=== PATIENT | male | born 1940 | race Caucasian/White ===

== ENCOUNTER 2016-07-31 17:54 | Inpatient (IN) | payer OTHER, MEDICARE ==
[~2016-07-31] VITALS: Ht 180.3 cm; Wt 103.9 kg
[~2016-07-31 17:54] MED LIST: ACETAMINOPHEN500 M4 PO; ASPIRIN325 M2 PO; CARBIDOPA AND L1 TA1 PO; CARBIDOPA-LEVODOPA 2 PO; DOXYCYCLINE HY100 M4 PO; FINASTERIDE5 MG PO; GEMFIBROZIL600 MG PO; HUMALOG 100U100 U/ML SC; HUMALOG100 U/ML SC; HUMALOG100 UNIT/2 SC; LANTUS INS100 UNITS/ SC; LANTUS100 UNIT/1 SC; LEVOTHYROXIN0.025 MG PO; LEVOTHYROXINE0.05 M1 PO; LIPITOR40 M1 PO; LISINOPRIL10 MG PO; LISINOPRIL20 M1 PO; METOPROLOL TART50 M1 PO; NITROGLYCER0.4 MG/H1 ACW; NITROSTAT0.4 MG PO; NITROSTAT0.4 MG SL; NOVOLOG100 U/ML SC; OMEPRAZOLE20 M2 PO; OMEPRAZOLE20 MG PO; PERCOCET 5-3251 EACH PO; SPECTAZOLE0.1 %/15 G TOP; SYMBICORT 160/41 PUF INH; SYNTHROID0.025 MG PO; TRIAMCINOLONE 0.1 GM EXT
--- NOTE | 2016-07-31 20:12 | ED UPPER/LOWER EXTREMITY COMPL ---
History of Present Illness General Chief Complaint: Lower Extremity Problems Stated Complaint: RT LEG REDNESS/SWELLING Source: patient, old records Exam Limitations: no limitations Vital Signs & Intake/Output Vital Signs & Intake/Output Vital Signs Date Time Temp Pulse Resp B/P Pulse O2 O2 Flow FiO2 Ox Delivery Rate 08/05 2225 98.1 73 20 132/70 96 Room Air 08/05 0935 128/70 08/05 0635 98.7 74 20 128/76 97 Room Air ED Intake and Output 08/05 0000 08/04 1200 Intake Total 1240 130 Output Total Balance 1240 130 Intake, IV 0 10 Intake, Oral 1240 120 Number 0 Bowel Movements Allergies Coded Allergies: codeine (RASH, STOMACH PAIN 09/07/15) fish derived (STOMACH PAIN FROM `SEA FOOD' 09/07/15) Reconcile Medications Acetaminophen 500 MG TABLET 1 TAB PO AD PRN PAIN (Reported) Aspirin (Aspirin*) 325 MG TABLET 1 TAB PO DAILY HEART HEALTH (Reported) Atorvastatin Calcium (Lipitor) 40 MG TABLET 1 TAB PO DAILY CHOLESTEROL ( Reported) Budesonide/Formoterol Fumara (Symbicort 160-4.5 Mcg Inhaler) 160 MCG/4.5 MCG PUF 2 PUF INH BID COPD (Reported) Carbidopa/Levodopa (Carbidopa and Levodopa) 25 MG/100 MG TAB 1 TAB PO TID PARKINSONS (Reported) Finasteride 5 MG TAB 1 TAB PO DAILY PROSTATE (Reported) Gemfibrozil 600 MG TABLET 1 TAB PO BID CHOLESTEROL (Reported) Insulin Lispro (Humalog) 100 UNIT/ML VIAL 20 U SC TIDAC DIABETES (Reported) Insulin-Lantus (Lantus) 100 UNIT/ML VIAL 60 U SC QPM DIABETES (Reported) Levothyroxine Sodium 25 MCG TABLET 1 TAB PO DAILY AC THYROID (Reported) Lisinopril 20 MG TABLET 1 TAB PO DAILY HEART (Reported) Metoprolol Tartrate 50 MG TABLET 1 TAB PO DAILY HEART HEALTH (Reported) Nitroglycerin (Nitrostat) 0.4 MG TAB.SUBL 1-3 TAB PO AD PRN HEART (Reported) Omeprazole 20 MG CAPSULE.DR 1 CAP PO DAILY PRN GERD (Reported) Triage Note: C/O PAIN IN REDNESS TO RIGHT LOWER LEG, X 3 WEEKS, WAS ADMITTED IN 07/02, HAD R GREAT TOE AMPUTATED AND STENT INSERTED. SENT BY DR. RAYA. PMH: DM. Triage Nurses Notes Reviewed? yes Onset: Gradual Duration: week(s): (few) Timing: recent history Severity: moderate Pain/Injury Location: Right: Knee, Foot. No Modifying Factors: none Associated Symptoms: swelling, redness, drainage from wound HPI: 75 year old male who presents to the ER for chief compliant of right leg redness and swelling for the past 3 weeks. He is s/p amputatino of his 2nd toe and vascular stent of the same leg. He states that he was following up at the wound care center and was told by Dr. Lloyd that he needed to have the stent revised. He was supposed to get cardiology clearance but could not go back and forth to the offices. He has not been back to the wound care center in a few weeks and now reports drainage and smell from lelia wound between his toes. He states that Dr. Raya also needs to revise the flap that was done. He denies any fever or chills, nausea or vomiting. Past History Travel History Traveled to [place] past 21 day No Medical History Any Pertinent Medical History? 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 Cardiovascular: CHF, hypertension, PVD, PPM RCW CABG Respiratory: COPD Gastrointestinal: CHRONIC PANCREATITIS CIRRHOSIS Hepatic: NONE Musculoskeletal: ARTHRITIS Psychiatric: anxiety, bipolar disease, depression, PANIC ANXIETY Endocrine: diabetes Blood Disorders: anemia History of MRSA: Yes History of VRE: No History of CDIFF: No Pneumonia Vaccine: 03/16/12 Influenza Vaccine: 02/15/16 Tetanus Vaccine: 10/17/12 Surgical History Surgical History: CABG Psychosocial History Who do you live with Patient/Self Services at Home Home Health Aide What is your primary language Portuguese Tobacco Use: Current Daily Use Daily Tobacco Use Amount/Type: => 5 Cigarettes daily ETOH Use: occasional use Family History Family History, If Any: FATHER CVA FH: CAD (coronary artery disease) FH: heart attack BROTHER FH: CAD (coronary artery disease) SISTER FH: CAD (coronary artery disease) Hx Contributory? No Review of Systems Review of Systems Constitutional: Reports: malaise, weakness. Denies: chills, fever. EENTM: Reports: no symptoms. Respiratory: Denies: cough, short of breath. Cardiovascular: Denies: chest pain. Gastrointestinal/Abdominal: Reports: no symptoms. Genitourinary: Reports: see HPI. Musculoskeletal: Reports: no symptoms. Skin: Reports: no symptoms. Neurological/Psychological: Reports: no symptoms. Hematologic/Endocrine: Denies: bruising, bleeding. Immunological: Denies: splenectomy. All Other Systems: Reviewed and Negative Physical Exam Physical Exam General Appearance: well developed/nourished, alert, awake, mild distress, obese Head: atraumatic Eyes: Bilateral: PERRL, EOMI. Ears, Nose, Throat: normal pharynx, normal ENT inspection, hearing grossly normal Neck: normal inspection, supple Cardiovascular/Respiratory: regular rate/rhythm Peripheral Pulses: 2+ radial (R), 2+ radial (L) Back: normal inspection Leg Left: normal range of motion, normal inspection Leg Right: swelling, soft tissue tenderness Hip Left: normal range of motion, normal inspection Hip Right: normal range of motion, normal inspection Knee Left: normal range of motion, normal inspection Knee Right: normal range of motion, normal inspection Foot Left: normal inspection, normal range of motion Foot Right: OPEN DRAINING WOUND AT SITE OF 2ND TOE AMPUTATION Neurologic/Tendon: normal motor functions, normal tendon functions, DIMINISHED SENSATION AND HOBBS IN RIGHT LEG AND FOOT Skin: intact, normal color, warm/dry Lymphatic: no anterior cervical adan Diagram Legs Front/Back 1) PAIN/SWELLING Feet Top 1) DRAINING WOUND Progress Differential Diagnosis: arterial insufficiency, cellulitis, DVT, OSTEOMYELITIS, DIABETIC FOOT WOUND Plan of Care: Orders Procedure Date/time Status Nothing by Mouth 08/06 B Active PROTHROMBIN TIME 08/06 0600 Active CBC WITHOUT DIFFERENTIAL 08/06 0600 Active BASIC ELECTROLYTES PLUS BUN&CR 08/06 0600 Active Consistent Carbohydrate 3 08/05 D Complete CULTURE,URINE 08/05 1130 Active CBC WITHOUT DIFFERENTIAL 08/05 0600 Complete Misc Message 08/05 UNK Active Nursing Misc 08/05 UNK Active CMS- Neurovascular Checks 08/05 UNK Active Current Medications Sig/Uvaldo Start time Last Medication Dose Stop Time Status Admin Atorvastatin Calcium 40 MG 1700 08/06 1700 AC (Lipitor) Patient Medication 1 UNIT 1700 08/06 1700 AC Teaching 08/06 1701 (STATIN EDUCATION) Aspirin 325 MG DAILY 08/06 1000 AC (Aspirin) Enoxaparin Sodium 40 MG DAILY 08/06 1000 AC (Lovenox) Finasteride 5 MG DAILY 08/06 1000 AC (Proscar) Lisinopril 20 MG DAILY 08/06 1000 AC (Prinivil) Metoprolol Tartrate 50 MG DAILY 08/06 1000 AC (Lopressor) Patient Medication 1 UNIT 1000 08/06 1000 AC Teaching 08/06 1001 (ANTICOAGULANT EDUCATION) Patient Medication 1 UNIT 1000 08/06 1000 AC Teaching 08/06 1001 (PATRICIA INHIBITOR EDUCATION) Patient Medication 1 UNIT 1000 08/06 1000 AC Teaching 08/06 1001 (BETA JLUIS EDUCATION) Levothyroxine Sodium 0.025 MG DAILY AC 08/06 0700 AC (Synthroid) Ibuprofen 600 MG Q6P PRN 08/05 1345 AC (Motrin) Lorazepam 0 Q1P PRN 08/05 1345 AC (Ativan) Laboratory Tests 08/05/16 0625: CBC w Diff NO MAN DIFF REQ, RBC 3.01 L, MCV 92.3, MCH 31.2 H, RDW 14.0, MPV 6.6 L, Gran % 59.1, Lymphocytes % 28.1, Monocytes % 9.5 H, Eosinophils % 2.9, Basophils % 0.4, Absolute Granulocytes 3.6, Absolute Lymphocytes 1.7, Absolute Monocytes 0.6, Absolute Eosinophils 0.2, Absolute Basophils 0, PUBS MCHC 33.8 Microbiology 08/05 1055 URINE ROUT: Urine Culture - RECD Diagnostic Imaging: Viewed by Me: Radiology Read, Ultrasound. Discussed w/RAD: Radiology Read, Ultrasound. Radiology Impression: PATIENT: JAMES GARCIA PRESENT AGE: 75 PATIENT ACCOUNT NO: [id number] : 38 LOCATION: [facility] ORDERING PHYSICIAN: MICHELE NOBLE MD SERVICE DATE: 07/31/16-2025 EXAM TYPE: US - US-UNILATERAL VENOUS DOPPLER EXAMINATION: US TRIPLEX LOWER EXTREMITY, RIGHT CLINICAL INFORMATION: Edema and leg swelling. Rule out DVT. COMPARISON: None TECHNIQUE: Color-flow triplex imaging with spectral analysis and compression Doppler were performed on the right lower extremity. FINDINGS: Respiratory variation, normal compression and augmented flow are noted throughout the lower extremity. The visualized common femoral vein, superficial femoral vein, profunda femoral vein, popliteal vein and midcalf peroneal and posterior tibial venous segments show no evidence of deep venous thrombosis. There is no Kay's cyst. IMPRESSION: Normal triplex scan without evidence of deep venous thrombosis involving the right lower extremity. DICTATED BY: TOBY SANTOS MD DATE/TIME DICTATED:07/31/162123 LAPPING MACHINE SET UP OPERATOR:LAUREN DATE/TIME TRANSCRIBED:2123 CONFIDENTIAL, DO NOT COPY WITHOUT APPROPRIATE AUTHORIZATION. < Electronically signed in Other Vendor System> SIGNED BY: TOBY SANTOS MD 07/31/162127 CXR Impression: PATIENT: JAMES GARCIA PRESENT AGE : 75 PATIENT ACCOUNT NO: [id number] : 38 LOCATION: [facility] ORDERING PHYSICIAN: MICHELE NOBLE MD SERVICE DATE: 07/31/16 EXAM TYPE: RAD - XRY -CHEST XRAY, PA AND LATERAL EXAMINATION: XR CHEST CLINICAL INFORMATION: Preoperative study. COMPARISON: Chest x-ray from 06/02/2016. TECHNIQUE: 2 views of the chest were obtained. FINDINGS: The cardiac silhouette is prominent with a dual-chamber pacemaker device in place. Lead tips are unchanged in position. No airspace opacities or pleural effusions are seen. There is no evidence of pulmonary vascular congestion. Median sternotomy wires are again visible. No acute osseous abnormality is seen. IMPRESSION: Clear lungs. No acute process. DICTATED BY: TOBY SANTOS MD DATE/TIME DICTATED:07/31/162133 LAPPING MACHINE SET UP OPERATOR:LAUREN DATE/TIME TRANSCRIBED:07/31/162133 CONFIDENTIAL, DO NOT COPY WITHOUT APPROPRIATE AUTHORIZATION. <Electronically signed in Other Vendor System> SIGNED BY: TOBY SANTOS MD 07/31/162138 Departure Departure Time of Disposition: 2219 Disposition: STILL A PATIENT Condition: Stable Clinical Impression Primary Impression: Wound, open, foot Referrals: ANGELA WINN APRN (PCP/Family) Departure Forms: Customer Survey General Discharge Information Admission Note Spoke With: CARLOS SUN MD Documentation of Exam: Documentation of any treatments & extenuating circumstances including Concerns Regarding Discharge (functional status, medication knowledge or non-compliance, living conditions, etc.) that warrant an admission rather than observation: [F/U CULTURES, PODIATRY CONSULTATION, VASCULAR CONSULTATION, PAIN CONTROL, POSSIBLE OR DEBRIDEMENT]
--- NOTE | 2016-07-31 21:28 | ULTRASOUND REPORT ---
EXAMINATION: US TRIPLEX LOWER EXTREMITY, RIGHT CLINICAL INFORMATION: Edema and leg swelling. Rule out DVT. COMPARISON: None TECHNIQUE: Color-flow triplex imaging with spectral analysis and compression Doppler were performed on the right lower extremity. FINDINGS: Respiratory variation, normal compression and augmented flow are noted throughout the lower extremity. The visualized common femoral vein, superficial femoral vein, profunda femoral vein, popliteal vein and midcalf peroneal and posterior tibial venous segments show no evidence of deep venous thrombosis. There is no Kay's cyst. IMPRESSION: Normal triplex scan without evidence of deep venous thrombosis involving the right lower extremity.
--- NOTE | 2016-07-31 21:39 | RADIOLOGY REPORT ---
EXAMINATION: XR CHEST CLINICAL INFORMATION: Preoperative study. COMPARISON: Chest x-ray from 06/02/2016. TECHNIQUE: 2 views of the chest were obtained. FINDINGS: The cardiac silhouette is prominent with a dual-chamber pacemaker device in place. Lead tips are unchanged in position. No airspace opacities or pleural effusions are seen. There is no evidence of pulmonary vascular congestion. Median sternotomy wires are again visible. No acute osseous abnormality is seen. IMPRESSION: Clear lungs. No acute process.
--- NOTE | 2016-07-31 22:01 | RADIOLOGY REPORT ---
EXAMINATION: XR FOOT, RIGHT CLINICAL INFORMATION: Drainage at the base of the second toe. Concern for osteomyelitis. COMPARISON: Right foot 07/11/2016 TECHNIQUE: AP, lateral, and oblique views of the right foot. FINDINGS: Patient has had resection of the right second toe at the metatarsophalangeal joint. The head of the second metatarsal cortex remains intact with no evidence of bone destruction. No radiographic evidence of osteomyelitis. Consider MRI without and with contrast for further evaluation. Small plantar calcaneal spur. Largest spur posterior calcaneus at the insertion of the Achilles tendon. Small vessel calcifications in the foot. IMPRESSION: Status post resection of the right second toe at the metatarsophalangeal joint. No radiographic evidence of osteomyelitis. Consider further assessment with MRI.
[2016-07-31 22:15] LABS: ABSOLUTE BASOPHIL COUNT 0 /CUMM (0.0-0.2); ABSOLUTE EOSINOPHIL COUNT 0.2 /CUMM (0.0-0.7); ABSOLUTE GRANULOCYTE CT 5.1 /CUMM (1.4-6.5); ABSOLUTE LYMPH COUNT 1.9 /CUMM (1.2-3.4); ABSOLUTE MONOCYTE COUNT 0.6 /CUMM (0.10-0.60); BASOPHIL % 0.3 % (0.0-2.0); EOSINOPHIL % 2.2 % (0-5); GRANULOCYTE % 65.7 % (42.2-75.2); HEMATOCRIT 32.4 % (42-52); MEAN CORPUSCULAR HGB 30.6 PG (27.0-31.0); MEAN CORPUSCULAR HGB CONC 33.6 G/DL (33.0-37.0); MEAN CORPUSCULAR VOLUME 91.2 FL (80.0-94.0); MEAN PLATELET VOLUME 6.1 FL (7.4-10.4); PLATELET COUNT 246 /CUMM (130-400); RBC DISTRIBUTION WIDTH 14.4 % (11.5-14.5); RED BLOOD CELL CT 3.56 /CUMM (4.70-6.10); WHITE BLOOD CELL COUNT 7.7 /CUMM (4.8-10.8)
[2016-07-31 22:30] LABS: PT 11.9 SEC (9.4-12.5); PTT 41 SEC (25-37)
--- NOTE | 2016-07-31 22:43 | History & Physical ---
GM VELASCO,DIANNA 07/31/16 2243: General Information and HPI Source of Information: patient, old records Exam Limitations: no limitations History of Present Illness: Patient is a 75-year-old male with significant past medical history of COPD not on home oxygen, coronary artery disease, s/p CABG, pacemaker placement, CHF, chronic liver disease/cirrhosis, chronic pancreatitis, peripheral vascular disease s/p, left superficial femoral artery and popliteal artery angioplasty and stent, hypothyroidism, Parkinson's disease,amputation of right great toe for osteomyelitis presented with chief complaints of pain and redness to the right lower leg since last 3 weeks. He denies fever, chills, nausea, vomiting, dyspnea, constipation. He visited Dr. Turner 2 and half weeks ago. He says that after amputation, the wound never healed and he is seeing discharge from the wound since last for 2 days. His box worker - Dr. Laws/Dr. Dimas. He recently had a stress test which was normal. 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 He decreased the amount of smoking from 5ppd to cigar. He sometimes chew cigarettes. Family history-father/medical/bipolar/sisters all have history of cases, diabetes, hypertension Allergies/Medications Allergies: Coded Allergies: codeine (RASH, STOMACH PAIN 09/07/15) fish derived (STOMACH PAIN FROM `SEA FOOD' 09/07/15) Home Med list Acetaminophen 500 MG TABLET 1 TAB PO AD PRN PAIN (Reported) Aspirin (Aspirin*) 325 MG TABLET 1 TAB PO DAILY HEART HEALTH (Reported) Atorvastatin Calcium (Lipitor) 40 MG TABLET 1 TAB PO DAILY CHOLESTEROL ( Reported) Budesonide/Formoterol Fumara (Symbicort 160-4.5 Mcg Inhaler) 160 MCG/4.5 MCG PUF 2 PUF INH BID COPD (Reported) Carbidopa/Levodopa (Carbidopa and Levodopa) 25 MG/100 MG TAB 1 TAB PO TID PARKINSONS (Reported) Finasteride 5 MG TAB 1 TAB PO DAILY PROSTATE (Reported) Gemfibrozil 600 MG TABLET 1 TAB PO BID CHOLESTEROL (Reported) Insulin Lispro (Humalog) 100 UNIT/ML VIAL 20 U SC TIDAC DIABETES (Reported) Insulin-Lantus (Lantus) 100 UNIT/ML VIAL 60 U SC QPM DIABETES (Reported) Levothyroxine Sodium 25 MCG TABLET 1 TAB PO DAILY AC THYROID (Reported) Lisinopril 20 MG TABLET 1 TAB PO DAILY HEART (Reported) Metoprolol Tartrate 50 MG TABLET 1 TAB PO DAILY HEART HEALTH (Reported) Nitroglycerin (Nitrostat) 0.4 MG TAB.SUBL 1-3 TAB PO AD PRN HEART (Reported) Omeprazole 20 MG CAPSULE.DR 1 CAP PO DAILY PRN GERD (Reported) Past History Travel History Traveled to [place] past 21 day No Medical History Neurological: Parkinson's disease, 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 Cardiovascular: CHF, hypertension, PVD, PPM RCW CABG Respiratory: COPD Gastrointestinal: CHRONIC PANCREATITIS CIRRHOSIS Hepatic: NONE Musculoskeletal: ARTHRITIS Psychiatric: anxiety, bipolar disease, depression, PANIC ANXIETY Endocrine: diabetes Blood Disorders: anemia History of MRSA: Yes History of VRE: No History of CDIFF: No Pneumonia Vaccine: 03/16/12 Influenza Vaccine: 02/15/16 Tetanus Vaccine: 10/17/12 Surgical History Surgical History: CABG Past Family/Social History Family History Relations & Conditions if any FATHER CVA FH: CAD (coronary artery disease) FH: heart attack BROTHER FH: CAD (coronary artery disease) SISTER FH: CAD (coronary artery disease) Psychosocial History Who Do You Live With? self Services at Home: Home Health Aide ETOH Use: occasional use Functional Ability ADLs Unknown: dressing, eating, toileting, bathing. Ambulation: walker IADLs Needs Assist: shopping, housework, transportation, medication admin. Review of Systems Review of Systems Constitutional: Denies: no symptoms. EENTM: Denies: no symptoms. Cardiovascular: Denies: no symptoms. Respiratory: Denies: no symptoms. GI: Denies: no symptoms. Genitourinary: Denies: no symptoms. Musculoskeletal: Denies: no symptoms. Skin: Denies: no symptoms. Neurological/Psychological: Reports: anxiety. Exam & Diagnostic Data Last 24 Hrs of Vital Signs/I&O Vital Signs Date Time Temp Pulse Resp B/P Pulse O2 O2 Flow FiO2 Ox Delivery Rate 08/01 0628 98.7 86 20 146/74 96 Room Air 08/01 0152 98.3 75 20 142/76 96 Room Air 07/31 2359 98 Room Air 07/31 2307 97.8 59 18 167/86 99 07/31 1840 98.0 93 18 172/90 98 Room Air Intake & Output 08/01 0800 02 0000 07/31 1600 Intake Total Output Total 150 250 Balance -150 -250 Output, Urine 150 250 Patient 104.326 kg 104.326 kg Weight Physical Exam General Appearance Alert, Oriented X3, Cooperative, No Acute Distress Skin right lower limb interdigital ulcers, with necrosed Soft tissue HEENT Atraumatic, PERRLA, EOMI Neck Supple, No JVD Cardiovascular Regular Rate, Normal S1, Normal S2 Lungs Clear to Auscultation, Normal Air Movement Abdomen Soft, No Tenderness, distended Neurological Normal Speech Extremities No Clubbing, No Cyanosis, No Edema Vascular Normal Pulses Assessment/Plan Assessment: Patient is a 75-year-old male with significant past medical history of COPD not on home oxygen, coronary artery disease, s/p CABG, pacemaker placement, CHF, chronic liver disease/cirrhosis, chronic pancreatitis, peripheral vascular disease s/p, left superficial femoral artery and popliteal artery angioplasty and stent, hypothyroidism, Parkinson's disease,amputation of right great toe for osteomyelitis presented with chief complaints of pain and redness to the right lower leg since last 3 weeks. Vital signs at the time of admission -temperature 98.3, pulse 93, respiratory rate 18, blood pressure 172/90, SPO2 98% on room air CXR - No any acute cardiac pulmonary process. Right Foot x-ray - No evidence of osteomyelitis. Doppler venous ultrasound right lower extremity -negative for DVT plan - * We placed consult for vascular surgery, wound, podiatry consult. We will follow the recommendation. * We'll follow the bone scan. * We will take culture from the wound * We placed the podiatry consult and kept patient nothing by mouth for possible debridement today * We will follow the cultures, after debridement, and we'll give the antibiotic accordingly * We will follow the patient off antibiotic * We will give pain medication according to severity of pain * We will continue all home medication * Will check blood sugar 3 times a day and bed time and adjust with NovoLog according to sliding scale * Diet-nothing by mouth * CODE STATUS-full code * DVT prophylaxis-ALP S/heparin As Ranked By This Provider Problem List: 1. Diabetes mellitus 2. Sleep apnea 3. Dyslipidemia 4. Parkinson disease 5. Hypothyroidism 6. PVD (peripheral vascular disease) 7. Wound infection Core Measures/Miscellaneous Acute Coronary Syndrome ACS Diagnosis: No Cerebrovascular Accident CVA/TIA Diagnosis: No Congestive Heart Failure CHF Diagnosis: No Venous Thromboembolism VTE Risk Factors: Age > 40 VTE Prophylaxis Ordered Inpt: Mechanical (ALPS/TEDS) [facility] prophylaxis d/t: No contraindications No VTE Pharm Prophylaxis d/t: No contraindications VTE Diagnosis: No VTE Type: NONE VTE Confirmed by (Test): NONE Severe Sepsis Severe Sepsis Present: No Septic Shock Septic Shock Present: No Miscellaneous Documentation Attending Case Discussed With: CARLOS SUN MD Primary Care Physician: ANGELA WINN APRN Patient sees these Specialists none Level of Patient Care: General Medicine DAVIAN MATOS 08/01/16 0431: Resident Review Statement Resident Statement: agreed with intelligence intern Other Findings: He is 75-year-old man with past medical history of hypertension, severe peripheral vascular disease status post left superficial femoral artery and popliteal artery angioplasty and stent of right superficial femoral artery, COPD , coronary artery disease status post CABG, pacemaker placement, chronic pancreatitis, cirrhosis, insulin-dependent diabetes mellitus, hypothyroidism, Parkinson's disease, CHF and acute gangrenous necrosis with underlying osteomyelitis of right second toe status post amputation by Dr. Berrios in May 2016 with negative bone margins for osteo was sent in to [facility] by Dr. Berrios from wound care center. Patient is complaining of right leg swelling, redness and right foot second interdigital chronic nonhealing ulcer draining pussy discharge. Patient denies any fever, chills. Review of systems negative. Patient is current smoker. Has been smoking since age of 10. Used to smoke 5 packs per day. Trying to quit. Drinks alcohol occasionally. Vitals on admission: Temperature 90.8, pulse 93, respiratory rate 18, blood pressure 172/90 and oxygen saturation 98% on room air Positive physical exam findings: Systolic murmur on heart auscultation, her right lower leg swelling redness. Leg and foot are warm and tender. Pussy discharge coming out from ulcer. Fungal infection of toenails. Skin is dry with chronic venous stasis changes. Left leg is cold and looks pale. Pulses are weakly palpable. Sensations intact. Pertinent labs: H&H 10.9/32.4, ESR 75, alkaline phosphatase 140 Right Foot x-ray: No radiographic evidence of osteomyelitis. CXR: Clear lungs. No acute process. Doppler venous ultrasound right lower extremity is negative for DVT Assessment and plan He is 75-year-old man with multiple comorbidities is going to be admitted on general medicine floor for cellulitis of right lower extremity and foot with infection of nonhealing chronic ulcer at the site of right second toe amputation. We will monitor vitals closely. We will follow him off antibiotics for now pending debridement tomorrow. We will start antibiotics after cultures. Foot x-rays not showing any evidence of osteomyelitis. We will get bone scan to rule out osteomyelitis.. Patient cannot get MRI because of pacemaker. Keep patient nothing by mouth. Continue all his home medications. Admitted binge drinking to cope his chronic pain. We will put patient on CIWA protocol and IV Ativan as needed per CIWA. Podiatry consult, vascular surgery consult and will consult in a.m. Pain management pathway. Subcutaneous Lovenox for DVT prophylaxis. Full code. CARLOS SUN 08/01/16 0513: Attending MD Review Statement Attending Statement Attending MD Statement: examined this patient, discuss w/resident/PA/BITE BLOCK MAKER, agreed w/resident/PA/BITE BLOCK MAKER, reviewed EMR data (avail), reviewed images, amended to note Attending Assessment/Plan: CC: chronic non healing right foot wound PMH: CAD S/P CABG, pacemaker, HLD, PVD, HTN, HLD, insulin-dependent diabetes, hypothyroidism, all colic cirrhosis, chronic pancreatitis, COPD He was in [facility] in May for dry gangrene and cellulitis of right foot underwent I and D of deep fascia with exposure of extensor and flexor tendons of right foot, partial resection of right second toe, closure of necrotic wound. He also underwent ultrasound-guided left common femoral artery access and angioplasty of the right femoral artery, angioplasty and stenting of right SFA. Patient was following up with outpatient clinic, but wound was not healing. Patient states that the stent was stenosed according to vascular surgeon, needs reevaluation, with worsening of right foot pain, swelling, discharge, non-healing wound it was difficult for him to follow up outpatient wound care, vascular, and podiatry so he came to ER. He Denies fever, chills, chest pain, SOB, any repeat trauma. Vitals: Afebrile, HR, RR, BP, O2 saturation within acceptable range. On exam: A O 3, no apparent distress, neck supple, no JVD, no lymphadenopathy, mucosa moist, CVS: S1-S2, irregular, systolic murmur in aortic area, diastolic murmur in mitral area, RS: Clear to auscultation bilaterally. Abdomen: Obese, NT, ND, bowel sounds present. Right lower extremity is increased girth compared to left lower extremity, but this appears to be chronic after the vein graft taken for CABG, he has scar on the medial aspect. Medial aspect along the ankle has some redness, erythema, increased temperature but no crepitus. Second digit web space wound is deep, foul smelling pus discharge, dorsal aspect of foot has dry stasis dermatitis changes without much inflammation but bony tenderness present on dorsum of foot. Labs: WBC 7.7, hemoglobin 10.9, ESR 75, CMP unremarkable. Right foot x-ray: S/P resection of right second toe at metatarsophalangeal joint , no radiological evidence of osteomyelitis CXR: No acute processes DVT Doppler right lower extremity: Normal scan without any evidence of DVT A and P #1 chronic nonhealing wound right lower extremity after the procedure: Currently patient does not have any signs of sepsis, afebrile, no tachycardia, no leukocytosis. Patient has deep pus filled cavity in the second web space. patient has some cellulitis medial aspect of right lower extremity around ankle. Get bone scan to rule out developing osteomyelitis, hold off antibiotics for now. Consult cnc cutting operator Dr. Berrios in a.m. for likely debridement and tissue culture for antibiotic sensitivity. Consult vascular surgery in a.m. antibiotics after the procedure if possible. Adequate pain control #2 chronic stable conditions: CAD, CHF, HTN, HLD, diabetes, hypothyroidism: Continue all home medications, continue sliding scale and basal insulin for DM. Patient likely to have heavy alcohol use, continue scheduled and when necessary Ativan according to CIWA score
[2016-08-01 01:52] VITALS: BP 142/76
--- NOTE | 2016-08-01 05:15 | Admission Certification ---
Admission Certification Certification Statement - As attending physician, I certify that at the time of - admission, based on clinical presentation, severity of - symptoms, need for further diagnostic testing and - therapeutic interventions, and risk of adverse outcomes - without in-hospital treatment, in my clinical assessment, - this patient requires an acute hospital stay for a minimum - of two nights or longer. I have also considered psychsocial - factors such as support system, advanced age, financial - issues, cognitive issues, and failed out-patient treatments, - past re-admission history, safety of patient, and lack of - compliance as applicable. Specific rationale supporting this admission is: Chronic nonhealing wound right lower extremity with secondary infection and cellulitis
[2016-08-01 06:28] VITALS: BP 146/74
[2016-08-01 08:23] LABS: ABSOLUTE BASOPHIL COUNT 0 /CUMM (0.0-0.2); ABSOLUTE EOSINOPHIL COUNT 0.2 /CUMM (0.0-0.7); ABSOLUTE GRANULOCYTE CT 4.2 /CUMM (1.4-6.5); ABSOLUTE LYMPH COUNT 1.8 /CUMM (1.2-3.4); ABSOLUTE MONOCYTE COUNT 0.6 /CUMM (0.10-0.60); BASOPHIL % 0.4 % (0.0-2.0); EOSINOPHIL % 2.5 % (0-5); GRANULOCYTE % 62.1 % (42.2-75.2); MEAN CORPUSCULAR HGB CONC 33.8 G/DL (33.0-37.0); MEAN CORPUSCULAR VOLUME 91.9 FL (80.0-94.0); MEAN PLATELET VOLUME 6.3 FL (7.4-10.4); PLATELET COUNT 218 /CUMM (130-400); RBC DISTRIBUTION WIDTH 14.4 % (11.5-14.5); RED BLOOD CELL CT 3.16 /CUMM (4.70-6.10); WHITE BLOOD CELL COUNT 6.8 /CUMM (4.8-10.8)
--- NOTE | 2016-08-01 08:38 | Cons- Wound Care ---
General Information and HPI Consulting Request Date of Consult: 08/01/16 Requested By: CARLOS SUN MD Reason for Consult: Nonhealing right diabetic foot ulcer complicated by osteomyelitis History of Present Illness: Patient is 75-year-old gentleman with long-standing brittle diabetes history of heart disease peripheral vascular disease status post angioplasty admitted with concerns over possible soft tissue skin infection osteomyelitis following surgical resection of his right second toe. Mr. Arteaga presented May with dry gangrene of the right second toe he underwent angioplasty stent placement on June 04 and underwent amputation of a necrotic toe with evidence of osteomyelitis. Had a persistent nonhealing wound treated with Santyl ointment Betadine he's had increasing leg swelling. Allergies/Medications Allergies: Coded Allergies: codeine (RASH, STOMACH PAIN 09/07/15) fish derived (STOMACH PAIN FROM `SEA FOOD' 09/07/15) Home Med List: Acetaminophen 500 MG TABLET 1 TAB PO AD PRN PAIN (Reported) Aspirin (Aspirin*) 325 MG TABLET 1 TAB PO DAILY HEART HEALTH (Reported) Atorvastatin Calcium (Lipitor) 40 MG TABLET 1 TAB PO DAILY CHOLESTEROL ( Reported) Budesonide/Formoterol Fumara (Symbicort 160-4.5 Mcg Inhaler) 160 MCG/4.5 MCG PUF 2 PUF INH BID COPD (Reported) Carbidopa/Levodopa (Carbidopa and Levodopa) 25 MG/100 MG TAB 1 TAB PO TID PARKINSONS (Reported) Finasteride 5 MG TAB 1 TAB PO DAILY PROSTATE (Reported) Gemfibrozil 600 MG TABLET 1 TAB PO BID CHOLESTEROL (Reported) Insulin Lispro (Humalog) 100 UNIT/ML VIAL 20 U SC TIDAC DIABETES (Reported) Insulin-Lantus (Lantus) 100 UNIT/ML VIAL 60 U SC QPM DIABETES (Reported) Levothyroxine Sodium 25 MCG TABLET 1 TAB PO DAILY AC THYROID (Reported) Lisinopril 20 MG TABLET 1 TAB PO DAILY HEART (Reported) Metoprolol Tartrate 50 MG TABLET 1 TAB PO DAILY HEART HEALTH (Reported) Nitroglycerin (Nitrostat) 0.4 MG TAB.SUBL 1-3 TAB PO AD PRN HEART (Reported) Omeprazole 20 MG CAPSULE.DR 1 CAP PO DAILY PRN GERD (Reported) Review of Systems Review of Systems: The above Past History Travel History Traveled to [place] past 21 day No Medical History Blood Transfusion Hx: No Neurological: Parkinson's disease, 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 Cardiovascular: CHF, hypertension, PVD, PPM RCW CABG Respiratory: COPD Gastrointestinal: CHRONIC PANCREATITIS CIRRHOSIS Hepatic: NONE Musculoskeletal: ARTHRITIS Psychiatric: anxiety, bipolar disease, depression, PANIC ANXIETY Endocrine: diabetes Blood Disorders: anemia Surgical History Surgical History: CABG Family History Relations & Conditions If Any: FATHER CVA FH: CAD (coronary artery disease) FH: heart attack BROTHER FH: CAD (coronary artery disease) SISTER FH: CAD (coronary artery disease) Psychosocial History Who Do You Live With? self Services at Home: Home Health Aide Smoking Status: Current Everyday Smoker ETOH Use: occasional use Functional Ability ADLs Unknown: dressing, eating, toileting, bathing. Ambulation: walker IADLs Needs Assist: shopping, housework, transportation, medication admin. Exam & Diagnostic Data Vital Signs and I&O Vital Signs Result Date Time Pulse Ox 96 08/01 627 B/P 146/74 08/01 627 O2 Delivery Room Air 08/01 627 Temp 98.7 08/01 627 Pulse 86 08/01 627 Resp 20 08/01 627 Intake & Output 08/01 0000 07/31 1600 07/31 0800 Intake Total Output Total 250 Balance -250 Output, Urine 250 Patient 230 lb Weight Exam of the right leg shows there to be 2-3+ pitting edema there is erythema present ulcers are not palpable but were previously easily identified by hand- held Doppler ultrasound of the surgical resection site is a nonhealing unstageable wound measuring 4 x 1.4 cm with 100% yellow fill Assessment/Plan Impression/Plan: 75-year-old gentleman with long-standing diabetes peripheral vascular disease has a nonhealing diabetic foot ulcers status post amputation she will require surgical debridement and re-evaluation for persistent osteomyelitis of the residual metatarsal. If there are no further vascular interventions available and patient's compliance can be assured he would be a candidate for hyperbaric oxygen therapy. Patient is scheduled to go to the operating room later today following discussion with Dr. Berrios wound care recommendations will be provided Consult Acknowledgment - Thank you for your consult request.
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
[2016-08-01 14:26] VITALS: BP 150/90
--- NOTE | 2016-08-01 17:38 | Cons- Cardiology ---
General Information and HPI Consulting Request Date of Consult: 08/01/16 Requested By: MITCHEL BETH MD Reason for Consult: Cardiac clearance for foot debridement and also angiogram. Source of Information: patient, old records Exam Limitations: no limitations History of Present Illness: James Rogers is a 75 year old man with a history of coronary artery disease with bypass surgery about 15 years ago. He has had no ischemic events since that time. He does have a pacemaker implanted at 2008 at [facility] for sinus node dysfunction, which I have been following intermittently, as the patient is frequently noncompliant with office visits. The patient also has had multiple angioplasties, but this was before I began caring for him, and I have no information on that. The patient had a nuclear stress test at [facility] about 3 years ago, which was apparently negative for ischemia. I saw him in the office in October 2013, at which time he was asymptomatic from a cardiac standpoint. He had some mild stable chronic dyspnea on exertion, no chest pain. EKG showed sinus rhythm with PACs, some atrial pacing, and some nonspecific T wave changes. The patient subsequently was hospitalized in November 2013 complaining of inhaling some insecticide and having nausea and vomiting and had an elevated lactic acid. He also had a high alcohol level on admission. I checked his pacemaker on that admission and it was working well and still had time left on the battery. He had had a previous admission in July 2013 for atypical chest pain with a negative evaluation. On 05/09/2015 the patient came to the [facility] emergency department complaining of a near syncopal episode which occurred while he was taking a shower with the aide in the apartment. There is no history of chest pain or excessive shortness of breath The patient presented in 2014 with a syncopal episode which we thought was either vasovagal or due to some dehydration. He was rehydrated and improved, and stayed in the hospital for a couple of extra days for social reasons, but otherwise was discharged home in good condition. I last saw James in the office in August 2015. I checked his device and ordered a stress test, which was a Persantine nuclear stress test and was negative for ischemia. James has been complaining intermittently of the chest pain both at rest and with exertion. I thought this was noncardiac pain and was reassured by the negative stress test on this point. The patient was again admitted in May 2016 for peripheral vascular disease with limb ischemia. He underwent stenting of his right superficial femoral artery and also debridement of his right foot. He tolerated these procedures well. His echocardiogram had shown more severe aortic stenosis than previously. His pacemaker was interrogated and showed the pacemaker is working okay. He is pacing in the atrium about 43% of the time and not at all in the ventricle. He has not had any significant mode switch episodes i.e. atrial fibrillation. The pacemaker battery is good for another 4-5 years. The patient is now admitted for further vascular issues and further ischemia of his right foot. He is going to have probable debridement of his right foot and another angiogram to determine the status of his arteries. James states that he is not having any exertional chest pain. He does have shortness of breath with exertion. It is mostly limited by his leg and foot pain. Allergies/Medications Allergies: Coded Allergies: codeine (RASH, STOMACH PAIN 09/07/15) fish derived (STOMACH PAIN FROM `SEA FOOD' 09/07/15) Home Med List: Acetaminophen 500 MG TABLET 1 TAB PO AD PRN PAIN (Reported) Aspirin (Aspirin*) 325 MG TABLET 1 TAB PO DAILY HEART HEALTH (Reported) Atorvastatin Calcium (Lipitor) 40 MG TABLET 1 TAB PO DAILY CHOLESTEROL ( Reported) Budesonide/Formoterol Fumara (Symbicort 160-4.5 Mcg Inhaler) 160 MCG/4.5 MCG PUF 2 PUF INH BID COPD (Reported) Carbidopa/Levodopa (Carbidopa and Levodopa) 25 MG/100 MG TAB 1 TAB PO TID PARKINSONS (Reported) Finasteride 5 MG TAB 1 TAB PO DAILY PROSTATE (Reported) Gemfibrozil 600 MG TABLET 1 TAB PO BID CHOLESTEROL (Reported) Insulin Lispro (Humalog) 100 UNIT/ML VIAL 20 U SC TIDAC DIABETES (Reported) Insulin-Lantus (Lantus) 100 UNIT/ML VIAL 60 U SC QPM DIABETES (Reported) Levothyroxine Sodium 25 MCG TABLET 1 TAB PO DAILY AC THYROID (Reported) Lisinopril 20 MG TABLET 1 TAB PO DAILY HEART (Reported) Metoprolol Tartrate 50 MG TABLET 1 TAB PO DAILY HEART HEALTH (Reported) Nitroglycerin (Nitrostat) 0.4 MG TAB.SUBL 1-3 TAB PO AD PRN HEART (Reported) Omeprazole 20 MG CAPSULE.DR 1 CAP PO DAILY PRN GERD (Reported) Review of Systems Review of Systems: He has no complaints in the review of systems outside of his presenting complaint. Past History Travel History Traveled to [place] past 21 day No Medical History Blood Transfusion Hx: No Neurological: Parkinson's disease, 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 Cardiovascular: CHF, hypertension, PVD, PPM RCW CABG Respiratory: COPD Gastrointestinal: CHRONIC PANCREATITIS CIRRHOSIS Hepatic: NONE Musculoskeletal: ARTHRITIS Psychiatric: anxiety, bipolar disease, depression, PANIC ANXIETY Endocrine: diabetes Blood Disorders: anemia Surgical History Surgical History: CABG Family History Relations & Conditions If Any: FATHER CVA FH: CAD (coronary artery disease) FH: heart attack BROTHER FH: CAD (coronary artery disease) SISTER FH: CAD (coronary artery disease) Psychosocial History Who Do You Live With? self Services at Home: Home Health Aide Smoking Status: Current Everyday Smoker ETOH Use: occasional use Functional Ability ADLs Unknown: dressing, eating, toileting, bathing. Ambulation: walker IADLs Needs Assist: shopping, housework, transportation, medication admin. Exam & Diagnostic Data Vital Signs and I&O Vital Signs Date Time Temp Pulse Resp B/P Pulse O2 O2 Flow FiO2 Ox Delivery Rate 08/01 1426 97.9 68 18 150/90 96 Room Air 08/01 1155 120/64 08/01 1155 120/64 08/01 0628 98.7 86 20 146/74 96 Room Air 08/01 0152 98.3 75 20 142/76 96 Room Air 07/31 2359 98 Room Air 07/31 2307 97.8 59 18 167/86 99 07/31 1840 98.0 93 18 172/90 98 Room Air Intake & Output 08/01 1600 08/01 0800 08/01 0000 07/31 1600 07/31 0800 07/31 0000 Intake Total 400 300 Output Total 500 250 Balance 400 -200 -250 Intake, IV 400 300 Intake, Oral 0 Number 0 0 Bowel Movements Output, Urine 500 250 Patient 230 lb 230 lb Weight Physical Exam: He is an elderly obese chronically ill-appearing male in no acute distress. HEENT exam is normal Chest is clear limited exam Heart reveals somewhat irregular rhythm. There is a grade 3/6 harsh systolic ejection murmur at the base. Abdomen is benign Extremities reveal right foot is wrapped. Left foot is cool. Labs/Olegario Results: Laboratory Tests 08/01 07/31 0625 2230 Chemistry Sodium (137 - 145 mmol/L) 138 Potassium (3.5 - 5.1 mmol/L) 4.2 Chloride (98 - 107 mmol/L) 105 Carbon Dioxide (22 - 30 mmol/L) 23 Anion Gap (5 - 16) 11 BUN (9 - 20 mg/dL) 12 Creatinine (0.7 - 1.2 mg/dL) 0.9 Estimated GFR (>60 ml/min) > 60 BUN/Creatinine Ratio (7 - 25 %) 13.3 Hematology CBC w Diff NO MAN DIFF REQ WBC (4.8 - 10.8 /CUMM) 6.8 RBC (4.70 - 6.10 /CUMM) 3.16 L Hgb (14.0 - 18.0 G/DL) 9.8 L Hct (42 - 52 %) 29.0 L MCV (80.0 - 94.0 FL) 91.9 MCH (27.0 - 31.0 PG) 31.0 RDW (11.5 - 14.5 %) 14.4 Plt Count (130 - 400 /CUMM) 218 MPV (7.4 - 10.4 FL) 6.3 L Gran % (42.2 - 75.2 %) 62.1 Lymphocytes % (20.5 - 51.1 %) 26.8 Monocytes % (1.7 - 9.3 %) 8.2 Eosinophils % (0 - 5 %) 2.5 Basophils % (0.0 - 2.0 %) 0.4 Absolute Granulocytes (1.4 - 6.5 /CUMM) 4.2 Absolute Lymphocytes (1.2 - 3.4 /CUMM) 1.8 Absolute Monocytes (0.10 - 0.60 /CUMM) 0.6 Absolute Eosinophils (0.0 - 0.7 /CUMM) 0.2 Absolute Basophils (0.0 - 0.2 /CUMM) 0 PUBS MCHC (33.0 - 37.0 G/DL) 33.8 Urines Urine Color (YEL,AMB,STR) STRAW Urine Clarity (CLEAR) CLEAR Urine pH (5.0 - 8.0) 6.0 Ur Specific [place] (1.001 - 1.035) <= 1.005 Urine Protein (NEG,<30 MG/DL) 30 H Urine Ketones (NEG) NEG Urine Nitrite (NEG) NEG Urine Bilirubin (NEG) NEG Urine Urobilinogen (0.1 - 1.0 EU/dl) 0.2 Ur Leukocyte Esterase (NEG) NEG Ur Microscopic SEDIMENT EXAMINED Urine RBC (0 - 5 /HPF) RARE Urine Hemoglobin (NEG) TRACE-INTACT H Urine Glucose (N MG/DL) NEG 07/31 2150 Chemistry Sodium (137 - 145 mmol/L) 139 Potassium (3.5 - 5.1 mmol/L) 3.8 Chloride (98 - 107 mmol/L) 102 Carbon Dioxide (22 - 30 mmol/L) 25 Anion Gap (5 - 16) 13 BUN (9 - 20 mg/dL) 13 Creatinine (0.7 - 1.2 mg/dL) 1.0 Estimated GFR (>60 ml/min) > 60 BUN/Creatinine Ratio (7 - 25 %) 13.0 Glucose (65 - 99 mg/dL) 116 H Calcium (8.4 - 10.2 mg/dL) 9.5 Total Bilirubin (0.2 - 1.3 mg/dL) 0.7 AST (17 - 59 U/L) 28 ALT (21 - 72 U/L) 26 Alkaline Phosphatase (< 127 U/L) 140 H Total Protein (6.3 - 8.2 g/dL) 7.3 Albumin (3.5 - 5.0 g/dL) 4.3 Globulin (1.9 - 4.2 gm/dL) 3.0 Albumin/Globulin Ratio (1.1 - 2.2 %) 1.4 Coagulation PT (9.4 - 12.5 SEC) 11.9 INR (0.90 - 1.17) 1.13 APTT (25 - 37 SEC) 41 H Hematology CBC w Diff NO MAN DIFF REQ WBC (4.8 - 10.8 /CUMM) 7.7 RBC (4.70 - 6.10 /CUMM) 3.56 L Hgb (14.0 - 18.0 G/DL) 10.9 L Hct (42 - 52 %) 32.4 L MCV (80.0 - 94.0 FL) 91.2 MCH (27.0 - 31.0 PG) 30.6 RDW (11.5 - 14.5 %) 14.4 Plt Count (130 - 400 /CUMM) 246 MPV (7.4 - 10.4 FL) 6.1 L Gran % (42.2 - 75.2 %) 65.7 Lymphocytes % (20.5 - 51.1 %) 24.6 Monocytes % (1.7 - 9.3 %) 7.2 Eosinophils % (0 - 5 %) 2.2 Basophils % (0.0 - 2.0 %) 0.3 Absolute Granulocytes (1.4 - 6.5 /CUMM) 5.1 Absolute Lymphocytes (1.2 - 3.4 /CUMM) 1.9 Absolute Monocytes (0.10 - 0.60 /CUMM) 0.6 Absolute Eosinophils (0.0 - 0.7 /CUMM) 0.2 Absolute Basophils (0.0 - 0.2 /CUMM) 0 PUBS MCHC (33.0 - 37.0 G/DL) 33.6 ESR Westergren (0 - 10 MM) 75 H Diagnostic Data EKG Results EKG shows periods of sinus rhythm with some atrial paced beats and frequent PACs. There are diffuse ischemic ST-T wave abnormalities. CXR Results PATIENT: JAMES ROGERS PRESENT AGE: 75 PATIENT ACCOUNT NO: [id number] : 38 LOCATION: [facility] ORDERING PHYSICIAN: MICHELE NOBLE MD SERVICE DATE: 07/31/16 EXAM TYPE: RAD - XRY-CHEST XRAY, PA AND LATERAL EXAMINATION: XR CHEST CLINICAL INFORMATION: Preoperative study. COMPARISON: Chest x-ray from 06/02/2016. TECHNIQUE: 2 views of the chest were obtained. FINDINGS: The cardiac silhouette is prominent with a dual-chamber pacemaker device in place. Lead tips are unchanged in position. No airspace opacities or pleural effusions are seen. There is no evidence of pulmonary vascular congestion. Median sternotomy wires are again visible. No acute osseous abnormality is seen. IMPRESSION: Clear lungs. No acute process. DICTATED BY: TOBY SANTOS MD DATE/TIME DICTATED:07/31/162133 COURTROOM REPORTER:LAUREN DATE/TIME TRANSCRIBED:07/31/162133 CONFIDENTIAL, DO NOT COPY WITHOUT APPROPRIATE AUTHORIZATION. <Electronically signed in Other Vendor System> SIGNED BY: TOBY SANTOS MD 2138 Assessment/Plan Assessment/Plan James is a 75-year-old man with previous bypass surgery, his pacemaker, severe aortic stenosis and severe peripheral vascular disease. From a cardiac standpoint he is stable without much in the way of symptoms. We have recently checked his pacemaker which is working okay and he is not pacemaker dependent. He is not specifically symptomatic from his aortic stenosis. I think he is an acceptable candidate for either debridement or angiogram and further vascular work. I will follow him with you as necessary from a cardiac standpoint. Consult Acknowledgment - Thank you for your consult request.
--- NOTE | 2016-08-01 18:16 | NUCLEAR MEDICINE REPORT ---
EXAMINATION: THREE PHASE BONE SCAN CLINICAL INFORMATION: Right foot chronic nonhealing wound, question osteomyelitis. COMPARISON: The previous study dated 05/31/2016 is available for comparison. Radiographs of the right foot dated 07/31/2016 are available for comparison. TECHNIQUE: Initial rapid sequence images were obtained over the the during the bolus injection of 37 mCi Tc-99m MDP. Static images of the knees to the feet were then obtained 2.5 hours post injection. FINDINGS: Initial rapid sequence images show a diffuse increase in flow to the right foot. There is slightly more prominently increased flow in a focus in the region of the distal right second metatarsal bone. Blood pool images obtained immediately following the flow study show a mild diffuse increase in activity in the right foot compared to the left with slightly more prominently increased activity present in the region of the right second distal metatarsal bone. The second digit of the right foot is absent. No significant blood pool abnormalities are noted in the left foot. The delayed static images show absence of the second digit of the right foot and a small focus of mildly increased activity in the distal aspect of the right second metatarsal bone, likely at the amputation site. No other abnormalities are present in the right foot or ankle. In the left foot there is minimally increased activity at the insertion of the left Achilles tendon in the posterior aspect of the left calcaneus, likely due to a mild enthesitis. In the knees there is mildly increased activity in the patellae bilaterally. 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 There is no radiological evidence of osteomyelitis. IMPRESSION: Mild abnormality in all 3 phases in the distal right second metatarsal bone is noted and is suspicious for an indolent focus of osteomyelitis, although these findings could represent post operative inflammatory changes. However, in the clinical setting of a nonhealing wound, intensity of activity on the delayed static images strongly suspicious for osteomyelitis. This region could be much better characterize with better differentiating soft tissue versus osseous abnormalities with MRI, performed without and with intravenous contrast.
[2016-08-01 21:54] VITALS: BP 154/68
[2016-08-02 06:23] VITALS: BP 140/66
--- NOTE | 2016-08-02 08:38 | Event Note ---
Event Note Event Note: SITUATION: * Planned angiography on friday08/05/[address] Lee * Planned wound debridement on friday08/06/[address] Allred BRIEF: * WBC scan results: Mild abnormality in all 3 phases in the distal right second metatarsal bone is noted and is suspicious for an indolent focus of osteomyelitis, although these findings could represent post operative inflammatory changes. However, in the clinical setting of a nonhealing wound, intensity of activity on the delayed static images strongly suspicious for osteomyelitis. This region could be much better characterize with better differentiating soft tissue versus osseous abnormalities with MRI, performed without and with intravenousc contrast. * RLE arterial doppler: Patent arteries to the right lower extremity. Flow is now seen in the right anterior tibial artery. * Currently off antibiotics * Dr Laws will be risk stratifying the patient * Of not, patients PPM is NOT MRI compatible A/P: * Will coordinate results with vascular and podiatry
[2016-08-02 09:03] LABS: ABSOLUTE BASOPHIL COUNT 0 /CUMM (0.0-0.2); ABSOLUTE EOSINOPHIL COUNT 0.2 /CUMM (0.0-0.7); ABSOLUTE GRANULOCYTE CT 3.3 /CUMM (1.4-6.5); ABSOLUTE LYMPH COUNT 1.8 /CUMM (1.2-3.4); ABSOLUTE MONOCYTE COUNT 0.5 /CUMM (0.10-0.60); BASOPHIL % 0.5 % (0.0-2.0); EOSINOPHIL % 3.1 % (0-5); GRANULOCYTE % 56.9 % (42.2-75.2); HEMATOCRIT 28.6 % (42-52); MEAN CORPUSCULAR HGB 30.8 PG (27.0-31.0); MEAN CORPUSCULAR HGB CONC 33.5 G/DL (33.0-37.0); MEAN CORPUSCULAR VOLUME 91.8 FL (80.0-94.0); MEAN PLATELET VOLUME 6.3 FL (7.4-10.4); PLATELET COUNT 213 /CUMM (130-400); RBC DISTRIBUTION WIDTH 14.3 % (11.5-14.5); RED BLOOD CELL CT 3.12 /CUMM (4.70-6.10); WHITE BLOOD CELL COUNT 5.9 /CUMM (4.8-10.8)
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
--- NOTE | 2016-08-02 11:36 | ULTRASOUND REPORT ---
EXAMINATION: US DUPLEX LOWER EXTREMITY ARTERY/GRAFT LIMITED, RIGHT CLINICAL INFORMATION: History of peripheral artery disease. Post right SFA stent placement. COMPARISON: Previous bilateral lower extremity arterial ultrasound 05/30/2016. TECHNIQUE: Doppler, color and leslie-scale evaluation of the arteries of the right lower extremity. FINDINGS: Common Femoral Artery: Patent. Peak systolic velocity 116 cm/s. Biphasic waveform. Profunda: Patent. Peak systolic velocity 44 cm/s. Triphasic waveform. Superficial Femoral Artery: Patent. Peak systolic velocity proximally 61 cm/s, mid 106 cm/s and distal 115 cm/s. Biphasic waveform. Popliteal Artery: Patent. Peak systolic velocity 107 cm/s. Biphasic waveform. Anterior Tibial Artery: Patent. Peak systolic velocity 101 cm/s. Biphasic waveform. Posterior Tibial Artery: Patent. Peak systolic velocity 113 cm/s. Biphasic waveform. Dorsalis Pedis Artery: Patent. Peak systolic velocity 28 cm/s. Monophasic waveform. IMPRESSION: Patent arteries to the right lower extremity. Flow is now seen in the right anterior tibial artery.
--- NOTE | 2016-08-02 11:55 | Event Note ---
Event Note Event Note: I have researched Mehrdad's pacemaker and it is a [employer] [id number] model, implanted iin 2008. This is NOT an MRI compatible device. ENZO
[2016-08-02 14:00] VITALS: BP 122/70
--- NOTE | 2016-08-02 15:01 | PN- Att Addend ---
Attending MD Review Statement Attending Statement Attending MD Statement: examined this patient, discuss w/resident/PA/CAP JEWEL PLATE ASSEMBLER, agreed w/resident/PA/CAP JEWEL PLATE ASSEMBLER, reviewed EMR data (avail), discussed w/nursing, discussed w/ case mgmt Attending Assessment/Plan: Laboratory Tests 08/02/16 0715: CBC w Diff NO MAN DIFF REQ, RBC 3.12 L, MCV 91.8, MCH 30.8, RDW 14.3, MPV 6.3 L, Gran % 56.9, Lymphocytes % 31.0, Monocytes % 8.5, Eosinophils % 3.1, Basophils % 0.5, Absolute Granulocytes 3.3, Absolute Lymphocytes 1.8, Absolute Monocytes 0.5, Absolute Eosinophils 0.2, Absolute Basophils 0, PUBS MCHC 33.5 Vital Signs Date Time Temp Pulse Resp B/P Pulse O2 O2 Flow FiO2 Ox Delivery Rate 08/02 1400 97.0 68 20 122/70 97 Room Air 08/02 0749 62 140/66 08/02 0749 62 140/66 08/02 0623 98.4 62 20 140/66 96 Room Air 08/01 2154 98.2 49 20 154/68 97 Room Air Pt seen and examined at bedside. Non healing ulcer of the toe- bone scan shows-"Mild abnormality in all 3 phases in the distal right second metatarsal bone is noted and is suspicious for an indolent focus of osteomyelitis" Doppler arterial done today-"Patent arteries to the right lower extremity. Flow is now seen in the right anterior tibial artery." Tentative plan is for vascular to repeat angio- will have vascular review the arterial doppler and see if they need to repeat it. Doppler shows monophasic wave in dorsalis pedis rt side . If no repeat angio needed then we will call podiatry to see if they will do the surgery on friday. d/w team the care plan.
[2016-08-02 21:56] VITALS: BP 160/60
[2016-08-02 22:00] VITALS: BP 160/60
[2016-08-03 02:00] VITALS: BP 150/60
[2016-08-03 06:00] VITALS: BP 130/70
[2016-08-03 06:29] VITALS: BP 130/70
--- NOTE | 2016-08-03 07:55 | PN- Housestaff ---
JOSETTE VELASCO,[facility] 08/03/16 0755: Subjective Follow-up For: Right leg wound PVD Subjective: Patient is alert and oriented in no acute distress, does report mild pain on the right foot with weight bearing. no overnight events, awaiting surgical debridement of the right foot wound on Friday. Review of Systems Constitutional: Denies: chills, fever. EENTM: Reports: no symptoms. Cardiovascular: Reports: no symptoms. Respiratory: Reports: no symptoms. Gastrointestinal: Reports: no symptoms. Genitourinary: Reports: no symptoms. Musculoskeletal: Reports: no symptoms. Objective Last 24 Hrs of Vital Signs/I&O Vital Signs Date Time Temp Pulse Resp B/P Pulse O2 O2 Flow FiO2 Ox Delivery Rate 08/03 1422 97.9 61 18 142/70 96 Room Air 08/03 1055 74 144/78 08/03 1055 74 144/78 08/03 0629 97.1 52 20 130/70 97 Room Air 08/03 0600 97.1 52 20 130/70 08/03 0200 98.0 65 20 150/60 08/02 2200 97.9 57 20 160/60 08/02 2156 97.9 57 20 160/60 99 Room Air Intake & Output 08/03 1600 08/03 0800 08/03 0000 Intake Total 800 130 250 Output Total Balance 800 130 250 Intake, IV 0 10 10 Intake, Oral 800 120 240 Number 0 Bowel Movements Physical Exam General Appearance: Alert, Oriented X3, Cooperative, No Acute Distress Skin: No Rashes HEENT: Atraumatic Neck: Supple Cardiovascular: Regular Rate, Normal S1, Normal S2 Abdomen: Normal Bowel Sounds, Soft Neurological: Normal Speech, Normal Tone Extremities: No Edema, Normal Pulses Vascular: Normal Pulses, Pulses Symmetrical Current Medications: Current Medications Sig/Uvaldo Start time Last Medication Dose Route Stop Time Status Admin Aspirin 325 MG DAILY 08/01 1000 AC 08/03 PO 1055 Atorvastatin Calcium 40 MG DAILY 08/01 1000 AC 08/03 PO 1055 Budesonide/ 2 PUF BID 08/01 1000 AC 08/03 Formoterol Fumarate INH 1056 Carbidopa/Levodopa 1 TAB TID 08/01 1000 AC 08/03 PO 1055 Enoxaparin Sodium 40 MG DAILY 08/01 1000 AC 08/03 SC 1050 Finasteride 5 MG DAILY 08/01 1000 AC 02/18 PO 1055 Gemfibrozil 600 MG BID 08/01 1000 AC 08/03 PO 1055 Ibuprofen 600 MG Q6P PRN 08/01 0215 AC 08/03 PO 1102 Insulin Detemir 30 UNITS BID 08/01 1000 AC 08/03 SC 1050 Insulin Human Regular 0 TIDAC/HS 08/01 1700 AC 08/03 SC 1225 Levothyroxine Sodium 0.025 MG DAILY AC 08/01 0700 AC 08/03 PO 0659 Lisinopril 20 MG DAILY 08/01 1000 AC 08/03 PO 1055 Lorazepam 0 Q1P PRN 08/01 0330 AC IV Metoprolol Tartrate 50 MG DAILY 08/01 1000 AC 08/03 PO 1055 Morphine Sulfate 2 MG Q6P PRN 08/01 0330 AC 08/02 IV 0913 Last 24 Hrs of Lab/Olegario Results Last 24 Hrs of Labs/Mics: Laboratory Tests 08/03/16 0625: CBC w Diff NO MAN DIFF REQ, RBC 3.01 L, MCV 91.5, MCH 31.1 H, RDW 14.1, MPV 6.3 L, Gran % 50.3, Lymphocytes % 35.8, Monocytes % 9.9 H, Eosinophils % 3.5, Basophils % 0.5, Absolute Granulocytes 2.6, Absolute Lymphocytes 1.8, Absolute Monocytes 0.5, Absolute Eosinophils 0.2, Absolute Basophils 0, PUBS MCHC 34.0 Assessment/Plan Assessment: This is a 75-year-old male with a recurrent history of PVD status post angioplasty right femoral artery, and stenting of right SFA, recent right foot edition and drainage of tendinosis with partial resection of right second toe and closure of necrotic wound due to dry gangrene and cellulitis presents for evaluation of his chronic non-healing right foot wound. Patient also has a significant past medical history of CAD status post CABG, placement, hyperlipidemia, hypertension and type 1 diabetes, chronic pancreatitis, COPD and hypothyroidism. Pt Was admitted to general medicine floor for evaluation and management of his nonhealing chronic right foot wound. Assessment and plan #Acute on chronic right extremity wound Doppler ultrasound results shows patent arteries of the right lower extremity , however the DPA waveform is noted to be monophasic which can signifiy moderate obstruction .Patient has multiple follow-ups and evaluation including angioplasty with stent placements, right foot pressure resection and incision and drainage of his right foot. Patient does not have any leukocytosis, his afebrile and examination of foot does not show any signs of cellulitis infection even though he does have some mild erythema on his affected right foot. Patient presentation is more consistent with chronic wound from his peripheral vascular disease. Plan We'll keep of antibiotic for now scheduled for angiogram on Friday and debridement on Friday #History of chronic diseases CAD: Continue atorvastatin and aspirin Hypertension: Continue lisinopril Hyperlipidemia: Continue atorvastatin and gemfibrozil Diabetes: NovoLog sliding scale and Levemir bedtime Hypothyroidism: Continue levothyroxine and 25mcg #Social issues Patient reports that his home health services was canceled due to what he was told was his abusive behavior. Patient expresses concern of not having home health and would like to see if he can get back to obtaining the services. Problem List: 1. Wound infection Pain Ratin Pain Location: right foot Pain Goal: Pain 4 or less Pain Plan: ibuprofen for mild-moderate pain, morphine for severe pain Tomorrow's Labs & Rationales: AUSTIN MORALES MD 08/03/16 1542: Attending MD Review Statement Attending Statement Attending MD Statement: examined this patient, discuss w/resident/PA/SKI MOLDER, agreed w/resident/PA/SKI MOLDER, reviewed EMR data (avail) Attending Assessment/Plan: 75M PMH IDDM, diabetic neuropathy, chronic right foot non-healing ulcer with surrounding cellulitis and bone scan indicative of acute vs chronic osteomyelitis. Was not a candidate for MRI due to pacemaker. Patient reports improvement in pain today. Erythema is improved as well. Wound is clean and dry. Afebrile, stable vitals, labs reviewed. Arterial doppler reveals patent blood flow. Plan - Follow vascular and podiatry recommendations - Wound care - Continue to hold antibiotics - Continue home mediations - DVT PPx
[2016-08-03 08:29] LABS: ABSOLUTE BASOPHIL COUNT 0 /CUMM (0.0-0.2); ABSOLUTE EOSINOPHIL COUNT 0.2 /CUMM (0.0-0.7); ABSOLUTE GRANULOCYTE CT 2.6 /CUMM (1.4-6.5); ABSOLUTE LYMPH COUNT 1.8 /CUMM (1.2-3.4); ABSOLUTE MONOCYTE COUNT 0.5 /CUMM (0.10-0.60); BASOPHIL % 0.5 % (0.0-2.0); EOSINOPHIL % 3.5 % (0-5); GRANULOCYTE % 50.3 % (42.2-75.2); HEMATOCRIT 27.5 % (42-52); MEAN CORPUSCULAR HGB 31.1 PG (27.0-31.0); MEAN CORPUSCULAR VOLUME 91.5 FL (80.0-94.0); MEAN PLATELET VOLUME 6.3 FL (7.4-10.4); PLATELET COUNT 187 /CUMM (130-400); RBC DISTRIBUTION WIDTH 14.1 % (11.5-14.5); RED BLOOD CELL CT 3.01 /CUMM (4.70-6.10); WHITE BLOOD CELL COUNT 5.1 /CUMM (4.8-10.8)
[2016-08-03 14:22] VITALS: BP 142/70
[2016-08-03 21:55] VITALS: BP 138/76
[2016-08-03 22:00] VITALS: BP 138/76
[2016-08-04 02:00] VITALS: BP 140/80
[2016-08-04 06:30] VITALS: BP 136/70
[2016-08-04 08:02] LABS: ABSOLUTE BASOPHIL COUNT 0 /CUMM (0.0-0.2); ABSOLUTE EOSINOPHIL COUNT 0.2 /CUMM (0.0-0.7); ABSOLUTE GRANULOCYTE CT 2.8 /CUMM (1.4-6.5); ABSOLUTE LYMPH COUNT 1.7 /CUMM (1.2-3.4); ABSOLUTE MONOCYTE COUNT 0.5 /CUMM (0.10-0.60); BASOPHIL % 0.5 % (0.0-2.0); GRANULOCYTE % 54.7 % (42.2-75.2); MEAN CORPUSCULAR HGB 31.4 PG (27.0-31.0); MEAN CORPUSCULAR HGB CONC 34.1 G/DL (33.0-37.0); MEAN CORPUSCULAR VOLUME 92.1 FL (80.0-94.0); MEAN PLATELET VOLUME 6.6 FL (7.4-10.4); PLATELET COUNT 186 /CUMM (130-400); RBC DISTRIBUTION WIDTH 14.3 % (11.5-14.5); RED BLOOD CELL CT 3.05 /CUMM (4.70-6.10); WHITE BLOOD CELL COUNT 5.2 /CUMM (4.8-10.8)
--- NOTE | 2016-08-04 09:29 | PN- Housestaff ---
HANS VELASCO,[facility] 08/04/16 0929: Subjective Follow-up For: PVD Subjective: Patient seen and examined bedside. He does not endorse any acute complaints.. No acute overnight event reported by nursing staff. She reports that his pain on his lower extremity is significantly better. Review of Systems Constitutional: Reports: no symptoms. Objective Last 24 Hrs of Vital Signs/I&O Vital Signs Date Time Temp Pulse Resp B/P Pulse O2 O2 Flow FiO2 Ox Delivery Rate 08/04 2219 99.1 68 20 128/70 99 08/04 1455 100 132/70 08/04 1349 97.5 100 20 132/70 95 Room Air 08/04 1018 70 120/72 08/04 0630 98.3 57 20 136/70 97 Room Air 08/04 0200 97.9 90 20 140/80 Intake & Output 08/04 1600 08/04 0800 08/04 0000 Intake Total 1000 130 250 Output Total Balance 1000 130 250 Intake, IV 0 10 10 Intake, Oral 1000 120 240 Number 0 Bowel Movements Physical Exam General Appearance: Alert, Oriented X3, Cooperative Other Physical Findings: Skin: No Rashes, No Breakdown, No Significant Lesion HEENT: Atraumatic, EOMI Neck: Supple Cardiovascular: Normal S1, Normal S2, No Murmurs Lungs: Normal Air Movement Abdomen: Normal Bowel Sounds, Soft (guarding present), mildly tender on the epigaster Neurological: Normal Speech Extremities: No Edema, Normal Pulses Vascular: Pulses Symmetrical Current Medications: Current Medications Sig/Uvaldo Start time Last Medication Dose Route Stop Time Status Admin Aspirin 325 MG DAILY 08/01 1000 AC 08/04 PO 1018 Atorvastatin Calcium 40 MG DAILY 08/01 1000 AC 08/04 PO 1455 Budesonide/ 2 PUF BID 08/01 1000 AC 08/04 Formoterol Fumarate INH 2120 Carbidopa/Levodopa 1 TAB TID 08/01 1000 AC 08/04 PO 2120 Enoxaparin Sodium 40 MG DAILY 08/01 1000 AC 08/04 SC 1022 Finasteride 5 MG DAILY 08/01 1000 AC 08/04 PO 1018 Gemfibrozil 600 MG BID 08/01 1000 AC 08/04 PO 2120 Ibuprofen 600 MG Q6P PRN 08/01 0215 AC 08/04 PO 1013 Insulin Detemir 30 UNITS BID 08/01 1000 AC 08/04 SC 2120 Insulin Human Regular 0 TIDAC/HS 08/01 1700 AC 08/04 SC 1200 Levothyroxine Sodium 0.025 MG DAILY AC 08/01 0700 AC 08/04 PO 0533 Lisinopril 20 MG DAILY 08/01 1000 AC 08/04 PO 1455 Lorazepam 0 Q1P PRN 08/01 0330 AC IV Metoprolol Tartrate 50 MG DAILY 08/01 1000 AC 08/04 PO 1018 Morphine Sulfate 2 MG Q6P PRN 08/01 0330 AC 08/04 IV 1014 Last 24 Hrs of Lab/Olegario Results Last 24 Hrs of Labs/Mics: Laboratory Tests 08/04/16 0630: CBC w Diff NO MAN DIFF REQ, RBC 3.05 L, MCV 92.1, MCH 31.4 H, RDW 14.3, MPV 6.6 L, Gran % 54.7, Lymphocytes % 32.6, Monocytes % 9.2, Eosinophils % 3.0, Basophils % 0.5, Absolute Granulocytes 2.8, Absolute Lymphocytes 1.7, Absolute Monocytes 0.5, Absolute Eosinophils 0.2, Absolute Basophils 0, PUBS MCHC 34.1 Assessment/Plan Assessment: This is a 75-year-old male with a recurrent history of PVD status post angioplasty right femoral artery, and stenting of right SFA, recent right foot edition and drainage of tendinosis with partial resection of right second toe and closure of necrotic wound due to dry gangrene and cellulitis presents for evaluation of his chronic non-healing right foot wound. Patient also has a significant past medical history of CAD status post CABG, placement, hyperlipidemia, hypertension and type 1 diabetes, chronic pancreatitis, COPD and hypothyroidism. Pt Was admitted to general medicine floor for evaluation and management of his nonhealing chronic right foot wound. Assessment and plan #Acute on chronic right extremity wound Doppler ultrasound results shows patent arteries of the right lower extremity , however the DPA waveform is noted to be monophasic which can signifiy moderate obstruction .Patient has multiple follow-ups and evaluation including angioplasty with stent placements, right foot pressure resection and incision and drainage of his right foot. Patient does not have any leukocytosis, his afebrile and examination of foot does not show any signs of cellulitis infection even though he does have some mild erythema on his affected right foot. Patient presentation is more consistent with chronic wound from his peripheral vascular disease. Plan We'll keep of antibiotic for now scheduled for angiogram on Friday and debridement on Friday #History of chronic diseases CAD: Continue atorvastatin and aspirin Hypertension: Continue lisinopril Hyperlipidemia: Continue atorvastatin and gemfibrozil Diabetes: NovoLog sliding scale and Levemir bedtime Hypothyroidism: Continue levothyroxine and 25mcg #Social issues Patient reports that his home health services was canceled due to what he was told was his abusive behavior. Patient expresses concern of not having home health and would like to see if he can get back to obtaining the services. Problem List: 1. PVD (peripheral vascular disease) Pain Ratin Pain Location: Lower extremities Pain Goal: Pain 4 or less Pain Plan: per pain pathway Tomorrow's Labs & Rationales: CBC-preop AUSTIN ROCHA MD 08/04/16 1343: Attending MD Review Statement Attending Statement Attending MD Statement: examined this patient, discuss w/resident/PA/PERPETUAL INVENTORY CLERK, agreed w/resident/PA/PERPETUAL INVENTORY CLERK, reviewed EMR data (avail) Attending Assessment/Plan: 75M PMH IDDM, diabetic neuropathy, chronic right foot non-healing ulcer with surrounding cellulitis and bone scan indicative of acute vs chronic osteomyelitis. Was not a candidate for MRI due to pacemaker. Patient reports improvement in pain today. Erythema is improved as well. Wound is clean and dry. Afebrile, stable vitals, labs reviewed. Arterial doppler reveals patent blood flow. Plan - Follow vascular and podiatry recommendations - Wound care - Continue to hold antibiotics - Continue home mediations - DVT PPx - Patient will go for angiogram by vascular on 08/05
[2016-08-04 13:49] VITALS: BP 132/70
[2016-08-04 22:19] VITALS: BP 128/70
[2016-08-05 06:35] VITALS: BP 128/76
[2016-08-05 08:11] LABS: ABSOLUTE BASOPHIL COUNT 0 /CUMM (0.0-0.2); ABSOLUTE EOSINOPHIL COUNT 0.2 /CUMM (0.0-0.7); ABSOLUTE GRANULOCYTE CT 3.6 /CUMM (1.4-6.5); ABSOLUTE LYMPH COUNT 1.7 /CUMM (1.2-3.4); ABSOLUTE MONOCYTE COUNT 0.6 /CUMM (0.10-0.60); BASOPHIL % 0.4 % (0.0-2.0); EOSINOPHIL % 2.9 % (0-5); GRANULOCYTE % 59.1 % (42.2-75.2); HEMATOCRIT 27.8 % (42-52); MEAN CORPUSCULAR HGB 31.2 PG (27.0-31.0); MEAN CORPUSCULAR HGB CONC 33.8 G/DL (33.0-37.0); MEAN CORPUSCULAR VOLUME 92.3 FL (80.0-94.0); MEAN PLATELET VOLUME 6.6 FL (7.4-10.4); PLATELET COUNT 191 /CUMM (130-400); RED BLOOD CELL CT 3.01 /CUMM (4.70-6.10); WHITE BLOOD CELL COUNT 6.2 /CUMM (4.8-10.8)
--- NOTE | 2016-08-05 09:42 | PN- Housestaff ---
Subjective Follow-up For: Peripheral vascular disease Subjective: Patient is seen and examined at bedside. Patient stood up and was reporting significantly improved pain control. He denies any fever, chills, nausea, abdominal pain, chest pain, palpitation or dysuria. pt is looking forward to his angina procedure today. No acute overnight event reported by nursing staff Review of Systems Constitutional: Reports: no symptoms. Objective Last 24 Hrs of Vital Signs/I&O Vital Signs Date Time Temp Pulse Resp B/P Pulse O2 O2 Flow FiO2 Ox Delivery Rate 08/05 0935 128/70 08/05 0635 98.7 74 20 128/76 97 Room Air 08/04 2219 99.1 68 20 128/70 99 Physical Exam General Appearance: Alert, Oriented X3, Cooperative Skin: No Significant Lesion, dressing intact on affected foot Cardiovascular: Regular Rate, Normal S1, Normal S2 Lungs: Clear to Auscultation, Normal Air Movement Abdomen: Normal Bowel Sounds, Soft, No Tenderness Neurological: Normal Gait, Normal Speech, Normal Tone, Sensation Intact Assessment/Plan Assessment: This is a 75-year-old male with a recurrent history of PVD status post angioplasty right femoral artery, and stenting of right SFA, recent right foot edition and drainage of tendinosis with partial resection of right second toe and closure of necrotic wound due to dry gangrene and cellulitis presents for evaluation of his chronic non-healing right foot wound. Patient also has a significant past medical history of CAD status post CABG, placement, hyperlipidemia, hypertension and type 1 diabetes, chronic pancreatitis, COPD and hypothyroidism. Pt Was admitted to general medicine floor for evaluation and management of his nonhealing chronic right foot wound. Assessment and plan #Acute on chronic right extremity wound Doppler ultrasound results shows patent arteries of the right lower extremity , however the DPA waveform is noted to be monophasic which can signifiy moderate obstruction .Patient has multiple follow-ups and evaluation including angioplasty with stent placements, right foot pressure resection and incision and drainage of his right foot. Patient does not have any leukocytosis, his afebrile and examination of foot does not show any signs of cellulitis infection even though he does have some mild erythema on his affected right foot. Patient presentation is more consistent with chronic wound from his peripheral vascular disease. Plan Awaiting angio results Schedule for debridement. #History of chronic diseases CAD: Continue atorvastatin and aspirin Hypertension: Continue lisinopril Hyperlipidemia: Continue atorvastatin and gemfibrozil Diabetes: NovoLog sliding scale and Levemir bedtime Hypothyroidism: Continue levothyroxine and 25mcg #Social issues Patient reports that his home health services was canceled due to what he was told was his abusive behavior. Patient expresses concern of not having home health and would like to see if he can get back to obtaining the services. Problem List: 1. PVD (peripheral vascular disease) Pain Ratin Pain Location: foot Pain Goal: Remain pain free Pain Plan: pain pathway Tomorrow's Labs & Rationales: BEP:Post contrast use
--- NOTE | 2016-08-05 15:05 | RADIOLOGY REPORT ---
EXAMINATION: XR FEMUR, RIGHT CLINICAL INFORMATION: Right leg arteriogram with popliteal angioplasty in OR. COMPARISON: None FLUOROSCOPY TIME: 19 minutes and 45 seconds. TECHNIQUE/FINDINGS: AP and lateral views of the right femur were obtained. C-arm equipment was dedicated to the operating room for the performance of an arteriogram and popliteal angioplasty. Multiple spot films were acquired and are archived in PACS. Please refer to operative notes. IMPRESSION: Administrative dictation for fluoroscopic equipment dedicated to the operating room for the performance of a right leg arteriogram with popliteal angioplasty.
--- NOTE | 2016-08-05 15:27 | Operative Report ---
Operative/Inv Procedure Report Surgery Date: 08/05/16 Name of Procedure: - Ultrasound-guided left common femoral artery access - Aortogram - Third order right leg angiogram - Angioplasty of right posterior tibial, TP trunk, and popliteal artery Pre-Operative Diagnosis: NONHEALING RIGHT TOE ULCER Post-Operative Diagnosis: Same Estimated Blood Loss: scant Surgeon/Staffing Manager: YAMILKA ANDERSON MD Anesthesia: laryngeal mask airway Operative/Procedure Note Note: Patient was taken to the operating room and placed supine on the table. A timeout was called according to protocol. After satisfactory induction of anesthesia, and Garcia catheter was placed. Preoperative antibiotic had been started. The patient was then prepped and draped in standard surgical fashion. Using an ultrasound, left common femoral artery was accessed using micropuncture technique. A Bentson wire was advanced into the aorta under direct fluoroscopic guidance. The micropuncture sheath was exchanged with a short 5 Albanian sheath. An Omni flush catheter was advanced over the wire and placed in the abdominal aorta. From this position, an aortogram was performed with findings outlined below. Then using the Omni flush catheter and Bentson wire, the right leg artery system was selected. The Omni flush catheter was exchanged with a glide catheter. This catheter was advanced over the wire and placed in the proximal right common femoral artery. From this position, right leg angiogram was performed with findings outlined below. Then the Faustin wire was advanced into the mid SFA. The short 5 Albanian sheath was exchanged with a 90 cm 6 Albanian Darius sheath. 10,000 units of heparin was given.This sheath was advanced over the wire and placed into the distal SFA under direct fluoroscopic guidance. Then a 0.14 wire was used to cross the tight lesions in the popliteal and TP trunk. Using a 4 x 40 mm chocolate balloon, angioplasty of the distal TP trunk and popliteal artery was performed. Then with aid of a 0.14 wire and quick cross, I was able to cross into the posterior tibial artery. This was challenging as the proximal PT was quite diseased. Then using a 2 x 60 mm balloon, angina plasty of the PT was performed. The 0.14 wire was then exchanged with a Bentson wire. Then the TP trunk and the popliteal artery Ariel plasty was performed using Lutonix 4 x 60 mm balloon. There was resolution of the stenosis in the TP trunk and distal popliteal artery post angioplasty. The tight stenosis at the origin of the PT was resolved after angioplasty. Wires and catheters were removed. The Darius sheath was exchanged with a short 6 Albanian sheath. The puncture site was then closed using Exoseal device. Manual pressure was applied to the puncture sites. Sterile dressing was applied. The patient tolerated the procedure well and was transferred to the recovery room in stable condition. Radiographic findings: -Patent aorta with no significant disease -Patent bilateral common iliac, external iliac, and internal iliac arteries with no significant disease -Patent right common femoral and profunda femoris with no significant disease. -Right SFA is patent from its origin. Seen at distal SFA stenosis that was previously stented. This was about 50%. However there was brisk flow through it. -Above-knee popliteal artery is patent with no significant disease. -Distal below-knee popliteal and TP trunk has diffuse severe disease. There was resolution of the stenosis post angioplasty of these vessels. -There was a tight stenosis at the origin of the PT. There was resolution of the stenosis post angioplasty -Anterior tibial artery is occluded from its origin. The peroneal artery and the posterior tibial artery are main artery supplying the foot. -There are not extensive small collaterals below the ankle supplying the foot.
--- NOTE | 2016-08-05 15:32 | PN- Vascular Surgery ---
Subjective Subjective: Post Op Note s/p RLE angiogram with stent placement. Patient without c/o. Pain controlled at rest. Denies N/V. Denies CP/SOB. Objective Vital Signs and I&Os Vital Signs Date Time Temp Pulse Resp B/P Pulse O2 O2 Flow FiO2 Ox Delivery Rate 08/05 0935 128/70 08/05 0635 98.7 74 20 128/76 97 Room Air 08/04 2219 99.1 68 20 128/70 99 Intake & Output 08/05 1600 08/05 0800 08/05 0000 08/04 1600 08/04 0800 08/04 0000 Intake Total 50 240 1000 130 250 Output Total Balance 50 240 1000 130 250 Intake, IV 0 10 10 Intake, Oral 50 240 1000 120 240 Number 0 0 Bowel Movements Physical Exam: Gen: NAD, comfortable, A&Ox3 Chest: NRD, breathing comfortably on 2L NC. RRR. Groin: Left groin dressing C/D/I with mild swelling but no erythema or ecchymosis. Ext: Right foot warm to touch, Right foot dressing in place. Dopplerable DP/PT pulses RLE. Palpable DP/PT LLE. Current Medications: Current Medications Sig/Uvaldo Start time Last Medication Dose Route Stop Time Status Admin Aspirin 325 MG DAILY 08/06 1000 AC PO Aspirin 325 MG DAILY 08/01 1000 DC 08/04 PO 1018 Atorvastatin Calcium 40 MG 1700 08/06 1700 AC PO Atorvastatin Calcium 40 MG DAILY 08/01 1000 DC 08/04 PO 1455 Budesonide/ 2 PUF BID 08/05 2200 AC Formoterol Fumarate INH Budesonide/ 2 PUF BID 08/01 1000 DC 08/04 Formoterol Fumarate INH 2120 Carbidopa/Levodopa 1 TAB TID 08/05 1600 AC PO Carbidopa/Levodopa 1 TAB TID 08/01 1000 DC 08/04 PO 2120 Enoxaparin Sodium 40 MG DAILY 08/06 1000 AC SC Enoxaparin Sodium 40 MG DAILY 08/01 1000 DC 08/04 SC 1022 Finasteride 5 MG DAILY 08/06 1000 AC PO Finasteride 5 MG DAILY 08/01 1000 DC 08/04 PO 1018 Gemfibrozil 600 MG 0730,1630 08/05 1630 AC PO Gemfibrozil 600 MG BID 08/01 1000 DC 08/04 PO 2120 Ibuprofen 600 MG Q6P PRN 08/05 1345 AC PO Ibuprofen 600 MG Q6P PRN 08/01 0215 DC 08/04 PO 1013 Insulin Detemir 30 UNITS BID 08/05 2200 AC SC Insulin Detemir 30 UNITS BID 08/01 1000 DC 08/04 SC 2120 Insulin Human Regular 0 TIDAC/HS 08/05 1700 AC SC Insulin Human Regular 0 Q6 08/04 2359 DC 08/05 SC 0600 Insulin Human Regular 0 TIDAC/HS 08/01 1700 DC 08/04 SC 1200 Levothyroxine Sodium 0.025 MG DAILY AC 08/06 0700 AC PO Levothyroxine Sodium 0.025 MG DAILY AC 08/01 0700 DC 08/05 PO 0600 Lisinopril 20 MG DAILY 08/06 1000 AC PO Lisinopril 20 MG DAILY 08/01 1000 DC 08/04 PO 1455 Lorazepam 0 Q1P PRN 08/05 1345 AC IV Lorazepam 0 Q1P PRN 08/01 0330 DC IV Metoprolol Tartrate 50 MG DAILY 08/06 1000 AC PO Metoprolol Tartrate 50 MG DAILY 08/01 1000 DC 08/05 PO 0935 Morphine Sulfate 2 MG Q6P PRN 08/05 1345 AC IV Morphine Sulfate 2 MG Q6P PRN 08/01 0330 DC 08/05 IV 0916 Patient Medication 1 UNIT 1700 08/06 1700 [facility] ED 08/06 1701 Patient Medication 1 UNIT 1000 08/06 1000 [facility] ED 08/06 1001 Patient Medication 1 UNIT 1000 08/06 1000 [facility] ED 08/06 1001 Patient Medication 1 UNIT 1000 08/06 1000 [facility] ED 08/06 1001 Patient Medication 1 UNIT ONE NR 08/05 1400 [facility] ED 08/05 1999 Patient Medication 1 UNIT ONE NR 08/05 1400 [facility] ED 08/05 1999 Results Last 48 Hours of Labs: Laboratory Tests 08/05 08/04 0625 0630 Hematology CBC w Diff NO MAN DIFF REQ NO MAN DIFF REQ WBC (4.8 - 10.8 /CUMM) 6.2 5.2 RBC (4.70 - 6.10 /CUMM) 3.01 L 3.05 L Hgb (14.0 - 18.0 G/DL) 9.4 L 9.6 L Hct (42 - 52 %) 27.8 L 28.0 L MCV (80.0 - 94.0 FL) 92.3 92.1 MCH (27.0 - 31.0 PG) 31.2 H 31.4 H RDW (11.5 - 14.5 %) 14.0 14.3 Plt Count (130 - 400 /CUMM) 191 186 MPV (7.4 - 10.4 FL) 6.6 L 6.6 L Gran % (42.2 - 75.2 %) 59.1 54.7 Lymphocytes % (20.5 - 51.1 %) 28.1 32.6 Monocytes % (1.7 - 9.3 %) 9.5 H 9.2 Eosinophils % (0 - 5 %) 2.9 3.0 Basophils % (0.0 - 2.0 %) 0.4 0.5 Absolute Granulocytes (1.4 - 6.5 /CUMM) 3.6 2.8 Absolute Lymphocytes (1.2 - 3.4 /CUMM) 1.7 1.7 Absolute Monocytes (0.10 - 0.60 /CUMM) 0.6 0.5 Absolute Eosinophils (0.0 - 0.7 /CUMM) 0.2 0.2 Absolute Basophils (0.0 - 0.2 /CUMM) 0 0 PUBS MCHC (33.0 - 37.0 G/DL) 33.8 34.1 Assessment/Plan Assessment/Plan 75yo M POD#0 s/p RLE angiogram with stent placment. AVSS, stable postoperatively from vascular standpoint. - Pain control - continue lovenox and ASA - n/v checks - ok to advance diet - care per primary team
--- NOTE | 2016-08-05 16:12 | PN- Att Addend ---
Attending MD Review Statement Attending Statement Attending MD Statement: examined this patient, discuss w/resident/PA/ACADEMIC RECORDS SPECIALIST, agreed w/resident/PA/ACADEMIC RECORDS SPECIALIST, reviewed EMR data (avail), discussed w/nursing Attending Assessment/Plan: Laboratory Tests 08/05/16 0625: CBC w Diff NO MAN DIFF REQ, RBC 3.01 L, MCV 92.3, MCH 31.2 H, RDW 14.0, MPV 6.6 L, Gran % 59.1, Lymphocytes % 28.1, Monocytes % 9.5 H, Eosinophils % 2.9, Basophils % 0.4, Absolute Granulocytes 3.6, Absolute Lymphocytes 1.7, Absolute Monocytes 0.6, Absolute Eosinophils 0.2, Absolute Basophils 0, PUBS MCHC 33.8 Vital Signs Date Time Temp Pulse Resp B/P Pulse O2 O2 Flow FiO2 Ox Delivery Rate 08/05 0935 128/70 08/05 0635 98.7 74 20 128/76 97 Room Air 08/04 2219 99.1 68 20 128/70 99 Pt had angiogram with angioplasty done 08/05/2016- significant findings are as follows Distal below-knee popliteal and TP trunk has diffuse severe disease. There was resolution of the stenosis post angioplasty of these vessels. -There was a tight stenosis at the origin of the PT. There was resolution of the stenosis post angioplasty A/p- Non healing uler of the toe on rt feet- Angio done on 08/05- report as above. Planned for OR by podiatry tomorrow. will get repeat BMP tomorrow to f/u on creatinine given the angiogram.
[2016-08-05 22:25] VITALS: BP 132/70
[2016-08-06] VITALS (9 sets, daily range): BP systolic 128–154; BP diastolic 66–90
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
[2016-08-06 09:12] LABS: ABSOLUTE BASOPHIL COUNT 0 /CUMM (0.0-0.2); ABSOLUTE EOSINOPHIL COUNT 0.1 /CUMM (0.0-0.7); ABSOLUTE GRANULOCYTE CT 3.2 /CUMM (1.4-6.5); ABSOLUTE LYMPH COUNT 1.5 /CUMM (1.2-3.4); ABSOLUTE MONOCYTE COUNT 0.5 /CUMM (0.10-0.60); BASOPHIL % 0.5 % (0.0-2.0); EOSINOPHIL % 2.8 % (0-5); GRANULOCYTE % 59.8 % (42.2-75.2); HEMATOCRIT 28.6 % (42-52); MEAN CORPUSCULAR HGB 30.7 PG (27.0-31.0); MEAN CORPUSCULAR HGB CONC 33.3 G/DL (33.0-37.0); MEAN PLATELET VOLUME 6.7 FL (7.4-10.4); PLATELET COUNT 185 /CUMM (130-400); RBC DISTRIBUTION WIDTH 14.1 % (11.5-14.5); RED BLOOD CELL CT 3.11 /CUMM (4.70-6.10); WHITE BLOOD CELL COUNT 5.3 /CUMM (4.8-10.8)
--- NOTE | 2016-08-06 14:12 | PN- Att Addend ---
Attending MD Review Statement Attending Statement Attending MD Statement: examined this patient, discuss w/resident/PA/LIE DETECTOR OPERATOR, agreed w/resident/PA/LIE DETECTOR OPERATOR, reviewed EMR data (avail), discussed w/nursing Attending Assessment/Plan: Laboratory Tests 08/06/16 0645: Anion Gap 12, Estimated GFR > 60, BUN/Creatinine Ratio 17.8, PT 12.0, INR 1.14, CBC w Diff NO MAN DIFF REQ, RBC 3.11 L, MCV 92.0, MCH 30.7, RDW 14.1, MPV 6.7 L, Gran % 59.8, Lymphocytes % 28.2, Monocytes % 8.7, Eosinophils % 2.8, Basophils % 0.5, Absolute Granulocytes 3.2, Absolute Lymphocytes 1.5, Absolute Monocytes 0.5, Absolute Eosinophils 0.1, Absolute Basophils 0, PUBS MCHC 33.3 Vital Signs Date Time Temp Pulse Resp B/P Pulse O2 O2 Flow FiO2 Ox Delivery Rate 08/06 1326 98.2 61 20 150/90 98 Room Air 08/06 0831 64 128/68 08/06 0828 64 128/68 08/06 0748 64 08/06 0700 98.8 35 20 128/68 98 Room Air 08/06 0600 98.8 35 20 128/68 08/06 0226 97.9 69 20 130/70 96 Room Air 08/06 0200 97.9 69 20 130/70 08/06 0000 96 Room Air 08/05 2225 98.1 73 20 132/70 96 Room Air Pt had angiogram with angioplasty done 08/05/2016- significant findings are as follows Distal below-knee popliteal and TP trunk has diffuse severe disease. There was resolution of the stenosis post angioplasty of these vessels. -There was a tight stenosis at the origin of the PT. There was resolution of the stenosis post angioplasty A/p- Non healing uler of the toe on rt feet- Angio done on 08/05- report as above. Planned for OR today by podiatry. Will see how he does post operatively and then decide on discharge plan.
--- NOTE | 2016-08-06 14:48 | Operative Report ---
Operative/Inv Procedure Report Surgery Date: 08/06/16 Name of Procedure: 1 open incision and drainage deep to the D fashion with exposure of the extensor tendon and tendon sheath multiple sites right foot 2 partial second ray resection right foot 3 intraoperative administration of ankle block anesthesia 4 excisional debridement Pre-Operative Diagnosis: 1 open necrotic wound right foot 2 osteomyelitis right foot 3 peripheral arterial disease Post-Operative Diagnosis: The same Estimated Blood Loss: less than 50ml Surgeon/Director Dietetics Department: ESTUARDO RANDALL DPM Anesthesia: moderate sedation, block Operative/Procedure Note Note: After obtaining informed consent the patient was brought to the operating room and placed on the operating table in supine position. The patient isn't securely fastened to the operating table utilizing safety belt. After administration of IV sedation, 10 mL of 0.5% Marcaine plain was infiltrated about the patient's right ankle. Right foot and ankle then scrubbed prepped and draped in usual aseptic manner. Attention directed to the right foot, where a large full-thickness chronic was identified. A 15 blade visualized sharply revised skin margins. Dissection was then carried down deep to the D fashion with exposure of the extensor tendon and tendon sheath multiple sites, both proximally and distally. All necrotic nonviable infected tissue sharply evacuated from the wound bed. Carried down to the periosteum overlying the distal metatarsal which is incised reflected. Sagittal bone saw was utilized performed through and through osteotomy. The distal osseous segment was freed and passed from the operative field. Specimen was harvested for both microbiologic and pathologic inspection. Nipple was then irrigated with 3 L normal sterile saline fissure 50,000 units of bacitracin. Following this the foot was redraped and the surgeon's top was changed clean gloves. Any bleeding vessels identified were cauterized or ligated as encountered. Nipple was then packed with 1 inch iodoform and 3-0 nylon retention sutures were placed followed by 4 x 4's Kerlix and Adria wrap. The patient was noted to tolerate both procedure and anesthesia well and the patient was transported from the operating room to recovery by sent stable best assess intact to the dorsal skin.
[2016-08-07 01:49] VITALS: BP 150/70
[2016-08-07 02:00] VITALS: BP 150/70
[2016-08-07 06:00] VITALS: BP 130/70
--- NOTE | 2016-08-07 06:06 | Discharge Summary ---
Visit Information Visit Dates Admission Date: 07/31/16 Discharge Date: 08/10/2016 Hospital Course Course Attending Physician: KIRIT VELASCO,MITCHEL Lee Primary Care Physician: ANGELA WINN APRN Consulting Request: Consulting Specialty: Podiatry Hospital Course: Mr Rogers is a 75-year-old gentleman with a PMH of CAD, S/P CABG approximately 15 years ago, permanent pacemaker implanted at [place] in 2008 4 sinus node dysfunction, CHF, PVD S/P left superficial femoral artery and popliteal artery angioplasty with stenting, COPD not on home oxygen, right toe osteomyelitis, liver cirrhosis, chronic pancreatitis, hypothyroidism and Parkinson's disease presented to [place] ED with complaints of a 3 week duration right foot redness and pain. 2 months ago he underwent amputation of gangrenous right second toe along with angioplasty and stenting of the right SFA and right popliteal artery. He reported since then persistent nonhealing of the wound associated with worsening discomfort and drainage over the past 3 weeks. He denied any fevers, chills or body aches associated with this. VS on admission: BP 172/90, HR 93, RR 18, SPO2 98% on RA, T 98.0 Physical exam findings: Alert and oriented in no acute distress. Skin: Right lower limb interdigit ulcers with necrosis soft tissue. Lungs CTA BL. Heart: RRR, normal S1/S2 Pertinent labs: WBC 6.2, H&H 9.4/27.8, glucose 191 Venous Doppler ultrasound right lower extremity (07/31/2016): Normal triplex scan without evidence of deep venous thrombosis involving the right lower extremity. Right foot x-ray (07/31/2016): Status post resection of the right second toe at the metatarsophalangeal joint. No radiographic evidence of osteomyelitis. Nuclear bone scan (08/01/2016): Mild abnormality in all 3 phases in the distal right second metatarsal bone is noted and is suspicious for an indolent focus of osteomyelitis, although these findings could represent post operative inflammatory changes. However, in the clinical setting of a nonhealing wound, intensity of activity on the delayed static images strongly suspicious for osteomyelitis. This region could be much better characterize with better differentiating soft tissue versus osseous abnormalities with MRI, performed without and with intravenous contrast. The patient was admitted to general medicine floor and managed for following problems: 1. Osteomyelitis of distal right metatarsal 2. History of CAD/PVD 3. HLD 4. HTN 5. Diabetes 6. Hypothyroidism Hospital course: 1. Osteomyelitis of distal right second metatarsal * We initially kept the patient off antibiotics. He did undergo revascularization with Dr. Sesay on 08/05/2016 with operative report as indicated below. * The patient was taken to the operating room on 08/06/2016 where he underwent exposure of the extensor tendon and tendon sheath multiple sites right foot. Partial second ray resection right foot * Status post resection started the patient on Unasyn 3 g IV Q6. Cultures returned with enterococcus, Enterobacter cloacae and gram-negative rods sensitivities as indicated below. * E.cloacae Enteroc GNR RX AB RX AB RX AB ------ -- ------ -- ------ -- AMPICILLIN R S R CEFAZOLIN R S AMOX/CLAV AUGM R S AMP/SULB-UNASYN R S CEFOXITIN R CEFTAZIDIME S CEFTRIAXONE S CIPROFLOXACIN S S GENTAMICIN S S TRIMETH/SULFA S S VANCOMYCIN S * Recommendations provided by infectious disease specialist (Dr. Blanco). We discontinued Unasyn after 2 days and start the patient on meropenem 1 g IV Q8 with a planned total duration of 4 weeks to be completed on 09/06/2016 * Throughout the hospital course did remain afebrile with no profound elevation and leukocytosis * ESR of 75 on 07/31/16. Repeat ESR on 08/09/16 was. We'll plan to discharge with instructions for weekly ESR 2. History of CAD/PVD * Patient was restrained 5 and cleared for surgery by cardiology. We continued him on metoprolol 50 mg daily, aspirin 325 mg daily 3. Hyperlipidemia * Continue atorvastatin 40 mg daily 4. Hypertension * Continue lisinopril 20 mg daily and gemfibrozil 5. Diabetes * Maintain patient on Levemir 30 units subcutaneous BID and insulin sliding scale 6. Pain management: * Patient was well controlled on IV morphine. We'll transition him to Percocet 5/325 PO Q 8PRN for moderate pain. Along with this will also provide MSIR 15 mg PO Q6 PRN Allergies: Coded Allergies: codeine (RASH, STOMACH PAIN 09/07/15) fish derived (STOMACH PAIN FROM `SEA FOOD' 09/07/15) Significant Procedures: Angiography on 08/05/2016: Ultrasound-guided left common femoral artery access Aortogram Third order right leg angiogram Angioplasty of right posterior tibial, TP trunk, and popliteal artery Distal below-knee popliteal and TP trunk with diffuse disease. Resolution of stenosis post angioplasty of 3 vessels. Tight stenosis of the origin of the PT. Resolution of stenosis post angioplasty. Open incision and drainage deep to the D fashion (08/06/2016); With exposure of the extensor tendon and tendon sheath multiple sites right foot Partial second ray resection right foot Intraoperative administration of ankle block anesthesia Excisional debridement Postop diagnosis: Open necrotic wound right foot. Osteomyelitis right foot. Peripheral arterial disease Open incision and drainage deep to the D fashion (08/05/2016): With exposure of the extensor tendon and tendon sheath multiple sites Revisional partial second second ray resection right foot Intraoperative administration of ankle block anesthesia Excisional debridement Disposition Summary Disposition Principal Diagnosis: Nonhealing ulcer of right foot toe with osteomyelitis Additional Diagnosis: History of CAD Peripheral vascular disease Discharge Disposition: SNF Discharge Instructions General Discharge Information Code Status: Full Code Patient's Diet: Heart healthy diet Patient's Activity: As tolerated. Light heel touch right foot Follow-Up Instructions/Appts: Meropenem to complete 4 weeks (last day September 06) Follow-up with Dr. Berrios (podiatry) within 1 week after discharge. Have ESR checked once a week and submitted to Dr. Blanco, Dr. Berrios and PCP Follow-up with Dr. Lee within 2 weeks after discharge Medications at Discharge Discharge Medications: Stop taking the following medications: Insulin Lispro (Humalog) 100 UNIT/ML VIAL Inject into fatty tissue 3 TIMES DAILY BEFORE MEALS Qty = 50 Continue taking these medications: Gemfibrozil (Gemfibrozil) 600 MG TABLET 1 Tablet ORAL TWICE DAILY Days = 30 Comments: Last Taken: 05/12/15 Time: 9:00 AM Metoprolol Tartrate (Metoprolol Tartrate) 50 MG TABLET 1 Tablet ORAL DAILY Comments: Last Taken: 08/10/16 Time: 10AM Budesonide/Formoterol Fumara (Symbicort 160-4.5 Mcg Inhaler) 160 MCG/4.5 MCG PUF 2 Puff Inhale through mouth TWICE DAILY Days = 30 Comments: Last Taken 05/12/15 TIME: 9:00 AM Atorvastatin Calcium (Lipitor) 40 MG TABLET 1 Tablet ORAL DAILY Comments: Last Taken:08/09/16 Time: 10PM Carbidopa/Levodopa (Carbidopa and Levodopa) 25 MG/100 MG TAB 1 Tablet ORAL THREE TIMES DAILY Comments: Last Taken: 05/12/15 Time: 9:00 AM Nitroglycerin (Nitrostat) 0.4 MG TAB.SUBL 1-3 Tablet ORAL As Directed as needed for HEART Comments: NOT GIVEN IN HOSPITAL Lisinopril (Lisinopril) 20 MG TABLET 1 Tablet ORAL DAILY Comments: Last Taken: 08/10/16 Time: 10AM Levothyroxine Sodium (Levothyroxine Sodium) 25 MCG TABLET 1 Tablet ORAL DAILY BEFORE BREAKFAST Comments: Last Taken: 04/17/15 Time: 6:00 AM Finasteride (Finasteride) 5 MG TAB 1 Tablet ORAL DAILY Qty = 60 Comments: Last Taken: 05/12/15 Time: 9:00 AM Omeprazole (Omeprazole) 20 MG CAPSULE.DR 1 Capsule ORAL DAILY as needed for GERD Qty = 30 Comments: NOT GIVEN IN HOSPITAL Aspirin (Aspirin*) 325 MG TABLET 1 Tablet ORAL DAILY Comments: Last Taken: 08/10/16 Time:10AM Insulin-Lantus (Lantus) 100 UNIT/ML VIAL 60 Units Inject into fatty tissue Every night Qty = 30 Comments: Last Taken: 06/03/16 Time: 10PM 30 UNITS OF LEVEMIR GIVEN Acetaminophen (Acetaminophen) 500 MG TABLET 1 Tablet ORAL As Directed as needed for PAIN Comments: NOT GIVEN IN HOSPITAL Start taking the following new medications: Meropenem (Meropenem) 1 GRAM VIAL 1 Gram INTRAVEN IV EVERY 8 HOURS Days = 28 No Refills Instructions: Complete a total course of 4 weeks therapy. Last dose on 09/06/16 Bisacodyl (Bisacodyl) 5 MG TABLET.DR 1 Tablet ORAL DAILY as needed for constipation Qty = 30 No Refills Polyethylene Glycol 3350 (Miralax) 17 GRAM/DOSE POWDER 1 Packet ORAL DAILY as needed for Constipation Qty = 30 No Refills Sennosides/Docusate Sodium (Senna-Time S Tablet) 8.6 MG-50 MG TABLET 1 Tablet ORAL AT BEDTIME as needed for Constipation Qty = 30 No Refills Insulin Aspart (Novolog) 100 UNIT/ML VIAL 1 Units Inject into fatty tissue BEFORE MEALS AND AT BEDTIME Qty = 1 No Refills Instructions: BEFORE MEALS Blood Insulin Sugar Units <80 Initiate hypoglycemia 80 -150 0 151-200 2 201-250 4 251-300 6 301-350 8 351-400 10 >400 12 and Call Doctor AT BEDTIME Blood Insulin Sugar Units <80 0 81-100 0 101-200 0 201-250 1 251-300 2 301-350 3 351-400 4 >400 Call Doctor Oxycodone HCl/Acetaminophen (Percocet 5-325 MG Tablet) 5 MG-325 MG TABLET 1 Tablet ORAL EVERY 8 HOURS as needed for Moderate pain Qty = 30 No Refills Comments: NOT GIVEN IN HOSPITAL Morphine Sulfate (Morphine Sulfate) 15 MG TABLET 1 Tablet ORAL EVERY SIX HOURS NEEDED as needed for Severe pain Qty = 30 No Refills Comments: NOT GIVEN IN HOSPITAL Copies To: SONYA VELASCO,OLGA Carrasco; ANGELA WINN APRN; DOROTA MARTE,ANGELIQUE; MIGUELINA VELASCO, LILY Hurst; SYLVIA VELASCO,OLGA Worthington; JUSTIN VELASCO,YAMILKA Attending MD Review Statement Documenting Attending: KIRIT VELASCO,MITCHEL Lee Other Findings: Dr Nelson was the discharging phsyician. Total of 42 minutes spent coordinating DC and going over med list with patinet and medical staff.
--- NOTE | 2016-08-07 06:20 | Patient Discharge Instructions ---
Discharge Instructions General Discharge Information You were seen/treated for: Osteomyelitis (this infection of the bone) of right foot. Arterial insufficiency in right femoral artery. You had these procedures: Angioplasty of right posterior tibial, TP trunk, and popliteal artery. Open incision and drainage deep to the D fashion with exposure of the extensor tendon and tendon sheath multiple sites right foot. Partial second ray resection right foot. Excisional debridement Watch for these problems: Fevers, chills, body aches. Swelling or worsening pain of the leg and foot. Bleeding or drainage from the surgical site. Special Instructions: Please follow-up with Dr. Berrios within 1-2 weeks after discharge. Please call your vascular surgeon within 1-2 weeks after discharge for recommendations on when to follow-up. Please follow-up with your PCP within one week after discharge. Physical medications as directed Diet Recommended Diet: Diabetic Activity Activity Self Limited: Yes Acute Coronary Syndrome Inclusion Criteria At DC or during hospital stay patient has or had the following: ACS DIAGNOSIS No Discharge Core Measures Meds if any: Prescribed or Continued at Discharge Meds if any: NOT Prescribed or Continued at Discharge Congestive Heart Failure Inclusion Criteria At DC or during hospital stay patient has or had the following: CHF DIAGNOSIS No Discharge Core Measures Meds if any: Prescribed or Continued at Discharge Meds if any: NOT Prescribed or Continued at Discharge Cerebrovascular accident Inclusion Criteria At DC or during hospital stay patient has or had the following: CVA/TIA Diagnosis No Discharge Core Measures Meds if any: Prescribed or Continued at Discharge Meds if any: NOT Prescribed or Continued at Discharge Venous thromboembolism Inclusion Criteria VTE Diagnosis No VTE Type NONE VTE Confirmed by (Test) NONE Discharge Core Measures - Per Current guidelines, there needs to be overlap - treatment for the first 5 days of Warfarin therapy. - If discharged on Warfarin prior to 5 days of - overlap therapy, the patient will need to be - assessed for post discharge needs including - *Post discharge parental anticoagulation - *Warfarin and/or parental anticoagulation education - *Follow up date to check INR post discharge At least 5 days overlap therapy as Inpatient No Meds if any: Prescribed or Continued at Discharge Note: Overlap Therapy is Warfarin and Anticoagulant Meds if any: NOT Prescribed or Continued at Discharge
[2016-08-07 06:31] VITALS: BP 130/70
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
--- NOTE | 2016-08-07 14:18 | Cons- Infect Disease ---
General Information and HPI Consulting Request Date of Consult: 08/07/16 Requested By: MITCHEL BETH MD Reason for Consult: Osteomyelitis of the right foot Source of Information: patient, old records History of Present Illness: This is a 75-year-old man with a history of coronary artery disease, status post CABG, CHF, status post pacemaker, COPD, not on home O2, chronic liver disease/ cirrhosis secondary to EtOH, diabetes and peripheral vascular disease, status post multiple angioplasties, most recently 2 months prior to admission when he was hospitalized with a gangrenous right second toe, requiring amputation, with no cultures submitted but with pathology revealing acute osteomyelitis with bone margin negative, with stenting and angioplasty of the right SFA and angioplasty of the right popliteal artery at that time, treated with a one week course of Cefazolin and discharged on no antibiotics, readmitted on July 31 with increasing erythema and edema of the right foot and leg for several weeks, with mild discomfort and purulent drainage from his wound, without any associated fevers or chills. On admission he was afebrile. Exam revealed foul-smelling purulent drainage from the right foot wound. Laboratory data revealed a white blood cell count of 8000, ESR 75, BUN/creatinine 13 and 1.0, alk phosphatase 140 , INR 1.13/PTT 41. Urinalysis negative. Doppler of the right leg was negative. Chest x-ray was negative. X-ray of the right foot revealed no evidence of osteomyelitis. He was followed off antibiotics. A bone scan August 01 was suspicious for osteomyelitis of the distal right second metatarsal bone. He was evaluated by Podiatry and Vascular surgery and underwent angioplasty of the right posterior tibial artery, TP trunk and popliteal artery on August 05 and debridement of the periosteum overlying the distal metatarsal on August 06. He has been afebrile with a normal white blood cell count since admission. At present he does report pain in the right foot. Allergies/Medications Allergies: Coded Allergies: codeine (RASH, STOMACH PAIN 09/07/15) fish derived (STOMACH PAIN FROM `SEA FOOD' 09/07/15) Home Med List: Acetaminophen 500 MG TABLET 1 TAB PO AD PRN PAIN (Reported) Aspirin (Aspirin*) 325 MG TABLET 1 TAB PO DAILY HEART HEALTH (Reported) Atorvastatin Calcium (Lipitor) 40 MG TABLET 1 TAB PO DAILY CHOLESTEROL ( Reported) Budesonide/Formoterol Fumara (Symbicort 160-4.5 Mcg Inhaler) 160 MCG/4.5 MCG PUF 2 PUF INH BID COPD (Reported) Carbidopa/Levodopa (Carbidopa and Levodopa) 25 MG/100 MG TAB 1 TAB PO TID PARKINSONS (Reported) Finasteride 5 MG TAB 1 TAB PO DAILY PROSTATE (Reported) Gemfibrozil 600 MG TABLET 1 TAB PO BID CHOLESTEROL (Reported) Insulin Lispro (Humalog) 100 UNIT/ML VIAL 20 U SC TIDAC DIABETES (Reported) Insulin-Lantus (Lantus) 100 UNIT/ML VIAL 60 U SC QPM DIABETES (Reported) Levothyroxine Sodium 25 MCG TABLET 1 TAB PO DAILY AC THYROID (Reported) Lisinopril 20 MG TABLET 1 TAB PO DAILY HEART (Reported) Metoprolol Tartrate 50 MG TABLET 1 TAB PO DAILY HEART HEALTH (Reported) Nitroglycerin (Nitrostat) 0.4 MG TAB.SUBL 1-3 TAB PO AD PRN HEART (Reported) Omeprazole 20 MG CAPSULE.DR 1 CAP PO DAILY PRN GERD (Reported) Past History Travel History Traveled to [place] past 21 day No Medical History Blood Transfusion Hx: No Neurological: Parkinson's disease, 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 Cardiovascular: CAD, CHF, hypertension, hyperlipidemia, PVD Respiratory: COPD Gastrointestinal: CHRONIC PANCREATITIS, alcohol-induced cirrhosis Hepatic: NONE Renal: benign prost hyperplasia Musculoskeletal: ARTHRITIS Psychiatric: anxiety, bipolar disease, depression Endocrine: diabetes, hypothyroidism Blood Disorders: anemia History of MRSA: Yes History of VRE: No History of CDIFF: No Isolation History: Contact Pneumonia Vaccine: 03/16/12 Influenza Vaccine: 02/15/16 Tetanus Vaccine: 10/17/12 Surgical History Surgical History: CABG, status post pacemaker, status post previous angioplasties, status post amputation of the right second toe May 2016 Family History Relations & Conditions If Any: FATHER CVA FH: CAD (coronary artery disease) FH: heart attack BROTHER FH: CAD (coronary artery disease) SISTER FH: CAD (coronary artery disease) Psychosocial History Who Do You Live With? self Services at Home: Home Health Aide Smoking Status: Current Everyday Smoker ETOH Use: occasional use Functional Ability ADLs Unknown: dressing, eating, toileting, bathing. Ambulation: walker IADLs Needs Assist: shopping, housework, transportation, medication admin. Review of Systems Review of Systems All Other Systems: Reviewed and Negative Exam & Diagnostic Data Last 24 Hrs of Vital Signs/I&O Vital Signs Date Time Temp Pulse Resp B/P Pulse O2 O2 Flow FiO2 Ox Delivery Rate 08/07 1316 120/70 08/07 0631 98.1 79 20 130/70 96 Room Air 08/07 0600 98.1 79 20 130/70 08/07 0200 98.8 80 20 150/70 08/07 0149 98.8 80 20 150/70 96 Room Air 08/07 0000 Room Air 08/06 2200 98.5 60 18 140/80 08/06 2100 99.1 42 20 154/66 98 Room Air 08/06 2000 98.5 60 18 140/80 08/06 1700 98.5 60 18 140/80 08/06 1700 98.5 60 18 140/80 97 Room Air Intake & Output 08/07 1600 08/07 0800 08/07 0000 Intake Total 300 50 500 Output Total 300 575 775 Balance 0 -525 -275 Intake, IV 0 Intake, Oral 300 50 500 Number 0 Bowel Movements Output, Urine 300 575 775 Physical Exam Other Physical Findings: He is awake and alert in no acute distress. He is afebrile. Skin reveals no rash. HEENT exam is negative. Neck is supple with no adenopathy. Lungs are clear. Heart regular rhythm with no murmur. Abdomen is soft, nontender with positive bowel sounds. Back no CVA tenderness. Extremities right foot dressing intact; right leg with no erythema or swelling; left foot with 2+ pulses. Neuro neuropathy of both feet. Last 24 Hours of Lab Results: Laboratory Tests 08/06 0645 Chemistry Sodium (137 - 145 mmol/L) 138 Potassium (3.5 - 5.1 mmol/L) 4.2 Chloride (98 - 107 mmol/L) 104 Carbon Dioxide (22 - 30 mmol/L) 22 Anion Gap (5 - 16) 12 BUN (9 - 20 mg/dL) 16 Creatinine (0.7 - 1.2 mg/dL) 0.9 Estimated GFR (>60 ml/min) > 60 BUN/Creatinine Ratio (7 - 25 %) 17.8 Coagulation PT (9.4 - 12.5 SEC) 12.0 INR (0.90 - 1.17) 1.14 Hematology CBC w Diff NO MAN DIFF REQ WBC (4.8 - 10.8 /CUMM) 5.3 RBC (4.70 - 6.10 /CUMM) 3.11 L Hgb (14.0 - 18.0 G/DL) 9.5 L Hct (42 - 52 %) 28.6 L MCV (80.0 - 94.0 FL) 92.0 MCH (27.0 - 31.0 PG) 30.7 RDW (11.5 - 14.5 %) 14.1 Plt Count (130 - 400 /CUMM) 185 MPV (7.4 - 10.4 FL) 6.7 L Gran % (42.2 - 75.2 %) 59.8 Lymphocytes % (20.5 - 51.1 %) 28.2 Monocytes % (1.7 - 9.3 %) 8.7 Eosinophils % (0 - 5 %) 2.8 Basophils % (0.0 - 2.0 %) 0.5 Absolute Granulocytes (1.4 - 6.5 /CUMM) 3.2 Absolute Lymphocytes (1.2 - 3.4 /CUMM) 1.5 Absolute Monocytes (0.10 - 0.60 /CUMM) 0.5 Absolute Eosinophils (0.0 - 0.7 /CUMM) 0.1 Absolute Basophils (0.0 - 0.2 /CUMM) 0 PUBS MCHC (33.0 - 37.0 G/DL) 33.3 Last 24 Hours of Olegario Results: Blood cultures 2 July 31 negative Urine culture August 05 negative OR culture labeled right second metatarsal bone August 06 positive for Enterococcus and gram-negative rods Diagnostic Data Recent Imaging Findings: Doppler of the right leg July 31 negative. Chest x-ray July 31 negative. X-ray of the right foot July 31 revealed no evidence of osteomyelitis. Bone scan August 01 was suspicious for osteomyelitis of the distal right second metatarsal bone. Arterial Doppler August 02 revealed patent arteries to the right lower extremity with flow now seen in the right anterior tibial artery Assessment/Plan Assessment/Plan Impression: This is a 75-year-old man with diabetes, peripheral vascular disease, hospitalized 2 months prior to admission with a gangrenous right second toe requiring amputation, with revascularization of the right lower extremity at that time, admitted on July 31 with pain, swelling and erythema of the right foot and leg, found to be afebrile with a normal white blood cell count, with bone scan suspicious for osteomyelitis, status post repeat revascularization of the right leg 2 days ago and debridement of the right second metatarsal yesterday, with the OR culture positive for Enterococcus and gram-negative rods. It appears that he has residual osteomyelitis and he will likely require a prolonged course (i.e. 4 weeks) of IV antibiotics, which can be started today pending final cultures. Suggestion: 1. Follow-up recent OR culture 2. Would proceed with placement of a PICC in the a.m. 3. Begin Unasyn 3 g IV every 6 hours pending above Consult Acknowledgment - Thank you for your consult request.
[2016-08-07 14:22] VITALS: BP 120/70
[2016-08-07 21:03] VITALS: BP 154/70
[2016-08-08 07:30] VITALS: BP 110/70
[2016-08-08 07:55] LABS: ABSOLUTE BASOPHIL COUNT 0 /CUMM (0.0-0.2); ABSOLUTE EOSINOPHIL COUNT 0.2 /CUMM (0.0-0.7); ABSOLUTE GRANULOCYTE CT 3.9 /CUMM (1.4-6.5); ABSOLUTE LYMPH COUNT 1.5 /CUMM (1.2-3.4); ABSOLUTE MONOCYTE COUNT 0.6 /CUMM (0.10-0.60); BASOPHIL % 0.4 % (0.0-2.0); EOSINOPHIL % 2.7 % (0-5); GRANULOCYTE % 62.8 % (42.2-75.2); HEMATOCRIT 27.5 % (42-52); MEAN CORPUSCULAR HGB 30.5 PG (27.0-31.0); MEAN CORPUSCULAR HGB CONC 33.5 G/DL (33.0-37.0); MEAN PLATELET VOLUME 6.8 FL (7.4-10.4); PLATELET COUNT 188 /CUMM (130-400); RBC DISTRIBUTION WIDTH 14.2 % (11.5-14.5); RED BLOOD CELL CT 3.02 /CUMM (4.70-6.10); WHITE BLOOD CELL COUNT 6.3 /CUMM (4.8-10.8)
--- NOTE | 2016-08-08 09:35 | PN- Att Addend ---
Attending Addendum Attending Brief Note Attending MD Statement: examined this patient, discuss w/resident/PA/COURTESY CAR DRIVER, agreed w/resident/PA/COURTESY CAR DRIVER, reviewed EMR data (avail) Attending Assessment/Plan: Patient seen and examined. Patient complains of mild to moderate pain in the right foot and numbness in the heels. He is able to ambulate and bear weight on the right foot. His vital signs have been stable and chest exam is clear. Abdomen soft nontender. His culture report from the biopsy specimen is growing gram-negative rods and enterococcus. Laboratory Tests 08/08 0620 Chemistry Sodium (137 - 145 mmol/L) 139 Potassium (3.5 - 5.1 mmol/L) 3.9 Chloride (98 - 107 mmol/L) 104 Carbon Dioxide (22 - 30 mmol/L) 24 Anion Gap (5 - 16) 11 BUN (9 - 20 mg/dL) 18 Creatinine (0.7 - 1.2 mg/dL) 0.9 Estimated GFR (>60 ml/min) > 60 BUN/Creatinine Ratio (7 - 25 %) 20.0 Hematology CBC w Diff NO MAN DIFF REQ WBC (4.8 - 10.8 /CUMM) 6.3 RBC (4.70 - 6.10 /CUMM) 3.02 L Hgb (14.0 - 18.0 G/DL) 9.2 L Hct (42 - 52 %) 27.5 L MCV (80.0 - 94.0 FL) 91.0 MCH (27.0 - 31.0 PG) 30.5 RDW (11.5 - 14.5 %) 14.2 Plt Count (130 - 400 /CUMM) 188 MPV (7.4 - 10.4 FL) 6.8 L Gran % (42.2 - 75.2 %) 62.8 Lymphocytes % (20.5 - 51.1 %) 24.5 Monocytes % (1.7 - 9.3 %) 9.6 H Eosinophils % (0 - 5 %) 2.7 Basophils % (0.0 - 2.0 %) 0.4 Absolute Granulocytes (1.4 - 6.5 /CUMM) 3.9 Absolute Lymphocytes (1.2 - 3.4 /CUMM) 1.5 Absolute Monocytes (0.10 - 0.60 /CUMM) 0.6 Absolute Eosinophils (0.0 - 0.7 /CUMM) 0.2 Absolute Basophils (0.0 - 0.2 /CUMM) 0 PUBS MCHC (33.0 - 37.0 G/DL) 33.5 Assessment plan Based on culture report patient has osteomyelitis of the right foot. Likely plan is for patient to return to OR for application of wound VAC on Friday. Nothing by mouth post midnight tonight. We'll proceed PICC line insertion as recommended by infectious disease. Continue Unasyn.
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
--- NOTE | 2016-08-08 11:48 | RADIOLOGY REPORT ---
EXAMINATION: XR PORTABLE CHEST CLINICAL INFORMATION: PICC placement COMPARISON: 07/31/2016 TECHNIQUE: Portable AP view of the chest was obtained. FINDINGS: Left PICC tip is not well seen distally, obscured by overlying pacer wires and likely in the region of the distal SVC. Right-sided pacemaker lead tips overlie the right atrium and right ventricle. Lung volumes are symmetric. No focal consolidation is seen. No evidence of pneumothorax, pleural effusion, or pulmonary edema. The cardiomediastinal contour is unremarkable. Sternal wires are present. No acute osseous findings are seen. IMPRESSION: Left PICC tip likely in the region of the distal SVC, suboptimally visualized due to overlying pacer wires. No acute cardiopulmonary findings.
--- NOTE | 2016-08-08 13:22 | PN- Infect Dx ---
Subjective Subjective: Afebrile. He notes mild discomfort in the right foot. He also notes numbness of both heels. Objective Last 24 Hrs of Vital Signs/I&O Vital Signs Date Time Temp Pulse Resp B/P Pulse O2 O2 Flow FiO2 Ox Delivery Rate 08/08 0940 64 124/70 08/08 0730 99.0 83 20 110/70 97 Room Air 08/07 2103 99.3 84 20 154/70 95 Room Air 08/07 1526 Room Air 08/07 1449 Room Air 08/07 1422 98.6 99 20 120/70 92 Room Air Intake & Output 08/08 1600 08/08 0800 08/08 0000 Intake Total 810 Output Total 250 250 Balance -250 -250 810 Intake, IV 260 Intake, Oral 550 Number 0 Bowel Movements Output, Urine 250 250 Physical Exam Other Physical Findings: He appears comfortable in no acute distress Extremities PICC in place in the left upper extremity; right foot dressing intact Results Last 24 Hours of Lab Results: Laboratory Tests 08/08 0620 Chemistry Sodium (137 - 145 mmol/L) 139 Potassium (3.5 - 5.1 mmol/L) 3.9 Chloride (98 - 107 mmol/L) 104 Carbon Dioxide (22 - 30 mmol/L) 24 Anion Gap (5 - 16) 11 BUN (9 - 20 mg/dL) 18 Creatinine (0.7 - 1.2 mg/dL) 0.9 Estimated GFR (>60 ml/min) > 60 BUN/Creatinine Ratio (7 - 25 %) 20.0 Hematology CBC w Diff NO MAN DIFF REQ WBC (4.8 - 10.8 /CUMM) 6.3 RBC (4.70 - 6.10 /CUMM) 3.02 L Hgb (14.0 - 18.0 G/DL) 9.2 L Hct (42 - 52 %) 27.5 L MCV (80.0 - 94.0 FL) 91.0 MCH (27.0 - 31.0 PG) 30.5 RDW (11.5 - 14.5 %) 14.2 Plt Count (130 - 400 /CUMM) 188 MPV (7.4 - 10.4 FL) 6.8 L Gran % (42.2 - 75.2 %) 62.8 Lymphocytes % (20.5 - 51.1 %) 24.5 Monocytes % (1.7 - 9.3 %) 9.6 H Eosinophils % (0 - 5 %) 2.7 Basophils % (0.0 - 2.0 %) 0.4 Absolute Granulocytes (1.4 - 6.5 /CUMM) 3.9 Absolute Lymphocytes (1.2 - 3.4 /CUMM) 1.5 Absolute Monocytes (0.10 - 0.60 /CUMM) 0.6 Absolute Eosinophils (0.0 - 0.7 /CUMM) 0.2 Absolute Basophils (0.0 - 0.2 /CUMM) 0 PUBS MCHC (33.0 - 37.0 G/DL) 33.5 Last 24 Hours of Olegario Results: OR culture August 06 labeled right second metatarsal bone positive for Enterococcus sensitive to Ampicillin and Enterobacter cloacae resistant to Unasyn Assessment/Plan Impression: Stable status post revascularization of the right leg 3 days ago and debridement of the right second metatarsal 2 days ago for polymicrobial osteomyelitis, with Enterococcus and Enterobacter isolated from the bone culture. He remains afebrile with white blood cell count normal on Unasyn but, given the final OR culture, his antibiotics will need to be adjusted. He is scheduled for return to the OR in the a.m. for further debridement and placement of a wound VAC. He will require a four-week course of IV antibiotics from his last debridement. Suggestion: 1. Await return to the OR in the a.m. for further debridement 2. Discontinue Unasyn 3. Begin Meropenem 1 g IV every 8 hours
[2016-08-08 14:15] VITALS: BP 142/70
[2016-08-08 22:34] VITALS: BP 140/68
[2016-08-09 06:58] VITALS: BP 138/70
--- NOTE | 2016-08-09 13:04 | Operative Report ---
Operative/Inv Procedure Report Surgery Date: 08/09/16 Name of Procedure: 1 open incision and drainage deep to the D fashion with exposure of the extensor tendon and tendon sheath multiple sites 2 revisional partial second second ray resection right foot 3 intraoperative administration of ankle block anesthesia 4 excisional debridement Pre-Operative Diagnosis: 1 open necrotic wound right foot 2 osteomyelitis right foot 3 severe peripheral arterial disease right foot Post-Operative Diagnosis: The same Estimated Blood Loss: less than 50ml Surgeon/Lens Shaper Grinder: ANGELIQUE RAYA DPM Anesthesia: local monitored anesthesi Operative/Procedure Note Note: After obtaining informed consent the patient was brought to the operating room and placed on the operating table in the supine position. The patient was then securely fastened to the operating table utilizing safety belt. After administration of IV sedation, 10 mL of 0.5% Marcaine plain was infiltrated about the patient's right ankle. The right foot and ankle then scrubbed prepped and draped in usual aseptic manner. Attention directed the right foot, where a large full-thickness necrotic was identified. A 15 blade was utilized to sharply revise the skin margins. The dissection was then carried down deep to the D fashion with exposure of the extensor tendon and tendon sheath multiple sites right foot. All necrotic nonviable infected tissue sharply evacuated from the wound bed. Dissection was then carried down to the periosteum overlying the distal stump second metatarsal, which was incised reflected. Sagittal bone saw was utilized performed through and through osteotomy in the distal osseous segment was freed and passed from the operative field. Specimen was sent for pathologic inspection. The foot was then irrigated with 3 L normal sterile saline fissure 50,000 units administration. Following this, the foot was redraped and the surgeon's top of gestation clean gloves. Any bleeding vessels identified were cauterized a lace encountered. Prasanna topical hemostatic agent was placed within the wound bed followed by wet-to-dry packing. 2-0 nylon retention sutures were then placed. Followed by 4 x 4's Kerlix and an Adria wrap. The patient was noted tolerate both procedure and anesthesia well and the patient was transported from the operating room to recovery by sent stable.
[2016-08-09 14:20] VITALS: BP 130/80
--- NOTE | 2016-08-09 14:30 | PN- Infect Dx ---
Subjective Subjective: Afebrile. He notes mild discomfort in the right foot. Objective Last 24 Hrs of Vital Signs/I&O Vital Signs Date Time Temp Pulse Resp B/P Pulse O2 O2 Flow FiO2 Ox Delivery Rate 08/09 0950 80 150/80 08/09 0658 98.5 58 20 138/70 98 Room Air 08/08 2234 99.1 60 20 140/68 95 Room Air Intake & Output 08/09 1600 08/09 0800 08/09 0000 Intake Total 600 800 Output Total 700 1350 Balance -100 -550 Intake, IV 600 150 Intake, Oral 650 Output, Urine 700 1350 Physical Exam Other Physical Findings: He appears comfortable in no acute distress Lungs are clear Heart regular rhythm with no murmur Extremities right foot dressing intact; PICC in the left upper extremity with no inflammation at the site Results Last 24 Hours of Lab Results: Laboratory Tests 08/08 0620 Chemistry Sodium (137 - 145 mmol/L) 139 Potassium (3.5 - 5.1 mmol/L) 3.9 Chloride (98 - 107 mmol/L) 104 Carbon Dioxide (22 - 30 mmol/L) 24 Anion Gap (5 - 16) 11 BUN (9 - 20 mg/dL) 18 Creatinine (0.7 - 1.2 mg/dL) 0.9 Estimated GFR (>60 ml/min) > 60 BUN/Creatinine Ratio (7 - 25 %) 20.0 Hematology CBC w Diff NO MAN DIFF REQ WBC (4.8 - 10.8 /CUMM) 6.3 RBC (4.70 - 6.10 /CUMM) 3.02 L Hgb (14.0 - 18.0 G/DL) 9.2 L Hct (42 - 52 %) 27.5 L MCV (80.0 - 94.0 FL) 91.0 MCH (27.0 - 31.0 PG) 30.5 RDW (11.5 - 14.5 %) 14.2 Plt Count (130 - 400 /CUMM) 188 MPV (7.4 - 10.4 FL) 6.8 L Gran % (42.2 - 75.2 %) 62.8 Lymphocytes % (20.5 - 51.1 %) 24.5 Monocytes % (1.7 - 9.3 %) 9.6 H Eosinophils % (0 - 5 %) 2.7 Basophils % (0.0 - 2.0 %) 0.4 Absolute Granulocytes (1.4 - 6.5 /CUMM) 3.9 Absolute Lymphocytes (1.2 - 3.4 /CUMM) 1.5 Absolute Monocytes (0.10 - 0.60 /CUMM) 0.6 Absolute Eosinophils (0.0 - 0.7 /CUMM) 0.2 Absolute Basophils (0.0 - 0.2 /CUMM) 0 PUBS MCHC (33.0 - 37.0 G/DL) 33.5 Last 24 Hours of Olegario Results: No new cultures Assessment/Plan Impression: Stable status post revisional debridement of the right foot earlier today after initial right second metatarsal debridement 4 days ago for polymicrobial osteomyelitis, with revascularization of the right leg performed 4 days ago. He remains afebrile with white blood cell count normal now on Meropenem for Enterococcus and Enterobacter isolated from the OR cultures, and this will need to be continued for 4 weeks from today. Suggestion: 1. Repeat ESR and follow weekly while on antibiotics 2. Continue Meropenem to complete a four-week course of antibiotics from today (until September 06)
--- NOTE | 2016-08-09 15:08 | PN- Housestaff ---
Subjective Follow-up For: Osteomyelitis Subjective: Seen and examined at bedside. He was getting ready for or procedure of wound VAC placement. He does endorse foot pain however states that is much control compared to previous day. No acute overnight event reported by nursing staff Review of Systems Constitutional: Reports: see HPI. Objective Last 24 Hrs of Vital Signs/I&O Vital Signs Date Time Temp Pulse Resp B/P Pulse O2 O2 Flow FiO2 Ox Delivery Rate 08/09 1420 98.2 63 18 130/80 97 Room Air 08/09 0950 80 150/80 08/09 0658 98.5 58 20 138/70 98 Room Air 08/08 2234 99.1 60 20 140/68 95 Room Air Intake & Output 08/09 1600 08/09 0800 08/09 0000 Intake Total 600 800 Output Total 700 1350 Balance -100 -550 Intake, IV 600 150 Intake, Oral 650 Output, Urine 700 1350 Physical Exam General Appearance: Alert, Oriented X3, Cooperative Skin: dressing was intact on right foot HEENT: Atraumatic, PERRLA, EOMI Cardiovascular: Regular Rate, Normal S1, Normal S2 Lungs: Clear to Auscultation, Normal Air Movement Extremities: No Clubbing, dressing on right fgoot. no acute bleed noted Assessment/Plan Assessment: This is a 75-year-old male with a recurrent history of PVD status post angioplasty right femoral artery, and stenting of right SFA, recent right foot edition and drainage of tendinosis with partial resection of right second toe and closure of necrotic wound due to dry gangrene and cellulitis presents for evaluation of his chronic non-healing right foot wound. Patient also has a significant past medical history of CAD status post CABG, placement, hyperlipidemia, hypertension and type 1 diabetes, chronic pancreatitis, COPD and hypothyroidism. Pt Was admitted to general medicine floor for evaluation and management of his nonhealing chronic right foot wound. Assessment and plan #Osteomyelitis Patient is getting discharged tomorrow morning with plans to continue meropenem for 4 week total course therapy with PICC line use. We'll continue to obtain serial ESR monitor therapy. #Acute on chronic right extremity wound Status post angioplasty yesterday and debribedement. Scheduled for wound vacc tomorrow. Plan We'll continue dressing recommendations per podiatry #History of chronic diseases CAD: Continue atorvastatin and aspirin Hypertension: Continue lisinopril Hyperlipidemia: Continue atorvastatin and gemfibrozil Diabetes: NovoLog sliding scale and Levemir bedtime Hypothyroidism: Continue levothyroxine and 25mcg #Disposition Patient will be going to [facility]. Bed placement has readily been finalized Problem List: 1. Osteomyelitis 2. Wound, open, foot Pain Ratin Pain Location: right foot Pain Goal: Remain pain free Pain Plan: per pain pathway Tomorrow's Labs & Rationales: none-diischarge
--- NOTE | 2016-08-09 15:38 | PN- Att Addend ---
Attending MD Review Statement Attending Statement Attending MD Statement: examined this patient, discuss w/resident/PA/REFRIGERATOR CABINETMAKER, agreed w/resident/PA/REFRIGERATOR CABINETMAKER, reviewed EMR data (avail), discussed w/nursing Attending Assessment/Plan: Vital Signs Date Time Temp Pulse Resp B/P Pulse O2 O2 Flow FiO2 Ox Delivery Rate 08/09 0950 80 150/80 08/09 0658 98.5 58 20 138/70 98 Room Air 08/08 2234 99.1 60 20 140/68 95 Room Air 75-year-old male with a recurrent history of PVD status post angioplasty right femoral artery, and stenting of right SFA, recent right foot infection and drainage with partial resection of right second toe and closure of necrotic wound due to dry gangrene and cellulitis presents for evaluation of his chronic non-healing right foot wound. Pt had angiogram with angioplasty done 08/05/2016- significant findings are as follows-Distal below-knee popliteal and TP trunk has diffuse severe disease. There was resolution of the stenosis post angioplasty of these vessels.There was a tight stenosis at the origin of the PT. There was resolution of the stenosis post angioplasty A/p- Non healing uler of the toe on rt feet- Angio done on 08/05- report as above. Podiatry took the pt to OR on 08/06 and did debridement. Went to OR today for debridement again 08/09/16, Plan is to dc to [facility] when ok with podiatry. Pt had picc line placed and is currently on iv meropenem for wound culture growing Enterococcus cloacae and enterococcus case management looking for bed in [facility].
[2016-08-09] MEDS ORDERED: MEROPENEM1 G1 IV (18:04)
[2016-08-09] MEDS ORDERED: BISACODYL5 M1 PO (18:06)
[2016-08-09] MEDS ORDERED: MIRALAX119 GM PO (18:07)
[2016-08-09] MEDS ORDERED: SENNA-TIME S T1 EACH PO (18:08)
[2016-08-09 22:44] VITALS: BP 130/66
[2016-08-10 06:30] VITALS: BP 124/60
--- NOTE | 2016-08-10 08:49 | PN- Housestaff ---
LEONILA VILLANUEVA MD 08/10/16 0848: Subjective Follow-up For: Osteomyelitis Subjective: Patient seen and examined. He is seen lying flat in bed resting comfortably. He reports mild amount of pain in the surgical site on his right foot but otherwise has no complaints. He is up-to-date about the medical plan and is ready to be discharged to [facility]. Additionally he denies any headache, fever, chills, chest pain, palpitations, shortness of breath, nausea, vomiting, diarrhea. No overnight events reported. Review of Systems Constitutional: Reports: see HPI. Objective Last 24 Hrs of Vital Signs/I&O Vital Signs Date Time Temp Pulse Resp B/P Pulse O2 O2 Flow FiO2 Ox Delivery Rate 08/10 0837 61 124/60 08/10 0837 61 12460 08/10 0630 98.4 61 20 124/60 96 Room Air 08/09 2244 98.0 67 20 130/66 95 08/09 1420 98.2 63 18 130/80 97 Room Air Intake & Output 08/10 1600 08/10 0800 08/10 0000 Intake Total 240 240 Output Total 225 1200 400 Balance -225 -960 -160 Intake, Oral 240 240 Output, Urine 225 1200 400 Physical Exam General Appearance: Alert, Oriented X3, Cooperative, No Acute Distress Other Physical Findings: General -well developed, well-nourished obese man in no acute distress HEENT - NCAT, PERRL, EOMI, anicteric sclera Cardio - S1, S2 w/o murmurs/gallops/rubs Resp - CTA bilaterally w/o wheezing/rhochi/crackles GI - soft, nontender, nondistended, bowel sounds present Neuro - Awake and alert, CN II - XII grossly intact Extremities -normal pulses, no cyanosis/clubbing/edema, right lower extremity wrapped in a sterile surgical dressing with scant amount of associated serosanguineous drainage without surrounding erythema or induration Current Medications: Current Medications Sig/Uvaldo Start time Last Medication Dose Route Stop Time Status Admin Aspirin 325 MG DAILY 08/06 1000 AC 08/10 PO 0836 Atorvastatin Calcium 40 MG 08/06 AC 08/09 PO 2030 Bisacodyl 5 MG DAILY PRN 08/07 2029 AC PO Budesonide/ 2 PUF BID 08/05 2199 AC 08/10 Formoterol Fumarate INH 0837 Carbidopa/Levodopa 1 TAB TID 08/05 1600 AC 08/10 PO 0836 Dextrose/Sodium 1,000 ML Q13H 08/08 2045 DC 08/09 Chloride IV 0950 Enoxaparin Sodium 40 MG DAILY 08/06 1000 AC 08/10 SC 0836 Finasteride 5 MG DAILY 08/06 1000 AC 08/10 PO 0837 Gemfibrozil 600 MG 0730,1630 08/05 1630 AC 08/10 PO 0836 Hydromorphone HCl 2 MG .STK-MED ONE 08/09 1318 DC IM 08/09 1319 Ibuprofen 600 MG Q6P PRN 08/05 1345 AC 08/09 PO 2338 Insulin Aspart 0 TIDAC/HS 08/09 1700 AC 08/10 SC 0835 Insulin Detemir 30 UNITS BID 08/05 2200 AC 08/10 SC 0836 Insulin Human Regular 0 Q6 08/08 2359 DC 08/09 SC 0535 Levothyroxine Sodium 0.025 MG DAILY AC 08/06 0700 AC 08/10 PO 0602 Lisinopril 20 MG DAILY 08/06 1000 AC 08/10 PO 0837 Lorazepam 0 Q1P PRN 08/05 1345 AC IV Meropenem 1 GM IQ8 08/08 1615 AC 08/10 IV 0835 Metoprolol Tartrate 50 MG DAILY 08/06 1000 AC 08/10 PO 0837 Morphine Sulfate 2 MG Q6P PRN 08/05 1345 AC 08/10 IV 0602 Polyethylene Glycol 17 GM DAILY 08/07 2030 AC 08/10 PO 0836 Senna 187 MG AT BEDTIME 08/07 2200 AC 08/09 PO 2031 Last 24 Hrs of Lab/Olegario Results Last 24 Hrs of Labs/Mics: Laboratory Tests 08/09/16 1819: ESR Westergren 87 H Assessment/Plan Assessment: Patient was converted from intravenous narcotic pain medications to oral formulation today. He reports that his pain is tolerable on this regimen. Patient has PICC line still in place with intravenous antibiotics to complete a total course of 4 weeks for which he will be discharged to [facility] today. Problem List: -Osteomyelitis of right foot s/p surgical debridement -History of peripheral vascular disease status post angioplasty and stenting -CAD status post CABG, on aspirin -Hyperlipidemia, on atorvastatin/gemfibrozil -Hypertension, on lisinopril/metoprolol -Type 1 diabetes mellitus, on insulin -Chronic pancreatitis -COPD, on Symbicort -Hypothyroidism, on levothyroxine Plan: -General medicine -PICC line in place -Meropenem 1 g IV every 8 hours -Continue home meds -Infectious disease consult -Podiatry consult -Bowel regimen/pain pathway -DVT prophylaxis -Discharge to [facility] today Problem List: 1. Osteomyelitis Pain Ratin Pain Location: Right Foot Pain Goal: Remain pain free Pain Plan: Pain Pathway Tomorrow's Labs & Rationales: None Consulting Request: Consulting Specialty: Podiatry DEBORA STEELE MD 08/10/16 1152: Attending MD Review Statement Attending Statement Attending MD Statement: examined this patient, discuss w/resident/PA/CHILDCARE ADMINISTRATOR, agreed w/resident/PA/CHILDCARE ADMINISTRATOR, reviewed EMR data (avail), discussed with nursing, discussed with case mgmt, reviewed images Attending Assessment/Plan: Patient has a PICC line with the plan for a four-week course of IV meropenem for polymicrobial osteo at an STR. He has multiple medical problems including diabetes, hypertension, coronary artery disease, peripheral arterial disease status post angioplasty. He had OR treatment with Dr. Berrios and he is agreeable to the oral opiate regimen discussed by the resident with Percocet for moderate and oral morphine for severe pain with a bowel regimen and close outpatient follow-up and weekly ESR.
[2016-08-10] MEDS ORDERED: PERCOCET 5-3251 EACH PO (11:22)
[2016-08-10] MEDS ORDERED: MORPHINE SULFAT15 M4 PO (11:24)
[2016-08-10] MEDS ORDERED: NOVOLOG100 UNIT/2 SC (11:40)
[2016-08-10 14:01] VITALS: BP 124/60
[2016-08-10 14:50] VITALS: BP 132/80
== END 2016-08-10 18:59 | DRG 240 ==
LOC: ENRESERVTM → ENRESERVDT → ERH 17:54 → 2NA 22:17 → ENPENDDIS 22:17 → ERHI 22:17 → 2NA 08-01 00:32
PROVIDERS: Emergency Medicine; Internal Medicine; Ophthalmology; Student in an Organized Health Care Education/Training Program; ADMIT Internal Medicine
PROC: 047R3ZZ Dilation of Right Posterior Tibial Artery, Percutaneous Approach (ICD-10-PCS; principal; 2016-08-05)
PROC: 047M3ZZ Dilation of Right Popliteal Artery, Percutaneous Approach (ICD-10-PCS; principal; 2016-08-05)
PROC: B41DZZZ Fluoroscopy of Aorta and Bilateral Lower Extremity Arteries (ICD-10-PCS; principal; 2016-08-05)
PROC: 0Y6M0ZB Detachment at Right Foot, Partial 2nd Ray, Open Approach (ICD-10-PCS; 2016-08-06)
PROC: 0Y6M0ZB Detachment at Right Foot, Partial 2nd Ray, Open Approach (ICD-10-PCS; 2016-08-09)
DX: E11.51 Type 2 diabetes mellitus with diabetic peripheral angiopathy without gangrene (principal); L03.115 Cellulitis of right lower limb; E11.69 Type 2 diabetes mellitus with other specified complication; G20 Parkinson's disease; K86.1 Other chronic pancreatitis; M86.8X7 Other osteomyelitis, ankle and foot; E10.621 Type 1 diabetes mellitus with foot ulcer; J44.9 Chronic obstructive pulmonary disease, unspecified; K70.30 Alcoholic cirrhosis of liver without ascites; I25.10 Atherosclerotic heart disease of native coronary artery without angina pectoris; E03.9 Hypothyroidism, unspecified; F17.200 Nicotine dependence, unspecified, uncomplicated; Z95.1 Presence of aortocoronary bypass graft; Z95.0 Presence of cardiac pacemaker; Z79.4 Long term (current) use of insulin
CPT/HCPCS: 2NAP; 87070; 87075; ERO; 36415; 73552; 73630-RT; 81001; 82436; 87040; 87086; 87147; 88304; 88307; 93005; 93010; A9561; C1725; C1760; C1769; C2623; J0131; J1644; J1650; J1815; J2001; J2185; J2270; J2405; J3490; J7042; Q9967

== ENCOUNTER 2016-09-19 12:11 | Emergency (ER) | payer OTHER, MEDICARE ==
[~2016-09-19] VITALS: Ht 177.8 cm; Wt 84.4 kg
[~2016-09-19 12:11] MED LIST changes: +BISACODYL5 M1 PO; +MEROPENEM1 G1 IV; +MIRALAX119 GM PO; +MORPHINE SULFAT15 M4 PO; +NOVOLOG100 UNIT/2 SC; +SENNA-TIME S T1 EACH PO
[2016-09-19 12:12] VITALS: BP 162/68
--- NOTE | 2016-09-19 12:32 | ED UPPER/LOWER EXTREMITY COMPL ---
History of Present Illness General Chief Complaint: Foot or Ankle Injury Stated Complaint: RT FOOT PAIN Source: patient Exam Limitations: no limitations Allergies Coded Allergies: codeine (RASH, STOMACH PAIN 09/07/15) fish derived (STOMACH PAIN FROM `SEA FOOD' 09/07/15) Triage Note: LUZ ELENAA FROM DOCTOR OFFICE FOR C/O RIGHT FOOT PAIN, PT HAS HX OF RIGHT TOE SURGERY AND TOE AMPUTATION IN MAY, WENT SHOPPING AND WAS PUTTING 3 BIG BOTTLES OF SODA AWAY IN THE FRIDGE AND THE SHELF BROKE AND FELL ONTO RIGHT FOOT. PT SAW SURGEON DR HUFFMAN YESTERDAY, HAD FOOT XRAY. Triage Nurses Notes Reviewed? yes HPI: This patient is a 75-year-old male with a past medical history: Parkinson's disease and osteomyelitis who presented to the emergency department today brought in by ambulance from his primary care physician's office for evaluation of right foot pain. Patient reported that in May he had an amputation. He reported that about a month and a half ago he had a foot injury of the same foot. He reported that he does see a foot surgeon. This doctor saw him yesterday and did an x-ray of his foot. The foot surgeon refused to prescribe him any more oxycodone and told him that he needed to see his primary care physician. He saw his primary care physician this morning who also refused to prescribe him any more a medication. From his primary care physician's office, he presented here to the emergency department requesting pain medication. The patient reported that he gets 9 out of 10 pain in his right foot from his wounds. He is unable to describe the pain. He denied any other symptoms. No fevers or chills. No chest pain or difficulty breathing. No abdominal pain, nausea, or vomiting. (LEE KABA,GISELLE) Vital Signs & Intake/Output Vital Signs & Intake/Output Vital Signs Date Time Temp Pulse Resp B/P Pulse O2 O2 Flow FiO2 Ox Delivery Rate 09/19 1212 96.8 76 18 162/68 98 Room Air ED Intake and Output 09/20 0000 09/19 1200 Intake Total Output Total Balance Patient 186 lb Weight Reconcile Medications Acetaminophen 500 MG TABLET 1 TAB PO AD PRN PAIN (Reported) Aspirin (Aspirin*) 325 MG TABLET 1 TAB PO DAILY HEART HEALTH (Reported) Atorvastatin Calcium (Lipitor) 40 MG TABLET 1 TAB PO DAILY CHOLESTEROL ( Reported) Bisacodyl 5 MG TABLET.DR 1 TAB PO DAILY PRN constipation Budesonide/Formoterol Fumara (Symbicort 160-4.5 Mcg Inhaler) 160 MCG/4.5 MCG PUF 2 PUF INH BID COPD (Reported) Carbidopa/Levodopa (Carbidopa and Levodopa) 25 MG/100 MG TAB 1 TAB PO TID PARKINSONS (Reported) Finasteride 5 MG TAB 1 TAB PO DAILY PROSTATE (Reported) Gemfibrozil 600 MG TABLET 1 TAB PO BID CHOLESTEROL (Reported) Insulin Aspart (Novolog) 100 UNIT/ML VIAL 1 UNITS SC TIDAC/HS Diabetes BEFORE MEALS Blood Insulin Sugar Units <80 Initiate hypoglycemia 80 -150 0 151-200 2 201-250 4 251-300 6 301-350 8 351-400 10 >400 12 and Call Doctor AT BEDTIME Blood Insulin Sugar Units <80 0 81-100 0 101-200 0 201-250 1 251-300 2 301-350 3 351-400 4 >400 Call Doctor Insulin-Lantus (Lantus) 100 UNIT/ML VIAL 60 U SC QPM DIABETES (Reported) Levothyroxine Sodium 25 MCG TABLET 1 TAB PO DAILY AC THYROID (Reported) Lisinopril 20 MG TABLET 1 TAB PO DAILY HEART (Reported) Meropenem 1 GRAM VIAL 1 GM IV IQ8 Osteomyelitis Complete a total course of 4 weeks therapy. Last dose on 09/06/16 Metoprolol Tartrate 50 MG TABLET 1 TAB PO DAILY HEART HEALTH (Reported) Morphine Sulfate 15 MG TABLET 1 TAB PO Q6P PRN Severe pain Nitroglycerin (Nitrostat) 0.4 MG TAB.SUBL 1-3 TAB PO AD PRN HEART (Reported) Omeprazole 20 MG CAPSULE.DR 1 CAP PO DAILY PRN GERD (Reported) Oxycodone HCl (Roxicodone) 5 MG TABLET 1 TAB PO BID PRN PAIN Oxycodone HCl/Acetaminophen (Percocet 5-325 MG Tablet) 5 MG-325 MG TABLET 1 TAB PO Q8 PRN Moderate pain Polyethylene Glycol 3350 (Miralax) 17 GRAM/DOSE POWDER 1 PAC PO DAILY PRN Constipation Sennosides/Docusate Sodium (Senna-Time S Tablet) 8.6 MG-50 MG TABLET 1 TAB PO AT BEDTIME PRN Constipation (DEBORA VELASCO,TOBY Carrasco) Past History Travel History Traveled to [place] past 21 day No Medical History Any Pertinent Medical History? 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 Cardiovascular: CAD, CHF, hypertension, hyperlipidemia, PVD Respiratory: COPD Gastrointestinal: CHRONIC PANCREATITIS alcohol-induced cirrhosis Hepatic: NONE Renal: benign prost hyperplasia Musculoskeletal: ARTHRITIS Psychiatric: anxiety, bipolar disease, depression Endocrine: diabetes, hypothyroidism Blood Disorders: anemia History of MRSA: Yes History of VRE: No History of CDIFF: No Influenza Vaccine: 02/15/16 Tetanus Vaccine: 10/17/12 Surgical History Surgical History: CABG, status post pacemaker status post previous angioplasties status post amputation of the right second toe May 2016 Psychosocial History Who do you live with Patient/Self Services at Home Home Health Aide What is your primary language Spanish Tobacco Use: Quit >30 days ago ETOH Use: denies use Illicit Drug Use: denies illicit drug use Family History Family History, If Any: FATHER CVA FH: CAD (coronary artery disease) FH: heart attack BROTHER FH: CAD (coronary artery disease) SISTER FH: CAD (coronary artery disease) Hx Contributory? No (GISELLE HOWARD PA-C) Review of Systems Review of Systems Constitutional: Reports: no symptoms. EENTM: Reports: no symptoms. Respiratory: Reports: no symptoms. Cardiovascular: Reports: no symptoms. Gastrointestinal/Abdominal: Reports: no symptoms. Musculoskeletal: Reports: see HPI. Skin: Reports: see HPI. Neurological/Psychological: Reports: no symptoms. All Other Systems: Reviewed and Negative (GISELLE HOWARD PA-C) Physical Exam Physical Exam General Appearance: well developed/nourished, no apparent distress, alert, awake Comments: Well-developed well-nourished person in no acute distress HEENT: Normal EENT exam, head normocephalic, moist mucous membranes Neck: Supple with no lymphadenopathy Back: Normal inspection Cardiovascular: Regular rate and rhythm with no murmurs Respiratory: No respiratory distress. Speaking in full sentences Right foot: No edema. Wound noted to the plantar aspect of the foot with no surrounding erythema or edema. Mild amount of pus drainage. Mild tenderness to palpation. Dorsalis pedis and posterior tibialis pulses 2+ and strong Neuro: Alert oriented x3, motor sensory normal, cranial nerves II through XII grossly intact. Skin: No appreciable rash on exposed skin, skin is warm and dry. Psych: Mood and affect is normal, memory and judgment is normal. (GISELLE HOWARD PA-C) Progress Differential Diagnosis: arterial insufficiency, cellulitis, chronic pain, medication seeking, osteomyelitis Plan of Care: Current Medications Sig/Uvaldo Start time Last Medication Dose Stop Time Status Admin Morphine Sulfate 4 MG ONCE ONE 09/19 1230 AC (Morphine) 09/19 1231 Comments: 09/19/2016 1:33:23 PM: I discussed this patient with his primary care physician, Sharmila. She reported that he came to her office this morning looking for pain medication. She reported that she does not prescribe controlled substances. She reported that she already put out a referral for pain management. She reported that he had no other complaints and his workup was otherwise benign. (GISELLE HOWARD PA-C) Departure Departure Disposition: HOME OR SELF CARE Condition: Stable Clinical Impression Primary Impression: Foot pain Qualifiers: Laterality: right Qualified Code: M79.671 - Pain in right foot Referrals: ARAM VELASCO,GABI Additional Instructions: As discussed, you will receive a call from the hospital to set you up with a new primary care physician tomorrow. You may also call to set up your own appointment if you need to; you have been provided with a brochure of all of the physicians. Take medication for pain as prescribed. Departure Forms: Customer Survey General Discharge Information Prescriptions: Current Visit Scripts Oxycodone HCl (Roxicodone) 1 TAB PO BID PRN PAIN #10 TAB (GISELLE HOWARD PA-C) PA/SPORTS MEDICINE SPECIALIST Co-Sign Statement Statement: ED Attending supervision documentation- [X] I saw and evaluated the patient. I have also reviewed all the pertinent lab results and diagnostic results. I agree with the findings and the plan of care as documented in the PA's/SPORTS MEDICINE SPECIALIST's documentation. [X] I have reviewed the ED Record and agree with the PA's/SPORTS MEDICINE SPECIALIST's documentation. [] Additions or exceptions (if any) to the PAs/SPORTS MEDICINE SPECIALIST's note and plan are summarized below: [] (DEBORA VELASCO,TOBY Carrasco)
[2016-09-19] MEDS ORDERED: ROXICODONE5 M1 PO (13:49)
== END 2016-09-19 14:20 ==
LOC: ERH 12:11
DX: M79.671 Pain in right foot (principal)
CPT/HCPCS: 96372

== ENCOUNTER 2016-12-27 15:58 | Inpatient (IN) | payer OTHER, MEDICARE ==
[~2016-12-27] VITALS: Ht 180.3 cm; Wt 91.6 kg
[~2016-12-27 15:58] MED LIST changes: -CARBIDOPA AND L1 TA1 PO; +CARBIDOPA-LEVO1 EA12 PO; -FINASTERIDE5 MG PO; +GEMFIBROZIL600 M1 PO; -GEMFIBROZIL600 MG PO; -LEVOTHYROXIN0.025 MG PO; +NITROSTAT0.4 M1 SL; -NITROSTAT0.4 MG PO; +PROSCAR5 M1 PO; +ROXICODONE5 M1 PO; -SYMBICORT 160/41 PUF INH; +SYMBICORT 16010.2 GM INH; +SYNTHROID25 MCG PO
--- NOTE | 2016-12-27 16:27 | ED GI/GU/ABDOMINAL COMPLAINT ---
History of Present Illness General Chief Complaint: General Adult Stated Complaint: BIBA GI BLEEDING? Source: patient, old records Exam Limitations: no limitations Vital Signs & Intake/Output Vital Signs & Intake/Output Vital Signs Date Time Temp Pulse Resp B/P B/P Pulse O2 O2 Flow FiO2 Mean Ox Delivery Rate 12/28 2035 97.3 72 18 142/72 100 Room Air 12/27 1816 97.4 68 18 148/78 99 Room Air 12/27 1708 77 158/67 12/27 1615 100 Room Air 12/27 1605 97.5 67 18 166/74 100 Room Air Allergies Coded Allergies: codeine (RASH, STOMACH PAIN 09/07/15) fish derived (STOMACH PAIN FROM `SEA FOOD' 09/07/15) Reconcile Medications Acetaminophen 500 MG TABLET 1 TAB PO AD PRN PAIN (Reported) Aspirin (Aspirin*) 325 MG TABLET 1 TAB PO DAILY HEART HEALTH (Reported) Atorvastatin Calcium (Lipitor) 40 MG TABLET 1 TAB PO DAILY CHOLESTEROL ( Reported) Bisacodyl 5 MG TABLET.DR 1 TAB PO DAILY PRN constipation Budesonide/Formoterol Fumara (Symbicort 160-4.5 Mcg Inhaler) 160 MCG/4.5 MCG PUF 2 PUF INH BID COPD (Reported) Carbidopa/Levodopa (Carbidopa and Levodopa) 25 MG/100 MG TAB 1 TAB PO TID PARKINSONS (Reported) Finasteride 5 MG TAB 1 TAB PO DAILY PROSTATE (Reported) Gemfibrozil 600 MG TABLET 1 TAB PO BID CHOLESTEROL (Reported) Insulin Aspart (Novolog) 100 UNIT/ML VIAL 1 UNITS SC TIDAC/HS Diabetes BEFORE MEALS Blood Insulin Sugar Units <80 Initiate hypoglycemia 80 -150 0 151-200 2 201-250 4 251-300 6 301-350 8 351-400 10 >400 12 and Call Doctor AT BEDTIME Blood Insulin Sugar Units <80 0 81-100 0 101-200 0 201-250 1 251-300 2 301-350 3 351-400 4 >400 Call Doctor Insulin-Lantus (Lantus) 100 UNIT/ML VIAL 60 U SC QPM DIABETES (Reported) Levothyroxine Sodium 25 MCG TABLET 1 TAB PO DAILY AC THYROID (Reported) Lisinopril 20 MG TABLET 1 TAB PO DAILY HEART (Reported) Meropenem 1 GRAM VIAL 1 GM IV IQ8 Osteomyelitis Complete a total course of 4 weeks therapy. Last dose on 09/06/16 Metoprolol Tartrate 50 MG TABLET 1 TAB PO DAILY HEART HEALTH (Reported) Morphine Sulfate 15 MG TABLET 1 TAB PO Q6P PRN Severe pain Nitroglycerin (Nitrostat) 0.4 MG TAB.SUBL 1-3 TAB PO AD PRN HEART (Reported) Omeprazole 20 MG CAPSULE.DR 1 CAP PO DAILY PRN GERD (Reported) Oxycodone HCl (Roxicodone) 5 MG TABLET 1 TAB PO BID PRN PAIN Oxycodone HCl/Acetaminophen (Percocet 5-325 MG Tablet) 5 MG-325 MG TABLET 1 TAB PO Q8 PRN Moderate pain Polyethylene Glycol 3350 (Miralax) 17 GRAM/DOSE POWDER 1 PAC PO DAILY PRN Constipation Sennosides/Docusate Sodium (Senna-Time S Tablet) 8.6 MG-50 MG TABLET 1 TAB PO AT BEDTIME PRN Constipation Triage Note: PT BIBA FROM [facility] WITH C/O GI BLEED. PER PT HE HAS NOTICED BRIGHT RED BLOOD IN STOOL FOR SEVERAL DAYS AND THIS MORNING HIS HEMOGLOBIN WAS "7 SOMETHING". PT IS A&O. VSS. NO C/O ABDOMINAL PAIN OR RESPIRATORY DIFFICULTY. Triage Nurses Notes Reviewed? yes Onset: Abrupt Duration: day(s): Timing: recent history Quality/Severity: mild, moderate Location: left lower quadrant Activities at Onset: none No Modifying Factors: none HPI: 76-year-old male comes into emergency room for further evaluation of blood in his stool and left-sided abdominal pain. Patient reports that he has been in the hospital since May of last year. Patient has had a Chronic foot infections the right foot. He has had multiple amputations. He is currently on antibiotics. He is on Plavix currently. Recently they noticed at the nursing facility that his stools have been brown and black makes together. They sent him in for further evaluation of possible internal bleeding. Denies any vomiting. Denies any chest pain or shortness of breath currently. Nothing seems to make the symptoms better or worse. Denies any other symptoms of symptoms. (NADINE MCGILL,EZE) Past History Travel History Traveled to [place] past 21 day No Medical History Any Pertinent Medical History? 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 Cardiovascular: CAD, CHF, hypertension, hyperlipidemia, PVD Respiratory: COPD Gastrointestinal: CHRONIC PANCREATITIS alcohol-induced cirrhosis Hepatic: NONE Renal: benign prost hyperplasia Musculoskeletal: ARTHRITIS Psychiatric: anxiety, bipolar disease, depression Endocrine: diabetes, hypothyroidism Blood Disorders: anemia History of MRSA: Yes History of VRE: No History of CDIFF: No Tetanus Vaccine: 10/17/12 Surgical History Surgical History: CABG, status post pacemaker status post previous angioplasties status post amputation of the right second toe May 2016 Psychosocial History Who do you live with Patient/Self Services at Home Home Health Aide What is your primary language Gambian Tobacco Use: Quit >30 days ago Daily Tobacco Use Amount/Type: =< 4 Cigarettes daily ETOH Use: denies use Family History Family History, If Any: FATHER CVA FH: CAD (coronary artery disease) FH: heart attack BROTHER FH: CAD (coronary artery disease) SISTER FH: CAD (coronary artery disease) Hx Contributory? No (EZE ANDRADE) Review of Systems Review of Systems Constitutional: Reports: no symptoms. EENTM: Reports: no symptoms. Respiratory: Reports: no symptoms. Cardiovascular: Reports: no symptoms. GI: Reports: see HPI. Genitourinary: Reports: no symptoms. Musculoskeletal: Reports: no symptoms. Skin: Reports: no symptoms. Neurological/Psychological: Reports: no symptoms. Hematologic/Endocrine: Reports: see HPI. Immunologic/Allergic: Reports: no symptoms. All Other Systems: Reviewed and Negative (EZE ANDRADE) Physical Exam Physical Exam General Appearance: well developed/nourished, alert, awake Head: atraumatic, normal appearance Eyes: Bilateral: normal appearance. Ears, Nose, Throat, Mouth: hearing grossly normal, moist mucous membrane Neck: normal inspection Respiratory: normal breath sounds, no respiratory distress Cardiovascular: regular rate/rhythm Gastrointestinal: soft, tenderness Rectal: heme positive stool Back: normal inspection Extremities: normal range of motion Neurologic/Psych: awake, alert, oriented x 3, normal gait, normal mood/affect Skin: intact, normal color Core Measures ACS in differential dx? No Severe Sepsis Present: No Septic Shock Present: No (EZE ANDRADE) Progress Differential Diagnosis: appendicitis, colon cancer, diverticulitis, esophageal varices, gastritis, pancreatitis, peptic ulcer, PUD/GERD, pyelonephritis, SBO, ureterolithiasis, UTI/pyelo Plan of Care: Orders Procedure Date/time Status Nothing by Mouth 12/28 B Active CBC WITHOUT DIFFERENTIAL 12/28 06 Active BASIC ELECTROLYTES PLUS BUN&CR 12/28 06 Active TROPONIN LEVEL 12/28 0300 Active EKG 12/28 0300 Active TROPONIN LEVEL 12/27 2057 Active TYPE & SCREEN (NOT X-MATCH) 12/27 2057 Active LEUKOCYTE POOR (PACKED CELLS) 12/27 2057 Active Saline Lock 12/27 2034 Active Misc Message 12/27 2034 Active ED Holding Orders 12/27 2034 Active Admit to inpatient 12/27 2034 Active Vital Signs 12/27 2034 Active Code Status 12/27 2034 Active Pathway - chart 12/27 2033 Active House Staff 12/27 2033 Active Patient Data 12/27 2033 Active EKG 12/27 2033 Active TYPE & SCREEN (NOT X-MATCH) 12/27 2033 Active FingerStick- Glucose 12/27 2002 Active Patient Data 12/27 2000 Active PARTIAL THROMBOPLASTIN TIME 12/27 1624 Complete PROTHROMBIN TIME 12/27 1624 Complete COMPREHENSIVE METABOLIC PANEL 12/27 1624 Complete CBC WITHOUT DIFFERENTIAL 12/27 162 Complete EKG 12/27 1625 Active TYPE & SCREEN (NOT X-MATCH) 12/27 162 Active VTE Mechanical Prophylaxis 12/27 UNK Active Intake & Output 12/27 UNK Active Hemoccult 12/27 UNK Active Current Medications Sig/Uvaldo Start time Last Medication Dose Stop Time Status Admin Oxycodone HCl 5 MG Q6H PRN 12/27 2044 UNVr 12/27 (Roxicodone) 2043 Acetaminophen 650 MG Q6P PRN 12/27 2030 UNVr (Tylenol) Acetaminophen 1,000 MG Q6P PRN 12/27 2030 UNVr (Ofirmev) Laboratory Tests 12/27/16 1702: Anion Gap 8, Estimated GFR > 60, BUN/Creatinine Ratio 12.0, Glucose 201 H, Calcium 8.9, Total Bilirubin 0.7, AST 38, ALT 41, Alkaline Phosphatase 289 H, Total Protein 5.6 L, Albumin 3.4 L, Globulin 2.2, Albumin/Globulin Ratio 1.5, PT 11.7, INR 1.12, APTT 37, CBC w Diff NO MAN DIFF REQ, RBC 2.51 L, MCV 88.7, MCH 29.1, RDW 16.0 H, MPV 6.2 L, Gran % 64.7, Lymphocytes % 24.4, Monocytes % 7.1, Eosinophils % 3.4, Basophils % 0.4, Absolute Granulocytes 4.5, Absolute Lymphocytes 1.7, Absolute Monocytes 0.5, Absolute Eosinophils 0.2, Absolute Basophils 0, PUBS MCHC 32.8 L Diagnostic Imaging: Viewed by Me: CT Scan. Discussed w/RAD: CT Scan. Radiology Impression: PATIENT: JAMES GARCIA PRESENT AGE: 76 PATIENT ACCOUNT NO: [id number] : 38 LOCATION: [facility] ORDERING PHYSICIAN: EZE MCGILL SERVICE DATE: 12/27/162087 EXAM TYPE: CAT - CT ABD & PELVIS W/O IV CONTRAS EXAMINATION: CT ABDOMEN AND PELVIS WITHOUT CONTRAST CLINICAL INFORMATION: Abdomen pain. Blood in stool. COMPARISON: Portions of a previous CT 10/17/12 TECHNIQUE: Multidetector volumetric imaging was performed from the superior aspect of the liver through the pubic symphysis. Sagittal and coronal reformatted images were obtained on the technologist's workstation. DLP: 404 mGy-cm FINDINGS: LUNG BASES: Metallic artifact related to cardiac leads. Sternal wires. I suspect previous coronary bypass surgery. No suspicious abnormality the visualized lung bases. LIVER, GALLBLADDER, AND BILIARY TREE: No suspicious focal liver lesion. The liver contour is smooth. The gallbladder is not definitely identified. The gallbladder may be surgically absent. PANCREAS: No suspicious abnormality. SPLEEN: No suspicious abnormality ADRENAL GLANDS: Within normal limits KIDNEYS AND URETERS: There is no dilation of the urinary collecting system on either side. No suspicious renal mass. No definite urinary calculus. There is arterial calcification. BLADDER: No definite focal bladder abnormality. GASTROINTESTINAL TRACT: There is gas and fecal residue throughout the colon. No definite colonic wall thickening. No localized pericolonic fat stranding. There is some fluid within the small bowel. No significant distention. No suspicious abnormality the stomach. ABDOMINAL WALL: There is stranding in the superficial abdominal wall. Correlate with any subcutaneous injections. LYMPH NODES: There are a few top normal lymph nodes at the level of the aortic bifurcation and right iliac artery bifurcation. There is no significant free intraperitoneal fluid. VASCULAR: There is marked atherosclerotic calcification. There is no abdominal aortic aneurysm. The calcification extends throughout the visceral branches of the aorta. PELVIC VISCERA: No suspicious abnormality OSSEOUS STRUCTURES: Partially included unchanged abnormality in the central portion of the right proximal femur. This could be related to previous instrumentation. There are arthritic changes with soft tissue calcifications around the left hip. There is degenerative change in the spine. There may be some syndesmophyte formation. IMPRESSION: There is no definite evidence of bowel obstruction. No localized abdominal or pelvic fat stranding. No abscess or free intraperitoneal gas. No specific evidence of diverticulitis. There are some fluid levels within top normal caliber small bowel loops which are nonspecific. There is extensive atherosclerotic calcification. DICTATED BY: BALTAZAR BUTLER MD DATE/TIME DICTATED:12/27/161735 COMPTOMETRIST:LAUREN DATE/TIME TRANSCRIBED:12/27/161735 CONFIDENTIAL, DO NOT COPY WITHOUT APPROPRIATE AUTHORIZATION. <Electronically signed in Other Vendor System> SIGNED BY: BALTAZAR BUTLER MD 12/27/16 3421 Initial ED EKG: rate, pacemaker rhythm (EZE ANDRADE) Departure Departure Disposition: STILL A PATIENT Condition: Stable Clinical Impression Primary Impression: Lower GI bleed Referrals: PATIENT HAS NO PRIMARY CARE DR Departure Forms: Customer Survey General Discharge Information Admission Note Spoke With: NATALIA LUO MD Documentation of Exam: Documentation of any treatments & extenuating circumstances including Concerns Regarding Discharge (functional status, medication knowledge or non-compliance, living conditions, etc.) that warrant an admission rather than observation: Patient will require repeat CBCs. GI consultation. Possibly colonoscopy. High risk. Lower GI bleeding on Plavix. POSSIBLE BLOOD TRANSFUSION. (EZE ANDRADE) PA/ENTERPRISE SALES EXECUTIVE Co-Sign Statement Statement: ED Attending supervision documentation- [x] I saw and evaluated the patient. I have also reviewed all the pertinent lab results and diagnostic results. I agree with the findings and the plan of care as documented in the PA's/ENTERPRISE SALES EXECUTIVE's documentation. [] I have reviewed the ED Record and agree with the PA's/ENTERPRISE SALES EXECUTIVE's documentation. [] Additions or exceptions (if any) to the PAs/ENTERPRISE SALES EXECUTIVE's note and plan are summarized below: [] (FATIMAH LAROSE DO
[2016-12-27 17:35] LABS: ABSOLUTE BASOPHIL COUNT 0 /CUMM (0.0-0.2); ABSOLUTE EOSINOPHIL COUNT 0.2 /CUMM (0.0-0.7); ABSOLUTE GRANULOCYTE CT 4.5 /CUMM (1.4-6.5); ABSOLUTE LYMPH COUNT 1.7 /CUMM (1.2-3.4); ABSOLUTE MONOCYTE COUNT 0.5 /CUMM (0.10-0.60); BASOPHIL % 0.4 % (0.0-2.0); EOSINOPHIL % 3.4 % (0-5); GRANULOCYTE % 64.7 % (42.2-75.2); HEMATOCRIT 22.3 % (42-52); MEAN CORPUSCULAR HGB 29.1 PG (27.0-31.0); MEAN CORPUSCULAR HGB CONC 32.8 G/DL (33.0-37.0); MEAN CORPUSCULAR VOLUME 88.7 FL (80.0-94.0); MEAN PLATELET VOLUME 6.2 FL (7.4-10.4); PLATELET COUNT 224 /CUMM (130-400); RED BLOOD CELL CT 2.51 /CUMM (4.70-6.10)
[2016-12-27 17:49] LABS: PT 11.7 SEC (9.4-12.5); PTT 37 SEC (25-37)
--- NOTE | 2016-12-27 17:49 | CT SCAN REPORT ---
EXAMINATION: CT ABDOMEN AND PELVIS WITHOUT CONTRAST CLINICAL INFORMATION: Abdomen pain. Blood in stool. COMPARISON: Portions of a previous CT 10/17/12 TECHNIQUE: Multidetector volumetric imaging was performed from the superior aspect of the liver through the pubic symphysis. Sagittal and coronal reformatted images were obtained on the technologist's workstation. DLP: 404 mGy-cm FINDINGS: LUNG BASES: Metallic artifact related to cardiac leads. Sternal wires. I suspect previous coronary bypass surgery. No suspicious abnormality the visualized lung bases. LIVER, GALLBLADDER, AND BILIARY TREE: No suspicious focal liver lesion. The liver contour is smooth. The gallbladder is not definitely identified. The gallbladder may be surgically absent. PANCREAS: No suspicious abnormality. SPLEEN: No suspicious abnormality ADRENAL GLANDS: Within normal limits KIDNEYS AND URETERS: There is no dilation of the urinary collecting system on either side. No suspicious renal mass. No definite urinary calculus. There is arterial calcification. BLADDER: No definite focal bladder abnormality. GASTROINTESTINAL TRACT: There is gas and fecal residue throughout the colon. No definite colonic wall thickening. No localized pericolonic fat stranding. There is some fluid within the small bowel. No significant distention. No suspicious abnormality the stomach. ABDOMINAL WALL: There is stranding in the superficial abdominal wall. Correlate with any subcutaneous injections. LYMPH NODES: There are a few top normal lymph nodes at the level of the aortic bifurcation and right iliac artery bifurcation. There is no significant free intraperitoneal fluid. VASCULAR: There is marked atherosclerotic calcification. There is no abdominal aortic aneurysm. The calcification extends throughout the visceral branches of the aorta. PELVIC VISCERA: No suspicious abnormality OSSEOUS STRUCTURES: Partially included unchanged abnormality in the central portion of the right proximal femur. This could be related to previous instrumentation. There are arthritic changes with soft tissue calcifications around the left hip. There is degenerative change in the spine. There may be some syndesmophyte formation. IMPRESSION: There is no definite evidence of bowel obstruction. No localized abdominal or pelvic fat stranding. No abscess or free intraperitoneal gas. No specific evidence of diverticulitis. There are some fluid levels within top normal caliber small bowel loops which are nonspecific. There is extensive atherosclerotic calcification.
[2016-12-27] MEDS ORDERED: RANEXA500 M1 PO (21:26)
--- NOTE | 2016-12-27 21:42 | History & Physical ---
RICHARD VELASCO,[facility] 12/27/162057: General Information and HPI MD Statement: I have seen and personally examined JAMES GARCIA and documented this H&P. The patient is a 76 year old M who presented with a patient stated chief complaint of dark stool. Source of Information: patient, old records Exam Limitations: pt is a poor historian. 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 It was very difficult to take a correct history because patient kept drifting to his past medical problems. He is coming from [facility]. About 2 weeks ago patient was at [facility] where he had amputation of digits of right lower extremity. He was found to be anemic over there and his fecal occult blood was also positive. He required transfusions. The patient refused endoscopy. The patient states that his H&H kept dropping over there. Before going for surgery he was found to be in A. fib. He was starting on heparin drip over there. He was started on IV Unasyn and vancomycin after the surgery. He did not want to be on any anticoagulation. So he was discharged to [facility] on aspirin and Plavix. My resident called [facility] for more details because patients trail of thoughts kept changing. According to [facility] patients workup showed anemia of chronic disease with low reticulocyte count. He was given iron over there. Rapid response was called for his unresponsiveness while sitting on the toilet there. His troponins were negative and his EKG showed ST depression .We will get records from [facility] in the morning to confirm this . According to the patient he noticed dark stool today for the first time in [facility]. He noticed in the diaper he was wearing. And also in the toilet bowel. According to him there was not any bright red blood per rectum. His Hb had dropped to 7.8 prompting guaiac check. The test was +2 times and also positive in the ED. He has history of hemorrhoids and he had hemorrhoidectomy as well in the past timeline is not clear. He also stated that he had a precancerous polyp and underwent colonoscopy for it twice but that was so uncomfortable that he has not followed up with the GI doctor subsequently. He reports shortness of breath, chest pain, left upper quadrant abdominal pain which he has had for a long time and has not changed from the baseline. He also reports dizziness and lightheadedness today. He experienced it while working with PT. He stated that room was spinning when he got up from sitting position. We will get records in the morning to get a better sequence of events. Allergies/Medications Allergies: Coded Allergies: codeine (RASH, STOMACH PAIN 09/07/15) fish derived (STOMACH PAIN FROM `SEA FOOD' 09/07/15) Past History Travel History Traveled to [place] past 21 day No Medical History Blood Transfusion Hx: Yes Neurological: Parkinson's disease, 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 Cardiovascular: CAD, CHF, hypertension, hyperlipidemia, PVD Respiratory: COPD Gastrointestinal: CHRONIC PANCREATITIS alcohol-induced cirrhosis Hepatic: NONE Renal: benign prost hyperplasia Musculoskeletal: ARTHRITIS Psychiatric: anxiety, bipolar disease, depression Endocrine: diabetes, hypothyroidism Blood Disorders: anemia History of MRSA: Yes History of VRE: No History of CDIFF: No Tetanus Vaccine: 10/17/12 Surgical History Surgical History: CABG, status post pacemaker status post previous angioplasties status post amputation of the right second toe May 2016 Past Family/Social History Family History Relations & Conditions if any FATHER CVA FH: CAD (coronary artery disease) FH: heart attack BROTHER FH: CAD (coronary artery disease) SISTER FH: CAD (coronary artery disease) Psychosocial History Who Do You Live With? self Services at Home: Home Health Aide ETOH Use: denies use Functional Ability ADLs Unknown: dressing, eating, toileting, bathing. Ambulation: walker IADLs Needs Assist: shopping, housework, transportation, medication admin. Review of Systems Review of Systems Constitutional: Reports: malaise, weakness. Denies: chills. Cardiovascular: Reports: chest pain, palpitations. Respiratory: Reports: short of breath. GI: Reports: abdominal pain, melena, bloody stool. Genitourinary: Reports: frequency, hesitation. Musculoskeletal: Reports: no symptoms. Skin: Reports: change in hair/nails, moles. Neurological/Psychological: Reports: no symptoms. Exam & Diagnostic Data Last 24 Hrs of Vital Signs/I&O Vital Signs Date Time Temp Pulse Resp B/P B/P Pulse O2 O2 Flow FiO2 Mean Ox Delivery Rate 12/28 2035 97.3 72 18 142/72 100 Room Air 12/27 1816 97.4 68 18 148/78 99 Room Air 12/27 1708 77 158/67 12/27 1615 100 Room Air 12/27 1605 97.5 67 18 166/74 100 Room Air Physical Exam Skin No Rashes, No Breakdown, moles on the back Skin Temp/Moisture Exam: Cool/Dry HEENT Mucous Membr. moist/pink Neck No JVD Cardiovascular Normal S1, Normal S2, Patient has loud 3/6 murmur right upper sternal border Lungs Clear to Auscultation, Normal Air Movement Abdomen Normal Bowel Sounds, Soft, LLQ pain Neurological Normal Speech Extremities right foot wrapped in bandage left foot big toe 2-3 ulcers Last 24 Hrs of Labs/Olegario: Laboratory Tests 12/27/162132: Troponin I Pending 12/27/161701: Anion Gap 8, Estimated GFR > 60, BUN/Creatinine Ratio 12.0, Glucose 201 H, Calcium 8.9, Total Bilirubin 0.7, AST 38, ALT 41, Alkaline Phosphatase 289 H, Total Protein 5.6 L, Albumin 3.4 L, Globulin 2.2, Albumin/Globulin Ratio 1.5, PT 11.7, INR 1.12, APTT 37, CBC w Diff NO MAN DIFF REQ, RBC 2.51 L, MCV 88.7, MCH 29.1, RDW 16.0 H, MPV 6.2 L, Gran % 64.7, Lymphocytes % 24.4, Monocytes % 7.1, Eosinophils % 3.4, Basophils % 0.4, Absolute Granulocytes 4.5, Absolute Lymphocytes 1.7, Absolute Monocytes 0.5, Absolute Eosinophils 0.2, Absolute Basophils 0, PUBS MCHC 32.8 L Assessment/Plan Assessment: Assessment: This is a 76-year-old gentleman with a very complicated past medical history significant for CAD, CHF, PVD, osteomyelitis, and newly started on DAPT. Per previous workup at [facility] it does not seem like this is a new problem, however etiology currently still unknown. Source of anemia is likely multi factorial but we will pursue further workup and management of a general medicine floor. Workup shows: Vitals: 97.5, 67, 18, 166/74, 100% on room air CBC shows white count 7.0, hemoglobin 7.3, hematocrit 22.3, platelet 224, INR 1.12. BEP shows sodium 136, BUN 12, creatinine 1.0. Alkaline phosphatase 289, total protein 5.6. CT abdomen and pelvis: Showed nonspecific air-fluid levels and with no evidence of free air or obvious source of infection. EKG: Paced rhythm with rate of [address] 216, QTc 418 PLAN Anemia:Patient has hemoglobin 7.3 at this time. Earlier today at [facility] and hemoglobin 7.5 and on December 13 was high as 8.5. His baseline seems to be around 9-10. He did have prior several PRBC transfusion at [facility] about 2 weeks ago. * Obtain records * Iron studies * Guaiac all stool * Type and cross * 1 unit PRBC for goal greater than 8 * Rule out ACS with troponins EKG * Monitor CBC * Appreciate GI consult * Hold aspirin and Plavix, consider cardiology consult in a.m. Osteomyelitis: Patient is had recent debridement. He supposed follow with Dr. Bowden on the of this month. * Courtesy call to Dr. Bowden in a.m. * Continue ampicillin sulbactam 1.5 g every 6 * Continue vancomycin Diabetes: Chronic and stable takes Lantus 30 units subcutaneous 10 PM * Regular insulin sliding scale and Fingerstick CAD/Hypertension: Chronic and stable. Hold meds given GI bleed but restart if hypertensive. * Lisinopril 20 mg by mouth daily * Metoprolol 50 mg by mouth twice a day [place] * Nitroglycerin 0.4 mg tab by mouth when necessary angina Aortic stenosis: Patient has loud 3/6 murmur right upper sternal border. Per discharge summary he has severe aortic stenosis for which he is doing workup for possible TAVR in January. Hyperlipidemia: Chronic and stable Atorvastatin 80 mg by mouth daily Hypothyroidism: Clinically stable Levothyroxine 0.025 g Full code Nothing by mouth at midnight Alps for prophylaxis, given GI bleed As Ranked By This Provider Problem List: 1. Hypothyroidism 2. Osteomyelitis 3. Parkinson disease 4. HTN (hypertension) Core Measures/Miscellaneous Acute Coronary Syndrome ACS Diagnosis: No Cerebrovascular Accident CVA/TIA Diagnosis: No Congestive Heart Failure CHF Diagnosis: No VTE (View Protocol) VTE Risk Factors: Previous VTE, Smoking, Surgery VTE Diagnosis: No Sepsis (View Protocol) Severe Sepsis Present: No Septic Shock Septic Shock Present: No JOSEPH VELASCO,SIMON 12/27/16 6291: General Information and HPI Allergies/Medications Home Med list Acetaminophen 500 MG TABLET 1 TAB PO AD PRN PAIN (Reported) Ampicillin Sodium/Sulbactam Na (Unasyn 1.5 Gm Vial) 1.5 GRAM VIAL 1.5 GM IV Q6 OSTEO (Reported) Aspirin (Aspirin*) 325 MG TABLET 1 TAB PO DAILY HEART HEALTH (Reported) Atorvastatin Calcium (Lipitor) 40 MG TABLET 1 TAB PO DAILY CHOLESTEROL ( Reported) Bisacodyl 5 MG TABLET.DR 1 TAB PO DAILY PRN constipation Budesonide/Formoterol Fumarate (Symbicort 160-4.5 Mcg Inhaler) 160 MCG-4.5 MCG/ ACTUATION HFA.AER.AD 2 PUF INH BID COPD (Reported) Carbidopa/Levodopa (Carbidopa-Levo 25-100 MG Odt) 25 MG-100 MG TAB.RAPDIS 1 TAB PO TID PARKINSONS (Reported) Clopidogrel Bisulfate (Plavix) 75 MG TABLET 1 TAB PO DAILY UNKNOWN (Reported) Finasteride (Proscar) 5 MG TABLET 1 TAB PO DAILY BPH (Reported) Insulin Aspart (Novolog) 100 UNIT/ML VIAL 1 UNITS SC TIDAC/HS Diabetes BEFORE MEALS Blood Insulin Sugar Units <80 Initiate hypoglycemia 80 -150 0 151-200 2 201-250 4 251-300 6 301-350 8 351-400 10 >400 12 and Call Doctor AT BEDTIME Blood Insulin Sugar Units <80 0 81-100 0 101-200 0 201-250 1 251-300 2 301-350 3 351-400 4 >400 Call Doctor Insulin Glargine,Hum.rec.anlog (Lantus Solostar) 100 UNIT/ML (3 ML) INSULN.PEN 30 UNIT SC QPM DIABETES (Reported) Insulin-Lantus (Lantus) 100 UNIT/ML VIAL 60 U SC QPM DIABETES (Reported) Levothyroxine Sodium (Synthroid) 25 MCG TABLET 1 TAB PO DAILY HYPOTHYROID ( Reported) Lisinopril 20 MG TABLET 1 TAB PO DAILY HEART (Reported) Metoprolol Tartrate 50 MG TABLET 1 TAB PO DAILY HEART HEALTH (Reported) Morphine Sulfate 15 MG TABLET 1 TAB PO Q6P PRN Severe pain Nitroglycerin (Nitrostat) 0.4 MG TAB.SUBL 1 TAB SL AD ANGINA (Reported) 1st sign of attack; may repeat every 5 minutes until relief; if pain persists after 3 tablets in 15 minutes, prompt medical att Omeprazole 20 MG CAPSULE.DR 1 CAP PO DAILY PRN GERD (Reported) Oxycodone HCl (Roxicodone) 5 MG TABLET 1 TAB PO BID PRN PAIN Oxycodone HCl/Acetaminophen (Percocet 5-325 MG Tablet) 5 MG-325 MG TABLET 1 TAB PO Q8 PRN Moderate pain Polyethylene Glycol 3350 (Miralax) 17 GRAM/DOSE POWDER 1 PAC PO DAILY PRN Constipation Ranolazine (Ranexa) 500 MG TAB.ER.12H 1 TAB PO BID ANGINA (Reported) Sennosides/Docusate Sodium (Senna-Time S Tablet) 8.6 MG-50 MG TABLET 1 TAB PO AT BEDTIME PRN Constipation Vancomycin HCl 1 GRAM VIAL 1 GM IV DAILY OSTEO (Reported) Core Measures/Miscellaneous VTE (View Protocol) No Mech VTE prophylaxis d/t: No contraindications No VTE Pharm Prophylaxis d/t: No contraindications VTE Type: NONE VTE Confirmed by (Test): NONE Miscellaneous Documentation Attending Case Discussed With: NATALIA LUO MD Primary Care Physician: CHRISTINA UNGER MD Patient sees these Specialists unknown Level of Patient Care: General Medicine Resident Review Statement Resident Statement: examined this patient Other Findings: This is a 76-year-old male past medical history significant for CAD status post CABG about 15 years ago, pacemaker placement for S-A node dysfunction, CHF, PVD status post several angiograms and stenting procedures, COPD not on any O2, osteomyelitis of the right lower extremity status post multiple digit amputation , liver cirrhosis secondary to EtOH, chronic pancreatitis, hypothyroidism, early Parkinson's, who comes in for chief complaint of "I'm anemic." Patient is a poor historian as such most of the history was difficult to obtain. I called Vasyl Albarran for further details. Patient was at [facility] about two weeks ago for amputation of right lower extremity toes, digits not specified. During that admission he was noted to be anemic requiring transfusions for several days. He was fecal occult blood positive but per the discharge summary, patient refused GI scoping. Also, per the discharge summary, it states that etiology of bleeding was thought to be secondary to hemorrhoidal versus diverticular. Anemia workup supposedly showed anemia of chronic disease with low retic count but patient was given IV iron as his stores were noted to be low. During hospitalization he had a rapid response called for unresponsiveness while sitting on the toilet he was noted to have EKG changes such as ST depressions in anterolateral leads and T-wave inversions in aVL and 1. Repeat EKG several hours later had the same changes. Troponins 3 negative. Additionally, patient was noted to be in atrial fibrillation and was placed on heparin drip prior to surgical procedure. On discharge, patient stated he would prefer to forego anticoagulation, however he was discharged on aspirin and Plavix. After surgery he was placed on IV antibiotics and discharged to [facility]. He was placed on Unasyn and vancomycin. Unasyn supposed to be continued until 718 when he was supposed to follow-up with James Doll DPM for follow-up regarding osteomyelitis and vancomycin to finish on 01/16/2017. In [facility] patient was noted to have some dark stools for the first time today. He did not have any bright red blood per rectum. He was guaiac positive on the and twice on the . Decision to check guaiac was secondary to anemia. Per patient, he has a distant history of hemorrhoids in his 20s and is status post hemorrhoidectomy. He states he often sees bright red blood in the toilet bowl for "years." Unfortunately, is unable to qualify or quantify amount of blood. Additionally, he endorses history of "pre-cancerous polyp" at some distant time, but he has not followed up with a GI doctor subsequently. No available colonoscopy report in the [facility] system. Patient endorses chronic chest pain, chronic left lower quadrant abdominal pain, chronic shortness of breath, all of which are present during interview. He does state that he has some new dizziness, he worked with PT today and when he got up he noted the room is spinning. At [facility] he was guaiac positive 2. In ED he was guaiac positive 1. Physical exam: HEENT: Patient is pale conjunctiva and pale mucous membranes, Cardiac: 3/6 systolic murmur right upper sternal border; irregular, no clicks or extra heart sounds appreciated Pulmonary: Clear to auscultation bilaterally GI: Patient complains of left lower quadrant tenderness. Is not more tender to palpation. No guarding or rigidity. Bowel sounds present. Hernia palpated in left lower quadrant. Extremities: Patient has bandage wrapped around right lower extremity. Did not remove bandage. Left lower extremity has several pressure ulcers under toes. Pulses palpable equal bilaterally. Both feet were warm and well perfused. Workup shows: Vitals: 97.5, 67, 18, 166/74, 100% on room air CBC shows white count 7.0, hemoglobin 7.3, hematocrit 22.3, platelet 224, INR 1.12. BEP shows sodium 136, BUN 12, creatinine 1.0. Alkaline phosphatase 289, total protein 5.6. CT abdomen and pelvis: Showed nonspecific air-fluid levels and with no evidence of free air or obvious source of infection. EKG: Paced rhythm with rate of [address] 216, QTc 418 Assessment: This is a 76-year-old gentleman with a very complicated past medical history significant for CAD, CHF, PVD, osteomyelitis, and newly started on DAPT. Per previous workup at [facility] it does not seem like this is a new problem, however etiology currently still unknown. Source of anemia is likely multi factorial but we will pursue further workup and management of a general medicine floor. PLAN Anemia:Patient has hemoglobin 7.3 at this time. Earlier today at [facility] and hemoglobin 7.5 and on December 13 was high as 8.5. His baseline seems to be around 9-10. He did have prior several PRBC transfusion at [facility] about 2 weeks ago. * Obtain records * Iron studies * Guaiac all stool * Type and cross * 1 unit PRBC for goal greater than 8 * Rule out ACS with troponins EKG * Monitor CBC * Appreciate GI consult * Hold aspirin and Plavix, consider cardiology consult in a.m. Osteomyelitis: Patient is had recent debridement. He supposed follow with Dr. Bowden on the of this month. * Courtesy call to Dr. Bowden in a.m. * Continue ampicillin sulbactam 1.5 g every 6 * Continue vancomycin CAD/Hypertension: Chronic and stable. Hold meds given GI bleed but restart if hypertensive. * Lisinopril 20 mg by mouth daily * Metoprolol 50 mg by mouth twice a day [place] * Nitroglycerin 0.4 mg tab by mouth when necessary angina Hyperlipidemia: Chronic and stable * Atorvastatin 80 mg by mouth daily Hypothyroidism: Clinically stable * Levothyroxine 0.025 g Diabetes: Chronic and stable * Takes Lantus 30 units subcutaneous 10 PM * Regular insulin sliding scale * Fingerstick Aortic stenosis: Patient has loud 3/6 murmur right upper sternal border. Per discharge summary he has severe aortic stenosis for which he is doing workup for possible TAVR in January. Full code Nothing by mouth at midnight Alps for prophylaxis, given GI bleed VALERIO VELASCO, [facility] 12/27/16 2331: Attending MD Review Statement Attending Statement Attending MD Statement: examined this patient, discuss w/resident/PA/[employer], agreed w/resident/PA/[employer] Attending Assessment/Plan: 76 yo M who is a vasculopath, with h/o CAD s/p CABG, insulin dependent diabetic, PVD s/p stenting with most recent right foot TMA for osteomyelitis, COPD, SA node dysfunction s/p PPM, CHF, alcoholic liver cirrhosis, chronic pancreatitis, chronic JULIA, PD, is sent in from [facility] for anemia and guaiac positive stools. Patient is not a reliable historian. Patient was last admitted to [facility] (Jul 2016) for osteomyelitis of 2nd right metatarsal and was discharged on Meropenem. According to ECF, patient was at [facility] 2 weeks ago for TMA right foot, placed on IV Unasyn and Vanco via left arm PICC line, his hospital course was c/b anemia ( likely lower GI bleed hemorrhoidal vs. diverticular) requiring blood transfusion patient refused GI scope, new onset Afib for which patient was on IV heparin but patient later refused oral AC, he was discharged on aspirin and plavix. At the ECF, patient has had guaiac positive stools, with notable drop in his H and H, and today noted to have an episode of dark black stools today, ?BRBPR. Per patient, he may have seen a streak of BRB. Patient reports last colonoscopy was many years ago, notable for pre-cancerous polyp, that he reports was followed up with multiple sub-optimal colonoscopies, after which he refused having one. He does not recollect his last EGD. Patient has multiple other complaints such as left sided abdominal discomfort, chest discomfort, lightheadedness, but reports these are all chronic. Patient has severe aortic stenosis, and is awaiting TAVR once his foot infection resolves. VSS. Exam: AAO, pallor+, dry mucous membranes+. Chest b/l clear, Heart S1S2 regular, systolic murmur+, Right foot: TMA, incision site C/D/I, no obvious discharge. Left arm: PICC line site C/D/I. Rectal exam: guaiac psotive brown stool. Labs: H/H 7.3/22.3 (9-/27-29), normocytic anemia, retic count 3.51, trop neg. CXR: left sided PICC line, lungs clear. CT abd/pelvis: no acute changes. EKG: atrial paced. Echo (2016): LVH, EF > 60%, severe aortic stenosis. 1. Acute on chronic anemia, iron deficiency vs. Anemia of chronic disease, possible upper GI bleed in the setting of aspirin/plavix use and possible AVMs in the setting of aortic stenosis. Cannot rule out lower GI bleed. GM admit, type and crossmatch, transfuse PRBC, goal Hb > 8.0, avoid fluid overload given h /o severe , guaiac all stools, check iron studies, TSH, B12 and folic acid. IV PPI daily, clears for now, GI consult, possible EGD/ colonoscopy on Friday. OK to continue aspirin per GI, hold plavix. Serial EKG and troponin to rule out ACS. Obtain Cardio consult in AM. Obtain records from [facility] about most recent hospitalization. 2. Osteomyelitis right foot. Per ECF, continue IV Unasyn until 07/18 and Vanco until 01/16. 3. Chronic medical problems: continue all meds per W10. DVT ppx Alps. Full code.
[2016-12-27 22:30] VITALS: BP 132/60
--- NOTE | 2016-12-27 23:20 | RADIOLOGY REPORT ---
EXAMINATION: XR PORTABLE CHEST CLINICAL INFORMATION: Status post PICC line placement. COMPARISON: 08/08/2016. TECHNIQUE: Portable AP erect view of the chest was obtained. FINDINGS: A left-sided PICC line is identified with its tip in the lower SVC. Patient is status post median sternotomy with multiple intact sternal wires and dual leads in the right side of the heart with a right-sided prepectoral generator. The lungs are clear. IMPRESSION: A left-sided PICC line appears in satisfactory position. No acute intrathoracic process is seen.
--- NOTE | 2016-12-27 23:26 | Cons- Gastroenterology ---
General Information and HPI Consulting Request Date of Consult: 12/27/16 Requested By: VALERIO VELASCO,NATALIA Reason for Consult: I was notified late this evening of a request for a GI consult for subacute on chronic anemia, rectal bleeding, ? melena, & alleged Fe deficiency. Source of Information: patient Exam Limitations: poor historian, limited records available at [facility], bipolar History of Present Illness: 76-year-old male, not compliant with medical follow-up, followed by multiple physicians at [facility] whom he cannot name, with innumerable comorbidities, poor historian, anxiety, depression, bipolar disorder, ASHD, post remote CABG x 4 ( denies cardiac stent, but ? 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, allegedly awaiting TAVR for severe , PPM for SA node dysfunction (denies AICD), COPD ( denies home O2), past history of alcohol abuse and > 100 pk yr cigarette smoker, allegedly stopping both in 05/2016 (denies illicit drug use, but on rx narcotics ), early Parkinson's disease, frontal lobe damage, [place], alcohol-induced pancreatitis, "alcoholic liver disease" (labs not c/w cirrhosis, despite notes that state otherwise), BPH, DJD, hypoT4, chronic anemia, history of transfusions (reportedly with iron deficiency and requirements of IV iron infusion), history of right 2nd toe amputauion in 05/2016 followed by completion right transmetatarsal amputation, along with ulcers of the left great toe, osteomyelitis reportedly on outpatient IV antibiotics (? possibly Meropenem), remote history of colon polyps, not compliant with GI follow-up x years. The patient apparently was at [facility] recently, and was discharged to [facility] for rehabilitation. He had some type of GI bleeding at [facility], possibly lower GI in nature, with intermittent BRBPR after defecation in the toilet H2O x years, although the patient also mentioned black stool. He was on outpatient Aspirin 325 mg daily plus Plavix. He reportedly last took the Plavix on , 12/26/16. He denied any NSAIDs. The patient refused any endoscopic workup at [facility]. Apparently they thought some of his bleeding was hemorrhoidal versus diverticular in nature. The patient claimed he had a distant history of hemorrhoids in his 20's, and had a remote hemorrhoidectomy. *At various times during the GI consult, the patient refused to answer questions. *He has already received 1u PRBC transfusion this admission, earlier on 12/27/16. 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 He arrived in the [facility] ER 12/27/16 at 3:58 p.m., BIBA from [facility] with "GI bleed" with BP 166/ 74, P 67, R 18, T 97.5, R 18, O2 sat RA 100%. He had intermittent guaiac- positive stool 2 at [facility] and he was again guaiac positive in the ER , without any active bleeding. The patient was given Tylenol and Oxycodone in the ER. The patient noted intermittent painless BRBPR after defecation as above, without any spontaneous LGI bleeding. He had vague intermittent left lower quadrant pain, which he cannot qualify or quantify. He claimed he had chronically irregular bowel movements, at times ranging from diarrhea to constipation for years, without change. He denied any change in stool caliber, obstipation, or tenesmus. He denied any odynophagia, dysphagia, nausea, or vomiting. He has a chronic history of GERD, dependent on Omeprazole for years. He denied any early satiety or hematemesis. There is a strong family history of ASHD and CVA. He denied any family history of GI malignancy, GI disease, or inherited liver disease. He denied any jaundice, dark urine, light stools, pruritus, confusion, increased abdominal girth, or significant peripheral edema. He denied any unintentional weight loss or change in appetite. He denied any gross hematuria or hemoptysis. He noted chronic chest pain for years, which he cannot qualify or quantify. He also noted intermittent shortness of breath, and claimed he was dizzy when trying to walk at PT today, without LOC. Despite a remote history of colon polyps, the patient had not been compliant with follow-up colonoscopies. He claimed he has had multiple suboptimal preps, although upon further questioning, it sounds like he refused the colonoscopies. He denied having a previous EGD. He has had multiple [facility] ER visits for alcohol intoxication. 12/27/16: Admission labs- WBC 7.0, H/H 7.3/22.3, retic 3.51, MCV 88.7, RDW 16, PLT 224, PT 11.7, INR 1.12, PTT 37, glu 201, BUN/Cr 12/1.0, GFR > 60, Na 136, K 3.9, HCO3 26, AG 8, Ca 8.9, albumin 3.4, globulin 2.2, TBil 0.7, *alk phos 289 (? if bone, post osteomyelitis), AST 38, ALT 41, Fe 38, TIBC 276, Fe sat 13.7% (although reportedly on outpatient IV Fe), ferritin 421. 12/27/16: EKG- atrial paced rhythm @ 74. 12/27/16: XR PORTABLE CHEST- A left-sided PICC line appears in satisfactory position. No acute intrathoracic process is seen. 12/27/16: CT ABDOMEN AND PELVIS WITHOUT CONTRAST- Normal appearing liver, post-CCKY. There is no definite evidence of bowel obstruction. Stool thoughout colon. No localized abdominal or pelvic fat stranding. No abscess or free intraperitoneal gas. No specific evidence of diverticulitis. There are some fluid levels within top normal caliber small bowel loops which are nonspecific. There is extensive atherosclerotic calcification. No AAA. DJD. Sternal wires post CABG. Allergies/Medications Allergies: Coded Allergies: codeine (RASH, STOMACH PAIN 09/07/15) fish derived (STOMACH PAIN FROM `SEA FOOD' 09/07/15) Home Med List: Acetaminophen 500 MG TABLET 1 TAB PO AD PRN PAIN (Reported) Ampicillin Sodium/Sulbactam Na (Unasyn 1.5 Gm Vial) 1.5 GRAM VIAL 1.5 GM IV Q6 OSTEO (Reported) Aspirin (Aspirin*) 325 MG TABLET 1 TAB PO DAILY HEART HEALTH (Reported) Atorvastatin Calcium (Lipitor) 40 MG TABLET 1 TAB PO DAILY CHOLESTEROL ( Reported) Bisacodyl 5 MG TABLET.DR 1 TAB PO DAILY PRN constipation Budesonide/Formoterol Fumarate (Symbicort 160-4.5 Mcg Inhaler) 160 MCG-4.5 MCG/ ACTUATION HFA.AER.AD 2 PUF INH BID COPD (Reported) Carbidopa/Levodopa (Carbidopa-Levo 25-100 MG Odt) 25 MG-100 MG TAB.RAPDIS 1 TAB PO TID PARKINSONS (Reported) Clopidogrel Bisulfate (Plavix) 75 MG TABLET 1 TAB PO DAILY UNKNOWN (Reported) Finasteride (Proscar) 5 MG TABLET 1 TAB PO DAILY BPH (Reported) Insulin Aspart (Novolog) 100 UNIT/ML VIAL 1 UNITS SC TIDAC/HS Diabetes BEFORE MEALS Blood Insulin Sugar Units <80 Initiate hypoglycemia 80 -150 0 151-200 2 201-250 4 251-300 6 301-350 8 351-400 10 >400 12 and Call Doctor AT BEDTIME Blood Insulin Sugar Units <80 0 81-100 0 101-200 0 201-250 1 251-300 2 301-350 3 351-400 4 >400 Call Doctor Insulin Glargine,Hum.rec.anlog (Lantus Solostar) 100 UNIT/ML (3 ML) INSULN.PEN 30 UNIT SC QPM DIABETES (Reported) Insulin-Lantus (Lantus) 100 UNIT/ML VIAL 60 U SC QPM DIABETES (Reported) Levothyroxine Sodium (Synthroid) 25 MCG TABLET 1 TAB PO DAILY HYPOTHYROID ( Reported) Lisinopril 20 MG TABLET 1 TAB PO DAILY HEART (Reported) Metoprolol Tartrate 50 MG TABLET 1 TAB PO DAILY HEART HEALTH (Reported) Morphine Sulfate 15 MG TABLET 1 TAB PO Q6P PRN Severe pain Nitroglycerin (Nitrostat) 0.4 MG TAB.SUBL 1 TAB SL AD ANGINA (Reported) 1st sign of attack; may repeat every 5 minutes until relief; if pain persists after 3 tablets in 15 minutes, prompt medical att Omeprazole 20 MG CAPSULE.DR 1 CAP PO DAILY PRN GERD (Reported) Oxycodone HCl (Roxicodone) 5 MG TABLET 1 TAB PO BID PRN PAIN Oxycodone HCl/Acetaminophen (Percocet 5-325 MG Tablet) 5 MG-325 MG TABLET 1 TAB PO Q8 PRN Moderate pain Polyethylene Glycol 3350 (Miralax) 17 GRAM/DOSE POWDER 1 PAC PO DAILY PRN Constipation Ranolazine (Ranexa) 500 MG TAB.ER.12H 1 TAB PO BID ANGINA (Reported) Sennosides/Docusate Sodium (Senna-Time S Tablet) 8.6 MG-50 MG TABLET 1 TAB PO AT BEDTIME PRN Constipation Vancomycin HCl 1 GRAM VIAL 1 GM IV DAILY OSTEO (Reported) Current Medications: Current Medications Sig/Uvaldo Start time Last Medication Dose Route Stop Time Status Admin Acetaminophen 650 MG Q6P PRN 12/27 2030 AC PO Acetaminophen 1,000 MG Q6P PRN 12/27 2030 AC IV Ampicillin Sodium/ 1,500 MG Q6 12/27 2359 DC Sulbactam Sodium IV Ampicillin Sodium/ 1,500 MG Q6 12/27 2359 AC Sulbactam Sodium IV Sodium Chloride 100 ML Atorvastatin Calcium 40 MG DAILY 12/28 1000 AC PO Bisacodyl 5 MG DAILY PRN 12/27 2330 AC PO Budesonide/ 2 PUF BID 12/28 1000 AC Formoterol Fumarate INH Carbidopa/Levodopa 1 TAB TID 12/28 1000 CAN PO Finasteride 5 MG DAILY 12/28 1000 AC PO Insulin Aspart 0 TIDAC 12/28 0800 AC SC Insulin Detemir 15 UNITS DAILY 12/28 1000 AC SC Levothyroxine Sodium 0.025 MG DAILY 12/28 1000 AC PO Nitroglycerin 0.4 MG Q 5 MINUTES X 3 DO.. 12/27 2330 AC SL Oxycodone HCl 5 MG Q6H PRN 12/27 2045 AC 12/27 PO 2044 Pantoprazole Sodium 40 MG DAILY 12/28 1000 AC IV Ranolazine 500 MG BID 12/28 1000 AC PO Vancomycin HCl 1,000 MG DAILY 12/28 1000 CAN IV Vancomycin HCl 1,000 MG DAILY 12/28 1000 UNir Sodium Chloride 250 ML IV Past History Travel History Traveled to [place] past 21 day No Medical History Blood Transfusion Hx: Yes Neurological: Parkinson's disease, 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 Cardiovascular: aortic stenosis, CAD, CHF, hypertension, hyperlipidemia, PVD Respiratory: COPD Gastrointestinal: CHRONIC PANCREATITIS Hepatic: EtOH abuse Renal: benign prost hyperplasia Musculoskeletal: ARTHRITIS, osteomyelitis Psychiatric: anxiety, bipolar disease, depression Endocrine: diabetes, hypothyroidism Blood Disorders: anemia Cancer(s): NONE MANAGER RECRUITMENT/Reproductive: NONE Surgical History Surgical History: CABG, cholecystectomy, status post pacemaker status post previous angioplasties status post amputation of the right second toe 05/2016, f /b completion right transmet amputation Family History Relations & Conditions If Any: FATHER, , Age 52; Cause: Myocardial infarct. CVA FH: CAD (coronary artery disease) FH: heart attack BROTHER FH: CAD (coronary artery disease) SISTER FH: CAD (coronary artery disease) MOTHER (DM). , Age 75; Cause: CVA (cerebral vascular accident). Psychosocial History Where Do You Live? Extended Care Facility ([facility] for rehab) Who Do You Live With? self Services at Home: Home Health Aide Primary Language: Barbadian Smoking Status: Former Smoker (> 100 pk yr- "D/C 05/2016") ETOH Use: alcoholic ("stopped 05/2016") Illicit Drug Use: denies illicit drug use (on rx narcotics) Living Will? no Power of Plan Consultant/HCP? no Other Social History: . Lives alone. 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 Currently at [facility] for rehab. > 100 pk yr cigarette smoker & ex-EtOH abuse x yrs, both allededly D/C 05/2016. Denied illicit street drugs or IVDA, but on rx narcotics. 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 Estranged from his 3 children (2 sons & 1 dtr). Functional Ability ADLs Independent: dressing, eating, toileting, bathing. Ambulation: walker IADLs Independent: food prep, telephone. Needs Assist: shopping, housework, transportation, medication admin. 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 Review of Systems Constitutional: Reports: malaise, weakness. Denies: chills, diaphoresis, fever, unexplained weight loss. EENTM: Reports: visual changes (DM). Denies: blurred vision, double vision, eye pain, eye drainage, eye tearing, icterus, ear discharge, ear pain, ear redness, hearing changes, nasal congestion, epistaxis, nasal pain, throat pain, throat swelling, mouth pain, tooth pain. Cardiovascular: Reports: chest pain (chronic). Denies: edema, orthopena, palpitations, peripheral edema, syncope. Respiratory: Reports: short of breath (chronic- COPD). Denies: cough, hemoptysis, orthopnea, sputum production, stridor, wheezing. GI: Reports: abdominal pain (LLQ), melena, bloody stool. Denies: bloating, constipation, diarrhea, distention, bowel incontinence, nausea, changes in stool , vomiting, steatorrhea. Genitourinary: Reports: hesitation. Denies: discharge, dysuria, frequency, hematuria, nocturia , pain, urgency. Musculoskeletal: Reports: joint pain. Denies: back pain, gout, joint swelling, muscle pain, muscle stiffness, neck pain. Skin: Reports: change in hair/nails. Denies: cysts, change in skin color, dryness, erythema, jaundice, lesions, lymphangitis, lumps, moles, rash. Neurological/Psychological: Reports: anxiety, depressed (bipolar), emotional problems, tremors (Parkinson's) . Denies: ataxia, cognitive dysfunction, confusion, dementia, headache, numbness, paresthesia, pre-existing deficit, petit mal seizures, tingling, tonic -clonic seizures, unable to move lower ext, unable to move upper ext, weakness. Hematologic/Endocrine: Denies: bruising, bleeding, polyuria, polydipsia. Immunologic/Allergic: Denies: splenectomy, HIV/AIDS, lymphadenopathy. All Other Systems: Reviewed and Negative Exam & Diagnostic Data Vital Signs and I&O Vital Signs Date Time Temp Pulse Resp B/P B/P Pulse O2 O2 Flow FiO2 Mean Ox Delivery Rate 12/27 2245 100 Room Air 12/27 2230 98.1 61 18 132/60 100 Room Air 12/27 2212 97.2 66 18 148/67 100 Room Air 12/27 2036 97.3 72 18 142/72 100 Room Air 12/27 1816 97.4 68 18 148/78 99 Room Air 12/27 1708 77 158/67 12/27 1615 100 Room Air 12/27 1605 97.5 67 18 166/74 100 Room Air Intake & Output 12/28 0400 12/27 1600 12/27 04012/26 1600 12/26 04012/25 1600 Intake Total Output Total 550 Balance -550 Output, Urine 550 Patient 203 lb Weight Weight Reported by Patient Measurement Method Physical Exam: Well-developed, well-nourished, chronically ill-appearing male, in no apparent distress. Sclera anicteric. Conjunctiva slightly pale. Oropharynx clear. Edentulous. No oral thrush. No aphthous ulcers. There is no adenopathy, thyromegaly, or JVD. No peripheral stigmata of inflammatory bowel disease or chronic liver disease on exam. No spiders on the anterior chest wall. No gynecomastia. No CVA tenderness. Lungs: clear to A&P, with slightly prolonged expiratory phase. No wheezing, rales, or rhonchi. PPM in right CW. Heart exam: regular rate rhythm, S1 and S2, with III/ systolic murmur, c/w +. Abdominal exam: normal bowel sounds, soft belly, mildly distended, slightly obese, mild LLQ tenderness, without guarding or rebound. No mass. No organomegaly. No fluid shift. No pulsatile mass. No epigastric bruit. Repeat digital rectal exam deferred: reportedly brown, OB+ stool in ER, without fresh blood. Extremities: without cyanosis or clubbing. Trace pedal edema B/L. Post right transmetatarsal amputation by history (wrapped). Left great toe with 3 crusted ulcers. No palpable cords. Mild DJD. No palmar erythema. No Dupuytren's contractures. Distal pulses 1+ bilaterally. DTRs 1+ bilaterally. Alert and oriented x 3. Slightly flat affect & occasionally agitated. Minimal tremor with suggestion of mild cogwheeling. No masked facies. No asterixis. A detailed exam for peripheral neuropthy was deferred, but is present by history. Motor 4/5 B/L. Results Pertinent Lab Results: Laboratory Tests 12/27 12/27 2133 1702 Chemistry Sodium (137 - 145 mmol/L) 136 L Potassium (3.5 - 5.1 mmol/L) 3.9 Chloride (98 - 107 mmol/L) 102 Carbon Dioxide (22 - 30 mmol/L) 26 Anion Gap (5 - 16) 8 BUN (9 - 20 mg/dL) 12 Creatinine (0.7 - 1.2 mg/dL) 1.0 Estimated GFR (>60 ml/min) > 60 BUN/Creatinine Ratio (7 - 25 %) 12.0 Glucose (65 - 99 mg/dL) 201 H Calcium (8.4 - 10.2 mg/dL) 8.9 Iron (49 - 181 ug/dL) 38 L TIBC (261 - 462 ug/dL) 276 Ferritin (17.9 - 464 ng/mL) 421.0 Total Bilirubin (0.2 - 1.3 mg/dL) 0.7 AST (17 - 59 U/L) 38 ALT (21 - 72 U/L) 41 Alkaline Phosphatase (< 127 U/L) 289 H Troponin I (<0.11 ng/ml) < 0.01 Total Protein (6.3 - 8.2 g/dL) 5.6 L Albumin (3.5 - 5.0 g/dL) 3.4 L Globulin (1.9 - 4.2 gm/dL) 2.2 Albumin/Globulin Ratio (1.1 - 2.2 %) 1.5 Coagulation PT (9.4 - 12.5 SEC) 11.7 INR (0.90 - 1.17) 1.12 APTT (25 - 37 SEC) 37 Hematology CBC w Diff NO MAN DIFF REQ WBC (4.8 - 10.8 /CUMM) 7.0 RBC (4.70 - 6.10 /CUMM) 2.51 L Hgb (14.0 - 18.0 G/DL) 7.3 *L Hct (42 - 52 %) 22.3 L MCV (80.0 - 94.0 FL) 88.7 MCH (27.0 - 31.0 PG) 29.1 RDW (11.5 - 14.5 %) 16.0 H Plt Count (130 - 400 /CUMM) 224 MPV (7.4 - 10.4 FL) 6.2 L Gran % (42.2 - 75.2 %) 64.7 Lymphocytes % (20.5 - 51.1 %) 24.4 Monocytes % (1.7 - 9.3 %) 7.1 Eosinophils % (0 - 5 %) 3.4 Basophils % (0.0 - 2.0 %) 0.4 Absolute Granulocytes (1.4 - 6.5 /CUMM) 4.5 Absolute Lymphocytes (1.2 - 3.4 /CUMM) 1.7 Absolute Monocytes (0.10 - 0.60 /CUMM) 0.5 Absolute Eosinophils (0.0 - 0.7 /CUMM) 0.2 Absolute Basophils (0.0 - 0.2 /CUMM) 0 PUBS MCHC (33.0 - 37.0 G/DL) 32.8 L Retic Count (0.5 - 2.0 %) 3.51 H Imaging/Other Studies: 12/27/16: EKG- atrial paced rhythm @ 74. 12/27/16: XR PORTABLE CHEST- A left-sided PICC line appears in satisfactory position. No acute intrathoracic process is seen. 12/27/16: CT ABDOMEN AND PELVIS WITHOUT CONTRAST- Normal appearing liver, post-CCKY. There is no definite evidence of bowel obstruction. Stool thoughout colon. No localized abdominal or pelvic fat stranding. No abscess or free intraperitoneal gas. No specific evidence of diverticulitis. There are some fluid levels within top normal caliber small bowel loops which are nonspecific. There is extensive atherosclerotic calcification. No AAA. DJD. Sternal wires post CABG. Assessment/Plan Assessment/Recommendations: 76-year-old male, not compliant with medical follow-up, followed by multiple physicians at [facility] whom he cannot name, with innumerable comorbidities, poor historian, anxiety, depression, bipolar disorder, ASHD, post remote CABG x 4 ( denies cardiac stent, but ? 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, allegedly awaiting TAVR for severe , PPM for SA node dysfunction (denies AICD), COPD ( denies home O2), past history of alcohol abuse and > 100 pk yr cigarette smoker, allegedly stopping both in 05/2016 (denies illicit drug use, but on rx narcotics ), early Parkinson's disease, frontal lobe damage, [place], alcohol-induced pancreatitis, "alcoholic liver disease" (labs not c/w cirrhosis, despite notes that state otherwise), BPH, DJD, hypoT4, chronic anemia, history of transfusions (reportedly with iron deficiency and requirements of IV iron infusion), history of right 2nd toe amputauion in 05/2016 followed by completion right transmetatarsal amputation, along with ulcers of the left great toe, osteomyelitis reportedly on outpatient IV antibiotics (? possibly Meropenem), remote history of colon polyps, not compliant with GI follow-up x years. The patient apparently was at [facility] recently, and was discharged to [facility] for rehabilitation. He had some type of GI bleeding at [facility], possibly lower GI in nature, with intermittent BRBPR after defecation in the toilet H2O x years, although the patient also mentioned black stool. He was on outpatient Aspirin 325 mg daily plus Plavix. He reportedly last took the Plavix on , 12/26/16. He denied any NSAIDs. The patient refused any endoscopic workup at [facility]. Apparently they thought some of his bleeding was hemorrhoidal versus diverticular in nature. The patient claimed he had a distant history of hemorrhoids in his 20's, and had a remote hemorrhoidectomy. *At various times during the GI consult, the patient refused to answer questions. *He has already received 1u PRBC transfusion this admission, earlier on 12/27/16. 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 He arrived in the [facility] ER 12/27/16 at 3:58 p.m., BIBA from [facility] with "GI bleed" with BP 166/ 74, P 67, R 18, T 97.5, R 18, O2 sat RA 100%. He had intermittent guaiac- positive stool 2 at [facility] and he was again guaiac positive in the ER , without any active bleeding. The patient was given Tylenol and Oxycodone in the ER. The patient noted intermittent painless BRBPR after defecation as above, without any spontaneous LGI bleeding. He had vague intermittent left lower quadrant pain, which he cannot qualify or quantify. He claimed he had chronically irregular bowel movements, at times ranging from diarrhea to constipation for years, without change. He denied any change in stool caliber, obstipation, or tenesmus. He denied any odynophagia, dysphagia, nausea, or vomiting. He has a chronic history of GERD, dependent on Omeprazole for years. He denied any early satiety or hematemesis. There is a strong family history of ASHD and CVA. He denied any family history of GI malignancy, GI disease, or inherited liver disease. He denied any jaundice, dark urine, light stools, pruritus, confusion, increased abdominal girth, or significant peripheral edema. He denied any unintentional weight loss or change in appetite. He denied any gross hematuria or hemoptysis. He noted chronic chest pain for years, which he cannot qualify or quantify. He also noted intermittent shortness of breath, and claimed he was dizzy when trying to walk at PT today, without LOC. Despite a remote history of colon polyps, the patient had not been compliant with follow-up colonoscopies. He claimed he has had multiple suboptimal preps, although upon further questioning, it sounds like he refused the colonoscopies. He denied having a previous EGD. He has had multiple [facility] ER visits for alcohol intoxication. 12/27/16: Admission labs- WBC 7.0, H/H 7.3/22.3, retic 3.51, MCV 88.7, RDW 16, PLT 224, PT 11.7, INR 1.12, PTT 37, glu 201, BUN/Cr 12/1.0, GFR > 60, Na 136, K 3.9, HCO3 26, AG 8, Ca 8.9, albumin 3.4, globulin 2.2, TBil 0.7, *alk phos 289 (? if bone, post osteomyelitis), AST 38, ALT 41, Fe 38, TIBC 276, Fe sat 13.7% (although reportedly on outpatient IV Fe), ferritin 421. 12/27/16: EKG- atrial paced rhythm @ 74. 12/27/16: XR PORTABLE CHEST- A left-sided PICC line appears in satisfactory position. No acute intrathoracic process is seen. 12/27/16: CT ABDOMEN AND PELVIS WITHOUT CONTRAST- There is no definite evidence of bowel obstruction. No localized abdominal or pelvic fat stranding. No abscess or free intraperitoneal gas. No specific evidence of diverticulitis. There are some fluid levels within top normal caliber small bowel loops which are nonspecific. There is extensive atherosclerotic calcification & DJD. Sternal wires post CABG. *The patient has numerous comorbidities. He reportedly was iron deficient at [facility], requiring IV iron, and has had subacute on chronic anemia. Depending on the story, he had OB positive stool, with intermittent BRPPR after defecation of brown stool vs. melena. He has chronic symptoms of GERD x years, dependent on Omeprazole. The history of elevated alkaline phosphatase is noted, but this certainly may be bone in etiology, with history of osteomyelitis. The past history of colon polyps is noted, & he has been noncompliant with follow-up. The past history of alcohol abuse is noted, allegedly stopping in 05/2016. Although the records state "alcoholic cirrhosis", there is nothing by imaging studies, nor by labs (normal liver on CT, normal platelet count, normal albumin: globulin ratio, normal INR), to suggest this. The peripheral vascular disease is noted. The patient is a poor historian, but does not appear to have classic symptoms of postprandial pain to suggest intestinal angina. Additionally, his aortic stenosis is noted. 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 *SUGGEST: *May switch po Omeprazole to IV Protonix 40 mg daily (the latter has not been implicated in potential Plavix interaction). Anti-reflux measures. *Continue outpatient ASA (vasculopath). *Hold Plavix for now, if okay with cardiology. The patient reportedly last took Plavix on 12/26/16, & so most of this should be out of his system after the weekend, to allow for potential polypectomy. *Advise cardiology clearance for EGD/colonoscopy, as the patient reportedly is awaiting TAVR for severe . *T&C 2u PRBC. Check CBC daily for now. Keep Hgb > 8 (ASHD). Supplemental O2 as needed. *Add B12/folate to pre-transfusion labs. *Get 5'NTD regarding elevated alk phos (possbly bony in nature, with history of osteomyelitis). *Add thiamine, folate, MVI. Clears po only over the weekend, & if patient allows, will give a 1 gallon prep (reportedly poor prep in the past & also on narcotic analgesics), on Friday12/29/16, for combined EGD/colonoscopy on 12/30/16. The risks & benefits of EGD/colonoscopy were discussed with the patient in detail, but I am not sure he will comply. If EGD/colonoscopy negative for bleeding site, consideration for outpatient PillCam to rule out SB AVMs. Eventual resumption of Fe after GI workup is completed. Treatment of other numerous medical problems, as per the medical team. The above findings and recommendations were discussed with the medical house staff this p.m. Further recommendations to follow, depending on clinical course. Problem List: 1. Iron deficiency anemia 2. Occult blood positive stool 3. Rectal bleeding 4. Melena 5. Elevated alkaline phosphatase level 6. History of colon polyps 7. History of alcohol abuse 8. GERD (gastroesophageal reflux disease) 9. LLQ abdominal pain 10. PVD (peripheral vascular disease) 11. Aortic stenosis Copies To: CORNEL VELASCO,CHRISTINA; VALERIO VELASCO,NATALIA Consult Acknowledgment - Thank you for your consult request.
--- NOTE | 2016-12-27 23:32 | Admission Certification ---
Admission Certification Certification Statement - As attending physician, I certify that at the time of - admission, based on clinical presentation, severity of - symptoms, need for further diagnostic testing and - therapeutic interventions, and risk of adverse outcomes - without in-hospital treatment, in my clinical assessment, - this patient requires an acute hospital stay for a minimum - of two nights or longer. I have also considered psychsocial - factors such as support system, advanced age, financial - issues, cognitive issues, and failed out-patient treatments, - past re-admission history, safety of patient, and lack of - compliance as applicable. Specific rationale supporting this admission is: Acute on chronic anemia, possible upper GI bleed.
[2016-12-27] MEDS ORDERED: VANCOMYCIN HCL1 G1 IV (23:34)
[2016-12-27] MEDS ORDERED: UNASYN 1.5 GM1.5 GM IV (23:34)
[2016-12-27] MEDS ORDERED: PLAVIX75 M1 PO (23:35)
[2016-12-27] MEDS ORDERED: LANTUS SOL100 UNIT/1 SC (23:35)
--- NOTE | 2016-12-28 05:42 | PN- Housestaff ---
Subjective Follow-up For: dark stool anemioa GI bleed Subjective: Have seen and examined the patient. Patient was resting comfortably in bed. I explained to him that we are going to keep him on clear liquid diet over the weekend. He will be prepped on Friday evening with 1 gallon in inanticipation of endoscopy/colonoscopy on Friday. If he is not excited about it. But he knows that he will have to go through it. Otherwise he does not complain of any shortness of breath chest pain or palpitations. He however he and endorses weakness and fatigue. Review of Systems Constitutional: Reports: see HPI. Objective Last 24 Hrs of Vital Signs/I&O Vital Signs Date Time Temp Pulse Resp B/P B/P Pulse O2 O2 Flow FiO2 Mean Ox Delivery Rate 12/27 2245 100 Room Air 12/27 2230 98.1 61 18 132/60 100 Room Air 12/27 2212 97.2 66 18 148/67 100 Room Air 12/27 2036 97.3 72 18 142/72 100 Room Air 12/27 1816 97.4 68 18 148/78 99 Room Air 12/27 1708 77 158/67 12/27 1615 100 Room Air 12/27 1605 97.5 67 18 166/74 100 Room Air Intake & Output 12/28 0800 12/28 0000 12/27 1600 Intake Total Output Total 350 550 Balance -350 -550 Output, Urine 350 550 Patient 203 lb Weight Weight Reported by Patient Measurement Method Physical Exam General Appearance: Alert, Oriented X3, Cooperative Skin: No Rashes, No Breakdown, flex/moles on the back Cardiovascular: Normal S1, Normal S2, murmur? aotic stenosis Lungs: Clear to Auscultation, Normal Air Movement Abdomen: Normal Bowel Sounds, Soft, No Tenderness Neurological: Normal Speech Extremities: r foot wrapped in bandage left foot big toe hgas 3 ulcers Current Medications: Current Medications Sig/Uvaldo Start time Last Medication Dose Route Stop Time Status Admin Acetaminophen 650 MG Q6P PRN 12/27 2029 AC PO Acetaminophen 1,000 MG Q6P PRN 12/27 2029 AC IV Ampicillin Sodium/ 1,500 MG Q6H 12/28 0200 AC 12/28 Sulbactam Sodium IV 0157 Sodium Chloride 100 ML Ampicillin Sodium/ 1,500 MG Q6 12/27 2359 DC Sulbactam Sodium IV Ampicillin Sodium/ 1,500 MG Q6 12/27 2359 DC Sulbactam Sodium IV Sodium Chloride 100 ML Aspirin 325 MG DAILY 12/28 1000 AC PO Atorvastatin Calcium 40 MG DAILY 12/28 1000 AC PO Bisacodyl 5 MG DAILY PRN 12/27 2330 AC PO Budesonide/ 2 PUF BID 12/28 1000 AC Formoterol Fumarate INH Carbidopa/Levodopa 1 TAB TID 12/28 1000 CAN PO Finasteride 5 MG DAILY 12/28 1000 AC PO Insulin Aspart 0 TIDAC 12/28 0800 AC SC Insulin Detemir 15 UNITS DAILY 12/28 1000 AC SC Levothyroxine Sodium 0.025 MG DAILY 12/28 1000 AC PO Nitroglycerin 0.4 MG Q 5 MINUTES X 3 DO.. 12/27 2330 AC SL Oxycodone HCl 5 MG Q6H PRN 12/27 2045 AC 12/27 PO 2044 Pantoprazole Sodium 40 MG DAILY 12/28 1000 AC IV Polyethylene Glycol 1 GAL ONCE ONE 12/29 1700 AC PO 12/29 1701 Polyethylene Glycol 1 GAL ONCE ONE 12/28 0545 CAN PO 12/28 0546 Ranolazine 500 MG BID 12/28 1000 AC PO Vancomycin HCl 1,000 MG DAILY 12/28 1000 CAN IV Vancomycin HCl 1,500 MG DAILY 12/28 1000 AC Sodium Chloride 500 ML IV Last 24 Hrs of Lab/Olegario Results Last 24 Hrs of Labs/Mics: Laboratory Tests 12/28/16 0620: Sodium Pending, Potassium Pending, Chloride Pending, Carbon Dioxide Pending, Anion Gap Pending, BUN Pending, Creatinine Pending, BUN/Creatinine Ratio Pending , CBC w Diff Pending, WBC Pending, RBC Pending, Hgb Pending, Hct Pending, MCV Pending, MCH Pending, RDW Pending, Plt Count Pending, MPV Pending, PUBS MCHC Pending 12/28/16 0330: Troponin I < 0.01 12/27/16 2133: Troponin I < 0.01 12/27/16 1702: Anion Gap 8, Estimated GFR > 60, BUN/Creatinine Ratio 12.0, Glucose 201 H, Calcium 8.9, Iron 38 L, TIBC 276, Ferritin 421.0, Total Bilirubin 0.7, AST 38, ALT 41, Alkaline Phosphatase 289 H, Total Protein 5.6 L, Albumin 3.4 L, Globulin 2.2, Albumin/Globulin Ratio 1.5, Vitamin B12 Pending, Folate 15.8, TSH Pending, PT 11.7, INR 1.12, APTT 37, CBC w Diff NO MAN DIFF REQ, RBC 2.51 L, MCV 88.7, MCH 29.1, RDW 16.0 H, MPV 6.2 L, Gran % 64.7, Lymphocytes % 24.4, Monocytes % 7.1, Eosinophils % 3.4, Basophils % 0.4, Absolute Granulocytes 4.5, Absolute Lymphocytes 1.7, Absolute Monocytes 0.5, Absolute Eosinophils 0.2, Absolute Basophils 0, PUBS MCHC 32.8 L, Retic Count 3.51 H Assessment/Plan Assessment: ssessment: This is a 76-year-old gentleman with a very complicated past medical history significant for CAD, CHF, PVD, osteomyelitis, and newly started on DAPT. Per previous workup at [facility] it does not seem like this is a new problem, however etiology currently still unknown. Source of anemia is likely multi factorial but we will pursue further workup and management of a general medicine floor. Workup shows: Vitals: 97.5, 67, 18, 166/74, 100% on room air CBC shows white count 7.0, hemoglobin 7.3, hematocrit 22.3, platelet 224, INR 1.12. BEP shows sodium 136, BUN 12, creatinine 1.0. Alkaline phosphatase 289, total protein 5.6. CT abdomen and pelvis: Showed nonspecific air-fluid levels and with no evidence of free air or obvious source of infection. EKG: Paced rhythm with rate of 74 and irregular. MD 216, QTc 418 PLAN Anemia:Patient has hemoglobin 7.3 at this time. Earlier today at [facility] and hemoglobin 7.5 and on December 13 was high as 8.5. His baseline seems to be around 9-10. He did have prior several PRBC transfusion at [facility] about 2 weeks ago. * Obtain records * Iron studies * Guaiac all stool * Type and cross * 1 unit PRBC for goal greater than 8 * Rule out ACS with troponins EKG * Monitor CBC * Appreciate GI consult * Hold aspirin and Plavix, consider cardiology consult in a.m. Osteomyelitis: Patient is had recent debridement. He supposed follow with Dr. Bowden on the of this month. * Courtesy call to Dr. Bowden in a.m. * Continue ampicillin sulbactam 1.5 g every 6 * Continue vancomycin Diabetes: Chronic and stable takes Lantus 30 units subcutaneous 10 PM * Regular insulin sliding scale and Fingerstick CAD/Hypertension: Chronic and stable. Hold meds given GI bleed but restart if hypertensive. * Lisinopril 20 mg by mouth daily * Metoprolol 50 mg by mouth twice a day Ipava * Nitroglycerin 0.4 mg tab by mouth when necessary angina Aortic stenosis: Patient has loud 3/6 murmur right upper sternal border. Per discharge summary he has severe aortic stenosis for which he is doing workup for possible TAVR in January. Hyperlipidemia: Chronic and stable Atorvastatin 80 mg by mouth daily Hypothyroidism: Clinically stable Levothyroxine 0.025 g Full code Nothing by mouth at midnight Alps for prophylaxis, given GI bleed Problem List: 1. LLQ abdominal pain 2. Aortic stenosis 3. Osteomyelitis 4. Foot pain 5. Lower GI bleed 6. Iron deficiency anemia 7. Occult blood positive stool Pain Ratin Pain Location: right foot Pain Goal: Pain 4 or less Pain Plan: roxicodone 5mg q6 prn tylenol 650mg q6 Tomorrow's Labs & Rationales: cbc bep
[2016-12-28 07:02] VITALS: BP 138/44
[2016-12-28 08:50] LABS: ABSOLUTE BASOPHIL COUNT 0 /CUMM (0.0-0.2); ABSOLUTE EOSINOPHIL COUNT 0.2 /CUMM (0.0-0.7); ABSOLUTE LYMPH COUNT 1.3 /CUMM (1.2-3.4); ABSOLUTE MONOCYTE COUNT 0.4 /CUMM (0.10-0.60); BASOPHIL % 0.3 % (0.0-2.0); EOSINOPHIL % 4.1 % (0-5); MEAN CORPUSCULAR HGB 29.7 PG (27.0-31.0); MEAN CORPUSCULAR HGB CONC 33.8 G/DL (33.0-37.0); MEAN CORPUSCULAR VOLUME 87.8 FL (80.0-94.0); MEAN PLATELET VOLUME 6.3 FL (7.4-10.4); PLATELET COUNT 195 /CUMM (130-400); RBC DISTRIBUTION WIDTH 15.8 % (11.5-14.5); RED BLOOD CELL CT 2.84 /CUMM (4.70-6.10); WHITE BLOOD CELL COUNT 5.9 /CUMM (4.8-10.8)
--- NOTE | 2016-12-28 12:47 | Cons- Cardiology ---
General Information and HPI Consulting Request Date of Consult: 12/28/16 Requested By: VALERIO VELASCO,NATALIA Reason for Consult: /CAD Source of Information: patient, old records History of Present Illness: This is a 76-year-old male with a past medical history of coronary artery disease with prior CABG and remote angioplasty, peripheral vascular disease with recent toe amputation at [facility], sinus node dysfunction with permanent pacemaker followed by Dr. Laws, aortic stenosis, bipolar disorder, prior alcohol and nicotine dependence, and recent cardiac catheterization showing patent ROMAN with diseased saphenous vein grafts. The patient is a limited historian. He was apparently recently discharged from the [facility] to [facility] after an episode of osteomyelitis and was on antibiotics. He has a reported history of the intermittent medical noncompliance. He was apparently being considered for TAVR at [facility] in the future. Per report he refused a GI workup for suspected GI bleed at [facility]. A recent echocardiogram at [facility] showed a normal left ventricular ejection fraction with mild RV dysfunction and severe aortic stenosis. The patient was sent from [facility] to [facility] for guaiac positive stools with decreased H&H. He did report having dark stools. He does report intermittent shortness of breath and chest pain which are chronic and unchanged recently. He denies associated palpitations, syncope, headache, slurring of speech, fever, orthopnea, PND, or focal weakness. Allergies/Medications Allergies: Coded Allergies: codeine (RASH, STOMACH PAIN 09/07/15) fish derived (STOMACH PAIN FROM `SEA FOOD' 09/07/15) Home Med List: Acetaminophen 500 MG TABLET 1 TAB PO AD PRN PAIN (Reported) Ampicillin Sodium/Sulbactam Na (Unasyn 1.5 Gm Vial) 1.5 GRAM VIAL 1.5 GM IV Q6 OSTEO (Reported) Aspirin (Aspirin*) 325 MG TABLET 1 TAB PO DAILY HEART HEALTH (Reported) Atorvastatin Calcium (Lipitor) 40 MG TABLET 1 TAB PO DAILY CHOLESTEROL ( Reported) Bisacodyl 5 MG TABLET.DR 1 TAB PO DAILY PRN constipation Budesonide/Formoterol Fumarate (Symbicort 160-4.5 Mcg Inhaler) 160 MCG-4.5 MCG/ ACTUATION HFA.AER.AD 2 PUF INH BID COPD (Reported) Carbidopa/Levodopa (Carbidopa-Levo 25-100 MG Odt) 25 MG-100 MG TAB.RAPDIS 1 TAB PO TID PARKINSONS (Reported) Clopidogrel Bisulfate (Plavix) 75 MG TABLET 1 TAB PO DAILY UNKNOWN (Reported) Finasteride (Proscar) 5 MG TABLET 1 TAB PO DAILY BPH (Reported) Insulin Aspart (Novolog) 100 UNIT/ML VIAL 1 UNITS SC TIDAC/HS Diabetes BEFORE MEALS Blood Insulin Sugar Units <80 Initiate hypoglycemia 80 -150 0 151-200 2 201-250 4 251-300 6 301-350 8 351-400 10 >400 12 and Call Doctor AT BEDTIME Blood Insulin Sugar Units <80 0 81-100 0 101-200 0 201-250 1 251-300 2 301-350 3 351-400 4 >400 Call Doctor Insulin Glargine,Hum.rec.anlog (Lantus Solostar) 100 UNIT/ML (3 ML) INSULN.PEN 30 UNIT SC QPM DIABETES (Reported) Insulin-Lantus (Lantus) 100 UNIT/ML VIAL 60 U SC QPM DIABETES (Reported) Levothyroxine Sodium (Synthroid) 25 MCG TABLET 1 TAB PO DAILY HYPOTHYROID ( Reported) Lisinopril 20 MG TABLET 1 TAB PO DAILY HEART (Reported) Metoprolol Tartrate 50 MG TABLET 1 TAB PO DAILY HEART HEALTH (Reported) Morphine Sulfate 15 MG TABLET 1 TAB PO Q6P PRN Severe pain Nitroglycerin (Nitrostat) 0.4 MG TAB.SUBL 1 TAB SL AD ANGINA (Reported) 1st sign of attack; may repeat every 5 minutes until relief; if pain persists after 3 tablets in 15 minutes, prompt medical att Omeprazole 20 MG CAPSULE.DR 1 CAP PO DAILY PRN GERD (Reported) Oxycodone HCl (Roxicodone) 5 MG TABLET 1 TAB PO BID PRN PAIN Oxycodone HCl/Acetaminophen (Percocet 5-325 MG Tablet) 5 MG-325 MG TABLET 1 TAB PO Q8 PRN Moderate pain Polyethylene Glycol 3350 (Miralax) 17 GRAM/DOSE POWDER 1 PAC PO DAILY PRN Constipation Ranolazine (Ranexa) 500 MG TAB.ER.12H 1 TAB PO BID ANGINA (Reported) Sennosides/Docusate Sodium (Senna-Time S Tablet) 8.6 MG-50 MG TABLET 1 TAB PO AT BEDTIME PRN Constipation Vancomycin HCl 1 GRAM VIAL 1 GM IV DAILY OSTEO (Reported) Current Medications: Current Medications Sig/Uvaldo Start time Last Medication Dose Route Stop Time Status Admin Acetaminophen 650 MG Q6P PRN 12/27 2030 AC PO Acetaminophen 1,000 MG Q6P PRN 12/27 2030 AC IV Ampicillin Sodium/ 1,500 MG Q6H 12/28 0200 AC 12/28 Sulbactam Sodium IV 0800 Sodium Chloride 100 ML Ampicillin Sodium/ 1,500 MG Q6 12/27 2359 DC Sulbactam Sodium IV Ampicillin Sodium/ 1,500 MG Q6 12/27 2359 DC Sulbactam Sodium IV Sodium Chloride 100 ML Aspirin 325 MG DAILY 12/28 1000 AC 12/28 PO 1043 Atorvastatin Calcium 40 MG DAILY 12/28 1000 AC 12/28 PO 1043 Bisacodyl 5 MG DAILY PRN 12/27 2330 AC PO Budesonide/ 2 PUF BID 12/28 1000 AC 12/28 Formoterol Fumarate INH 1035 Carbidopa/Levodopa 1 TAB TID 12/28 1000 CAN PO Finasteride 5 MG DAILY 12/28 1000 AC 12/28 PO 1043 Insulin Aspart 0 TIDAC 12/28 0800 AC 12/28 SC 1221 Insulin Detemir 15 UNITS DAILY 12/28 1000 AC 12/28 SC 1046 Levothyroxine Sodium 0.025 MG DAILY 12/28 1000 AC 12/28 PO 1044 Nitroglycerin 0.4 MG Q 5 MINUTES X 3 DO.. 12/27 2330 AC SL Oxycodone HCl 5 MG Q6H PRN 12/27 2045 AC 12/28 PO 1051 Pantoprazole Sodium 40 MG DAILY 12/28 1000 AC 12/28 IV 1047 Polyethylene Glycol 1 GAL ONCE ONE 12/29 1700 AC PO 12/29 1701 Polyethylene Glycol 1 GAL ONCE ONE 12/28 0545 CAN PO 12/28 0546 Ranolazine 500 MG BID 12/28 1000 AC 12/28 PO 1044 Vancomycin HCl 1,000 MG DAILY 12/28 1000 CAN IV Vancomycin HCl 1,500 MG DAILY 12/28 1000 AC 12/28 Sodium Chloride 500 ML IV 1053 Review of Systems Review of Systems: Review of systems as per HPI. The remainder of a 10 point review of systems was reviewed and was otherwise negative. 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 CVA FH: CAD (coronary artery disease) FH: heart attack BROTHER FH: CAD (coronary artery disease) SISTER FH: CAD (coronary artery disease) MOTHER (DM). , Age 75; Cause: CVA (cerebral vascular accident). Psychosocial History Where Do You Live? Extended Care Facility ([facility] for rehab) Who Do You Live With? self Services at Home: Home Health Aide Primary Language: Kazakh Smoking Status: Former Smoker (> 100 pk yr- "D/C 05/2016") ETOH Use: alcoholic ("stopped 05/2016") Illicit Drug Use: denies illicit drug use (on rx narcotics) Living Will? no Power of Crop Pest Control Specialist/HCP? no Other Social History: . Lives alone. 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 Currently at [facility] for rehab. > 100 pk yr cigarette smoker & ex-EtOH abuse x yrs, both allededly D/C 05/2016. Denied illicit street drugs or IVDA, but on rx narcotics. 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 Estranged from his 3 children (2 sons & 1 dtr). Functional Ability ADLs Independent: dressing, eating, toileting, bathing. Ambulation: walker IADLs Independent: food prep, telephone. Needs Assist: shopping, housework, transportation, medication admin. 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 ECHO Results (as available) Date of last Echo 06/02/16 EF% 60 Exam & Diagnostic Data Vital Signs and I&O Vital Signs Date Time Temp Pulse Resp B/P B/P Pulse O2 O2 Flow FiO2 Mean Ox Delivery Rate 12/28 1044 81 138/44 12/28 0702 99.1 61 18 138/44 97 Room Air 12/27 2245 100 Room Air 12/27 2230 98.1 61 18 132/60 100 Room Air 12/27 2212 97.2 66 18 148/67 100 Room Air 12/27 2036 97.3 72 18 142/72 100 Room Air 12/27 1816 97.4 68 18 148/78 99 Room Air 12/27 1708 77 158/67 12/27 1615 100 Room Air 12/27 1605 97.5 67 18 166/74 100 Room Air Intake & Output 12/28 0812/28 0000 12/27 1600 12/27 0812/27 0000 Intake Total 980 Output Total 350 550 Balance 630 -550 Intake, Blood 350 Product Intake, IV 150 Intake, Oral 480 Output, Urine 350 550 Patient 203 lb Weight Weight Reported by Patient Measurement Method Physical Exam: General: no apparent distress. Alert. Eyes: No obvious scleral icterus. HEENT: No jugular venous distention or abnormal jugular venous pulsations. Cardiovascular: Normal intensity S1/S2. Pacemaker. 3/6 systolic murmur. Respiratory: No rales or rhonchi Abdomen: no guarding or rebound tenderness. Musculoskeletal: No edema, status post right toe amputation wrapped Skin: Warm Neurologic: No gross focal deficits noted. Lymph: No gross lymphadenopathy. Labs/Olegario Results: Laboratory Tests 12/28 12/28 12/27 0620 0330 2133 Chemistry Sodium (137 - 145 mmol/L) 139 Potassium (3.5 - 5.1 mmol/L) 3.8 Chloride (98 - 107 mmol/L) 104 Carbon Dioxide (22 - 30 mmol/L) 27 Anion Gap (5 - 16) 9 BUN (9 - 20 mg/dL) 11 Creatinine (0.7 - 1.2 mg/dL) 0.9 Estimated GFR (>60 ml/min) > 60 BUN/Creatinine Ratio (7 - 25 %) 12.2 Troponin I (<0.11 ng/ml) < 0.01 < 0.01 Hematology CBC w Diff NO MAN DIFF REQ WBC (4.8 - 10.8 /CUMM) 5.9 RBC (4.70 - 6.10 /CUMM) 2.84 L Hgb (14.0 - 18.0 G/DL) 8.4 L Hct (42 - 52 %) 25.0 L MCV (80.0 - 94.0 FL) 87.8 MCH (27.0 - 31.0 PG) 29.7 RDW (11.5 - 14.5 %) 15.8 H Plt Count (130 - 400 /CUMM) 195 MPV (7.4 - 10.4 FL) 6.3 L Gran % (42.2 - 75.2 %) 67.0 Lymphocytes % (20.5 - 51.1 %) 21.5 Monocytes % (1.7 - 9.3 %) 7.1 Eosinophils % (0 - 5 %) 4.1 Basophils % (0.0 - 2.0 %) 0.3 Absolute Granulocytes (1.4 - 6.5 /CUMM) 4.0 Absolute Lymphocytes (1.2 - 3.4 /CUMM) 1.3 Absolute Monocytes (0.10 - 0.60 /CUMM) 0.4 Absolute Eosinophils (0.0 - 0.7 /CUMM) 0.2 Absolute Basophils (0.0 - 0.2 /CUMM) 0 PUBS MCHC (33.0 - 37.0 G/DL) 33.8 12/27 1702 Chemistry Sodium (137 - 145 mmol/L) 136 L Potassium (3.5 - 5.1 mmol/L) 3.9 Chloride (98 - 107 mmol/L) 102 Carbon Dioxide (22 - 30 mmol/L) 26 Anion Gap (5 - 16) 8 BUN (9 - 20 mg/dL) 12 Creatinine (0.7 - 1.2 mg/dL) 1.0 Estimated GFR (>60 ml/min) > 60 BUN/Creatinine Ratio (7 - 25 %) 12.0 Glucose (65 - 99 mg/dL) 201 H Calcium (8.4 - 10.2 mg/dL) 8.9 Iron (49 - 181 ug/dL) 38 L TIBC (261 - 462 ug/dL) 276 Ferritin (17.9 - 464 ng/mL) 421.0 Total Bilirubin (0.2 - 1.3 mg/dL) 0.7 AST (17 - 59 U/L) 38 ALT (21 - 72 U/L) 41 Alkaline Phosphatase (< 127 U/L) 289 H Total Protein (6.3 - 8.2 g/dL) 5.6 L Albumin (3.5 - 5.0 g/dL) 3.4 L Globulin (1.9 - 4.2 gm/dL) 2.2 Albumin/Globulin Ratio (1.1 - 2.2 %) 1.5 Vitamin B12 (239 - 931 pg/mL) 650 Folate (2.76 - 20.0 ng/mL) 15.8 TSH (0.270 - 4.200 uIU/mL) 5.880 H Coagulation PT (9.4 - 12.5 SEC) 11.7 INR (0.90 - 1.17) 1.12 APTT (25 - 37 SEC) 37 Hematology CBC w Diff NO MAN DIFF REQ WBC (4.8 - 10.8 /CUMM) 7.0 RBC (4.70 - 6.10 /CUMM) 2.51 L Hgb (14.0 - 18.0 G/DL) 7.3 *L Hct (42 - 52 %) 22.3 L MCV (80.0 - 94.0 FL) 88.7 MCH (27.0 - 31.0 PG) 29.1 RDW (11.5 - 14.5 %) 16.0 H Plt Count (130 - 400 /CUMM) 224 MPV (7.4 - 10.4 FL) 6.2 L Gran % (42.2 - 75.2 %) 64.7 Lymphocytes % (20.5 - 51.1 %) 24.4 Monocytes % (1.7 - 9.3 %) 7.1 Eosinophils % (0 - 5 %) 3.4 Basophils % (0.0 - 2.0 %) 0.4 Absolute Granulocytes (1.4 - 6.5 /CUMM) 4.5 Absolute Lymphocytes (1.2 - 3.4 /CUMM) 1.7 Absolute Monocytes (0.10 - 0.60 /CUMM) 0.5 Absolute Eosinophils (0.0 - 0.7 /CUMM) 0.2 Absolute Basophils (0.0 - 0.2 /CUMM) 0 PUBS MCHC (33.0 - 37.0 G/DL) 32.8 L Retic Count (0.5 - 2.0 %) 3.51 H Diagnostic Data EKG Results Tracing personally reviewed shows sinus rhythm with PACs and a bigeminal pattern CXR Results A left-sided PICC line appears in satisfactory position. No acute intrathoracic process is seen. Other Results Abd Ct: There is no definite evidence of bowel obstruction. No localized abdominal or pelvic fat stranding. No abscess or free intraperitoneal gas. No specific evidence of diverticulitis. There are some fluid levels within top normal caliber small bowel loops which are nonspecific. There is extensive atherosclerotic calcification. Assessment/Plan Assessment/Plan 1. Anemia with likely GI bleeding 2. Severe aortic stenosis with plan for future TAVR 3. Coronary artery disease with a reported prior angioplasty/CABG; recent cardiac catheterization showing patent showing patent ROMAN with diseased saphenous vein grafts 4. Bipolar disorder 5. PVD with the recent right toe amputation 6. History of sick sinus syndrome with permanent pacemaker The patient is currently hemodynamically stable with normal troponins and no evidence of acute coronary syndrome or decompensated congestive heart failure. He represents moderately elevated cardiac risk for EGD/colonoscopy due to his known severe aortic stenosis with CAD. Continue on aspirin and reasonable to hold Plavix temporarily; can likely be on a lower dose of aspirin going forward. Continue on statin therapy. As he had a recent cardiac catheterization there is no role for nuclear stress testing at this time. He is not pacemaker dependent. He is planning on following up with [facility] in the future for TAVR. Dwight Gaston MD [facility] Consult Acknowledgment - Thank you for your consult request.
--- NOTE | 2016-12-28 13:35 | PN- Gastroenterology ---
Assessment/Plan Assessment/Recommendations: 76-year-old male, not compliant with medical follow-up, followed by multiple physicians at [facility] whom he cannot name, with innumerable comorbidities, poor historian, anxiety, depression, bipolar disorder, ASHD, post remote CABG x 4 ( denies cardiac stent, but ? 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, allegedly awaiting TAVR for severe , PPM for SA node dysfunction (denies AICD), COPD ( denies home O2), past history of alcohol abuse and > 100 pk yr cigarette smoker, allegedly stopping both in 05/2016 (denies illicit drug use, but on rx narcotics ), early Parkinson's disease, frontal lobe damage, [place], alcohol-induced pancreatitis, "alcoholic liver disease" (labs not c/w cirrhosis, despite notes that state otherwise), BPH, DJD, hypoT4, chronic anemia, history of transfusions (reportedly with iron deficiency and requirements of IV iron infusion), history of right 2nd toe amputauion in 05/2016 followed by completion right transmetatarsal amputation, along with ulcers of the left great toe, osteomyelitis reportedly on outpatient IV antibiotics (? possibly Meropenem), remote history of colon polyps, not compliant with GI follow-up x years. The patient apparently was at [facility] recently, and was discharged to [facility] for rehabilitation. He had some type of GI bleeding at [facility], possibly lower GI in nature, with intermittent BRBPR after defecation in the toilet H2O x years, although the patient also mentioned black stool. He was on outpatient Aspirin 325 mg daily plus Plavix. He reportedly last took the Plavix on , 12/26/16. He denied any NSAIDs. The patient refused any endoscopic workup at [facility]. Apparently they thought some of his bleeding was hemorrhoidal versus diverticular in nature. The patient claimed he had a distant history of hemorrhoids in his 20's, and had a remote hemorrhoidectomy. *At various times during the GI consult, the patient refused to answer questions. *He has already received 1u PRBC transfusion this admission, earlier on 12/27/16. *The patient's Hgb had been in the mid-7 range for the past 4-5 days [employer], and although he was hemodynamically stable (actually HTN & not tachycardic), he was admitted from the [place] ER based on their clinical decision. He arrived in the [place] ER 12/27/16 at 3:58 p.m., BIBA from [facility] with "GI bleed" with BP 166/ 74, P 67, R 18, T 97.5, R 18, O2 sat RA 100%. He had intermittent guaiac- positive stool 2 at [facility] and he was again guaiac positive in the ER , without any active bleeding. The patient was given Tylenol and Oxycodone in the ER. The patient noted intermittent painless BRBPR after defecation as above, without any spontaneous LGI bleeding. He had vague intermittent left lower quadrant pain, which he cannot qualify or quantify. He claimed he had chronically irregular bowel movements, at times ranging from diarrhea to constipation for years, without change. He denied any change in stool caliber, obstipation, or tenesmus. He denied any odynophagia, dysphagia, nausea, or vomiting. He has a chronic history of GERD, dependent on Omeprazole for years. He denied any early satiety or hematemesis. There is a strong family history of ASHD and CVA. He denied any family history of GI malignancy, GI disease, or inherited liver disease. He denied any jaundice, dark urine, light stools, pruritus, confusion, increased abdominal girth, or significant peripheral edema. He denied any unintentional weight loss or change in appetite. He denied any gross hematuria or hemoptysis. He noted chronic chest pain for years, which he cannot qualify or quantify. He also noted intermittent shortness of breath, and claimed he was dizzy when trying to walk at PT today, without LOC. Despite a remote history of colon polyps, the patient had not been compliant with follow-up colonoscopies. He claimed he has had multiple suboptimal preps, although upon further questioning, it sounds like he refused the colonoscopies. He denied having a previous EGD. He has had multiple [place] ER visits for alcohol intoxication. 12/27/16: Admission labs- WBC 7.0, H/H 7.3/22.3, retic 3.51, MCV 88.7, RDW 16, PLT 224, PT 11.7, INR 1.12, PTT 37, glu 201, BUN/Cr 12/1.0, GFR > 60, Na 136, K 3.9, HCO3 26, AG 8, Ca 8.9, albumin 3.4, globulin 2.2, TBil 0.7, *alk phos 289 (? if bone, post osteomyelitis), AST 38, ALT 41, Fe 38, TIBC 276, Fe sat 13.7% (although reportedly on outpatient IV Fe), ferritin 421. 12/27/16: EKG- atrial paced rhythm @ 74. 12/27/16: XR PORTABLE CHEST- A left-sided PICC line appears in satisfactory position. No acute intrathoracic process is seen. 12/27/16: CT ABDOMEN AND PELVIS WITHOUT CONTRAST- There is no definite evidence of bowel obstruction. No localized abdominal or pelvic fat stranding. No abscess or free intraperitoneal gas. No specific evidence of diverticulitis. There are some fluid levels within top normal caliber small bowel loops which are nonspecific. There is extensive atherosclerotic calcification & DJD. Sternal wires post CABG. 12/27/16: *B12 650, folate 15.8 *As of 12/28/16, the patient remained hemodynamically stable with Tm 99.1. He remained a poor historian, but in better spirits. The patient was seen by Dr. Gaston, of cardiology, who found out a recent cardiac catheterization at [facility] showed patent ROMAN with diseased saphenous vein grafts, with recent echocardiogram there showing normal LVEF with mild RV dysfunction and severe aortic stenosis, with consideration for TAVR. He was felt to be at moderately elevated cardiac risk for EGD/colnoscopy due to his known severe and CAD. As he had a recent cardiac cath, there is no role for nuclear stress testing at present. He had a PPM for SSS, but is not pacemaker dependent. Cardiology agreed with continuing aspirin for now and holding Plavix for the time being. The patient remained on clears po. His chronic lower left abdominal symptoms were minimal at best. His reflux symptoms were stable on PPI. He denied any nausea, vomiting, or hematemesis. He had a dark BM earlier today, OB+. He also noted occasional specks of BRBPR after defecation, without any spontaneous LGIB. He remained with his years of chronic CP & mild SOB, without change, with negative troponin < 0.01 x 2. *He had received 1u PRBC this admission to date, on 12/28/16. *The patient has numerous comorbidities. He reportedly was iron deficient at [facility], requiring IV iron, and has had subacute on chronic anemia. Depending on the story, he had OB positive stool, with intermittent BRPPR after defecation of brown stool vs. melena. He has chronic symptoms of GERD x years, dependent on Omeprazole. The history of elevated alkaline phosphatase is noted, but this certainly may be bone in etiology, with history of osteomyelitis. The past history of colon polyps is noted, & he has been noncompliant with follow-up. The past history of alcohol abuse is noted, allegedly stopping in 05/2016. Although the records state "alcoholic cirrhosis", there is nothing by imaging studies, nor by labs (normal liver on CT, normal platelet count, normal albumin: globulin ratio, normal INR), to suggest this. The peripheral vascular disease is noted. The patient is a poor historian, but does not appear to have classic symptoms of postprandial pain to suggest intestinal angina. Additionally, his aortic stenosis is noted. 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 *SUGGEST: *Agree with switching po Omeprazole to IV Protonix 40 mg daily (the latter has not been implicated in potential Plavix interaction). Anti-reflux measures. * Continue outpatient ASA 325 mg daily (vasculopath). *Continue to hold Plavix for now, as per discussion with cardiology. The patient reportedly last took Plavix on 12/26/16, & so most of this should be out of his system after the weekend, to allow for potential polypectomy. *The patient was cleared by cardiology for EGD/ colonoscopy (moderate risk), as the patient reportedly is awaiting TAVR for severe . *T&C 2u PRBC. Check CBC daily for now. *Keep Hgb > 8 (ASHD). Supplemental O2 as needed. *Get 5'NTD regarding elevated alk phos (possbly bony in nature, with history of osteomyelitis). *Add po thiamine, folate, MVI. * Clears po only over the weekend, until 11:59 p.m. on 12/29/16, then NPO for combined EGD/colonoscopy on 12/30/16. Informed consent for EGD/ colonoscopy was obtained from the patient after careful explanation of the risks & benefits. *Miralax 17g po daily x 2 days, on 12/28/16 & on 12/29/16. *1 gallon prep with GoLytely po over 4-5 hours, to start at 12/29/16, at 2: 00 p.m. (reportedly poor prep in the past & also on narcotic analgesics), for combined EGD/colonoscopy on 12/30/16. Hopefully, the patient will comply. *If EGD/colonoscopy negative for bleeding site, consideration for outpatient PillCam to rule out SB AVMs. Eventual resumption of Fe after GI workup is completed. Treatment of other numerous medical problems, as per the medical team. (The patient is currently on IV Unasyn & IV Vancomycin for osteo, etc.). The above findings and recommendations were again discussed with the patient & the medical house staff. Further recommendations to follow, depending on clinical course. Problem List: 1. Iron deficiency anemia 2. Occult blood positive stool 3. Rectal bleeding 4. Melena 5. Elevated alkaline phosphatase level 6. History of colon polyps 7. History of alcohol abuse 8. GERD (gastroesophageal reflux disease) 9. LLQ abdominal pain 10. PVD (peripheral vascular disease) 11. Aortic stenosis Subjective Subjective: 12/27/16: *B12 650, folate 15.8 *As of 12/28/16, the patient remained hemodynamically stable with Tm 99.1. He remained a poor historian, but in better spirits. The patient was seen by Dr. Gaston, of cardiology, who found out a recent cardiac catheterization at [facility] showed patent ROMAN with diseased saphenous vein grafts, with recent echocardiogram there showing normal LVEF with mild RV dysfunction and severe aortic stenosis, with consideration for TAVR. He was felt to be at moderately elevated cardiac risk for EGD/colnoscopy due to his known severe and CAD. As he had a recent cardiac cath, there is no role for nuclear stress testing at present. He had a PPM for SSS, but is not pacemaker dependent. Cardiology agreed with continuing aspirin for now and holding Plavix for the time being. The patient remained on clears po. His chronic lower left abdominal symptoms were minimal at best. His reflux symptoms were stable on PPI. He denied any nausea, vomiting, or hematemesis. He had a dark BM earlier today, OB+. He also noted occasional specks of BRBPR after defecation, without any spontaneous LGIB. He remained with his years of chronic CP & mild SOB, without change, with negative troponin < 0.01 x 2. *He had received 1u PRBC this admission to date, on 12/28/16. Review of Systems: Full 14 point review of systems otherwise non-contributory & as above, although poor historian. Review of Systems Constitutional: Reports: malaise, weakness. Denies: chills, diaphoresis, fever, unexplained weight loss. EENTM: Reports: visual changes (DM). Denies: blurred vision, double vision, eye pain, eye drainage, eye tearing, icterus, ear discharge, ear pain, ear redness, hearing changes, nasal congestion , epistaxis, nasal pain, throat pain, throat swelling, mouth pain, tooth pain. Cardiovascular: Reports: chest pain (chronic x years). Denies: edema, orthopena, palpitations, peripheral edema, syncope. Respiratory: Reports: mild short of breath (chronic x years- COPD). Denies: cough, hemoptysis, orthopnea, sputum production, stridor, wheezing. GI: Reports: mild abdominal pain (LLQ), intermittent melena, intermittent BRBPR post defecation. Denies: bloating, constipation, diarrhea, distention, bowel incontinence, nausea, changes in stool, vomiting, steatorrhea. Genitourinary: Reports: hesitation. Denies: discharge, dysuria, frequency, hematuria, nocturia, pain, urgency. Musculoskeletal: Reports: joint pain, DJD. Denies: back pain, gout, joint swelling, muscle pain, muscle stiffness, neck pain. Skin: Reports: change in hair/nails. Denies: cysts, change in skin color, dryness, erythema, jaundice, lesions, lymphangitis, lumps, moles, rash. Neurological/Psychological: Reports: anxiety, depressed (bipolar), emotional problems, tremors (Parkinson's) . Denies: ataxia, cognitive dysfunction, confusion, dementia, headache, numbness, paresthesia, pre-existing deficit, petit mal seizures, tingling, tonic-clonic seizures, unable to move lower ext, unable to move upper ext, weakness. Hematologic/Endocrine: Denies: bruising, bleeding, polyuria, polydipsia. Immunologic/Allergic: Denies: splenectomy, HIV/AIDS, lymphadenopathy. All Other Systems: Reviewed and Negative Objective Vital Signs and I&Os Vital Signs Date Time Temp Pulse Resp B/P B/P Pulse O2 O2 Flow FiO2 Mean Ox Delivery Rate 12/28 1044 81 138/44 12/28 0702 99.1 61 18 138/44 97 Room Air 12/27 2245 100 Room Air 12/27 2230 98.1 61 18 132/60 100 Room Air 12/27 2212 97.2 66 18 148/67 100 Room Air 12/27 2036 97.3 72 18 142/72 100 Room Air 12/27 1816 97.4 68 18 148/78 99 Room Air 12/27 1708 77 158/67 12/27 1615 100 Room Air 12/27 1605 97.5 67 18 166/74 100 Room Air Intake & Output 12/28 1600 12/28 0400 12/27 1600 12/27 0400 12/26 1600 12/26 0400 Intake Total 980 Output Total 350 550 Balance 630 -550 Intake, Blood 350 Product Intake, IV 150 Intake, Oral 480 Output, Urine 350 550 Patient 203 lb Weight Weight Reported by Patient Measurement Method Physical Exam: Well-developed, well-nourished, chronically ill-appearing male, in no apparent distress. Sclera anicteric. Conjunctiva less pale. Oropharynx clear. Edentulous. No oral thrush. No aphthous ulcers. There is no adenopathy, thyromegaly, or JVD. No peripheral stigmata of inflammatory bowel disease or chronic liver disease on exam. No spiders on the anterior chest wall. No gynecomastia. No CVA tenderness. Lungs: clear to A&P, with slightly prolonged expiratory phase. No wheezing, rales, or rhonchi. PPM in right CW. Heart exam: regular rate rhythm, S1 and S2, with III/ systolic murmur, c/w +. Abdominal exam: normal bowel sounds, soft belly, mildly distended, slightly obese, minimal LLQ tenderness, without guarding or rebound. No mass. No organomegaly. No fluid shift. No pulsatile mass. No epigastric bruit. Repeat digital rectal exam deferred: reportedly brown, OB+ stool in ER on 12/27/16, without fresh blood. Extremities: without cyanosis or clubbing. Trace pedal edema B/L. Post right transmetatarsal amputation by history (wrapped). Left great toe with 3 crusted ulcers. No palpable cords. Mild DJD. No palmar erythema. No Dupuytren's contractures. Distal pulses 1+ bilaterally. DTRs 1+ bilaterally. Alert and oriented x 3. Slightly flat affect. Less agitated. Minimal tremor with suggestion of mild cogwheeling. No masked facies. No asterixis. A detailed exam for peripheral neuropthy was deferred, but is present by history. Motor 4/5 B/L. Current Medications: Current Medications Sig/Uvaldo Start time Last Medication Dose Route Stop Time Status Admin Acetaminophen 650 MG Q6P PRN 12/27 2030 AC PO Acetaminophen 1,000 MG Q6P PRN 12/27 2030 AC IV Ampicillin Sodium/ 1,500 MG Q6H 12/28 0200 AC 12/28 Sulbactam Sodium IV 0800 Sodium Chloride 100 ML Ampicillin Sodium/ 1,500 MG Q6 12/27 2359 DC Sulbactam Sodium IV Ampicillin Sodium/ 1,500 MG Q6 12/27 2359 DC Sulbactam Sodium IV Sodium Chloride 100 ML Aspirin 325 MG DAILY 12/28 1000 AC 12/28 PO 1043 Atorvastatin Calcium 40 MG DAILY 12/28 1000 AC 12/28 PO 1043 Bisacodyl 5 MG DAILY PRN 12/27 2330 AC PO Budesonide/ 2 PUF BID 12/28 1000 AC 12/28 Formoterol Fumarate INH 1035 Carbidopa/Levodopa 1 TAB TID 12/28 1000 CAN PO Finasteride 5 MG DAILY 12/28 1000 AC 12/28 PO 1043 Insulin Aspart 0 TIDAC 12/28 0800 AC 12/28 SC 1221 Insulin Detemir 15 UNITS DAILY 12/28 1000 AC 12/28 SC 1046 Levothyroxine Sodium 0.025 MG DAILY 12/28 1000 AC 12/28 PO 1044 Nitroglycerin 0.4 MG Q 5 MINUTES X 3 DO.. 12/27 2330 AC SL Oxycodone HCl 5 MG Q6H PRN 12/27 2045 AC 12/28 PO 1051 Pantoprazole Sodium 40 MG DAILY 12/28 1000 AC 12/28 IV 1047 Polyethylene Glycol 1 GAL ONCE ONE 12/29 1800 CAN PO 12/29 1801 Polyethylene Glycol 1 GAL ONCE ONE 12/29 1700 AC PO 12/29 1701 Polyethylene Glycol 17 GM DAILY 12/28 1402 AC PO 12/29 1001 Polyethylene Glycol 1 GAL ONCE ONE 12/28 0545 CAN PO 12/28 0546 Ranolazine 500 MG BID 12/28 1000 AC 12/28 PO 1044 Vancomycin HCl 1,000 MG DAILY 12/28 1000 CAN IV Vancomycin HCl 1,500 MG DAILY 12/28 1000 AC 12/28 Sodium Chloride 500 ML IV 1053 Results Pertinent Lab Results: Laboratory Tests 12/28 12/28 12/27 0620 0330 2133 Chemistry Sodium (137 - 145 mmol/L) 139 Potassium (3.5 - 5.1 mmol/L) 3.8 Chloride (98 - 107 mmol/L) 104 Carbon Dioxide (22 - 30 mmol/L) 27 Anion Gap (5 - 16) 9 BUN (9 - 20 mg/dL) 11 Creatinine (0.7 - 1.2 mg/dL) 0.9 Estimated GFR (>60 ml/min) > 60 BUN/Creatinine Ratio (7 - 25 %) 12.2 Troponin I (<0.11 ng/ml) < 0.01 < 0.01 Hematology CBC w Diff NO MAN DIFF REQ WBC (4.8 - 10.8 /CUMM) 5.9 RBC (4.70 - 6.10 /CUMM) 2.84 L Hgb (14.0 - 18.0 G/DL) 8.4 L Hct (42 - 52 %) 25.0 L MCV (80.0 - 94.0 FL) 87.8 MCH (27.0 - 31.0 PG) 29.7 RDW (11.5 - 14.5 %) 15.8 H Plt Count (130 - 400 /CUMM) 195 MPV (7.4 - 10.4 FL) 6.3 L Gran % (42.2 - 75.2 %) 67.0 Lymphocytes % (20.5 - 51.1 %) 21.5 Monocytes % (1.7 - 9.3 %) 7.1 Eosinophils % (0 - 5 %) 4.1 Basophils % (0.0 - 2.0 %) 0.3 Absolute Granulocytes (1.4 - 6.5 /CUMM) 4.0 Absolute Lymphocytes (1.2 - 3.4 /CUMM) 1.3 Absolute Monocytes (0.10 - 0.60 /CUMM) 0.4 Absolute Eosinophils (0.0 - 0.7 /CUMM) 0.2 Absolute Basophils (0.0 - 0.2 /CUMM) 0 PUBS MCHC (33.0 - 37.0 G/DL) 33.8 12/27 1702 Chemistry Sodium (137 - 145 mmol/L) 136 L Potassium (3.5 - 5.1 mmol/L) 3.9 Chloride (98 - 107 mmol/L) 102 Carbon Dioxide (22 - 30 mmol/L) 26 Anion Gap (5 - 16) 8 BUN (9 - 20 mg/dL) 12 Creatinine (0.7 - 1.2 mg/dL) 1.0 Estimated GFR (>60 ml/min) > 60 BUN/Creatinine Ratio (7 - 25 %) 12.0 Glucose (65 - 99 mg/dL) 201 H Calcium (8.4 - 10.2 mg/dL) 8.9 Iron (49 - 181 ug/dL) 38 L TIBC (261 - 462 ug/dL) 276 Ferritin (17.9 - 464 ng/mL) 421.0 Total Bilirubin (0.2 - 1.3 mg/dL) 0.7 AST (17 - 59 U/L) 38 ALT (21 - 72 U/L) 41 Alkaline Phosphatase (< 127 U/L) 289 H Total Protein (6.3 - 8.2 g/dL) 5.6 L Albumin (3.5 - 5.0 g/dL) 3.4 L Globulin (1.9 - 4.2 gm/dL) 2.2 Albumin/Globulin Ratio (1.1 - 2.2 %) 1.5 Vitamin B12 (239 - 931 pg/mL) 650 Folate (2.76 - 20.0 ng/mL) 15.8 TSH (0.270 - 4.200 uIU/mL) 5.880 H Coagulation PT (9.4 - 12.5 SEC) 11.7 INR (0.90 - 1.17) 1.12 APTT (25 - 37 SEC) 37 Hematology CBC w Diff NO MAN DIFF REQ WBC (4.8 - 10.8 /CUMM) 7.0 RBC (4.70 - 6.10 /CUMM) 2.51 L Hgb (14.0 - 18.0 G/DL) 7.3 *L Hct (42 - 52 %) 22.3 L MCV (80.0 - 94.0 FL) 88.7 MCH (27.0 - 31.0 PG) 29.1 RDW (11.5 - 14.5 %) 16.0 H Plt Count (130 - 400 /CUMM) 224 MPV (7.4 - 10.4 FL) 6.2 L Gran % (42.2 - 75.2 %) 64.7 Lymphocytes % (20.5 - 51.1 %) 24.4 Monocytes % (1.7 - 9.3 %) 7.1 Eosinophils % (0 - 5 %) 3.4 Basophils % (0.0 - 2.0 %) 0.4 Absolute Granulocytes (1.4 - 6.5 /CUMM) 4.5 Absolute Lymphocytes (1.2 - 3.4 /CUMM) 1.7 Absolute Monocytes (0.10 - 0.60 /CUMM) 0.5 Absolute Eosinophils (0.0 - 0.7 /CUMM) 0.2 Absolute Basophils (0.0 - 0.2 /CUMM) 0 PUBS MCHC (33.0 - 37.0 G/DL) 32.8 L Retic Count (0.5 - 2.0 %) 3.51 H Imaging/Other Studies: 12/27/16: EKG- atrial paced rhythm @ 74. 12/27/16: XR PORTABLE CHEST- A left-sided PICC line appears in satisfactory position. No acute intrathoracic process is seen. 12/27/16: CT ABDOMEN AND PELVIS WITHOUT CONTRAST- Normal appearing liver, post-CCKY. There is no definite evidence of bowel obstruction. Stool thoughout colon. No localized abdominal or pelvic fat stranding. No abscess or free intraperitoneal gas. No specific evidence of diverticulitis. There are some fluid levels within top normal caliber small bowel loops which are nonspecific. There is extensive atherosclerotic calcification. No AAA. DJD. Sternal wires post CABG.
[2016-12-28 14:27] VITALS: BP 160/60
--- NOTE | 2016-12-28 19:53 | PN- Att Addend ---
Attending Addendum Attending Brief Note Patient seen and examined. Plan of care discussed with the medical team and the patient. Available lab work and radiology test reports were reviewed. Patient is found to be lying in bed without any distress. He denies any nausea vomiting or abdominal pain. Denies any recent fever chills or difficulty breathing. He appears comfortable. Vital Signs Date Time Temp Pulse Resp B/P B/P Pulse O2 O2 Flow FiO2 Mean Ox Delivery Rate 12/28 1426 98.7 68 20 160/60 100 Room Air 12/28 1044 81 138/44 07/15 0702 99.1 61 18 138/44 97 Room Air 12/27 2245 100 Room Air 12/27 2230 98.1 61 18 132/60 100 Room Air 12/27 2212 97.2 66 18 148/67 100 Room Air 12/28 2035 97.3 72 18 142/72 100 Room Air Intake & Output 12/28 1600 12/28 0800 12/28 0000 Intake Total 1170 980 Output Total 900 350 550 Balance 270 630 -550 Intake, Blood 350 Product Intake, IV 450 150 Intake, Oral 720 480 Number 1 Bowel Movements Output, Urine 900 350 550 Patient 203 lb Weight Weight Reported by Patient Measurement Method Exam: General: Patient awake alert oriented without any distress CVS: S1 plus S2 without any murmur or gallops Chest: Few scattered crepitation without any wheeze. There is no respiratory distress. Abdomen: Soft and nondistended with slight tenderness left lower quadrant without any guarding or rebound. bowel sound present [employer]: Awake alert oriented without any focal neuro deficit and follows command appropriately Extremities: No edema; no clubbing or cyanosis noted Vital Signs Date Time Temp Pulse Resp B/P B/P Pulse O2 O2 Flow FiO2 Mean Ox Delivery Rate 12/28 1426 98.7 68 20 160/60 100 Room Air 12/28 1044 81 138/44 / 0702 99.1 61 18 138/44 97 Room Air 12/27 2245 100 Room Air 12/27 2230 98.1 61 18 132/60 100 Room Air 12/27 2212 97.2 66 18 148/67 100 Room Air 12/276 97.3 72 18 142/72 100 Room Air Intake & Output 12/28 1600 12/28 0800 12/28 0000 Intake Total 1170 980 Output Total 900 350 550 Balance 270 630 -550 Intake, Blood 350 Product Intake, IV 450 150 Intake, Oral 720 480 Number 1 Bowel Movements Output, Urine 900 350 550 Patient 203 lb Weight Weight Reported by Patient Measurement Method Chest x-ray A left-sided PICC line appears in satisfactory position. No acute intrathoracic process is seen. CT abdomen and pelvis There is no definite evidence of bowel obstruction. No localized abdominal or pelvic fat stranding. No abscess or free intraperitoneal gas. No specific evidence of diverticulitis. There are some fluid levels within top normal caliber small bowel loops which are nonspecific. There is extensive atherosclerotic calcification. Assessment * Acute GI bleed- GME note reviewed; * Acute anemia of blood loss- patient is status post 1 unit of blood transfusion ; at this point no further need for transfusion * History of osteomyelitis currently under treatment with Unasyn and vancomycin through left PICC line * History of CAD * History of hypertension * His hyperlipidemia Plan * Plan for colonoscopy and upper endoscopy on Friday * Continue to monitor hemoglobin and hematocrit. Plan is to maintain hematocrit above 21; check CBC tomorrow
[2016-12-28 23:00] VITALS: BP 162/68
[2016-12-29 07:12] VITALS: BP 104/50
[2016-12-29 08:34] LABS: ABSOLUTE BASOPHIL COUNT 0 /CUMM (0.0-0.2); ABSOLUTE EOSINOPHIL COUNT 0.2 /CUMM (0.0-0.7); ABSOLUTE LYMPH COUNT 1.7 /CUMM (1.2-3.4); ABSOLUTE MONOCYTE COUNT 0.5 /CUMM (0.10-0.60); BASOPHIL % 0.3 % (0.0-2.0); EOSINOPHIL % 2.9 % (0-5); GRANULOCYTE % 62.4 % (42.2-75.2); HEMATOCRIT 25.1 % (42-52); MEAN CORPUSCULAR HGB 29.9 PG (27.0-31.0); MEAN CORPUSCULAR HGB CONC 33.8 G/DL (33.0-37.0); MEAN CORPUSCULAR VOLUME 88.4 FL (80.0-94.0); MEAN PLATELET VOLUME 6.4 FL (7.4-10.4); PLATELET COUNT 198 /CUMM (130-400); RBC DISTRIBUTION WIDTH 15.6 % (11.5-14.5); RED BLOOD CELL CT 2.84 /CUMM (4.70-6.10); WHITE BLOOD CELL COUNT 6.4 /CUMM (4.8-10.8)
--- NOTE | 2016-12-29 13:07 | PN- Gastroenterology ---
Assessment/Plan Assessment/Recommendations: 76-year-old male, not compliant with medical follow-up, followed by multiple physicians at [facility] whom he cannot name, with innumerable comorbidities, poor historian, anxiety, depression, bipolar disorder, ASHD, post remote CABG x 4 ( denies cardiac stent, but ? 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, allegedly awaiting TAVR for severe , PPM for SA node dysfunction (denies AICD), COPD ( denies home O2), past history of alcohol abuse and > 100 pk yr cigarette smoker, allegedly stopping both in 05/2016 (denies illicit drug use, but on rx narcotics ), early Parkinson's disease, frontal lobe damage, [place], alcohol-induced pancreatitis, "alcoholic liver disease" (labs not c/w cirrhosis, despite notes that state otherwise), BPH, DJD, hypoT4, chronic anemia, history of transfusions (reportedly with iron deficiency and requirements of IV iron infusion), history of right 2nd toe amputauion in 05/2016 followed by completion right transmetatarsal amputation, along with ulcers of the left great toe, osteomyelitis reportedly on outpatient IV antibiotics (? possibly Meropenem), remote history of colon polyps, not compliant with GI follow-up x years. The patient apparently was at [facility] recently, and was discharged to [facility] for rehabilitation. He had some type of GI bleeding at [facility], possibly lower GI in nature, with intermittent BRBPR after defecation in the toilet H2O x years, although the patient also mentioned black stool. He was on outpatient Aspirin 325 mg daily plus Plavix. He reportedly last took the Plavix on , 12/26/16. He denied any NSAIDs. The patient refused any endoscopic workup at [facility]. Apparently they thought some of his bleeding was hemorrhoidal versus diverticular in nature. The patient claimed he had a distant history of hemorrhoids in his 20's, and had a remote hemorrhoidectomy. *At various times during the GI consult, the patient refused to answer questions. *He has already received 1u PRBC transfusion this admission, earlier on 12/27/16. *The patient's Hgb had been in the mid-7 range for the past 4-5 days [employer], and although he was hemodynamically stable (actually HTN & not tachycardic), he was admitted from the [facility] based on their clinical decision. He arrived in the [facility] ER 12/27/16 at 3:58 p.m., BIBA from [facility] with "GI bleed" with BP 166/ 74, P 67, R 18, T 97.5, R 18, O2 sat RA 100%. He had intermittent guaiac- positive stool 2 at [facility] and he was again guaiac positive in the ER , without any active bleeding. The patient was given Tylenol and Oxycodone in the ER. The patient noted intermittent painless BRBPR after defecation as above, without any spontaneous LGI bleeding. He had vague intermittent left lower quadrant pain, which he cannot qualify or quantify. He claimed he had chronically irregular bowel movements, at times ranging from diarrhea to constipation for years, without change. He denied any change in stool caliber, obstipation, or tenesmus. He denied any odynophagia, dysphagia, nausea, or vomiting. He has a chronic history of GERD, dependent on Omeprazole for years. He denied any early satiety or hematemesis. There is a strong family history of ASHD and CVA. He denied any family history of GI malignancy, GI disease, or inherited liver disease. He denied any jaundice, dark urine, light stools, pruritus, confusion, increased abdominal girth, or significant peripheral edema. He denied any unintentional weight loss or change in appetite. He denied any gross hematuria or hemoptysis. He noted chronic chest pain for years, which he cannot qualify or quantify. He also noted intermittent shortness of breath, and claimed he was dizzy when trying to walk at PT today, without LOC. Despite a remote history of colon polyps, the patient had not been compliant with follow-up colonoscopies. He claimed he has had multiple suboptimal preps, although upon further questioning, it sounds like he refused the colonoscopies. He denied having a previous EGD. He has had multiple [facility] visits for alcohol intoxication. 12/27/16: Admission labs- WBC 7.0, H/H 7.3/22.3, retic 3.51, MCV 88.7, RDW 16, PLT 224, PT 11.7, INR 1.12, PTT 37, glu 201, BUN/Cr 12/1.0, GFR > 60, Na 136, K 3.9, HCO3 26, AG 8, Ca 8.9, albumin 3.4, globulin 2.2, TBil 0.7, *alk phos 289 (? if bone, post osteomyelitis), AST 38, ALT 41, Fe 38, TIBC 276, Fe sat 13.7% (although reportedly on outpatient IV Fe), ferritin 421. 12/27/16: EKG- atrial paced rhythm @ 74. 12/27/16: XR PORTABLE CHEST- A left-sided PICC line appears in satisfactory position. No acute intrathoracic process is seen. 12/27/16: CT ABDOMEN AND PELVIS WITHOUT CONTRAST- There is no definite evidence of bowel obstruction. No localized abdominal or pelvic fat stranding. No abscess or free intraperitoneal gas. No specific evidence of diverticulitis. There are some fluid levels within top normal caliber small bowel loops which are nonspecific. There is extensive atherosclerotic calcification & DJD. Sternal wires post CABG. 12/27/16: *B12 650, folate 15.8 *As of 12/28/16, the patient remained hemodynamically stable with Tm 99.1. He remained a poor historian, but in better spirits. The patient was seen by Dr. Gaston, of cardiology, who found out a recent cardiac catheterization at [facility] showed patent ROMAN with diseased saphenous vein grafts, with recent echocardiogram there showing normal LVEF with mild RV dysfunction and severe aortic stenosis, with consideration for TAVR. He was felt to be at moderately elevated cardiac risk for EGD/colnoscopy due to his known severe and CAD. As he had a recent cardiac cath, there is no role for nuclear stress testing at present. He had a PPM for SSS, but is not pacemaker dependent. Cardiology agreed with continuing aspirin for now and holding Plavix for the time being. The patient remained on clears po. His chronic lower left abdominal symptoms were minimal at best. His reflux symptoms were stable on PPI. He denied any nausea, vomiting, or hematemesis. He had a dark BM earlier today, OB+. He also noted occasional specks of BRBPR after defecation, without any spontaneous LGIB. He remained with his years of chronic CP & mild SOB, without change, with negative troponin < 0.01 x 2. *He had received 1u PRBC this admission to date, on 12/28/16. 12/29/16: WBC 6.4, H/H 8.5/25.1, PLT 198. *As of 12/29/16, the patient remained hemodynamically stable, with O2 sat RA 98% & Tm 99.1. Thiamine, folate, and multivitamin were added. ASA was decreased from 325 mg daily to 81 mg daily, as per cardiology & medicine. Plavix remained on hold. He remained on Protonix 40 mg IV daily. He had not required any additional PRBC (1 unit on 12/28/16). He remained on broad spectrum antibiotics for his osteomyelitis, per medicine. He received Miralax & is to begin a 1 gallon GoLytely purge. He remained on clears po. He denied any acute GI symptoms, nor any acute chest pain or SOB. *The patient has numerous comorbidities. He reportedly was iron deficient at [facility], requiring IV iron, and has had subacute on chronic anemia. Depending on the story, he had OB positive stool, with intermittent BRPPR after defecation of brown stool vs. melena. He has chronic symptoms of GERD x years, dependent on Omeprazole. The history of elevated alkaline phosphatase is noted, but this certainly may be bone in etiology, with history of osteomyelitis. The past history of colon polyps is noted, & he has been noncompliant with follow-up. The past history of alcohol abuse is noted, allegedly stopping in 05/2016. Although the records state "alcoholic cirrhosis", there is nothing by imaging studies, nor by labs (normal liver on CT, normal platelet count, normal albumin: globulin ratio, normal INR), to suggest this. The peripheral vascular disease is noted. The patient is a poor historian, but does not appear to have classic symptoms of postprandial pain to suggest intestinal angina. Additionally, his aortic stenosis is noted. 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 *SUGGEST: *Agree with switching po Omeprazole to IV Protonix 40 mg daily (the latter has not been implicated in potential Plavix interaction). Anti-reflux measures. * Outpatient ASA was switched from 325 mg daily to 81 mg daily, per cardiology & medicine (continued, as vasculopath). *Continue to hold Plavix for now, as per discussion with cardiology. The patient reportedly last took Plavix on 12/26/16, & so most of this should be out of his system after the weekend, to allow for potential polypectomy. *The patient was cleared by cardiology for EGD/ colonoscopy (moderate risk), as the patient reportedly is awaiting TAVR at [facility] for severe . *T&C 2u PRBC. Check CBC daily for now. *Keep Hgb > 8 (ASHD). Supplemental O2 as needed. *Get 5'NTD regarding elevated alk phos (possbly bony in nature, with history of osteomyelitis). *Continue po thiamine, folate, MVI. * Clears po only over the weekend, until 11:59 p.m. on 12/29/16, then NPO for combined EGD/colonoscopy on 12/30/16. Informed consent for EGD/ colonoscopy was obtained from the patient after careful explanation of the risks & benefits. *Miralax 17g po daily x 2 days. *To start 1 gallon prep with GoLytely po over 4-5 hours, later today, 12/29/16, at 2:00 p.m. (reportedly poor prep in the past & also on narcotic analgesics), for combined EGD/colonoscopy on 12/30/16. Hopefully, the patient will comply. *If EGD/colonoscopy negative for bleeding site, consideration for outpatient PillCam to rule out SB AVMs, keeping in mind . Eventual resumption of Fe after GI workup is completed. Treatment of other numerous medical problems, as per the medical team. (The patient is currently on IV Unasyn & IV Vancomycin for osteo, etc.). The above findings and recommendations were again discussed with the patient & previously with the medical house staff. Further recommendations to follow, depending on clinical course. Problem List: 1. Iron deficiency anemia 2. Occult blood positive stool 3. Rectal bleeding 4. Melena 5. Elevated alkaline phosphatase level 6. History of colon polyps 7. History of alcohol abuse 8. GERD (gastroesophageal reflux disease) 9. LLQ abdominal pain 10. PVD (peripheral vascular disease) 11. Aortic stenosis Subjective Subjective: 12/29/16: WBC 6.4, H/H 8.5/25.1, PLT 198. *As of 12/29/16, the patient remained hemodynamically stable, with O2 sat RA 98% & Tm 99.1. Thiamine, folate, and multivitamin were added. ASA was decreased from 325 mg daily to 81 mg daily, as per cardiology & medicine. Plavix remained on hold. He remained on Protonix 40 mg IV daily. He had not required any additional PRBC (1 unit on 12/28/16). He remained on broad spectrum antibiotics for his osteomyelitis, per medicine. He received Miralax & is to begin a 1 gallon GoLytely purge. He remained on clears po. He denied any acute GI symptoms, nor any acute chest pain or SOB. Review of Systems: Full 14 point review of systems otherwise non-contributory & as above, although poor historian. Review of Systems Constitutional: Reports: malaise, weakness- improving. Denies: chills, diaphoresis, fever, unexplained weight loss. EENTM: Reports: visual changes (DM). Denies: blurred vision, double vision, eye pain, eye drainage, eye tearing, icterus, ear discharge, ear pain, ear redness, hearing changes, nasal congestion , epistaxis, nasal pain, throat pain, throat swelling, mouth pain, tooth pain. Cardiovascular: Reports: chest pain (chronic x years)- stable. Denies: edema, orthopena, palpitations, peripheral edema, syncope. Respiratory: Reports: mild short of breath (chronic x years- COPD)- stable. Denies: cough, hemoptysis, orthopnea, sputum production, stridor, wheezing. GI: Reports: minimal abdominal pain (LLQ)- stable, intermittent melena, intermittent BRBPR post defecation. Denies: bloating, constipation, diarrhea, distention, bowel incontinence, nausea , changes in stool, vomiting, steatorrhea. Genitourinary: Reports: hesitation. Denies: discharge, dysuria, frequency, hematuria, nocturia, pain, urgency. Musculoskeletal: Reports: joint pain, DJD. Denies: back pain, gout, joint swelling, muscle pain, muscle stiffness, neck pain. Skin: Reports: change in hair/nails. Denies: cysts, change in skin color, dryness, erythema, jaundice, lesions, lymphangitis, lumps, moles, rash. Neurological/Psychological: Reports: anxiety, depressed (bipolar), emotional problems, tremors (Parkinson's) . Denies: ataxia, cognitive dysfunction, confusion, dementia, headache, numbness, paresthesia, pre-existing deficit, petit mal seizures, tingling, tonic-clonic seizures, unable to move lower ext, unable to move upper ext, weakness. Hematologic/Endocrine: Denies: bruising, bleeding, polyuria, polydipsia. Immunologic/Allergic: Denies: splenectomy, HIV/AIDS, lymphadenopathy. All Other Systems: Reviewed and Negative Objective Vital Signs and I&Os Vital Signs Date Time Temp Pulse Resp B/P B/P Pulse O2 O2 Flow FiO2 Mean Ox Delivery Rate 12/30 711 99.1 66 20 104/50 98 Room Air 12/29 0000 Room Air 12/28 2300 79 18 162/68 12/28 2118 79 162/68 12/28 1427 98.7 68 20 160/60 100 Room Air Intake & Output 12/29 1600 12/29 0400 12/28 1600 12/28 0400 12/27 1600 12/27 0400 Intake Total 6244 067 3682 Output Total 275 1025 1250 550 Balance 1105 -395 900 -550 Intake, Blood 350 Product Intake, IV 900 150 600 Intake, Oral 562 928 5700 Number 2 1 Bowel Movements Output, Urine 275 1025 1250 550 Patient 203 lb Weight Weight Reported by Patient Measurement Method Physical Exam: Well-developed, well-nourished, chronically ill-appearing male, in no apparent distress. Sclera anicteric. Conjunctiva less pale. Oropharynx clear. Edentulous. No oral thrush. No aphthous ulcers. There is no adenopathy, thyromegaly, or JVD. No peripheral stigmata of inflammatory bowel disease or chronic liver disease on exam. No spiders on the anterior chest wall. No gynecomastia. No CVA tenderness. Lungs: clear to A&P, with slightly prolonged expiratory phase. No wheezing, rales, or rhonchi. PPM in right CW. Heart exam: regular rate rhythm, S1 and S2, with III/ systolic murmur, c/w +. Post CABG scar. Abdominal exam: normal bowel sounds, soft belly, mildly distended, slightly obese, currently w/o LLQ tenderness, without guarding or rebound. No mass. No organomegaly. No fluid shift. No pulsatile mass. No epigastric bruit. Repeat digital rectal exam deferred: reportedly brown, OB+ stool in ER on 12/27/16, without fresh blood. Extremities: without cyanosis or clubbing. Trace pedal edema B/L. Post right transmetatarsal amputation by history (wrapped). Left great toe with 3 crusted ulcers. No palpable cords. Mild DJD. No palmar erythema. No Dupuytren's contractures. Distal pulses 1+ bilaterally. DTRs 1+ bilaterally. Alert and oriented x 3. Slightly flat affect. Less agitated. Minimal tremor with suggestion of mild cogwheeling. No masked facies. No asterixis. A detailed exam for peripheral neuropthy was deferred, but is present by history. Motor 4/5 B/L. Current Medications: Current Medications Sig/Uvaldo Start time Last Medication Dose Route Stop Time Status Admin Acetaminophen 650 MG Q6P PRN 12/27 2030 AC PO Acetaminophen 1,000 MG Q6P PRN 12/27 2030 AC IV Ampicillin Sodium/ 1,500 MG Q6H 12/28 0200 AC 12/29 Sulbactam Sodium IV 0939 Sodium Chloride 100 ML Aspirin 81 MG DAILY 12/29 1000 AC 12/29 PO 0940 Aspirin 325 MG DAILY 12/28 1000 DC 12/28 PO 1043 Atorvastatin Calcium 40 MG DAILY 12/28 1000 AC 12/29 PO 0944 Bisacodyl 5 MG DAILY PRN 12/27 2330 AC 12/29 PO 0942 Budesonide/ 2 PUF BID 12/28 1000 AC 12/29 Formoterol Fumarate INH 0942 Finasteride 5 MG DAILY 12/28 1000 AC 12/29 PO 0944 Folic Acid 1 MG DAILY 12/29 1000 AC 12/29 PO 0941 Insulin Aspart 0 TIDAC 12/28 0800 AC 12/29 SC 1214 Insulin Detemir 15 UNITS DAILY 12/28 1000 AC 12/29 SC 0947 Levothyroxine Sodium 0.025 MG DAILY 12/28 1000 AC 12/29 PO 0941 Multivitamins 1 TAB DAILY 12/29 1000 AC 12/29 PO 0940 Nitroglycerin 0.4 MG Q 5 MINUTES X 3 DO.. 12/27 2330 AC SL Oxycodone HCl 5 MG Q6H PRN 12/27 2045 AC 12/29 PO 1116 Pantoprazole Sodium 40 MG DAILY 12/28 1000 AC 07/16 IV 0944 Polyethylene Glycol 1 GAL ONCE ONE 12/29 1800 CAN PO 12/29 1801 Polyethylene Glycol 1 GAL ONCE ONE 12/29 1700 DC PO 12/29 1701 Polyethylene Glycol 1 GAL ONCE ONE 12/29 1400 AC PO 12/29 1401 Polyethylene Glycol 17 GM DAILY 12/28 1402 DC 12/29 PO 12/29 1001 0940 Ranolazine 500 MG BID 12/28 1000 AC 12/29 PO 0941 Thiamine HCl 50 MG DAILY 12/29 1000 AC 12/29 PO 0940 Vancomycin HCl 1,500 MG DAILY 12/28 1000 AC 12/29 Sodium Chloride 500 ML IV 1115 Results Pertinent Lab Results: Laboratory Tests 12/29 12/28 0620 0620 Chemistry Sodium (137 - 145 mmol/L) 139 Potassium (3.5 - 5.1 mmol/L) 3.8 Chloride (98 - 107 mmol/L) 104 Carbon Dioxide (22 - 30 mmol/L) 27 Anion Gap (5 - 16) 9 BUN (9 - 20 mg/dL) 11 Creatinine (0.7 - 1.2 mg/dL) 0.9 Estimated GFR (>60 ml/min) > 60 BUN/Creatinine Ratio (7 - 25 %) 12.2 Hematology CBC w Diff NO MAN DIFF REQ NO MAN DIFF REQ WBC (4.8 - 10.8 /CUMM) 6.4 5.9 RBC (4.70 - 6.10 /CUMM) 2.84 L 2.84 L Hgb (14.0 - 18.0 G/DL) 8.5 L 8.4 L Hct (42 - 52 %) 25.1 L 25.0 L MCV (80.0 - 94.0 FL) 88.4 87.8 MCH (27.0 - 31.0 PG) 29.9 29.7 RDW (11.5 - 14.5 %) 15.6 H 15.8 H Plt Count (130 - 400 /CUMM) 198 195 MPV (7.4 - 10.4 FL) 6.4 L 6.3 L Gran % (42.2 - 75.2 %) 62.4 67.0 Lymphocytes % (20.5 - 51.1 %) 27.3 21.5 Monocytes % (1.7 - 9.3 %) 7.1 7.1 Eosinophils % (0 - 5 %) 2.9 4.1 Basophils % (0.0 - 2.0 %) 0.3 0.3 Absolute Granulocytes (1.4 - 6.5 /CUMM) 4.0 4.0 Absolute Lymphocytes (1.2 - 3.4 /CUMM) 1.7 1.3 Absolute Monocytes (0.10 - 0.60 /CUMM) 0.5 0.4 Absolute Eosinophils (0.0 - 0.7 /CUMM) 0.2 0.2 Absolute Basophils (0.0 - 0.2 /CUMM) 0 0 PUBS MCHC (33.0 - 37.0 G/DL) 33.8 33.8 12/28 12/27 12/27 0330 2133 1702 Chemistry Sodium (137 - 145 mmol/L) 136 L Potassium (3.5 - 5.1 mmol/L) 3.9 Chloride (98 - 107 mmol/L) 102 Carbon Dioxide (22 - 30 mmol/L) 26 Anion Gap (5 - 16) 8 BUN (9 - 20 mg/dL) 12 Creatinine (0.7 - 1.2 mg/dL) 1.0 Estimated GFR (>60 ml/min) > 60 BUN/Creatinine Ratio (7 - 25 %) 12.0 Glucose (65 - 99 mg/dL) 201 H Calcium (8.4 - 10.2 mg/dL) 8.9 Iron (49 - 181 ug/dL) 38 L TIBC (261 - 462 ug/dL) 276 Ferritin (17.9 - 464 ng/mL) 421.0 Total Bilirubin (0.2 - 1.3 mg/dL) 0.7 AST (17 - 59 U/L) 38 ALT (21 - 72 U/L) 41 Alkaline Phosphatase (< 127 U/L) 289 H Troponin I (<0.11 ng/ml) < 0.01 < 0.01 Total Protein (6.3 - 8.2 g/dL) 5.6 L Albumin (3.5 - 5.0 g/dL) 3.4 L Globulin (1.9 - 4.2 gm/dL) 2.2 Albumin/Globulin Ratio (1.1 - 2.2 %) 1.5 Vitamin B12 (239 - 931 pg/mL) 650 Folate (2.76 - 20.0 ng/mL) 15.8 TSH (0.270 - 4.200 uIU/mL) 5.880 H Coagulation PT (9.4 - 12.5 SEC) 11.7 INR (0.90 - 1.17) 1.12 APTT (25 - 37 SEC) 37 Hematology CBC w Diff NO MAN DIFF REQ WBC (4.8 - 10.8 /CUMM) 7.0 RBC (4.70 - 6.10 /CUMM) 2.51 L Hgb (14.0 - 18.0 G/DL) 7.3 *L Hct (42 - 52 %) 22.3 L MCV (80.0 - 94.0 FL) 88.7 MCH (27.0 - 31.0 PG) 29.1 RDW (11.5 - 14.5 %) 16.0 H Plt Count (130 - 400 /CUMM) 224 MPV (7.4 - 10.4 FL) 6.2 L Gran % (42.2 - 75.2 %) 64.7 Lymphocytes % (20.5 - 51.1 %) 24.4 Monocytes % (1.7 - 9.3 %) 7.1 Eosinophils % (0 - 5 %) 3.4 Basophils % (0.0 - 2.0 %) 0.4 Absolute Granulocytes (1.4 - 6.5 /CUMM) 4.5 Absolute Lymphocytes (1.2 - 3.4 /CUMM) 1.7 Absolute Monocytes (0.10 - 0.60 /CUMM) 0.5 Absolute Eosinophils (0.0 - 0.7 /CUMM) 0.2 Absolute Basophils (0.0 - 0.2 /CUMM) 0 PUBS MCHC (33.0 - 37.0 G/DL) 32.8 L Retic Count (0.5 - 2.0 %) 3.51 H Imaging/Other Studies: 12/27/16: EKG- atrial paced rhythm @ 74. 12/27/16: XR PORTABLE CHEST- A left-sided PICC line appears in satisfactory position. No acute intrathoracic process is seen. 12/27/16: CT ABDOMEN AND PELVIS WITHOUT CONTRAST- Normal appearing liver, post-CCKY. There is no definite evidence of bowel obstruction. Stool thoughout colon. No localized abdominal or pelvic fat stranding. No abscess or free intraperitoneal gas. No specific evidence of diverticulitis. There are some fluid levels within top normal caliber small bowel loops which are nonspecific. There is extensive atherosclerotic calcification. No AAA. DJD. Sternal wires post CABG.
--- NOTE | 2016-12-29 13:40 | PN- Att Addend ---
Attending Addendum Attending Brief Note Patient seen and examined. Plan of care discussed with the medical team and the patient. Available lab work and radiology test reports were reviewed. Patients without any new symptoms this morning he is pleasant and very talkative. Patient is found to be lying in bed without any distress. He denies any nausea vomiting or abdominal pain. Denies any recent fever chills or difficulty breathing. He appears comfortable. Vital Signs Date Time Temp Pulse Resp B/P B/P Pulse O2 O2 Flow FiO2 Mean Ox Delivery Rate 12/30 711 99.1 66 20 104/50 98 Room Air 12/29 0000 Room Air 12/28 2300 79 18 162/68 12/28 2118 79 162/68 12/28 1427 98.7 68 20 160/60 100 Room Air Intake & Output 12/29 1600 12/29 0800 12/29 0000 Intake Total 1380 630 Output Total 275 450 575 Balance -275 930 55 Intake, IV 900 150 Intake, Oral 480 480 Number 2 Bowel Movements Output, Urine 275 450 575 Exam: General: Patient awake alert oriented without any distress CVS: S1 plus S2 without any murmur or gallops Chest: Few scattered crepitation without any wheeze. There is no respiratory distress. Abdomen: Soft and nondistended with slight tenderness left lower quadrant without any guarding or rebound. bowel sound present CRITICAL CARE TRANSPORT NURSE: Awake alert oriented without any focal neuro deficit and follows command appropriately Extremities: No edema; no clubbing or cyanosis noted Laboratory Tests 12/30 619 Hematology CBC w Diff NO MAN DIFF REQ WBC (4.8 - 10.8 /CUMM) 6.4 RBC (4.70 - 6.10 /CUMM) 2.84 L Hgb (14.0 - 18.0 G/DL) 8.5 L Hct (42 - 52 %) 25.1 L MCV (80.0 - 94.0 FL) 88.4 MCH (27.0 - 31.0 PG) 29.9 RDW (11.5 - 14.5 %) 15.6 H Plt Count (130 - 400 /CUMM) 198 MPV (7.4 - 10.4 FL) 6.4 L Gran % (42.2 - 75.2 %) 62.4 Lymphocytes % (20.5 - 51.1 %) 27.3 Monocytes % (1.7 - 9.3 %) 7.1 Eosinophils % (0 - 5 %) 2.9 Basophils % (0.0 - 2.0 %) 0.3 Absolute Granulocytes (1.4 - 6.5 /CUMM) 4.0 Absolute Lymphocytes (1.2 - 3.4 /CUMM) 1.7 Absolute Monocytes (0.10 - 0.60 /CUMM) 0.5 Absolute Eosinophils (0.0 - 0.7 /CUMM) 0.2 Absolute Basophils (0.0 - 0.2 /CUMM) 0 PUBS MCHC (33.0 - 37.0 G/DL) 33.8 Assessment * Acute GI bleed- GI note reviewed; * Acute anemia of blood loss- patient is status post 1 unit of blood transfusion ; at this point no further need for transfusion * History of osteomyelitis currently under treatment with Unasyn and vancomycin through left PICC line * History of CAD * History of hypertension * His hyperlipidemia Plan * Plan for colonoscopy and upper endoscopy on Friday * Continue to monitor hemoglobin and hematocrit. Plan is to maintain hematocrit above 21; check CBC tomorrow
[2016-12-29 15:38] VITALS: BP 106/60
--- NOTE | 2016-12-29 15:51 | PN- Housestaff ---
Subjective Follow-up For: Anemia GI bleed Osteomyelitis of R foot Subjective: I saw and examined the patient today. Patient had no acute overnight events. Patient resting comfortably in bed. Denies any chest pain shortness of breath, fatigue, nausea/vomiting/constipation/diarrhea, fevers/chills. Patient is taking his GoLYTELY in anticipation of endoscopy and colonoscopy tomorrow morning. As per nursing patient is not having bright red blood in stool but is having dark black stool. Review of Systems Constitutional: Denies: see HPI. Cardiovascular: Denies: see HPI. Gastrointestinal: Denies: see HPI. Objective Last 24 Hrs of Vital Signs/I&O Vital Signs Date Time Temp Pulse Resp B/P B/P Pulse O2 O2 Flow FiO2 Mean Ox Delivery Rate 12/29 1538 97.8 61 18 106/60 99 12/29 0712 99.1 66 20 104/50 98 Room Air 12/29 0000 Room Air 12/28 2300 79 18 162/68 12/28 2118 79 162/68 Intake & Output 12/29 1600 12/29 0800 12/29 0000 Intake Total 1380 630 Output Total 275 450 575 Balance -275 930 55 Intake, IV 900 150 Intake, Oral 480 480 Number 2 Bowel Movements Output, Urine 275 450 575 Physical Exam General Appearance: Alert, Oriented X3, Cooperative, No Acute Distress HEENT: Atraumatic, PERRLA, Mucous Membr. moist/pink Cardiovascular: Regular Rate, Normal S1, Normal S2, No Murmurs Lungs: Clear to Auscultation Abdomen: Normal Bowel Sounds, Soft, No Tenderness Extremities: No Edema, Normal Pulses, right foot in surgical dressing Assessment/Plan Assessment: This is a 76-year-old gentleman with a very complicated past medical history significant for CAD, CHF, PVD, osteomyelitis, and newly started on DAPT. Per previous workup at [place] it does not seem like this is a new problem, however etiology currently still unknown. Source of anemia is likely multi factorial but we will pursue further workup and management of a general medicine floor. PLAN Anemia:Patient has hemoglobin 7.3 at this time. Earlier today at [facility] and hemoglobin 7.5 and on December 13 was high as 8.5. His baseline seems to be around 9-10. He did have prior several PRBC transfusion at [place] about 2 weeks ago. * Obtain records * Iron studies * Guaiac positive * Type and cross * 1 unit PRBC for goal greater than 8 * Rule out ACS with troponins EKGEKG normal, troponin is negative 2 * Monitor CBCH&H 8.5.1 * Appreciate GI consultGI on board, will do colonoscopy endoscopy in a.m., recommend IV Protonix 40 mg daily, continue aspirin, hold Plavix, CVC daily with hemoglobin greater than 8, thiamine, folate, multivitamin, clear liquids only, 1 gallon GoLYTELY prep, nothing by mouth after midnight. * Cardiology consult appreciatedcan continue aspirin, can hold Plavix temporarily, continue statin Osteomyelitis: Patient is had recent debridement. He supposed follow with Dr. Bowden on the of this month. * Courtesy call to Dr. Bowden in a.m. * Continue ampicillin sulbactam 1.5 g every 6 * Continue vancomycin Diabetes: Chronic and stable takes Lantus 30 units subcutaneous 10 PM * Regular insulin sliding scale and Fingerstick CAD/Hypertension: Chronic and stable. Hold meds given GI bleed but restart if hypertensive. * Lisinopril 20 mg by mouth daily * Metoprolol 50 mg by mouth twice a day [place] * Nitroglycerin 0.4 mg tab by mouth when necessary angina Aortic stenosis: Patient has loud 3/6 murmur right upper sternal border. Per discharge summary he has severe aortic stenosis for which he is doing workup for possible TAVR in January. Hyperlipidemia: Chronic and stable Atorvastatin 80 mg by mouth daily Hypothyroidism: Clinically stable Levothyroxine 0.025 g Full code Nothing by mouth at midnight Alps for prophylaxis, given GI bleed Problem List: 1. Osteomyelitis 2. Occult blood positive stool Pain Ratin Pain Location: Foot pain Pain Goal: Pain 4 or less Pain Plan: Roxicodone 5 mg Tylenol 650 mg Tomorrow's Labs & Rationales: cbc bep
[2016-12-29 23:56] VITALS: BP 116/80
[2016-12-30 06:52] VITALS: BP 144/68
--- NOTE | 2016-12-30 07:38 | PN- Housestaff ---
Subjective Follow-up For: Endosopy upper and lower Subjective: I seen and examined the patient. The patient was sleeping. He was easily arousable. He was without any distress. He told me that he was getting colonoscopy/endoscopy today. Early this morning he had a central focal chest pain. The pain improved with repositioning. He always has a baseline chest pain. Review of Systems Constitutional: Denies: chills, diaphoresis, fever. Cardiovascular: Reports: chest pain. Respiratory: Reports: short of breath. Gastrointestinal: Reports: melena. Denies: nausea. Genitourinary: Reports: urgency. Objective Last 24 Hrs of Vital Signs/I&O Vital Signs Date Time Temp Pulse Resp B/P B/P Pulse O2 O2 Flow FiO2 Mean Ox Delivery Rate 12/30 1451 98.1 84 20 140/80 99 Room Air 12/30 0946 60 144/68 12/30 0652 98.4 60 20 144/68 99 12/29 2356 98.2 87 20 116/80 99 12/29 2145 87 116/80 12/29 1538 97.8 61 18 106/60 99 Intake & Output 12/30 1600 12/30 0800 12/30 0000 Intake Total 2100 Output Total 500 1300 1974 Balance -500 -1300 125 Intake, IV 100 Intake, Oral 2000 Number 2 2 Bowel Movements Output, Urine 500 1300 1974 Patient 202 lb Weight Physical Exam General Appearance: Alert, Oriented X3, Cooperative, No Acute Distress Skin: No Rashes, No Breakdown Cardiovascular: Normal S1, Normal S2, loud 3/6 murmur right upper sternal border Lungs: Clear to Auscultation, Normal Air Movement Abdomen: Normal Bowel Sounds, Soft, No Tenderness Neurological: Normal Speech Extremities: r foot wrapped in bandage left foot big toe hgas 3 ulcers Current Medications: Current Medications Sig/Uvaldo Start time Last Medication Dose Route Stop Time Status Admin Acetaminophen 650 MG Q6P PRN 12/27 2030 AC PO Acetaminophen 1,000 MG Q6P PRN 12/27 2030 AC IV Ampicillin Sodium/ 1,500 MG Q6H 12/28 0200 AC 12/30 Sulbactam Sodium IV 1258 Sodium Chloride 100 ML Aspirin 81 MG DAILY 12/29 1000 AC 12/29 PO 0940 Atorvastatin Calcium 40 MG DAILY 12/28 1000 AC 12/29 PO 0944 Bisacodyl 5 MG DAILY PRN 12/27 2330 AC 12/29 PO 0942 Budesonide/ 2 PUF BID 12/28 1000 AC 12/30 Formoterol Fumarate INH 0951 Dextrose/Water 1,000 ML ONCE ONE 12/30 0030 DC 12/30 IV 12/30 1349 0047 Finasteride 5 MG DAILY 12/28 1000 AC 12/29 PO 0944 Folic Acid 1 MG DAILY 12/29 1000 AC 12/29 PO 0941 Insulin Aspart 0 TIDAC 12/28 0800 DC 12/29 SC 12/30 0017 1641 Insulin Detemir 15 UNITS DAILY 12/28 1000 AC 12/30 SC 0945 Insulin Human Regular 0 Q6 12/30 0030 AC 12/30 SC 1254 Levothyroxine Sodium 0.025 MG DAILY 12/28 1000 AC 12/30 PO 0946 Multivitamins 1 TAB DAILY 12/29 1000 AC 12/29 PO 0940 Nitroglycerin 0.4 MG Q 5 MINUTES X 3 DO.. 12/27 2330 AC SL Oxycodone HCl 5 MG Q6H PRN 12/27 2045 AC 12/29 PO 1116 Pantoprazole Sodium 40 MG DAILY 12/28 1000 AC 12/29 IV 0944 Patient Medication 1 ED .STK-MED ONE 12/30 1415 MI Teaching ED 12/30 1416 Ranolazine 500 MG BID 12/28 1000 AC 12/30 PO 0946 Thiamine HCl 50 MG DAILY 12/29 1000 AC 12/29 PO 0940 Vancomycin HCl 1,500 MG DAILY 12/28 1000 AC 12/30 Sodium Chloride 500 ML IV 1000 Last 24 Hrs of Lab/Olegario Results Last 24 Hrs of Labs/Mics: Laboratory Tests 12/30/16 0535: Anion Gap 9, Estimated GFR > 60, BUN/Creatinine Ratio 6.3 L, Troponin I < 0.01, CBC w Diff NO MAN DIFF REQ, RBC 2.87 L, MCV 88.0, MCH 29.8, RDW 15.3 H, MPV 6.3 L, Gran % 66.7, Lymphocytes % 23.3, Monocytes % 6.9, Eosinophils % 2.9, Basophils % 0.2, Absolute Granulocytes 4.0, Absolute Lymphocytes 1.4, Absolute Monocytes 0.4, Absolute Eosinophils 0.2, Absolute Basophils 0, PUBS MCHC 33.9 Assessment/Plan Assessment: This is a 76-year-old gentleman with a very complicated past medical history significant for CAD, CHF, PVD, osteomyelitis, and newly started on DAPT. Per previous workup at [facility] it does not seem like this is a new problem, however etiology currently still unknown. He is 3 timesGuaiac positive. Source of anemia is likely multi factorial but we will pursue further workup and management of a general medicine floor. -EKG was reviewed from this morning compared to admission EKG. There are no new ischemic changes. Patient's prior troponin have been negative. PLAN Anemia:Patient had hemoglobin 7.3 at admission.His baseline seems to be around 9 -10. Patient is status post 1 unit of blood transfusion; at this point no further need for transfusion. -We will continue to monitor hemoglobin and hematocrit. Plan is to maintain hematocrit above 21. -He is scheduled for upper and lower endoscopy today. He is nothing by mouth in anticipation of the procedure. He was prepped last night with 1L GoLYTELY. -IV Protonix 40 mg daily -Cardiology has cleared him for the procedure. As per cardiology we are giving him aspirin 81 mg and statin and holding his Plavix. -Continuing thiamine and folate Osteomyelitis: Patient is had recent debridement. He supposed follow with Dr. Bowden on the of this month.He has left PICC line * Continue Unasyn 1.5 g every 6 * Continue vancomycin Diabetes: Chronic and stable takes Lantus 30 units subcutaneous 10 PM * Regular insulin sliding scale and Fingerstick CAD/Hypertension: Chronic and stable. Hold meds given GI bleed but restart if hypertensive. * Lisinopril 20 mg by mouth daily * Metoprolol 50 mg by mouth twice a day [place] * Nitroglycerin 0.4 mg tab by mouth when necessary angina Aortic stenosis: Patient has loud 3/6 murmur right upper sternal border. Per discharge summary he has severe aortic stenosis for which he is doing workup for possible TAVR in January. Hyperlipidemia: Chronic and stable Atorvastatin 80 mg by mouth daily Hypothyroidism: Clinically stable Levothyroxine 0.025 g Full code Alps for prophylaxis, given GI bleed Problem List: 1. Melena 2. Lower GI bleed 3. Iron deficiency anemia 4. Occult blood positive stool 5. Aortic stenosis 6. Osteomyelitis 7. HTN (hypertension) 8. Chest pain 9. Parkinson disease 10. History of colon polyps 11. History of alcohol abuse 12. Anemia Pain Ratin Pain Location: right foot Pain Goal: Pain 4 or less Pain Plan: roxicodone 5mg q6 prn tylenol 650mg q6 Tomorrow's Labs & Rationales: cbc bep
[2016-12-30 08:28] LABS: ABSOLUTE BASOPHIL COUNT 0 /CUMM (0.0-0.2); ABSOLUTE EOSINOPHIL COUNT 0.2 /CUMM (0.0-0.7); ABSOLUTE LYMPH COUNT 1.4 /CUMM (1.2-3.4); ABSOLUTE MONOCYTE COUNT 0.4 /CUMM (0.10-0.60); BASOPHIL % 0.2 % (0.0-2.0); EOSINOPHIL % 2.9 % (0-5); GRANULOCYTE % 66.7 % (42.2-75.2); HEMATOCRIT 25.3 % (42-52); MEAN CORPUSCULAR HGB 29.8 PG (27.0-31.0); MEAN CORPUSCULAR HGB CONC 33.9 G/DL (33.0-37.0); MEAN PLATELET VOLUME 6.3 FL (7.4-10.4); PLATELET COUNT 180 /CUMM (130-400); RBC DISTRIBUTION WIDTH 15.3 % (11.5-14.5); RED BLOOD CELL CT 2.87 /CUMM (4.70-6.10)
--- NOTE | 2016-12-30 12:55 | PN- Cardiology ---
Subjective Subjective: Merhdad Rogers is a 76 year old man with a history of coronary artery disease with bypass surgery about 15 years ago. He has had no ischemic events since that time. He does have a pacemaker implanted at 2008 at [facility] for sinus node dysfunction, which I have been following intermittently, as the patient is frequently noncompliant with office visits. The patient also has had multiple angioplasties, but this was before I began caring for him, and I have no information on that. The patient had a nuclear stress test at [facility] about 3 years ago, which was apparently negative for ischemia. I saw him in the office in October 2013, at which time he was asymptomatic from a cardiac standpoint. He had some mild stable chronic dyspnea on exertion, no chest pain. EKG showed sinus rhythm with PACs, some atrial pacing, and some nonspecific T wave changes. The patient subsequently was hospitalized in November 2013 complaining of inhaling some insecticide and having nausea and vomiting and had an elevated lactic acid. He also had a high alcohol level on admission. I checked his pacemaker on that admission and it was working well and still had time left on the battery. He had had a previous admission in July 2013 for atypical chest pain with a negative evaluation. On 05/09/2015 the patient came to the [place] emergency department complaining of a near syncopal episode which occurred while he was taking a shower with the aide in the apartment. There is no history of chest pain or excessive shortness of breath The patient presented in 2014 with a syncopal episode which we thought was either vasovagal or due to some dehydration. He was rehydrated and improved, and stayed in the hospital for a couple of extra days for social reasons, but otherwise was discharged home in good condition. I last saw Mehrdad in the office in August 2015. I checked his device and ordered a stress test, which was a Persantine nuclear stress test and was negative for ischemia. Mehrdad has been complaining intermittently of the chest pain both at rest and with exertion. I thought this was noncardiac pain and was reassured by the negative stress test on this point. The patient was again admitted in May 2016 for peripheral vascular disease with limb ischemia. He underwent stenting of his right superficial femoral artery and also debridement of his right foot. He tolerated these procedures well. His echocardiogram had shown more severe aortic stenosis than previously. His pacemaker was interrogated and showed the pacemaker was working okay. He was pacing in the atrium about 43% of the time and not at all in the ventricle. He had not had any significant mode switch episodes i.e. atrial fibrillation. The pacemaker battery was good for another 4-5 years. I last saw him in consultation in July 2016 when he was here for limb ischemia. Subsequently he has been seen mostly at [facility] and recently was there for cardiac catheterization and severe aortic stenosis and GI bleeding, for which he apparently refused invasive testing. However he is now here for further GI bleeding and is has agreed to a colonoscopy which is going to be done today. Today he denies any chest pain or excessive shortness of breath, palpitations, dizziness. Objective Vital Signs and I&Os Vital Signs Date Time Temp Pulse Resp B/P B/P Pulse O2 O2 Flow FiO2 Mean Ox Delivery Rate 12/30 0946 60 144/68 12/30 0652 98.4 60 20 144/68 99 12/29 2356 98.2 87 20 116/80 99 12/29 2145 87 116/80 12/29 1538 97.8 61 18 106/60 99 Intake & Output 12/30 1600 12/30 0800 12/30 0000 12/29 1600 12/29 0800 12/29 0000 Intake Total 2100 1380 630 Output Total 500 1300 1974 275 450 575 Balance -500 -1300 125 -275 930 55 Intake, IV 100 900 150 Intake, Oral 2000 480 480 Number 2 2 2 Bowel Movements Output, Urine 500 1300 1975 275 450 575 Physical Exam: He is in no distress HEENT exam normal Chest is clear Heart reveals prominent grade 3 to 4/6 systolic ejection murmur at the base Abdomen benign Extremities right foot wrapped left foot decreased pulses Current Medications: Current Medications Sig/Uvaldo Start time Last Medication Dose Route Stop Time Status Admin Acetaminophen 650 MG Q6P PRN 12/27 2030 AC PO Acetaminophen 1,000 MG Q6P PRN 12/27 2030 AC IV Ampicillin Sodium/ 1,500 MG Q6H 12/28 0200 AC 12/30 Sulbactam Sodium IV 0756 Sodium Chloride 100 ML Aspirin 81 MG DAILY 12/29 1000 AC 12/29 PO 0940 Atorvastatin Calcium 40 MG DAILY 12/28 1000 AC 12/29 PO 0944 Bisacodyl 5 MG DAILY PRN 12/27 2330 AC 12/29 PO 0942 Budesonide/ 2 PUF BID 12/28 1000 AC 12/30 Formoterol Fumarate INH 0951 Dextrose/Water 1,000 ML ONCE ONE 12/30 0030 AC 12/30 IV 12/30 1349 0047 Finasteride 5 MG DAILY 12/28 1000 AC 12/29 PO 0944 Folic Acid 1 MG DAILY 12/29 1000 AC 12/29 PO 0941 Insulin Aspart 0 TIDAC 12/28 0800 DC 12/29 SC 12/30 0017 1641 Insulin Detemir 15 UNITS DAILY 12/28 1000 12/30 SC 0945 Insulin Human Regular 0 Q6 12/30 0030 12/30 SC 0632 Levothyroxine Sodium 0.025 MG DAILY 12/28 1000 AC 12/30 PO 0946 Multivitamins 1 TAB DAILY 12/29 1000 AC 12/29 PO 0940 Nitroglycerin 0.4 MG Q 5 MINUTES X 3 DO.. 12/27 2330 AC Oxycodone HCl 5 MG Q6H PRN 12/27 2045 AC 12/29 PO 1116 Pantoprazole Sodium 40 MG DAILY 12/28 1000 AC 12/29 IV 0944 Polyethylene Glycol 1 GAL ONCE ONE 12/29 1400 DC 12/29 PO 12/29 1401 1357 Ranolazine 500 MG BID 12/28 1000 AC 12/30 PO 0946 Thiamine HCl 50 MG DAILY 12/29 1000 AC 12/29 PO 0940 Vancomycin HCl 1,500 MG DAILY 12/28 1000 AC 12/30 Sodium Chloride 500 ML IV 1000 Results Last 48 Hrs of Labs/Mics: Laboratory Tests 12/30/16 0535: Anion Gap 9, Estimated GFR > 60, BUN/Creatinine Ratio 6.3 L, Troponin I < 0.01, CBC w Diff NO MAN DIFF REQ, RBC 2.87 L, MCV 88.0, MCH 29.8, RDW 15.3 H, MPV 6.3 L, Gran % 66.7, Lymphocytes % 23.3, Monocytes % 6.9, Eosinophils % 2.9, Basophils % 0.2, Absolute Granulocytes 4.0, Absolute Lymphocytes 1.4, Absolute Monocytes 0.4, Absolute Eosinophils 0.2, Absolute Basophils 0, PUBS MCHC 33.9 12/29/16 0620: CBC w Diff NO MAN DIFF REQ, RBC 2.84 L, MCV 88.4, MCH 29.9, RDW 15.6 H, MPV 6.4 L, Gran % 62.4, Lymphocytes % 27.3, Monocytes % 7.1, Eosinophils % 2.9, Basophils % 0.3, Absolute Granulocytes 4.0, Absolute Lymphocytes 1.7, Absolute Monocytes 0.5, Absolute Eosinophils 0.2, Absolute Basophils 0, PUBS MCHC 33.8 Assessment/Plan Assessment/Plan The patient has multiple underlying problems. His most acute problem is GI bleeding. He is going to have colonoscopy today. I think he is stable enough for this procedure. We will see what the results are with regards to his bleeding and any further recommendations from a GI standpoint. Otherwise once he stabilizes he can go back to short-term rehabilitation or perhaps go back to [facility] where he is possibly going to undergo TAVT for his severe aortic stenosis. Continue telemetry? Not applicable
--- NOTE | 2016-12-30 14:14 | PN- Att Addend ---
Attending Addendum Attending Brief Note Patient seen and examined. Plan of care discussed with the medical team and the patient. Available lab work and radiology test reports were reviewed. Patients without any new symptoms this morning he is pleasant and very talkative. He is nothing by mouth for endoscopy today. Early this morning he had the central focal chest pain which improved with repositioning. Patient is found to be lying in bed without any distress. He denies any nausea vomiting or abdominal pain. Denies any recent fever chills or difficulty breathing. He appears comfortable. Vital Signs Date Time Temp Pulse Resp B/P B/P Pulse O2 O2 Flow FiO2 Mean Ox Delivery Rate 12/30 0946 60 144/68 12/30 0652 98.4 60 20 144/68 99 12/29 2356 98.2 87 20 116/80 99 12/29 2145 87 116/80 12/29 1538 97.8 61 18 106/60 99 Intake & Output 12/30 1600 12/30 0800 12/30 0000 Intake Total 2100 Output Total 500 1300 1974 Balance -500 -1300 125 Intake, IV 100 Intake, Oral 2000 Number 2 2 Bowel Movements Output, Urine 500 1300 1974 Exam: General: Patient awake alert oriented without any distress CVS: S1 plus S2 without any murmur or gallops Chest: Few scattered crepitation without any wheeze. There is no respiratory distress. Abdomen: Soft and nondistended with slight tenderness left lower quadrant without any guarding or rebound. bowel sound present PRODUCTION WEIGHER: Awake alert oriented without any focal neuro deficit and follows command appropriately Extremities: No edema; no clubbing or cyanosis noted Laboratory Tests 12/30 0535 Chemistry Sodium (137 - 145 mmol/L) 141 Potassium (3.5 - 5.1 mmol/L) 3.4 L Chloride (98 - 107 mmol/L) 103 Carbon Dioxide (22 - 30 mmol/L) 29 Anion Gap (5 - 16) 9 BUN (9 - 20 mg/dL) 5 L Creatinine (0.7 - 1.2 mg/dL) 0.8 Estimated GFR (>60 ml/min) > 60 BUN/Creatinine Ratio (7 - 25 %) 6.3 L Troponin I (<0.11 ng/ml) < 0.01 Hematology CBC w Diff NO MAN DIFF REQ WBC (4.8 - 10.8 /CUMM) 6.0 RBC (4.70 - 6.10 /CUMM) 2.87 L Hgb (14.0 - 18.0 G/DL) 8.6 L Hct (42 - 52 %) 25.3 L MCV (80.0 - 94.0 FL) 88.0 MCH (27.0 - 31.0 PG) 29.8 RDW (11.5 - 14.5 %) 15.3 H Plt Count (130 - 400 /CUMM) 180 MPV (7.4 - 10.4 FL) 6.3 L Gran % (42.2 - 75.2 %) 66.7 Lymphocytes % (20.5 - 51.1 %) 23.3 Monocytes % (1.7 - 9.3 %) 6.9 Eosinophils % (0 - 5 %) 2.9 Basophils % (0.0 - 2.0 %) 0.2 Absolute Granulocytes (1.4 - 6.5 /CUMM) 4.0 Absolute Lymphocytes (1.2 - 3.4 /CUMM) 1.4 Absolute Monocytes (0.10 - 0.60 /CUMM) 0.4 Absolute Eosinophils (0.0 - 0.7 /CUMM) 0.2 Absolute Basophils (0.0 - 0.2 /CUMM) 0 PUBS MCHC (33.0 - 37.0 G/DL) 33.9 EKG was reviewed from this morning compared to admission EKG. There are no new ischemic changes. Patient's prior troponin have been negative. Assessment * Acute GI bleed- GI note reviewed; plan for endoscopy upper and lower today * Acute anemia of blood loss- patient is status post 1 unit of blood transfusion ; at this point no further need for transfusion * History of osteomyelitis currently under treatment with Unasyn and vancomycin through left PICC line * History of CAD * History of hypertension * His hyperlipidemia * Atypical chest pain most likely Musculoskeletal given that it was focal localized and improved with repositioning Plan * Plan for colonoscopy and upper endoscopy today * Continue to monitor hemoglobin and hematocrit. Plan is to maintain hematocrit above 21; check CBC tomorrow * Replace potassium by mouth; recheck potassium level tomorrow * Continue IV vancomycin
[2016-12-30 14:51] VITALS: BP 140/80
--- NOTE | 2016-12-30 15:21 | PN- Gastroenterology ---
Assessment/Plan Assessment/Recommendations: 76-year-old male, not compliant with medical follow-up, followed by multiple physicians at [place] whom he cannot name, with innumerable comorbidities, poor historian, anxiety, depression, bipolar disorder, ASHD, post remote CABG x 4 ( denies cardiac stent, but ? 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, allegedly awaiting TAVR for severe , PPM for SA node dysfunction (denies AICD), COPD ( denies home O2), past history of alcohol abuse and > 100 pk yr cigarette smoker, allegedly stopping both in 05/2016 (denies illicit drug use, but on rx narcotics ), early Parkinson's disease, frontal lobe damage, NEWTOK, alcohol-induced pancreatitis, "alcoholic liver disease" (labs not c/w cirrhosis, despite notes that state otherwise), BPH, DJD, hypoT4, chronic anemia, history of transfusions (reportedly with iron deficiency and requirements of IV iron infusion), history of right 2nd toe amputauion in 05/2016 followed by completion right transmetatarsal amputation, along with ulcers of the left great toe, osteomyelitis reportedly on outpatient IV antibiotics (? possibly Meropenem), remote history of colon polyps, not compliant with GI follow-up x years. The patient apparently was at [place] recently, and was discharged to [facility] for rehabilitation. He had some type of GI bleeding at [place], possibly lower GI in nature, with intermittent BRBPR after defecation in the toilet H2O x years, although the patient also mentioned black stool. He was on outpatient Aspirin 325 mg daily plus Plavix. He reportedly last took the Plavix on , 12/26/16. He denied any NSAIDs. The patient refused any endoscopic workup at [place]. Apparently they thought some of his bleeding was hemorrhoidal versus diverticular in nature. The patient claimed he had a distant history of hemorrhoids in his 20's, and had a remote hemorrhoidectomy. *At various times during the GI consult, the patient refused to answer questions. *He has already received 1u PRBC transfusion this admission, earlier on 12/27/16. *The patient's Hgb had been in the mid-7 range for the past 4-5 days [facility], and although he was hemodynamically stable (actually HTN & not tachycardic), he was admitted from the [facility] ER based on their clinical decision. He arrived in the [facility] ER 12/27/16 at 3:58 p.m., BIBA from [facility], [facility] with "GI bleed" with BP 166/ 74, P 67, R 18, T 97.5, R 18, O2 sat RA 100%. He had intermittent guaiac- positive stool 2 at [facility] and he was again guaiac positive in the ER , without any active bleeding. The patient was given Tylenol and Oxycodone in the ER. The patient noted intermittent painless BRBPR after defecation as above, without any spontaneous LGI bleeding. He had vague intermittent left lower quadrant pain, which he cannot qualify or quantify. He claimed he had chronically irregular bowel movements, at times ranging from diarrhea to constipation for years, without change. He denied any change in stool caliber, obstipation, or tenesmus. He denied any odynophagia, dysphagia, nausea, or vomiting. He has a chronic history of GERD, dependent on Omeprazole for years. He denied any early satiety or hematemesis. There is a strong family history of ASHD and CVA. He denied any family history of GI malignancy, GI disease, or inherited liver disease. He denied any jaundice, dark urine, light stools, pruritus, confusion, increased abdominal girth, or significant peripheral edema. He denied any unintentional weight loss or change in appetite. He denied any gross hematuria or hemoptysis. He noted chronic chest pain for years, which he cannot qualify or quantify. He also noted intermittent shortness of breath, and claimed he was dizzy when trying to walk at PT today, without LOC. Despite a remote history of colon polyps, the patient had not been compliant with follow-up colonoscopies. He claimed he has had multiple suboptimal preps, although upon further questioning, it sounds like he refused the colonoscopies. He denied having a previous EGD. He has had multiple [facility] ER visits for alcohol intoxication. 12/27/16: Admission labs- WBC 7.0, H/H 7.3/22.3, retic 3.51, MCV 88.7, RDW 16, PLT 224, PT 11.7, INR 1.12, PTT 37, glu 201, BUN/Cr 12/1.0, GFR > 60, Na 136, K 3.9, HCO3 26, AG 8, Ca 8.9, albumin 3.4, globulin 2.2, TBil 0.7, *alk phos 289 (? if bone, post osteomyelitis), AST 38, ALT 41, Fe 38, TIBC 276, Fe sat 13.7% (although reportedly on outpatient IV Fe), ferritin 421. 12/27/16: EKG- atrial paced rhythm @ 74. 12/27/16: XR PORTABLE CHEST- A left-sided PICC line appears in satisfactory position. No acute intrathoracic process is seen. 12/27/16: CT ABDOMEN AND PELVIS WITHOUT CONTRAST- There is no definite evidence of bowel obstruction. No localized abdominal or pelvic fat stranding. No abscess or free intraperitoneal gas. No specific evidence of diverticulitis. There are some fluid levels within top normal caliber small bowel loops which are nonspecific. There is extensive atherosclerotic calcification & DJD. Sternal wires post CABG. 12/27/16: *B12 650, folate 15.8 *As of 12/28/16, the patient remained hemodynamically stable with Tm 99.1. He remained a poor historian, but in better spirits. The patient was seen by Dr. Gaston, of cardiology, who found out a recent cardiac catheterization at [place] showed patent ROMAN with diseased saphenous vein grafts, with recent echocardiogram there showing normal LVEF with mild RV dysfunction and severe aortic stenosis, with consideration for TAVR. He was felt to be at moderately elevated cardiac risk for EGD/colnoscopy due to his known severe and CAD. As he had a recent cardiac cath, there is no role for nuclear stress testing at present. He had a PPM for SSS, but is not pacemaker dependent. Cardiology agreed with continuing aspirin for now and holding Plavix for the time being. The patient remained on clears po. His chronic lower left abdominal symptoms were minimal at best. His reflux symptoms were stable on PPI. He denied any nausea, vomiting, or hematemesis. He had a dark BM earlier today, OB+. He also noted occasional specks of BRBPR after defecation, without any spontaneous LGIB. He remained with his years of chronic CP & mild SOB, without change, with negative troponin < 0.01 x 2. *He had received 1u PRBC this admission to date, on 12/28/16. 12/29/16: WBC 6.4, H/H 8.5/25.1, PLT 198. *As of 12/29/16, the patient remained hemodynamically stable, with O2 sat RA 98% & Tm 99.1. Thiamine, folate, and multivitamin were added. ASA was decreased from 325 mg daily to 81 mg daily, as per cardiology & medicine. Plavix remained on hold. He remained on Protonix 40 mg IV daily. He had not required any additional PRBC (1 unit on 12/28/16). He remained on broad spectrum antibiotics for his osteomyelitis, per medicine. He received Miralax & is to begin a 1 gallon GoLytely purge. He remained on clears po. He denied any acute GI symptoms, nor any acute chest pain or SOB. 12/30/16: WBC 6.0, H/H 8.6/25.3, PLT 180 *As of 12/30/16, the patient remained hemodynamically stable and afebrile. He did not require any further transfusions since the 1 unit on 12/28/16. He had no abdominal pain, nausea, vomiting, recurrent rectal bleeding, hematemesis, or melena. He denied any significant shortness of breath. He had atypical positional chest pain, which resolved. He was compliant with 1 gallon of GoLytely & is NPO for EGD/colonoscopy. He was cleared by cardiology for GI procedures. *The patient has numerous comorbidities. He reportedly was iron deficient at [facility], requiring IV iron, and has had subacute on chronic anemia. Depending on the story, he had OB positive stool, with intermittent BRPPR after defecation of brown stool vs. melena. He has chronic symptoms of GERD x years, dependent on Omeprazole. The history of elevated alkaline phosphatase is noted, but this certainly may be bone in etiology, with history of osteomyelitis. The past history of colon polyps is noted, & he has been noncompliant with follow-up. The past history of alcohol abuse is noted, allegedly stopping in 05/2016. Although the records state "alcoholic cirrhosis", there is nothing by imaging studies, nor by labs (normal liver on CT, normal platelet count, normal albumin: globulin ratio, normal INR), to suggest this. The peripheral vascular disease is noted. The patient is a poor historian, but does not appear to have classic symptoms of postprandial pain to suggest intestinal angina. Additionally, his aortic stenosis is noted. 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 *SUGGEST: *Agree with switching po Omeprazole to IV Protonix 40 mg daily (the latter has not been implicated in potential Plavix interaction). Anti-reflux measures. * Outpatient ASA was switched from 325 mg daily to 81 mg daily, per cardiology & medicine (continued, as vasculopath). *Continue to hold Plavix for now, as per discussion with cardiology. The patient reportedly last took Plavix on 12/26/16, & so most of this should be out of his system after the weekend, to allow for potential polypectomy. *The patient was cleared by cardiology for EGD/ colonoscopy (moderate risk), as the patient reportedly is awaiting TAVR at [facility] for severe . *T&C 2u PRBC. Check CBC daily for now. *Keep Hgb > 8 (ASHD). Supplemental O2 as needed. *Replete K+. *Get 5'NTD regarding elevated alk phos ( possbly bony in nature, with history of osteomyelitis). *Continue po thiamine, folate, MVI. *NPO for combined EGD/colonoscopy later today on 12/30/16. The patient was compliant with GoLYTELY. Informed consent for EGD/colonoscopy was obtained from the patient after careful explanation of the risks & benefits. *Miralax 17g po daily x 2 days 9done). If EGD/colonoscopy negative for bleeding site, consideration for outpatient PillCam to rule out SB AVMs, keeping in mind . *No active bleeding seen on EGD/colonoscopy, would resume Plavix, in addition to ASA. Eventual resumption of Fe after GI workup is completed. Treatment of other numerous medical problems, as per the medical team. (The patient is currently on IV Unasyn & IV Vancomycin for osteo, etc.). The above findings and recommendations were again discussed with the patient & previously with the medical house staff. Further recommendations to follow, depending on clinical course. Problem List: 1. Iron deficiency anemia 2. Occult blood positive stool 3. Rectal bleeding 4. Melena 5. Elevated alkaline phosphatase level 6. History of colon polyps 7. History of alcohol abuse 8. GERD (gastroesophageal reflux disease) 9. LLQ abdominal pain 10. PVD (peripheral vascular disease) 11. Aortic stenosis Subjective Subjective: *As of 12/30/16, the patient remained hemodynamically stable and afebrile. He did not require any further transfusions since the 1 unit on 12/28/16. He had no abdominal pain, nausea, vomiting, recurrent rectal bleeding, hematemesis, or melena. He denied any significant shortness of breath. He had atypical positional chest pain, which resolved. He was compliant with 1 gallon of GoLytely & is NPO for EGD/colonoscopy. He was cleared by cardiology for GI procedures. Review of Systems: Full 14 point review of systems otherwise non-contributory & as above, although poor historian. Review of Systems Constitutional: Reports: malaise, weakness- improving. Denies: chills, diaphoresis, fever, unexplained weight loss. EENTM: Reports: visual changes (DM). Denies: blurred vision, double vision, eye pain, eye drainage, eye tearing, icterus, ear discharge, ear pain, ear redness, hearing changes, nasal congestion , epistaxis, nasal pain, throat pain, throat swelling, mouth pain, tooth pain. Cardiovascular: Reports: chest pain (chronic x years)- stable. Denies: edema, orthopena, palpitations, peripheral edema, syncope. Respiratory: Reports: mild short of breath (chronic x years- COPD)- stable. Denies: cough, hemoptysis, orthopnea, sputum production, stridor, wheezing. GI: Reports: minimal abdominal pain (LLQ)- stable, intermittent melena, intermittent BRBPR post defecation. Denies: bloating, constipation, diarrhea, distention, bowel incontinence, nausea , changes in stool, vomiting, steatorrhea. Genitourinary: Reports: hesitation. Denies: discharge, dysuria, frequency, hematuria, nocturia, pain, urgency. Musculoskeletal: Reports: joint pain, DJD. Denies: back pain, gout, joint swelling, muscle pain, muscle stiffness, neck pain. Skin: Reports: change in hair/nails. Denies: cysts, change in skin color, dryness, erythema, jaundice, lesions, lymphangitis, lumps, moles, rash. Neurological/Psychological: Reports: anxiety, depressed (bipolar), emotional problems, tremors (Parkinson's) . Denies: ataxia, cognitive dysfunction, confusion, dementia, headache, numbness, paresthesia, pre-existing deficit, petit mal seizures, tingling, tonic-clonic seizures, unable to move lower ext, unable to move upper ext, weakness. Hematologic/Endocrine: Denies: bruising, bleeding, polyuria, polydipsia. Immunologic/Allergic: Denies: splenectomy, HIV/AIDS, lymphadenopathy. All Other Systems: Reviewed and Negative Objective Vital Signs and I&Os Vital Signs Date Time Temp Pulse Resp B/P B/P Pulse O2 O2 Flow FiO2 Mean Ox Delivery Rate 12/30 1451 98.1 84 20 140/80 99 Room Air 12/30 0946 60 144/68 12/30 0652 98.4 60 20 144/68 99 12/29 2356 98.2 87 20 116/80 99 12/29 2145 87 116/80 12/29 1538 97.8 61 18 106/60 99 Intake & Output 12/30 1600 12/30 0400 12/29 1600 12/29 0400 12/28 1600 12/28 0400 Intake Total 2100 6146 007 8337 Output Total 1200 2575 275 1025 1250 550 Balance -1200 -475 1105 -395 900 -550 Intake, Blood 350 Product Intake, IV 100 900 150 600 Intake, Oral 2000 798 675 3971 Number 4 2 1 Bowel Movements Output, Urine 1200 2575 275 1025 1250 550 Patient 202 lb 203 lb Weight Weight Reported by Patient Measurement Method Physical Exam: Well-developed, well-nourished, chronically ill-appearing male, in no apparent distress. Sclera anicteric. Conjunctiva pink. Oropharynx clear. Edentulous. No oral thrush. No aphthous ulcers. There is no adenopathy, thyromegaly, or JVD. No peripheral stigmata of inflammatory bowel disease or chronic liver disease on exam. No spiders on the anterior chest wall. No gynecomastia. No CVA tenderness. Lungs: clear to A&P, with slightly prolonged expiratory phase. No wheezing, rales, or rhonchi. PPM in right CW. Heart exam: regular rate rhythm, S1 and S2, with III/ systolic murmur, c/w +. Post CABG scar. Abdominal exam: normal bowel sounds, soft belly, mildly distended, slightly obese, currently w/o LLQ tenderness, without guarding or rebound. No mass. No organomegaly. No fluid shift. No pulsatile mass. No epigastric bruit. Repeat digital rectal exam deferred: reportedly brown, OB+ stool in ER on 12/27/16, without fresh blood. Extremities: without cyanosis or clubbing. Trace pedal edema B/L. Post right transmetatarsal amputation by history (wrapped). Left great toe with 3 crusted ulcers. No palpable cords. Mild DJD. No palmar erythema. No Dupuytren's contractures. Distal pulses 1+ bilaterally. DTRs 1+ bilaterally. Alert and oriented x 3. Slightly flat affect. Less agitated. Minimal tremor with suggestion of mild cogwheeling. No masked facies. No asterixis. A detailed exam for peripheral neuropthy was deferred, but is present by history. Motor 4/5 B/L. Current Medications: Current Medications Sig/Uvaldo Start time Last Medication Dose Route Stop Time Status Admin Acetaminophen 650 MG Q6P PRN 12/27 2030 AC PO Acetaminophen 1,000 MG Q6P PRN 12/27 2030 AC IV Ampicillin Sodium/ 1,500 MG Q6H 12/28 0200 AC 12/30 Sulbactam Sodium IV 1258 Sodium Chloride 100 ML Aspirin 81 MG DAILY 12/29 1000 AC 12/29 PO 0940 Atorvastatin Calcium 40 MG DAILY 12/28 1000 AC 12/29 PO 0944 Bisacodyl 5 MG DAILY PRN 12/27 2330 AC 12/29 PO 0942 Budesonide/ 2 PUF BID 12/28 1000 AC 12/30 Formoterol Fumarate INH 0951 Dextrose/Water 1,000 ML ONCE ONE 12/30 0030 DC 12/30 IV 12/30 1349 0047 Finasteride 5 MG DAILY 12/28 1000 AC 12/29 PO 0944 Folic Acid 1 MG DAILY 12/29 1000 AC 12/29 PO 0941 Insulin Aspart 0 TIDAC 12/28 0800 CA 12/29 SC 12/30 0017 1641 Insulin Detemir 15 UNITS DAILY 12/28 1000 12/30 SC 0945 Insulin Human Regular 0 Q6 12/30 0030 12/30 SC 1254 Levothyroxine Sodium 0.025 MG DAILY 12/28 1000 AC 12/30 PO 0946 Multivitamins 1 TAB DAILY 12/29 1000 AC 12/29 PO 0940 Nitroglycerin 0.4 MG Q 5 MINUTES X 3 DO.. 12/27 2330 AC SL Oxycodone HCl 5 MG Q6H PRN 12/27 2044 AC 12/29 PO 1116 Pantoprazole Sodium 40 MG DAILY 12/28 1000 AC 12/29 IV 0944 Patient Medication 1 ED .STK-MED ONE 12/30 1415 CA Teaching ED 12/30 1416 Ranolazine 500 MG BID 12/28 1000 AC 12/30 PO 0946 Thiamine HCl 50 MG DAILY 12/29 1000 AC 12/29 PO 0940 Vancomycin HCl 1,500 MG DAILY 12/28 1000 AC 12/30 Sodium Chloride 500 ML IV 1000 Results Pertinent Lab Results: Laboratory Tests 12/30 12/29 0535 0620 Chemistry Sodium (137 - 145 mmol/L) 141 Potassium (3.5 - 5.1 mmol/L) 3.4 L Chloride (98 - 107 mmol/L) 103 Carbon Dioxide (22 - 30 mmol/L) 29 Anion Gap (5 - 16) 9 BUN (9 - 20 mg/dL) 5 L Creatinine (0.7 - 1.2 mg/dL) 0.8 Estimated GFR (>60 ml/min) > 60 BUN/Creatinine Ratio (7 - 25 %) 6.3 L Troponin I (<0.11 ng/ml) < 0.01 Hematology CBC w Diff NO MAN DIFF REQ NO MAN DIFF REQ WBC (4.8 - 10.8 /CUMM) 6.0 6.4 RBC (4.70 - 6.10 /CUMM) 2.87 L 2.84 L Hgb (14.0 - 18.0 G/DL) 8.6 L 8.5 L Hct (42 - 52 %) 25.3 L 25.1 L MCV (80.0 - 94.0 FL) 88.0 88.4 MCH (27.0 - 31.0 PG) 29.8 29.9 RDW (11.5 - 14.5 %) 15.3 H 15.6 H Plt Count (130 - 400 /CUMM) 180 198 MPV (7.4 - 10.4 FL) 6.3 L 6.4 L Gran % (42.2 - 75.2 %) 66.7 62.4 Lymphocytes % (20.5 - 51.1 %) 23.3 27.3 Monocytes % (1.7 - 9.3 %) 6.9 7.1 Eosinophils % (0 - 5 %) 2.9 2.9 Basophils % (0.0 - 2.0 %) 0.2 0.3 Absolute Granulocytes (1.4 - 6.5 /CUMM) 4.0 4.0 Absolute Lymphocytes (1.2 - 3.4 /CUMM) 1.4 1.7 Absolute Monocytes (0.10 - 0.60 /CUMM) 0.4 0.5 Absolute Eosinophils (0.0 - 0.7 /CUMM) 0.2 0.2 Absolute Basophils (0.0 - 0.2 /CUMM) 0 0 PUBS MCHC (33.0 - 37.0 G/DL) 33.9 33.8 12/28 12/28 12/27 0620 0330 2133 Chemistry Sodium (137 - 145 mmol/L) 139 Potassium (3.5 - 5.1 mmol/L) 3.8 Chloride (98 - 107 mmol/L) 104 Carbon Dioxide (22 - 30 mmol/L) 27 Anion Gap (5 - 16) 9 BUN (9 - 20 mg/dL) 11 Creatinine (0.7 - 1.2 mg/dL) 0.9 Estimated GFR (>60 ml/min) > 60 BUN/Creatinine Ratio (7 - 25 %) 12.2 Troponin I (<0.11 ng/ml) < 0.01 < 0.01 Hematology CBC w Diff NO MAN DIFF REQ WBC (4.8 - 10.8 /CUMM) 5.9 RBC (4.70 - 6.10 /CUMM) 2.84 L Hgb (14.0 - 18.0 G/DL) 8.4 L Hct (42 - 52 %) 25.0 L MCV (80.0 - 94.0 FL) 87.8 MCH (27.0 - 31.0 PG) 29.7 RDW (11.5 - 14.5 %) 15.8 H Plt Count (130 - 400 /CUMM) 195 MPV (7.4 - 10.4 FL) 6.3 L Gran % (42.2 - 75.2 %) 67.0 Lymphocytes % (20.5 - 51.1 %) 21.5 Monocytes % (1.7 - 9.3 %) 7.1 Eosinophils % (0 - 5 %) 4.1 Basophils % (0.0 - 2.0 %) 0.3 Absolute Granulocytes (1.4 - 6.5 /CUMM) 4.0 Absolute Lymphocytes (1.2 - 3.4 /CUMM) 1.3 Absolute Monocytes (0.10 - 0.60 /CUMM) 0.4 Absolute Eosinophils (0.0 - 0.7 /CUMM) 0.2 Absolute Basophils (0.0 - 0.2 /CUMM) 0 PUBS MCHC (33.0 - 37.0 G/DL) 33.8 12/27 1702 Chemistry Sodium (137 - 145 mmol/L) 136 L Potassium (3.5 - 5.1 mmol/L) 3.9 Chloride (98 - 107 mmol/L) 102 Carbon Dioxide (22 - 30 mmol/L) 26 Anion Gap (5 - 16) 8 BUN (9 - 20 mg/dL) 12 Creatinine (0.7 - 1.2 mg/dL) 1.0 Estimated GFR (>60 ml/min) > 60 BUN/Creatinine Ratio (7 - 25 %) 12.0 Glucose (65 - 99 mg/dL) 201 H Calcium (8.4 - 10.2 mg/dL) 8.9 Iron (49 - 181 ug/dL) 38 L TIBC (261 - 462 ug/dL) 276 Ferritin (17.9 - 464 ng/mL) 421.0 Total Bilirubin (0.2 - 1.3 mg/dL) 0.7 AST (17 - 59 U/L) 38 ALT (21 - 72 U/L) 41 Alkaline Phosphatase (< 127 U/L) 289 H Total Protein (6.3 - 8.2 g/dL) 5.6 L Albumin (3.5 - 5.0 g/dL) 3.4 L Globulin (1.9 - 4.2 gm/dL) 2.2 Albumin/Globulin Ratio (1.1 - 2.2 %) 1.5 Vitamin B12 (239 - 931 pg/mL) 650 Folate (2.76 - 20.0 ng/mL) 15.8 TSH (0.270 - 4.200 uIU/mL) 5.880 H Coagulation PT (9.4 - 12.5 SEC) 11.7 INR (0.90 - 1.17) 1.12 APTT (25 - 37 SEC) 37 Hematology CBC w Diff NO MAN DIFF REQ WBC (4.8 - 10.8 /CUMM) 7.0 RBC (4.70 - 6.10 /CUMM) 2.51 L Hgb (14.0 - 18.0 G/DL) 7.3 *L Hct (42 - 52 %) 22.3 L MCV (80.0 - 94.0 FL) 88.7 MCH (27.0 - 31.0 PG) 29.1 RDW (11.5 - 14.5 %) 16.0 H Plt Count (130 - 400 /CUMM) 224 MPV (7.4 - 10.4 FL) 6.2 L Gran % (42.2 - 75.2 %) 64.7 Lymphocytes % (20.5 - 51.1 %) 24.4 Monocytes % (1.7 - 9.3 %) 7.1 Eosinophils % (0 - 5 %) 3.4 Basophils % (0.0 - 2.0 %) 0.4 Absolute Granulocytes (1.4 - 6.5 /CUMM) 4.5 Absolute Lymphocytes (1.2 - 3.4 /CUMM) 1.7 Absolute Monocytes (0.10 - 0.60 /CUMM) 0.5 Absolute Eosinophils (0.0 - 0.7 /CUMM) 0.2 Absolute Basophils (0.0 - 0.2 /CUMM) 0 PUBS MCHC (33.0 - 37.0 G/DL) 32.8 L Retic Count (0.5 - 2.0 %) 3.51 H Imaging/Other Studies: 12/27/16: EKG- atrial paced rhythm @ 74. 12/27/16: XR PORTABLE CHEST- A left-sided PICC line appears in satisfactory position. No acute intrathoracic process is seen. 12/27/16: CT ABDOMEN AND PELVIS WITHOUT CONTRAST- Normal appearing liver, post-CCKY. There is no definite evidence of bowel obstruction. Stool thoughout colon. No localized abdominal or pelvic fat stranding. No abscess or free intraperitoneal gas. No specific evidence of diverticulitis. There are some fluid levels within top normal caliber small bowel loops which are nonspecific. There is extensive atherosclerotic calcification. No AAA. DJD. Sternal wires post CABG.
--- NOTE | 2016-12-30 15:41 | Proc Note Gastroenterology ---
Gastroenterology Procedure Date of Last Colonoscopy: possibly 2005 Procedure Date: 12/30/16 GI Procedure(s): Combined follow-up upper endoscopy to the third portion of the duodenum with biopsies, plus follow-up colonoscopy to the terminal ileum, with biopsies/hot snare polypectomy 1, and prophylactic clipping 3 Rail Crew Member: ANASTASIA ANDREWS MD ASA Classification: IV Indications: INDX: (*Please refer to extensive GI consult of 12/27/16). 76 y/o male, poor historian, with numerous co-morbidities with most of records at [facility], with anxiety, depression, bipolar disorder, ASHD, remote CABG 4, PVD with stenting, hypertension, hyperlipidemia, brittle diabetic, CCKY, severe awaiting TAVR (cleared by cardiology for GI procedures), PPM for SA node dysfunction (without AICD), COPD (without O2), past history of alcohol abuse, ex >[id number] cigarette smoker (both D/D 05/2016), early Parkinson's, PAUMA, BPH, DJD, hypothyroid, alcohol-induced pancreatitis, chronic anemia, history of transfusions, with iron deficiency (reportedly requiring IV iron infusion at [place]), 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 Questionable history of rectal bleeding vs. melena per patient, history of colon polyps, apparently not compliant with follow-up colonoscopy since 2005, GERD on PPI, history of elevated alkaline phosphatase (5'NTD suggested repeatedly as inpatient but not done, ? if bone in etiology post osteo). * Outpatient Plavix is currently on hold as per cardiology, and ASA 325 mg po daily was decreased to 81 mg daily, per cardiology). Meds Received: O2- 4L nasal cannula & MAC, as per Dr. Mcgregor, of [facility]. Patient's Tolerance: good Complications: None Extent Reached: D3/TI Procedure: Combined follow-up upper endoscopy to the third portion of the duodenum with biopsies, plus follow-up colonoscopy to the terminal ileum, with biopsies/hot snare polypectomy 1, and prophylactic clipping 3, were performed with the Olympus high-definition videoscopes from above and below, after obtaining informed consent from the patient for each procedure prior to IV sedation, with the cardiac rn and pulse oximeter, after 2 days of clears po, Miralax 17g po daily x 2 days & 1 gallon of GoLYTELY, with the assistance of Dr. Mcgregor, of [facility]. *Documenting photographs for each procedure were obtained from above and below, and placed inside the patient's chart. Follow-up upper endoscopy to the third portion of the duodenum with biopsies, was performed with the Olympus high definition videoendoscope, after obtaining informed consent from the patient, with the cardiac rn and pulse oximeter, with the assistance of Dr. Mcgregor, of [facility]. The patient was edentulous. A mouthpiece was placed in the usual fashion to protect the patient 's oral cavity. The patient was placed in the left lateral decubitus position and sedated by [facility]. At this point, the endoscope was advanced from the mouth into the esophagus, using direct visualization technique. I did not get a good look at the vocal cords. The esophageal mucosa appeared normal. There were no esophageal webs, lesions, strictures, or ulcers. There was no monilia or vesicles. There was no esophageal ribbing. The Z line was well demarcated at 40 cm, with suggestion of a widely patent lower esophageal ring at the Z line at 40 cm. The "ring" spontaneously "opened up" completely, and flattened out. No dilatation was needed. There was no hiatal hernia pouch. No significant esophageal inflammation was seen. There were no ectopic islands, nor gross Maria's esophagus. Based on the patient's symptoms, random biopsies of normal -appearing distal esophageal mucosa were obtained: (Specimen B- 40 cm, Specimen C- 37 cm). There were no esophageal or gastric varices, nor any Daya Pascual tear. The bella of the stomach distended normally with air insufflation. Direct and retroflexed views of the stomach were performed. There was nothing endoscopically to suggest gastroparesis or portal gastropathy. The mucosa of the gastric cardia, fundus, lesser curvature, incisura, body, and antrum appeared normal, without any gastric ulcers or gastric lesions. The pylorus was patent, without any gastric outlet obstruction or channel ulcer. The duodenal bulb, duodenal sweep, & third portion of the duodenum appeared normal, without any duodenal ulcers, distal ulcerations, or angiodysplasias. I was not able to see the ampulla with the direct-viewing scope. The folds of the second & third portions of the duodenum were normal in caliber, without any flattening, nodularity, scalloping, or mosaic pattern. Nevertheless, in view of the iron deficiency, random small bowel biopsy 4 of normal-appearing second and third portions of the duodenum were obtained: (Specimen A- rule out malabsorption and/or celiac sprue). No active upper GI bleeding was seen. The patient tolerated the procedure well. After completing the preliminary follow-up upper endoscopy to the third portion of the duodenum with biopsies, follow-up colonoscopy to the terminal ileum, with biopsies/hot snare polypectomy x 1, and prophylactic clipping x 3, was performed with the Olympus high- definition videocolonoscope, after obtaining informed consent from the patient, with the cardiac rn and pulse oximeter, after 2 days of clears po, Miralax 17 g daily x 2 days, and 1 gallon of GoLYTELY with the assistance of Dr. Mcgregor, of [facility]. The prep was fair at best, which apparently, had been a problem in the past. There was some residual, thick, tenacious, liquid stool and bile, which was suctioned clear as best as possible and irrigated with the water jet. A small mucosal abnormalities could have been obscured by this, and the patient was made aware of this. The patient was in the left lateral decubitus position throughout the procedure. Direct views of the rectum failed to reveal any external hemorrhoids, fissures, or perianal disease. Digital rectal exam was unremarkable, without any masses. Sphincter tone was normal. Retroflexion in the rectum failed to reveal any internal hemorrhoids, gross proctitis, rectal ulcers, or rectal lesions. The colonic mucosa was carefully inspected, both upon insertion and upon withdrawal of the colonoscope. Withdrawal time was exceedingly adequate. There were fairly extensive pandiverticulosis coli, left side greater than right, from the sigmoid to the cecum. The cecum, base of the appendix, and ileocecal valve were all identified. The last few centimeters of the terminal ileum were entered, and appeared normal. Confirmatory photographs were obtained. There was a 1 cm sessile left colon polyp at 40 cm, NBI positive, completely removed via biopsy/ hot snare polypectomy 1, using 25 W/pure coag. A small portion of this was lost in suction, but the majority was retrieved: (Specimen A). The patient then had extensive spasm in this region. Based on the need to resume Plavix in the near future, the decision was made to prophylactically clip the polypectomy site. At this point, the air channel repeatedly did not work, and I had a change colonoscopes. *The spasm added significant increased time to the procedure. [employer] 360 clips x 3 were successfully deployed over the polypectomy site, in anticipation of resuming Plavix and continuing aspirin. The polypectomy site was irrigated with the water jet, observed for several minutes postoperatively, and was stable, without any significant bleeding. Within the limits of the fair prep, the colonic mucosa otherwise appeared intact and within normal limits to the terminal ileum, without any additional polyps, lesions, gross colitis, ileitis, or angiodysplasias, keeping in mind the fact that a small mucosal abnormalities could have been obscured by the fair prep. Having stated that, I felt comfortable that no large lesions were seen. No active upper or lower GI bleeding was seen. The patient tolerated both procedures well. Impression: 1. Widely patent, intermittent, lower esophageal ring at the Z line at 40 cm, which "opened up" spontaneously & was left intact. No significant hiatal hernia. 2. Random distal esophageal biopsies: (Specimen B- 40 cm, Specimen C- 37 cm). 3. Random small bowel biopsy 4 of normal-appearing second and third portions of the duodenum: (Specimen A- rule out malabsorption and/or celiac sprue). *No active upper GI bleeding seen to D3. 4. Extensive pandiverticulosis coli, left side greater than right, from the sigmoid to the cecum. 5. 1 cm sessile left colon polyp at 40 cm, completely removed via biopsy/hot snare polypectomy, followed by prophylactic clipping 3: (Specimen A). Recommendations: *Await random distal esophageal biopsies and random duodenal biopsies. Await pathology of 1 cm left colon polyp at 40 cm. The patient was advised to call the office within 2 weeks for the pathology results. Continue aspirin, dosing as per cardiology. May resume Plavix 75 mg daily, tomorrow, on 12/31/2016. May switch IV Protonix to Protonix 40 mg po daily. Antireflux measures. Feed patient 2g Na+, DM, low fat, heart healthy, high fiber diet, plu Fibercon 2 tabs daily. *Advise outpatient PillCam while on aspirin and Plavix, to clear small bowel of GI AVMs (rule out Heyde's syndrome, associated with ). The patient was given my office number to contact us for this. *Await TAVR regarding severe aortic stenosis, as per [facility] [place]. *Assuming today's colon polyp is benign, based on the fair prep, will advise follow-up surveillance colonoscopy in 2 years (i.e.- 12/2018), based on the fair prep and spasm. Definitive recommendations for the interval of follow-up colonoscopy will be made after reviewing the pathology. Keep Hgb > 8 (ASHD). Supplemental O2 as needed. Replete potassium. Get 5'NTD regarding elevated alkaline phosphatase. Continue thiamine, folate, MVI. * Resume FeSO4 325 mg po TID with meals (will defer to [facility] regarding IV Fe). Treatment of other numerous medical problems, as per the medical team (the patient is currently on IV Unasyn & IV Vancomycin for osteo, etc.). The above findings and recommendations were again discussed with the patient & with Dr. Pop, of the hospitalist service postoperatively, & previously with the medical house staff. *Further inpatient GI follow up as needed. ADDENDUM: 01/01/2017- A. 2ND AND 3RD PORTION OF DUODENUM, RANDOM BIOPSY X 4: MILD CONGESTION. NEGATIVE FOR EVIDENCE OF MALIGNANCY. B. ESOPHAGUS, RANDOM BIOPSY AT 40 CM: SQUAMOUS MUCOSA WITH MODERATE TO MARKED REACTIVE CHANGE, WITHOUT SIGNIFICANT EOSINOPHILIC INFILTRATION. C. ESOPHAGUS, RANDOM BIOPSY AT 37 CM: SQUAMOUS MUCOSA WITH MILD REACTIVE CHANGE, WITHOUT SIGNIFICANT EOSINOPHILIC INFILTRATION. Dictated by: TAVARES CORDON MD 1 CM LEFT COLON POLYP AT 40 CM, COMPLETELY REMOVED VIA BX/HOT SNARE/CLIP X 3: TUBULAR ADENOMA. NEGATIVE FOR EVIDENCE OF INVASIVE CARCINOMA. Dictated by: TAVARES CORDON MD Random bxs D2/D3- neg. Random esophageal bxs at 40 cm- squamous mucosa with mod to marked rx change, no EOE. Random esophageal bxs at 37 cm- squamous mucosa with mild rx change, no EOE. 1 cm benign left colon TA removed. I called the pt at [facility] this p.m. (*see below- pt's room: [phone]). Continue aspirin , dosing as per cardiology. May resume Plavix 75 mg daily on 12/31/2016. Continue Protonix 40 mg po daily. Antireflux measures. 2g Na+, DM, low fat, heart healthy, high fiber diet, plu Fibercon 2 tabs daily. *I again advised an outpatient PillCam with a patency capsule while on aspirin and Plavix, to clear small bowel of GI AVMs (*rule out Heyde's syndrome, associated with ). The patient was previously given my office number to contact us for this. *Await TAVR regarding severe aortic stenosis, as per [facility]. *As the colon polyp was a benign TA, based on the fair prep, I advised a follow-up surveillance colonoscopy in 2 years (i.e.- 12/2018), based on the fair prep and spasm. Advise keeping Hgb > 8 (ASHD). Supplemental O2 as needed. Replete potassium per medical team. *Get 5'NTD regarding elevated alkaline phosphatase. *Continue thiamine, folate, MVI. *Resume FeSO4 325 mg po TID with meals (*will defer to [facility] regarding IV Fe). Treatment of other numerous medical problems, as per the medical team (the patient was on IV Unasyn & IV Vancomycin for osteo, etc.). [*The pt was D/C to SNF on 12/31/16. I called [facility] [place] 01/01/17 & there was no record as to the exact SNF he went to. Elizabeth had me call [facility] & she was able to scan the case management records & found out he went back to [facility] . I called [facility] & they gave me the *pt's room phone [phone]] . Follow-up Colonscopy Screening pending biopsy result(s) CC: APPLE VELASCO,SEVEN; RU VELASCO,SHARATH; CORNEL VELASCO,CHRISTINA; VALERIO VELASCO,NATALIA; SYLVIA VELASCO,OLGA Worthington
[2016-12-30 22:36] VITALS: BP 108/56
[2016-12-31 06:21] VITALS: BP 110/60
--- NOTE | 2016-12-31 08:11 | PN- Housestaff ---
Subjective Follow-up For: dark stool anemia GI bleed Complaints: no complaints Subjective: I have seen and examined the patient and patient was sleeping comfortably in the bed. She will he was easily arousable. He told me that he went for a endoscopy /colonoscopy yesterday. He told me he has had a precancerous polyp for a while yesterday and they burned it during the procedure. He was much anxious yesterday before the procedure. Today he feels much better. He has chest pain, shortness of breath which haven't changed much from his baseline. Review of Systems Constitutional: Reports: no symptoms. Cardiovascular: Reports: chest pain, palpitations. Respiratory: Reports: short of breath. Denies: cough. Gastrointestinal: Reports: abdominal pain (dark stool). Genitourinary: Reports: urgency. Objective Last 24 Hrs of Vital Signs/I&O Vital Signs Date Time Temp Pulse Resp B/P B/P Pulse O2 O2 Flow FiO2 Mean Ox Delivery Rate 12/31 0621 98.0 75 20 110/60 97 Room Air 12/30 2236 98.2 60 18 108/56 99 12/30 2109 85 148/72 12/30 1451 98.1 84 20 140/80 99 Room Air 12/30 0946 60 144/68 Intake & Output 12/31 1600 12/31 0800 12/31 0000 Intake Total 680 730 Output Total 750 Balance 680 -20 Intake, IV 200 250 Intake, Oral 480 480 Number Bowel Movements Output, Urine 750 Physical Exam General Appearance: Alert, Oriented X3, Cooperative, No Acute Distress Skin: No Rashes, No Breakdown, flex/moles on the back Neck: Supple Cardiovascular: Normal S1, Normal S2 Lungs: Clear to Auscultation, Normal Air Movement Abdomen: Normal Bowel Sounds, Soft Neurological: Normal Speech Extremities: R foot wrapped in bandage left foot big toe hgas 3 ulcers Current Medications: Current Medications Sig/Uvaldo Start time Last Medication Dose Route Stop Time Status Admin Acetaminophen 650 MG Q6P PRN 12/27 2029 AC PO Acetaminophen 1,000 MG Q6P PRN 12/27 2029 AC IV Alteplase, 2 MG ONCE ONE 12/31 0100 DC Recombinant IV 12/31 0101 Ampicillin Sodium/ 1,500 MG Q6H 12/28 0200 AC 12/31 Sulbactam Sodium IV 0255 Sodium Chloride 100 ML Aspirin 81 MG DAILY 12/29 1000 AC 12/30 PO 1922 Atorvastatin Calcium 40 MG DAILY 12/28 1000 AC 12/30 PO 1923 Bisacodyl 5 MG DAILY PRN 12/27 2330 AC 12/29 PO 0942 Budesonide/ 2 PUF BID 12/28 1000 AC 12/30 Formoterol Fumarate INH 2109 Clopidogrel Bisulfate 75 MG DAILY 12/31 1000 AC PO Dextrose/Water 1,000 ML ONCE ONE 12/30 0030 DC 12/30 IV 12/30 1349 0047 Ferrous Sulfate 325 MG TID 12/31 1000 AC PO Finasteride 5 MG DAILY 12/28 1000 AC 12/30 PO 1923 Folic Acid 1 MG DAILY 12/29 1000 AC 12/30 PO 1923 Insulin Aspart 0 TIDAC 12/31 0800 AC SC Insulin Detemir 15 UNITS DAILY 12/28 1000 AC 12/30 SC 0945 Insulin Human Regular 0 Q6 12/30 0030 DC 12/30 SC 1926 Levothyroxine Sodium 0.025 MG DAILY 12/28 1000 AC 12/30 PO 0946 Multivitamins 1 TAB DAILY 12/29 1000 AC 12/30 PO 1925 Nitroglycerin 0.4 MG Q 5 MINUTES X 3 DO.. 12/27 2330 AC SL Omeprazole 40 MG DAILY AC 12/31 0700 AC 12/31 PO 0553 Oxycodone HCl 5 MG Q6H PRN 12/27 2045 AC 12/30 PO 2119 Pantoprazole Sodium 40 MG DAILY 12/28 1000 DC 12/30 IV 1925 Patient Medication 1 ED .STK-MED ONE 12/30 1415 [place] Teaching ED 12/30 1416 Polycarbophil 625 MG BID 12/31 1000 AC PO Ranolazine 500 MG BID 12/28 1000 AC 12/30 PO 210 Thiamine HCl 50 MG DAILY 12/29 1000 AC 12/30 PO 1926 Vancomycin HCl 1,500 MG DAILY 12/28 1000 AC 12/30 Sodium Chloride 500 ML IV 1000 Last 24 Hrs of Lab/Olegario Results Last 24 Hrs of Labs/Mics: Laboratory Tests 12/31/16 0605: Sodium Pending, Potassium Pending, Chloride Pending, Carbon Dioxide Pending, Anion Gap Pending, BUN Pending, Creatinine Pending, BUN/Creatinine Ratio Pending , CBC w Diff Pending, WBC Pending, RBC Pending, Hgb Pending, Hct Pending, MCV Pending, MCH Pending, RDW Pending, Plt Count Pending, MPV Pending, PUBS MCHC Pending Assessment/Plan Assessment: This is a 76-year-old male past medical history significant for CAD status post CABG about 15 years ago, pacemaker placement for S-A node dysfunction, CHF, PVD status post several angiograms and stenting procedures, COPD not on any O2, osteomyelitis of the right lower extremity status post multiple digit amputation , 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 [place] x 3 +. Initial ED Workup shows: Vitals: 97.5, 67, 18, 166/74, 100% on room air CBC shows white count 7.0, hemoglobin 7.3, hematocrit 22.3, platelet 224, INR 1.12. BEP shows sodium 136, BUN 12, creatinine 1.0. Alkaline phosphatase 289, total protein 5.6. CT abdomen and pelvis: Showed nonspecific air-fluid levels and with no evidence of free air or obvious source of infection. EKG: Paced rhythm with rate of 74 and irregular. IN 216, QTc 418 Guiac + in ED --------- Pt seen for following problems on Medicine Floor: Anemia: Patient has hemoglobin 7.3 on admission, on December 13 was high as 8.5. His baseline seems to be around 9-10. He did have prior several PRBC transfusion at [place] about 2 weeks prior to this admission. At [place] he was started on DAPT. Per previous workup at [place] it does not seem like this is a new problem, however etiology currently still unknown. Seen by GI; ruled out ACS with troponins/ EKG, is s/p 1 unit PRBC w/ adequate response. * Con't ASA and Plavix but now ASA at 81 NOT 325mg * Follow up with Dr. Chin outpatient for biopsy results in two weeks * Con't Po protonix * Anti-reflux measures * Will require pillcam outpatient * Surveillance colonoscopy next in 12/2018 if pathology negative * Get 5'NTD test to evaluate alk. phos done on outpatient basis * Goal Hb>8 Osteomyelitis: Patient is had recent debridement at [facility]. He supposed follow with Dr. Bowden on the of this month. Will need to reschedule. But very improtant to follow up regarding antibiotic duration * Continue ampicillin sulbactam 1.5 g every 6 per podiatry doctor * Continue vancomycin per podiatry doctor CAD/Hypertension: Chronic and stable. * Lisinopril 20 mg by mouth daily * Metoprolol 50 mg by mouth twice a day [place] * Nitroglycerin 0.4 mg tab by mouth when necessary angina Hyperlipidemia: Chronic and stable * Atorvastatin 80 mg by mouth daily Hypothyroidism: Clinically stable * Levothyroxine 0.025 g Diabetes: Chronic and stable * Takes Lantus 30 units subcutaneous 10 PM * Con't RISS Aortic stenosis: Patient has loud 3/6 murmur right upper sternal border. * Follow up with your [facility] team regarding TAVR. Problem List: 1. HTN (hypertension) 2. Diabetes mellitus 3. Hypothyroidism 4. Osteomyelitis 5. Foot pain 6. Lower GI bleed 7. History of colon polyps 8. History of alcohol abuse 9. Anemia Pain Ratin Pain Location: right foot Pain Goal: Pain 4 or less Pain Plan: roxicodone 5mg q6 prn tylenol 650mg q6 Tomorrow's Labs & Rationales: discharge
--- NOTE | 2016-12-31 08:31 | PN- Att Addend ---
Attending Addendum Attending Brief Note Patient seen and examined. Plan of care discussed with the medical team and the patient. Available lab work and radiology test reports were reviewed. Patients without any new symptoms this morning. He underwent colonoscopy yesterday. Patient is found to be lying in bed without any distress. He denies any nausea vomiting or abdominal pain. Denies any recent fever chills or difficulty breathing. He appears comfortable. Vital Signs Date Time Temp Pulse Resp B/P B/P Pulse O2 O2 Flow FiO2 Mean Ox Delivery Rate 12/31 620 98.0 75 20 110/60 97 Room Air 12/30 2236 98.2 60 18 108/56 99 12/30 2109 85 148/72 12/30 1451 98.1 84 20 140/80 99 Room Air 12/30 0946 60 144/68 Intake & Output 12/31 1600 12/31 0800 12/31 0000 Intake Total 680 730 Output Total 750 Balance 680 -20 Intake, IV 200 250 Intake, Oral 480 480 Number Bowel Movements Output, Urine 750 Exam: General: Patient awake alert oriented without any distress CVS: S1 plus S2 without any murmur or gallops Chest: Few scattered crepitation without any wheeze. There is no respiratory distress. Abdomen: Soft and nondistended with slight tenderness left lower quadrant without any guarding or rebound. bowel sound present CONCRETE INSPECTOR: Awake alert oriented without any focal neuro deficit and follows command appropriately Extremities: No edema; no clubbing or cyanosis noted Laboratory Tests 12/31 06 Chemistry Sodium (137 - 145 mmol/L) 139 Potassium (3.5 - 5.1 mmol/L) 3.5 Chloride (98 - 107 mmol/L) 104 Carbon Dioxide (22 - 30 mmol/L) 25 Anion Gap (5 - 16) 10 BUN (9 - 20 mg/dL) 4 L Creatinine (0.7 - 1.2 mg/dL) 0.8 Estimated GFR (>60 ml/min) > 60 BUN/Creatinine Ratio (7 - 25 %) 5.0 L Hematology CBC w Diff NO MAN DIFF REQ WBC (4.8 - 10.8 /CUMM) 6.3 RBC (4.70 - 6.10 /CUMM) 2.87 L Hgb (14.0 - 18.0 G/DL) 8.6 L Hct (42 - 52 %) 25.3 L MCV (80.0 - 94.0 FL) 87.9 MCH (27.0 - 31.0 PG) 29.9 RDW (11.5 - 14.5 %) 15.7 H Plt Count (130 - 400 /CUMM) 190 MPV (7.4 - 10.4 FL) 6.4 L Gran % (42.2 - 75.2 %) 66.5 Lymphocytes % (20.5 - 51.1 %) 24.9 Monocytes % (1.7 - 9.3 %) 5.8 Eosinophils % (0 - 5 %) 2.5 Basophils % (0.0 - 2.0 %) 0.3 Absolute Granulocytes (1.4 - 6.5 /CUMM) 4.2 Absolute Lymphocytes (1.2 - 3.4 /CUMM) 1.6 Absolute Monocytes (0.10 - 0.60 /CUMM) 0.4 Absolute Eosinophils (0.0 - 0.7 /CUMM) 0.2 Absolute Basophils (0.0 - 0.2 /CUMM) 0 PUBS MCHC (33.0 - 37.0 G/DL) 34.0 Assessment * Acute GI bleed- GI note reviewed; endoscopy findings noted. S/p polyp removal. * Acute anemia of blood loss- patient is status post 1 unit of blood transfusion ; at this point no further need for transfusion * History of osteomyelitis currently under treatment with Unasyn and vancomycin through left PICC line * History of CAD * History of hypertension * His hyperlipidemia * Atypical chest pain most likely Musculoskeletal given that it was focal localized and improved with repositioning Plan * Plan to dc to [facility]; * Continue IV vancomycin at [facility] * pt to follow up with GI for pillcam study * CBC check next week for follow up * plan of care d/w with pt
[2016-12-31 08:38] LABS: ABSOLUTE BASOPHIL COUNT 0 /CUMM (0.0-0.2); ABSOLUTE EOSINOPHIL COUNT 0.2 /CUMM (0.0-0.7); ABSOLUTE GRANULOCYTE CT 4.2 /CUMM (1.4-6.5); ABSOLUTE LYMPH COUNT 1.6 /CUMM (1.2-3.4); ABSOLUTE MONOCYTE COUNT 0.4 /CUMM (0.10-0.60); BASOPHIL % 0.3 % (0.0-2.0); EOSINOPHIL % 2.5 % (0-5); GRANULOCYTE % 66.5 % (42.2-75.2); HEMATOCRIT 25.3 % (42-52); MEAN CORPUSCULAR HGB 29.9 PG (27.0-31.0); MEAN CORPUSCULAR VOLUME 87.9 FL (80.0-94.0); MEAN PLATELET VOLUME 6.4 FL (7.4-10.4); PLATELET COUNT 190 /CUMM (130-400); RBC DISTRIBUTION WIDTH 15.7 % (11.5-14.5); RED BLOOD CELL CT 2.87 /CUMM (4.70-6.10); WHITE BLOOD CELL COUNT 6.3 /CUMM (4.8-10.8)
--- NOTE | 2016-12-31 09:52 | Patient Discharge Instructions ---
Discharge Instructions General Discharge Information You were seen/treated for: 1. anemia You had these procedures: 1. colonoscopy Watch for these problems: 1. anemia 2. bleeding 3. shortness of breath 4. chest pain Special Instructions: 1. Continue your IV antibiotics per your [facility] team. The antbiotics include Unasyn and Vanco 2. Follow up with your [place] [facility] team for possible TAVR 3. Follow up with GI doctor for pill cam 4. Con't ASA at new dose and cont Plaavix at regular dose Diet Continue normal diet: Yes Activity Activity Self Limited: Yes Acute Coronary Syndrome Inclusion Criteria At DC or during hospital stay patient has or had the following: ACS DIAGNOSIS No Discharge Core Measures Meds if any: Prescribed or Continued at Discharge Meds if any: NOT Prescribed or Continued at Discharge Congestive Heart Failure Inclusion Criteria At DC or during hospital stay patient has or had the following: CHF DIAGNOSIS No Discharge Core Measures Meds if any: Prescribed or Continued at Discharge Meds if any: NOT Prescribed or Continued at Discharge Cerebrovascular accident Inclusion Criteria At DC or during hospital stay patient has or had the following: CVA/TIA Diagnosis No Discharge Core Measures Meds if any: Prescribed or Continued at Discharge Meds if any: NOT Prescribed or Continued at Discharge Venous thromboembolism Inclusion Criteria VTE Diagnosis No VTE Type NONE VTE Confirmed by (Test) NONE Discharge Core Measures - Per Current guidelines, there needs to be overlap - treatment for the first 5 days of Warfarin therapy. - If discharged on Warfarin prior to 5 days of - overlap therapy, the patient will need to be - assessed for post discharge needs including - *Post discharge parental anticoagulation - *Warfarin and/or parental anticoagulation education - *Follow up date to check INR post discharge At least 5 days overlap therapy as Inpatient No Meds if any: Prescribed or Continued at Discharge Note: Overlap Therapy is Warfarin and Anticoagulant Meds if any: NOT Prescribed or Continued at Discharge
[2016-12-31] MEDS ORDERED: ASPIRIN81 M4 PO (09:59)
--- NOTE | 2016-12-31 12:48 | Discharge Summary ---
Visit Information Visit Dates Admission Date: 12/27/16 Discharge Date: 12/31/2016 Hospital Course Course Attending Physician: Sunitha Pop Primary Care Physician: CHRISTINA UNGER MD Consulting Request: Consulting Specialty: Gastroenterology Hospital Course: This is a 76-year-old male past medical history significant for CAD status post CABG about 15 years ago, pacemaker placement for S-A node dysfunction, CHF, PVD status post several angiograms and stenting procedures, COPD not on any O2, osteomyelitis of the right lower extremity status post multiple digit amputation , 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 Guiac x 3 +. Initial ED Workup shows: Vitals: 97.5, 67, 18, 166/74, 100% on room air CBC shows white count 7.0, hemoglobin 7.3, hematocrit 22.3, platelet 224, INR 1.12. BEP shows sodium 136, BUN 12, creatinine 1.0. Alkaline phosphatase 289, total protein 5.6. CT abdomen and pelvis: Showed nonspecific air-fluid levels and with no evidence of free air or obvious source of infection. EKG: Paced rhythm with rate of 74 and irregular. ME 216, QTc 418 Guiac + in ED --------- Pt seen for following problems on Medicine Floor: Anemia: Patient has hemoglobin 7.3 on admission, on December 13 was high as 8.5. His baseline seems to be around 9-10. He did have prior several PRBC transfusion at [facility] about 2 weeks prior to this admission. At [facility] he was started on DAPT. Per previous workup at [facility] it does not seem like this is a new problem, however etiology currently still unknown. Seen by GI; ruled out ACS with troponins/ EKG, is s/p 1 unit PRBC w/ adequate response. * Con't ASA and Plavix but now ASA at 81 NOT 325mg * Follow up with Dr. Chin outpatient for biopsy results in two weeks * Con't Po protonix * Anti-reflux measures * Will require pillcam outpatient * Surveillance colonoscopy next in 12/2018 if pathology negative * Get 5'NTD test to evaluate alk. phos done on outpatient basis * Goal Hb>8 Osteomyelitis: Patient is had recent debridement at [facility]. He supposed follow with Dr. Bowden on the of this month. Will need to reschedule. But very improtant to follow up regarding antibiotic duration * Continue ampicillin sulbactam 1.5 g every 6 per podiatry doctor * Continue vancomycin per podiatry doctor CAD/Hypertension: Chronic and stable. * Lisinopril 20 mg by mouth daily * Metoprolol 50 mg by mouth twice a day [place] * Nitroglycerin 0.4 mg tab by mouth when necessary angina Hyperlipidemia: Chronic and stable * Atorvastatin 80 mg by mouth daily Hypothyroidism: Clinically stable * Levothyroxine 0.025 g Diabetes: Chronic and stable * Takes Lantus 30 units subcutaneous 10 PM * Con't RISS Aortic stenosis: Patient has loud 3/6 murmur right upper sternal border. * Follow up with your [facility] team regarding TAVR. Allergies: Coded Allergies: codeine (RASH, STOMACH PAIN 09/07/15) fish derived (STOMACH PAIN FROM `SEA FOOD' 09/07/15) Significant Procedures: Colonoscopy: Procedure: Combined follow-up upper endoscopy to the third portion of the duodenum with biopsies, plus follow-up colonoscopy to the terminal ileum, with biopsies/hot snare polypectomy 1, and prophylactic clipping 3, were performed with the Olympus high-definition videoscopes from above and below, after obtaining informed consent from the patient for each procedure prior to IV sedation, with the monitoring specialist and pulse oximeter, after 2 days of clears po, Miralax 17g po daily x 2 days & 1 gallon of GoLYTELY, with the assistance of Dr. Mcgregor, of [facility]. *Documenting photographs for each procedure were obtained from above and below, and placed inside the patient's chart. Follow-up upper endoscopy to the third portion of the duodenum with biopsies, was performed with the Olympus high definition videoendoscope, after obtaining informed consent from the patient, with the monitoring specialist and pulse oximeter, with the assistance of Dr. Mcgregor, of [facility]. The patient was edentulous. A mouthpiece was placed in the usual fashion to protect the patient 's oral cavity. The patient was placed in the left lateral decubitus position and sedated by [facility]. At this point, the endoscope was advanced from the mouth into the esophagus, using direct visualization technique. I did not get a good look at the vocal cords. The esophageal mucosa appeared normal. There were no esophageal webs, lesions, strictures, or ulcers. There was no monilia or vesicles. There was no esophageal ribbing. The Z line was well demarcated at 40 cm, with suggestion of a widely patent lower esophageal ring at the Z line at 40 cm. The "ring" spontaneously "opened up" completely, and flattened out. No dilatation was needed. There was no hiatal hernia pouch. No significant esophageal inflammation was seen. There were no ectopic islands, nor gross Maria's esophagus. Based on the patient's symptoms, random biopsies of normal -appearing distal esophageal mucosa were obtained: (Specimen B- 40 cm, Specimen C- 37 cm). There were no esophageal or gastric varices, nor any Daya Pascual tear. The bella of the stomach distended normally with air insufflation. Direct and retroflexed views of the stomach were performed. There was nothing endoscopically to suggest gastroparesis or portal gastropathy. The mucosa of the gastric cardia, fundus, lesser curvature, incisura, body, and antrum appeared normal, without any gastric ulcers or gastric lesions. The pylorus was patent, without any gastric outlet obstruction or channel ulcer. The duodenal bulb, duodenal sweep, & third portion of the duodenum appeared normal, without any duodenal ulcers, distal ulcerations, or angiodysplasias. I was not able to see the ampulla with the direct-viewing scope. The folds of the second & third portions of the duodenum were normal in caliber, without any flattening, nodularity, scalloping, or mosaic pattern. Nevertheless, in view of the iron deficiency, random small bowel biopsy 4 of normal-appearing second and third portions of the duodenum were obtained: (Specimen A- rule out malabsorption and/or celiac sprue). No active upper GI bleeding was seen. The patient tolerated the procedure well. After completing the preliminary follow-up upper endoscopy to the third portion of the duodenum with biopsies, follow-up colonoscopy to the terminal ileum, with biopsies/hot snare polypectomy x 1, and prophylactic clipping x 3, was performed with the Olympus high- definition videocolonoscope, after obtaining informed consent from the patient, with the monitoring specialist and pulse oximeter, after 2 days of clears po, Miralax 17 g daily x 2 days, and 1 gallon of GoLYTELY with the assistance of Dr. Mcgregor, of [facility]. The prep was fair at best, which apparently, had been a problem in the past. There was some residual, thick, tenacious, liquid stool and bile, which was suctioned clear as best as possible and irrigated with the water jet. A small mucosal abnormalities could have been obscured by this, and the patient was made aware of this. The patient was in the left lateral decubitus position throughout the procedure. Direct views of the rectum failed to reveal any external hemorrhoids, fissures, or perianal disease. Digital rectal exam was unremarkable, without any masses. Sphincter tone was normal. Retroflexion in the rectum failed to reveal any internal hemorrhoids, gross proctitis, rectal ulcers, or rectal lesions. The colonic mucosa was carefully inspected, both upon insertion and upon withdrawal of the colonoscope. Withdrawal time was exceedingly adequate. There were fairly extensive pandiverticulosis coli, left side greater than right, from the sigmoid to the cecum. The cecum, base of the appendix, and ileocecal valve were all identified. The last few centimeters of the terminal ileum were entered, and appeared normal. Confirmatory photographs were obtained. There was a 1 cm sessile left colon polyp at 40 cm, NBI positive, completely removed via biopsy/ hot snare polypectomy 1, using 25 W/pure coag. A small portion of this was lost in suction, but the majority was retrieved: (Specimen A). The patient then had extensive spasm in this region. Based on the need to resume Plavix in the near future, the decision was made to prophylactically clip the polypectomy site. At this point, the air channel repeatedly did not work, and I had a change colonoscopes. *The spasm added significant increased time to the procedure. SocialVolt Resolution 360 clips x 3 were successfully deployed over the polypectomy site, in anticipation of resuming Plavix and continuing aspirin. The polypectomy site was irrigated with the water jet, observed for several minutes postoperatively, and was stable, without any significant bleeding. Within the limits of the fair prep, the colonic mucosa otherwise appeared intact and within normal limits to the terminal ileum, without any additional polyps, lesions, gross colitis, ileitis, or angiodysplasias, keeping in mind the fact that a small mucosal abnormalities could have been obscured by the fair prep. Having stated that, I felt comfortable that no large lesions were seen. No active upper or lower GI bleeding was seen. The patient tolerated both procedures well. Disposition Summary Disposition Principal Diagnosis: anemia Additional Diagnosis: Severe Discharge Disposition: SNF Discharge Instructions General Discharge Information Code Status: Full Code Patient's Diet: Anti-reflux Patient's Activity: as tolerated Follow-Up Instructions/Appts: see above Medications at Discharge Discharge Medications: Stop taking the following medications: Aspirin (Aspirin*) 325 MG TABLET ORAL DAILY Continue taking these medications: Metoprolol Tartrate (Metoprolol Tartrate) 50 MG TABLET 1 Tablet ORAL DAILY Comments: Last Taken: 08/10/16 Time: 10AM Budesonide/Formoterol Fumarate (Symbicort 160-4.5 Mcg Inhaler) 160 MCG-4.5 MCG/ ACTUATION HFA.AER.AD 2 Puff Inhale through mouth TWICE DAILY Atorvastatin Calcium (Lipitor) 40 MG TABLET 1 Tablet ORAL DAILY Comments: Last Taken:08/09/16 Time: 10PM Carbidopa/Levodopa (Carbidopa-Levo 25-100 MG Odt) 25 MG-100 MG TAB.RAPDIS 1 Tablet ORAL THREE TIMES DAILY Nitroglycerin (Nitrostat) 0.4 MG TAB.SUBL 1 Tablet SUBLINGUAL As Directed Instructions: 1st sign of attack; may repeat every 5 minutes until relief; if pain persists after 3 tablets in 15 minutes, prompt medical att Lisinopril (Lisinopril) 20 MG TABLET 1 Tablet ORAL DAILY Comments: Last Taken: 08/10/16 Time: 10AM Levothyroxine Sodium (Synthroid) 25 MCG TABLET 1 Tablet ORAL DAILY Finasteride (Proscar) 5 MG TABLET 1 Tablet ORAL DAILY Omeprazole (Omeprazole) 20 MG CAPSULE.DR 1 Capsule ORAL DAILY as needed for GERD Qty = 30 Comments: NOT GIVEN IN HOSPITAL Insulin-Lantus (Lantus) 100 UNIT/ML VIAL 60 Units Inject into fatty tissue Every night Qty = 30 Comments: Last Taken: 12/19/16 Time: 10PM 30 UNITS OF LEVEMIR GIVEN Acetaminophen (Acetaminophen) 500 MG TABLET 1 Tablet ORAL As Directed as needed for PAIN Comments: NOT GIVEN IN HOSPITAL Bisacodyl (Bisacodyl) 5 MG TABLET.DR 1 Tablet ORAL DAILY as needed for constipation Qty = 30 Polyethylene Glycol 3350 (Miralax) 17 GRAM/DOSE POWDER 1 Packet ORAL DAILY as needed for Constipation Qty = 30 Sennosides/Docusate Sodium (Senna-Time S Tablet) 8.6 MG-50 MG TABLET 1 Tablet ORAL AT BEDTIME as needed for Constipation Qty = 30 Oxycodone HCl/Acetaminophen (Percocet 5-325 MG Tablet) 5 MG-325 MG TABLET 1 Tablet ORAL EVERY 8 HOURS as needed for Moderate pain Qty = 30 Comments: NOT GIVEN IN HOSPITAL Morphine Sulfate (Morphine Sulfate) 15 MG TABLET 1 Tablet ORAL EVERY SIX HOURS NEEDED as needed for Severe pain Qty = 30 Comments: NOT GIVEN IN HOSPITAL Insulin Aspart (Novolog) 100 UNIT/ML VIAL 1 Units Inject into fatty tissue BEFORE MEALS AND AT BEDTIME Qty = 1 Instructions: BEFORE MEALS Blood Insulin Sugar Units <80 Initiate hypoglycemia 80 -150 0 151-200 2 201-250 4 251-300 6 301-350 8 351-400 10 >400 12 and Call Doctor AT BEDTIME Blood Insulin Sugar Units <80 0 81-100 0 101-200 0 201-250 1 251-300 2 301-350 3 351-400 4 >400 Call Doctor Oxycodone HCl (Roxicodone) 5 MG TABLET 1 Tablet ORAL TWICE DAILY as needed for PAIN Qty = 10 Ranolazine (Ranexa) 500 MG TAB.ER.12H 1 Tablet ORAL TWICE DAILY Days = 15 Ampicillin Sodium/Sulbactam Na (Unasyn 1.5 Gm Vial) 1.5 GRAM VIAL 1.5 Gram INTRAVEN EVERY SIX HOURS Vancomycin HCl (Vancomycin HCl) 1 GRAM VIAL 1 Gram INTRAVEN DAILY Clopidogrel Bisulfate (Plavix) 75 MG TABLET 1 Tablet ORAL DAILY Insulin Glargine,Hum.rec.anlog (Lantus Solostar) 100 UNIT/ML (3 ML) INSULN.PEN 30 Unit Inject into fatty tissue Every night Start taking the following new medications: Aspirin (Aspirin*) 81 MG TAB.CHEW 1 Tablet ORAL DAILY Qty = 30 No Refills Copies To: CORNEL VELASCO,CHRISTINA
--- NOTE | 2016-12-31 14:06 | PN- Housestaff ---
Subjective Follow-up For: anemia osteomyelitis Review of Systems Constitutional: Reports: no symptoms. Objective Last 24 Hrs of Vital Signs/I&O Vital Signs Date Time Temp Pulse Resp B/P B/P Pulse O2 O2 Flow FiO2 Mean Ox Delivery Rate 12/31 0621 98.0 75 20 110/60 97 Room Air 12/30 2236 98.2 60 18 108/56 99 12/30 2109 85 148/72 12/30 1451 98.1 84 20 140/80 99 Room Air Intake & Output 12/31 1600 12/31 0800 12/31 0000 Intake Total 680 730 Output Total 750 Balance 680 -20 Intake, IV 200 250 Intake, Oral 480 480 Number Bowel Movements Output, Urine 750 Physical Exam General Appearance: Alert, Oriented X3, Cooperative, No Acute Distress Skin: No Rashes, No Breakdown, mole /flex on back HEENT: Atraumatic Cardiovascular: Regular Rate, Normal S1, Normal S2, loud 3/6 murmur right upper sternal border Abdomen: Normal Bowel Sounds, Soft, No Tenderness Extremities: r foot wrapped in bandage left foot big toe hgas 3 ulcers Current Medications: Current Medications Sig/Uvaldo Start time Last Medication Dose Route Stop Time Status Admin Acetaminophen 650 MG Q6P PRN 12/27 2030 AC PO Acetaminophen 1,000 MG Q6P PRN 12/27 2030 AC IV Alteplase, 2 MG ONCE ONE 12/31 0100 DC Recombinant IV 12/31 0101 Ampicillin Sodium/ 1,500 MG Q6H 12/28 0200 AC 12/31 Sulbactam Sodium IV 1027 Sodium Chloride 100 ML Aspirin 81 MG DAILY 12/29 1000 AC 12/31 PO 1027 Atorvastatin Calcium 40 MG DAILY 12/28 1000 AC 12/31 PO 1027 Bisacodyl 5 MG DAILY PRN 12/27 2330 AC 12/29 PO 0942 Budesonide/ 2 PUF BID 12/28 1000 AC 12/31 Formoterol Fumarate INH 1029 Clopidogrel Bisulfate 75 MG DAILY 12/31 1000 AC 12/31 PO 1027 Ferrous Sulfate 325 MG TID 12/31 1000 AC 12/31 PO 1027 Finasteride 5 MG DAILY 12/28 1000 AC 12/31 PO 1027 Folic Acid 1 MG DAILY 12/29 1000 AC 12/31 PO 1027 Insulin Aspart 0 TIDAC 12/31 0800 AC 12/31 SC 1216 Insulin Detemir 15 UNITS DAILY 12/28 1000 AC 12/31 SC 1028 Insulin Human Regular 0 Q6 12/30 0030 DC 12/30 SC 1926 Levothyroxine Sodium 0.025 MG DAILY 12/28 1000 AC 12/31 PO 1027 Multivitamins 1 TAB DAILY 12/29 1000 AC 12/31 PO 1027 Nitroglycerin 0.4 MG Q 5 MINUTES X 3 DO.. 12/27 2330 AC SL Omeprazole 40 MG DAILY AC 12/31 0700 AC 12/31 PO 0553 Oxycodone HCl 5 MG Q6H PRN 12/27 2045 AC 12/31 PO 1041 Pantoprazole Sodium 40 MG DAILY 12/28 1000 DC 12/30 IV 1925 Patient Medication 1 ED .STK-MED ONE 12/30 1415 [place] Teaching ED 12/30 1416 Polycarbophil 625 MG BID 12/31 1000 AC 12/31 PO 1027 Ranolazine 500 MG BID 12/28 1000 AC 12/31 PO 1027 Thiamine HCl 50 MG DAILY 12/29 1000 AC 12/31 PO 1027 Vancomycin HCl 1,500 MG DAILY 12/28 1000 AC 12/31 Sodium Chloride 500 ML IV 1216 Last 24 Hrs of Lab/Olegario Results Last 24 Hrs of Labs/Mics: Laboratory Tests 12/31/16 0605: Anion Gap 10, Estimated GFR > 60, BUN/Creatinine Ratio 5.0 L, CBC w Diff NO MAN DIFF REQ, RBC 2.87 L, MCV 87.9, MCH 29.9, RDW 15.7 H, MPV 6.4 L, Gran % 66.5, Lymphocytes % 24.9, Monocytes % 5.8, Eosinophils % 2.5, Basophils % 0.3, Absolute Granulocytes 4.2, Absolute Lymphocytes 1.6, Absolute Monocytes 0.4, Absolute Eosinophils 0.2, Absolute Basophils 0, PUBS MCHC 34.0 Assessment/Plan Assessment: This is a 76-year-old male past medical history significant for CAD status post CABG about 15 years ago, pacemaker placement for S-A node dysfunction, CHF, PVD status post several angiograms and stenting procedures, COPD not on any O2, osteomyelitis of the right lower extremity status post multiple digit amputation , 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 Guiac x 3 +. Initial ED Workup shows: Vitals: 97.5, 67, 18, 166/74, 100% on room air CBC shows white count 7.0, hemoglobin 7.3, hematocrit 22.3, platelet 224, INR 1.12. BEP shows sodium 136, BUN 12, creatinine 1.0. Alkaline phosphatase 289, total protein 5.6. CT abdomen and pelvis: Showed nonspecific air-fluid levels and with no evidence of free air or obvious source of infection. EKG: Paced rhythm with rate of 74 and irregular. PA 216, QTc 418 Guiac + in ED --------- Pt seen for following problems on Medicine Floor: Anemia: Patient has hemoglobin 7.3 on admission, on December 13 was high as 8.5. His baseline seems to be around 9-10. He did have prior several PRBC transfusion at [facility] about 2 weeks prior to this admission. At [facility] he was started on DAPT. Per previous workup at [facility] it does not seem like this is a new problem, however etiology currently still unknown. Seen by GI; ruled out ACS with troponins/ EKG, is s/p 1 unit PRBC w/ adequate response. * Con't ASA and Plavix but now ASA at 81 NOT 325mg * Follow up with Dr. Chin outpatient for biopsy results in two weeks * Con't Po protonix * Anti-reflux measures * Will require pillcam outpatient * Surveillance colonoscopy next in 12/2018 if pathology negative * Get 5'NTD test to evaluate alk. phos done on outpatient basis * Goal Hb>8 Osteomyelitis: Patient is had recent debridement at [facility]. He supposed follow with Dr. Bowden on the of this month. Will need to reschedule. But very improtant to follow up regarding antibiotic duration * Continue ampicillin sulbactam 1.5 g every 6 per podiatry doctor * Continue vancomycin per podiatry doctor CAD/Hypertension: Chronic and stable. * Lisinopril 20 mg by mouth daily * Metoprolol 50 mg by mouth twice a day [place] * Nitroglycerin 0.4 mg tab by mouth when necessary angina Hyperlipidemia: Chronic and stable * Atorvastatin 80 mg by mouth daily Hypothyroidism: Clinically stable * Levothyroxine 0.025 g Diabetes: Chronic and stable * Takes Lantus 30 units subcutaneous 10 PM * Con't RISS Aortic stenosis: Patient has loud 3/6 murmur right upper sternal border. * Follow up with your [facility] team regarding TAVR. Problem List: 1. Aortic stenosis 2. Anemia 3. Melena 4. Osteomyelitis Pain Ratin Pain Location: righ foot Pain Goal: Pain 4 or less Pain Plan: roxicodone 5mg q6 prn tylenol 650mg q6 Tomorrow's Labs & Rationales: ashli Consulting Request: Consulting Specialty: Gastroenterology
[2016-12-31] MEDS ORDERED: OMEPRAZOLE20 M2 PO (14:08)
[2016-12-31 15:15] VITALS: BP 120/62
[2016-12-31 16:04] VITALS: BP 120/62
== END 2016-12-31 17:45 | DRG 378 ==
LOC: ERH 15:58 → 2NB 20:35 → ERHI 20:35 → 2NB 20:35 → ENRESERV 21:00 → ENTRNSPT 21:59 → EDTRNSPTSTS 22:14 → 2NB 22:30 → CMPTRNSPT 22:40 → 2NB 12-30 08:54 → ENPENDDIS 12-31 14:56 → 2NB 12-31 17:45
PROVIDERS: Physician Assistant Medical; Student in an Organized Health Care Education/Training Program; ADMIT Student in an Organized Health Care Education/Training Program
PROC: 30233N1 Transfusion of Nonautologous Red Blood Cells into Peripheral Vein, Percutaneous Approach (ICD-10-PCS; 2016-12-28)
PROC: 0DB98ZX Excision of Duodenum, Via Natural or Artificial Opening Endoscopic, Diagnostic (ICD-10-PCS; principal; 2016-12-30)
PROC: 0DBG8ZX Excision of Left Large Intestine, Via Natural or Artificial Opening Endoscopic, Diagnostic (ICD-10-PCS; 2016-12-30)
PROC: 0W3P8ZZ Control Bleeding in Gastrointestinal Tract, Via Natural or Artificial Opening Endoscopic (ICD-10-PCS; 2016-12-30)
PROC: 0DB38ZX Excision of Lower Esophagus, Via Natural or Artificial Opening Endoscopic, Diagnostic (ICD-10-PCS; 2016-12-30)
DX: K92.2 Gastrointestinal hemorrhage, unspecified (principal); D62 Acute posthemorrhagic anemia; I11.0 Hypertensive heart disease with heart failure; E10.42 Type 1 diabetes mellitus with diabetic polyneuropathy; K86.1 Other chronic pancreatitis; M86.8X6 Other osteomyelitis, lower leg; I25.810 Atherosclerosis of coronary artery bypass graft(s) without angina pectoris; G20 Parkinson's disease; K70.30 Alcoholic cirrhosis of liver without ascites; I35.0 Nonrheumatic aortic (valve) stenosis; Z95.1 Presence of aortocoronary bypass graft; Z95.0 Presence of cardiac pacemaker; J44.9 Chronic obstructive pulmonary disease, unspecified; Z89.429 Acquired absence of other toe(s), unspecified side; E03.9 Hypothyroidism, unspecified; E78.5 Hyperlipidemia, unspecified; Z79.4 Long term (current) use of insulin; F32.9 Major depressive disorder, single episode, unspecified; Z79.01 Long term (current) use of anticoagulants; I48.91 Unspecified atrial fibrillation; D63.8 Anemia in other chronic diseases classified elsewhere; N40.0 Benign prostatic hyperplasia without lower urinary tract symptoms; D50.9 Iron deficiency anemia, unspecified; Z91.19 Patient's noncompliance with other medical treatment and regimen; F41.9 Anxiety disorder, unspecified; E10.51 Type 1 diabetes mellitus with diabetic peripheral angiopathy without gangrene; Z86.010 Personal history of colon polyps; H91.91 Unspecified hearing loss, right ear; K21.9 Gastro-esophageal reflux disease without esophagitis; K63.5 Polyp of colon; K57.30 Diverticulosis of large intestine without perforation or abscess without bleeding; I49.1 Atrial premature depolarization
CPT/HCPCS: 2NSBP; 74176; 82436; 86920; 93005; 93010; J0131; J1815; J2997; J3370; J3490; J7040; J7060; P9016

== ENCOUNTER 2017-10-22 09:15 | Emergency (ER) | payer OTHER, MEDICARE ==
[~2017-10-22] VITALS: Ht 180.3 cm; Wt 88.5 kg
[~2017-10-22 09:15] MED LIST changes: +ACEPHEN650 M1 PR; +ASPIRIN EC81 M1 PO; +ASPIRIN81 M4 PO; +DOCUSATE SODIU1 EACH PO; +DULCOLAX10 M1 RC; +ENEMA133 M1 PR; +KEFLEX500 M1 PO; +LANTUS SOL100 UNIT/1 SC; +MASOPHEN325 MG PO; -METOPROLOL TART50 M1 PO; +MILK OF MA400 MG/52 PO; +OMEPRAZOLE40 M1 PO; +PLAVIX75 M1 PO; +PROSOURCE275 GM PO; +RANEXA500 M1 PO; +SINEMET 25-1001 EACH PO; +TOPROL XL50 M1 PO; +TRAZODONE HCL50 M1 PO; +UNASYN 1.5 GM1.5 GM IV; +VANCOMYCIN HCL1 G1 IV; +VITAMIN D250000 UNIT PO
--- NOTE | 2017-10-22 09:22 | ED MVC/FALL/TRAUMA COMPLAINT ---
History of Present Illness General Chief Complaint: Fall Stated Complaint: BIBA FALL Source: patient, old records Exam Limitations: poor historian Vital Signs & Intake/Output Vital Signs & Intake/Output Vital Signs Date Time Temp Pulse Resp B/P B/P Pulse O2 O2 Flow FiO2 Mean Ox Delivery Rate 10/22 1233 98.6 77 18 134/60 98 Room Air 10/22 922 98 Room Air 10/23 919 98.8 79 18 117/58 98 Room Air Allergies Coded Allergies: codeine (RASH, STOMACH PAIN 01/31/17) tramadol (AGITATION 10/22/17) fish derived (STOMACH PAIN FROM `SEA FOOD' 01/31/17) Reconcile Medications Acetaminophen (Acephen) 650 MG SUPP.RECT 1 SUPP MN Q4H PRN PAIN/TEMP>101 ( Reported) Acetaminophen (Masophen) 325 MG TABLET 2 TAB PO Q4H PRN PAIN/TEMP/>101 ( Reported) Aspirin (Ecotrin*) 81 MG TABLET.DR 1 TAB PO DAILY HEART/BLOOD (Reported) Atorvastatin Calcium (Lipitor) 40 MG TABLET 1 TAB PO QPM CHOLESTEROL ( Reported) Benztropine Mesylate 0.5 MG TABLET 1 TAB PO BID UNKNOWN (Reported) Bisacodyl (Dulcolax) 10 MG SUPP.RECT 1 SUP RC DAILY PRN CONSTIPATION ( Reported) Budesonide/Formoterol Fumarate (Symbicort 160-4.5 Mcg Inhaler) 160 MCG-4.5 MCG/ ACTUATION HFA.AER.AD 2 PUF INH BID COPD (Reported) Carbidopa/Levodopa (Sinemet 25-100 MG Tablet) 25 MG-100 MG TABLET 1 TAB PO DAILY UNKNOWN (Reported) Cholecalciferol (Vitamin D3) (Vitamin D3) 50,000 UNIT CAPSULE 1 CAP PO Q30D VITAMIN SUPPORT (Reported) Clopidogrel Bisulfate (Plavix) 75 MG TABLET 1 TAB PO DAILY UNKNOWN (Reported) Divalproex Sodium (Depakote Sprinkle) 125 MG CAP.SPRINK 3 CAP PO DAILY UNKNOWN (Reported) Divalproex Sodium (Depakote Sprinkle) 125 MG CAP.SPRINK 2 CAP PO QPM UNKNOWN (Reported) Famotidine 20 MG TABLET 1 TAB PO BID GI (Reported) Finasteride (Proscar) 5 MG TABLET 1 TAB PO DAILY BPH (Reported) Insulin Aspart (Novolog) 100 UNIT/ML VIAL DM (Reported) Insulin Glargine,Hum.rec.anlog (Lantus Solostar) 100 UNIT/ML (3 ML) INSULN.PEN 32 UNIT SC QPM DIABETES (Reported) Levothyroxine Sodium (Synthroid) 25 MCG TABLET 1 TAB PO DAILY AC THYROID ( Reported) Lisinopril 20 MG TABLET 1 TAB PO DAILY HEART (Reported) Magnesium Hydroxide (Milk Of Magnesia) 400 MG/5 ML ORAL.SUSP 30 ML PO DAILY PRN CONSTIPATION (Reported) Metoprolol Succ XL (Toprol Xl) 50 MG TAB 1 TAB PO DAILY HEART (Reported) Na Phos,M-B/Na Phos,Di-Ba (Enema) 19 GRAM-7 GRAM/118 ML ENEMA 1 E MN DAILY PRN CONSTIPATION (Reported) Omeprazole 40 MG CAPSULE.DR 1 CAP PO DAILY GI (Reported) Polyethylene Glycol 3350 (Miralax) 17 GRAM POWD.PACK 1 PAC PO DAILY CONSTIPATION (Reported) dissolve in water Quetiapine Fumarate 300 MG TABLET 0.5 TAB PO TID MENTAL HEALTH (Reported) Sennosides/Docusate Sodium (Docusate Sodium-Senna Tablet) 8.6 MG-50 MG TABLET 1 TAB PO BID GI (Reported) Sertraline HCl 25 MG TABLET 3 TAB PO DAILY MENTAL HEALTH (Reported) Thiamine HCl 100 MG TABLET 1 TAB PO DAILY VITAMIN SUPPORT (Reported) Triage Note: 76 YO MALE TO TRIAGE FOR EVAL OF LACERATION ON L FOREHEAD FROM A FALL THIS AM. PT STATES HE TRIPPED WITH HIS WALKER THIS AM FALLING AND HITTING HIS HEAD. PT NOTED WITH LAC ON L EYEBROW, BLEEDING CONTROLLED AT THIS TIME. PT A&O X3 AT THIS TIME. PT IS ON PLAVIX. PT STATES +LOC PRIOR TO THE FALL. PER EMS, THERE WAS NO LOC. Triage Nurses Notes Reviewed? yes Onset: Abrupt Duration: constant Timing: single episode today Severity: moderate Severity Numbers: 5 HPI: Patient is a 76-year-old male with a past medical history of pacemaker placement DUE TO S-A NOTED DYSFUNCTION, CHF, PVD STATUS POST SEVERAL EXTREMITY ANGIOGRAMS AND STENTING, OSTEOMYELITIS, CAD currently on Plavix, hypertension and hyperlipidemia hypothyroidism bipolar disorder COPD chronic pancreatitis hypothyroidism early Parkinson's and liver cirrhosis secondary to alcohol who presents emergency room brought in by ambulance for concerns of a fall where patient states that he woke up in his normal state of health however while ambulating to his walker he felt generalized weakness and shaking sensation to his bilateral lower extremities where he fell and struck his left eyebrow to the floor where patient also developed acute onset of bilateral elbow pain and neck pain. Patient's does present to appear to be a poor historian versus confusion in which history is limited in which patient W- 10 indicates that there is no loss of consciousness however increased confusion is noted where patient states that he did lose consciousness (Juma Montalvo) Past History Travel History Traveled to [place] past 21 day No Medical History Any Pertinent Medical History? 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 CVA FH: CAD (coronary artery disease) FH: heart attack BROTHER FH: CAD (coronary artery disease) SISTER FH: CAD (coronary artery disease) MOTHER (DM). , Age 75; Cause: CVA (cerebral vascular accident). Hx Contributory? No (Jmua Monatlvo) Review of Systems Review of Systems Constitutional: Reports: see HPI, malaise, weakness. Denies: fever. Eyes: Reports: see HPI. Denies: blindness, blurred vision. Ears, Nose, Throat, Mouth: Reports: no symptoms. Respiratory: Reports: no symptoms. Cardiovascular: Reports: no symptoms. Gastrointestinal/Abdominal: Reports: no symptoms. Genitourinary: Reports: no symptoms. Musculoskeletal: Reports: see HPI. Skin: Reports: see HPI. Neurological/Psychological: Reports: no symptoms. All Other Systems: Reviewed and Negative (Juma Montalvo) Physical Exam Physical Exam General Appearance: no apparent distress, comfortable Head: active bleeding Eyes: Bilateral: normal appearance, PERRL, EOMI. Ears, Nose, Throat, Mouth: hearing grossly normal, moist mucous membrane, Tympanic normal Neck: limited range of motion, paraspinous muscle tender, spinous processes tender Respiratory: normal breath sounds, chest non-tender Cardiovascular: regular rate/rhythm Gastrointestinal: normal bowel sounds, soft, non-tender Extremities: normal range of motion Neurologic/Psych: no motor/sensory deficits, awake, alert, oriented x 3, normal mood/affect Comments: Bilateral shoulders normal inspection nontender Bilateral elbows generalized olecranon point tenderness full active range of motion mild skin abrasions noted Bilateral wrist and hands normal inspection nontender Bilateral lower extremities hip knee ankle normal inspection nontender Diagram Head: 1) NOTED 2 CM MILDLY GAPING LACERATION WITH MILD DRIED BLOOD AND TENDERNESS 2) Please disregard the #1 documentation in which the area was partially 2.5 cm mildly gaping and irregular with superficial depth laceration Core Measures ACS in differential dx? No CVA/TIA Diagnosis No Sepsis Present: No Sepsis Focused Exam Completed? No (Juma Montalvo) Progress Differential Diagnosis: abd injury, C/T/L spine injury, ext injury, ICH, pelvis injury, pnemothorax, spinal cord injury Plan of Care: Orders Procedure Date/time Status URINALYSIS 10/23 923 Complete TROPONIN LEVEL 10/23 923 Complete COMPREHENSIVE METABOLIC PANEL 10/23 923 Complete CBC WITHOUT DIFFERENTIAL 10/23 923 Complete EKG 10/23 923 Active Laboratory Tests 10/22/17 1039: Anion Gap 11, Estimated GFR 53 L, BUN/Creatinine Ratio 19.2, Glucose 152 H, Calcium 8.6, Total Bilirubin 0.5, AST 25, ALT 42, Alkaline Phosphatase 168 H, Troponin I < 0.01, Total Protein 6.0 L, Albumin 3.6, Globulin 2.4, Albumin/ Globulin Ratio 1.5, CBC w Diff NO MAN DIFF REQ, RBC 3.53 L, MCV 87.2, MCH 30.0, MCHC 34.3, RDW 14.9 H, MPV 6.5 L, Gran % 67.9, Lymphocytes % 22.9, Monocytes % 6.7, Eosinophils % 2.2, Basophils % 0.3, Absolute Granulocytes 4.6, Absolute Lymphocytes 1.6, Absolute Monocytes 0.5, Absolute Eosinophils 0.1, Absolute Basophils 0, Urine Color YEL, Urine Clarity CLEAR, Urine pH 6.5, Ur Specific Bath 1.010, Urine Protein NEG, Urine Ketones NEG, Urine Nitrite NEG, Urine Bilirubin NEG, Urine Urobilinogen 0.2, Ur Leukocyte Esterase NEG, Ur Microscopic EXAM NOT REQUIRED, Urine Hemoglobin NEG, Urine Glucose 100 H Patient had unremarkable EKG blood work urinalysis and CT scan of head and cervical spine. Margins were revised with suture placement Nursing staff did call the staff at patient's residency at [facility] and which the fall was witnessed no loss of consciousness had occurred Patient was able to ambulate with a walker in the emergency room showing steady gait reported and supervised by the nursing staff. Dr. LAROSE also agrees with disposition and plan Diagnostic Imaging: Viewed by Me: Radiology Read, CT Scan. Radiology Impression: no acute abnormality, no fracture Initial ED EKG: ATRIAL PACED RHYTHM AT 76 BPM. Comments: PATIENT: JAMES GARCIA PRESENT AGE: 76 PATIENT ACCOUNT NO: [id number] : 38 LOCATION: [facility] ORDERING PHYSICIAN: Juma MCGILL SERVICE DATE: 10/22/17 EXAM TYPE: CAT - CT HEAD WO IV CONTRAST EXAMINATION: CT HEAD WITHOUT CONTRAST CLINICAL INFORMATION: Left head injury; anticoagulation therapy. COMPARISON: CT brain dated 02/03/2017. TECHNIQUE: Contiguous axial imaging was performed from the skull base to vertex without intravenous administration of contrast. DLP: 704.42 mGy-cm FINDINGS: There is no evidence of acute intracranial hemorrhage or territorial infarction. No abnormal mass effect or midline shift is seen. Bautista to white matter differentiation is well preserved. No extra-axial fluid collections are identified. The ventricles are normal in size. There is mild patchy low attenuation change in the periventricular white matter spaces. There is a small low-attenuation lacunar infarction in the right caudate head (3:15). This is unchanged from 02/03/2017 (2:26). There are atherosclerotic calcifications of the skull base vasculature. The osseous structures and soft tissues are normal. The mastoid air cells and visualized portions of the paranasal sinuses are well aerated. IMPRESSION: 1. No acute intracranial pathology. There is no significant interim change. 2. A small right caudate head lacunar infarction is redemonstrated. 3. There is mild patchy low attenuation change in the periventricular white matter spaces, commonly associated with chronic microangiopathy. DICTATED BY: Vic Michelle MD DATE/TIME DICTATED:10/22/171034 HAIRCUTTER:LAUREN PATIENT: JAMES GARCIA PRESENT AGE: 76 PATIENT ACCOUNT NO: [id number] : 38 LOCATION: [facility] ORDERING PHYSICIAN: Juma MCGILL SERVICE DATE: 10/22/17 EXAM TYPE: RAD - XRY-ELBOW 3 OR MORE VIEWS, R EXAMINATION: XR ELBOW, RIGHT CLINICAL INFORMATION: Pain. COMPARISON: None TECHNIQUE: AP, lateral, and oblique views of the right elbow. FINDINGS: The bones and soft tissues are normal. No fracture or joint effusion. Alignment is anatomic. A moderate enthesophyte is seen arising from the olecranon process. Joint spaces are maintained. There are diffuse atherosclerotic calcifications. IMPRESSION: Unremarkable right elbow. DICTATED BY: Vic Michelle MD DATE/TIME DICTATED:10/22/171008 HAIRCUTTER:LAUREN PATIENT: JAMES GARCIA PRESENT AGE: 76 PATIENT ACCOUNT NO: [id number] : 38 LOCATION: [facility] ORDERING PHYSICIAN: Juma MCGILL SERVICE DATE: 10/22/17 EXAM TYPE: RAD - XRY-ELBOW 3 OR MORE VIEWS, L EXAMINATION: XR ELBOW, LEFT CLINICAL INFORMATION: Trauma COMPARISON: None TECHNIQUE: 5 views of the left elbow. FINDINGS: The bones are normal. No fracture or joint effusion. Alignment is anatomic. Joint spaces are maintained. Arterial vascular calcifications are seen in the distal left arm and proximal forearm. IMPRESSION: No evidence of fracture, dislocation, or joint effusion. DICTATED BY: Jaime Jasmine MD DATE/TIME DICTATED:10/22/171010 HAIRCUTTER:LAUREN DATE/TIME TRANSCRIBED:10/22/171010 (Juma Montalvo) Departure Departure Disposition: HOME OR SELF CARE Condition: Stable Clinical Impression Primary Impression: Laceration of eyebrow, left Secondary Impressions: Elbow contusion, Fall Referrals: Radha Vaca MD (PCP/Family) Additional Instructions: As discussed always use a walker for fall prevention, Departure Forms: Customer Survey General Discharge Information (Juma Montalvo) PA/TRACTOR OPERATOR BATTERY Co-Sign Statement Statement: ED Attending supervision documentation- [X] I saw and evaluated the patient. I have also reviewed all the pertinent lab results and diagnostic results. I agree with the findings and the plan of care as documented in the PA's/TRACTOR OPERATOR BATTERY's documentation. [] I have reviewed the ED Record and agree with the PA's/TRACTOR OPERATOR BATTERY's documentation. [] Additions or exceptions (if any) to the PAs/TRACTOR OPERATOR BATTERY's note and plan are summarized below: [] (Jae Larose DO) Procedures Laceration/Wound Repair Laceration/Wound Repair: Wound Location: face (LEFT EYEBROW) Wound's Depth, Shape: irregular, superficial Wound Length (cm): 2.5 Wound Explored: clean, no foreign body removed, irrigated extensively Irrigated w/ Saline (ccs): 360 Betadine Prep? Yes (CHLORHEXIDINE) Anesthesia: 1% lidocaine Volume Anesthetic (ccs): 6 Wound Repaired With: sutures Suture Size/Type: 5:0 Number of Sutures: 7 Progress: Laceration was repaired with #7 sutures to the left eyebrow Margins were revised bacitracin and bandages were applied (Juma Montalvo)
[2017-10-22] MEDS ORDERED: BENZTROPINE ME0.5 M1 PO (09:33)
[2017-10-22] MEDS ORDERED: DEPAKOTE SPRIN125 M1 PO ×2 (09:34→09:35)
[2017-10-22] MEDS ORDERED: FAMOTIDINE20 M1 PO (09:36)
[2017-10-22] MEDS ORDERED: QUETIAPINE FUM300 M1 PO (09:38)
[2017-10-22] MEDS ORDERED: SERTRALINE HCL25 MG PO (09:39)
[2017-10-22] MEDS ORDERED: THIAMINE HCL100 M1 PO (09:39)
[2017-10-22] MEDS ORDERED: MIRALAX17 G1 PO (09:41)
[2017-10-22] MEDS ORDERED: VITAMIN D350000 UNIT PO (09:41)
--- NOTE | 2017-10-22 10:15 | RADIOLOGY REPORT ---
EXAMINATION: XR ELBOW, RIGHT CLINICAL INFORMATION: Pain. COMPARISON: None TECHNIQUE: AP, lateral, and oblique views of the right elbow. FINDINGS: The bones and soft tissues are normal. No fracture or joint effusion. Alignment is anatomic. A moderate enthesophyte is seen arising from the olecranon process. Joint spaces are maintained. There are diffuse atherosclerotic calcifications. IMPRESSION: Unremarkable right elbow.
--- NOTE | 2017-10-22 10:17 | RADIOLOGY REPORT ---
EXAMINATION: XR ELBOW, LEFT CLINICAL INFORMATION: Trauma COMPARISON: None TECHNIQUE: 5 views of the left elbow. FINDINGS: The bones are normal. No fracture or joint effusion. Alignment is anatomic. Joint spaces are maintained. Arterial vascular calcifications are seen in the distal left arm and proximal forearm. IMPRESSION: No evidence of fracture, dislocation, or joint effusion.
--- NOTE | 2017-10-22 10:42 | CT SCAN REPORT ---
EXAMINATION: CT HEAD WITHOUT CONTRAST CLINICAL INFORMATION: Left head injury; anticoagulation therapy. COMPARISON: CT brain dated 02/03/2017. TECHNIQUE: Contiguous axial imaging was performed from the skull base to vertex without intravenous administration of contrast. DLP: 704.42 mGy-cm FINDINGS: There is no evidence of acute intracranial hemorrhage or territorial infarction. No abnormal mass effect or midline shift is seen. Bautista to white matter differentiation is well preserved. No extra-axial fluid collections are identified. The ventricles are normal in size. There is mild patchy low attenuation change in the periventricular white matter spaces. There is a small low-attenuation lacunar infarction in the right caudate head (3:15). This is unchanged from 02/03/2017 (2:26). There are atherosclerotic calcifications of the skull base vasculature. The osseous structures and soft tissues are normal. The mastoid air cells and visualized portions of the paranasal sinuses are well aerated. IMPRESSION: 1. No acute intracranial pathology. There is no significant interim change. 2. A small right caudate head lacunar infarction is redemonstrated. 3. There is mild patchy low attenuation change in the periventricular white matter spaces, commonly associated with chronic microangiopathy.
[2017-10-22 10:51] LABS: ABSOLUTE BASOPHIL COUNT 0 /CUMM (0.0-0.2); ABSOLUTE EOSINOPHIL COUNT 0.1 /CUMM (0.0-0.7); ABSOLUTE GRANULOCYTE CT 4.6 /CUMM (1.4-6.5); ABSOLUTE LYMPH COUNT 1.6 /CUMM (1.2-3.4); ABSOLUTE MONOCYTE COUNT 0.5 /CUMM (0.10-0.60); BASOPHIL % 0.3 % (0.0-2.0); EOSINOPHIL % 2.2 % (0-5); GRANULOCYTE % 67.9 % (42.2-75.2); HEMATOCRIT 30.8 % (42-52); MEAN CORPUSCULAR HGB CONC 34.3 G/DL (33.0-37.0); MEAN CORPUSCULAR VOLUME 87.2 FL (80.0-94.0); MEAN PLATELET VOLUME 6.5 FL (7.4-10.4); PLATELET COUNT 133 /CUMM (130-400); RBC DISTRIBUTION WIDTH 14.9 % (11.5-14.5); RED BLOOD CELL CT 3.53 /CUMM (4.70-6.10); WHITE BLOOD CELL COUNT 6.8 /CUMM (4.8-10.8)
--- NOTE | 2017-10-22 10:51 | CT SCAN REPORT ---
EXAMINATION: CT CERVICAL SPINE WITHOUT CONTRAST CLINICAL INFORMATION: Head injury. COMPARISON: None. TECHNIQUE: Without the addition of intravenous contrast, multiple contiguous multidetector transaxial sections are obtained through the cervical spine. Sagittal and coronal reformatted images are reviewed. DLP: 1099.89 mGy-cm FINDINGS: Vertebral body heights and alignment are normal. The disc spaces are well-maintained. There is marked osteoarthritic change at the atlantoaxial junction. There is marked spondylosis at C4-C5. Mild spondylosis is seen at C5-C6 through C7-T1. There is moderately severe spondylosis at T1-T2 and T2-T3. There is No acute fracture or spondylolisthesis is seen. The posterior elements are intact. The dens and C7-T1 interface are intact. There is no prevertebral soft tissue swelling. Right subclavian pacemaker wires are noted. The lung apices appear clear. IMPRESSION: 1. No acute fracture or spondylolisthesis is seen. 2. The disc spaces are well-maintained. 3. There is multi-level cervical and upper thoracic spondylosis.
[2017-10-22 14:14] VITALS: BP 128/84
== END 2017-10-22 14:15 ==
LOC: ERH 09:15
PROVIDERS: Physician Assistant
DX: S01.112A Laceration without foreign body of left eyelid and periocular area, initial encounter (principal); S50.01XA Contusion of right elbow, initial encounter; S50.02XA Contusion of left elbow, initial encounter; W19.XXXA Unspecified fall, initial encounter; Y92.9 Unspecified place or not applicable; Y93.9 Activity, unspecified
CPT/HCPCS: 73080-LT; 73080-RT; 81003; 93005; 93010; J2001